=== PATIENT | male | born 1960 ===

== ENCOUNTER → 2020-07-16 12:53 | Outpatient (BNVA) | payer OTHER, SELFPAY | PROVIDERS: PCP Internal Medicine; Visit Provider Internal Medicine Endocrinology, Diabetes & Metabolism | DX: E11.65 Type 2 diabetes mellitus with hyperglycemia (principal); E11.3599 Type 2 diabetes mellitus with proliferative diabetic retinopathy without macular edema, unspecified eye; E11.21 Type 2 diabetes mellitus with diabetic nephropathy; E11.22 Type 2 diabetes mellitus with diabetic chronic kidney disease; E78.00 Pure hypercholesterolemia, unspecified; I12.9 Hypertensive chronic kidney disease with stage 1 through stage 4 chronic kidney disease, or unspecified chronic kidney disease; N18.30 Chronic kidney disease, stage 3 unspecified; E66.3 Overweight; Z68.28 Body mass index [BMI] 28.0-28.9, adult; Z79.4 Long term (current) use of insulin; Z71.3 Dietary counseling and surveillance | CPT/HCPCS: 82947; 99212 ==

== ENCOUNTER 2020-11-04 09:17 | Outpatient (REF) | payer OTHER, SELFPAY ==
[2020-11-04 10:24] LABS: Hematocrit 44.1 % (42-52); Hemoglobin 14.7 g/dl (14.0-18.0); Mean Corpuscular HGB Conc 33.3 g/dl (31.0-36.0); Mean Corpuscular Hemoglobin 30.3 pg (27.0-33.0); Mean Corpuscular Volume 90.9 fL (80-98); Mean Platelet Volume 11.5 fL (9.4-12.4); Platelet Count 225 X10*3/uL (160-400); Red Blood Count 4.85 X10*6/uL (4.60-5.80); Red Cell Distribution Width 13.3 % (11.0-16.0)
[2020-11-04 10:54] LABS: Alanine Aminotransferase 11 U/L (0-40); Albumin Level 4.1 g/dL (3.5-5.0); Alkaline Phosphatase 71 U/L (39-117); Anion Gap 15 (12-20); Aspartate Amino Transferase 12 U/L (5-37); Bilirubin Total 0.8 mg/dL (0.0-1.0); Blood Urea Nitrogen 20 mg/dL (9-16); Calcium 9.6 mg/dL (8.4-10.2); Carbon Dioxide 25 mmol/L (22-29); Chloride 105 mmol/L (96-108); Cholesterol 117 mg/dL; Estimated Glomerular Filt Rate 43; Glucose Fasting 104 mg/dL (60-99); HDL Cholesterol 35 mg/dL; LDL Cholesterol Calculated 72 mg/dl; Potassium 4.5 mmol/L (3.3-5.1); Sodium 140 mmol/L (135-145); Total Protein 6.9 g/dL (6.5-8.0); Triglycerides 54 mg/dL
[2020-11-04 10:54] LABS: Creatinine Urine 149.79 mg/dL; Microalbum/Creatinine Ratio Ur 235.6 ug/mg cr
[2020-11-04 11:28] LABS: TSH reflex Free T4 0.08 uIU/mL (0.32-4.0)
[2020-11-04 11:58] LABS: Prostate Specific Antigen Scr 0.85 ng/mL (<0.05-4.0)
[2020-11-04 12:05] LABS: Free T4 (Free Thyroxine) 1.05 ng/dL (0.71-1.85)
[2020-11-05 23:21] LABS: LDL Cholesterol Direct 72 mg/dL (<100)
== END 2020-11-04 09:18 | disposition home or self-care (01) ==
LOC: HO.LAB 09:17
PROVIDERS: Physician Assistant; PCP Internal Medicine; Visit Provider Internal Medicine Endocrinology, Diabetes & Metabolism
DX: Z12.5 Encounter for screening for malignant neoplasm of prostate (principal); I10 Essential (primary) hypertension; E11.65 Type 2 diabetes mellitus with hyperglycemia; Z79.4 Long term (current) use of insulin
CPT/HCPCS: 36415; 80053; 80061; 82043; 83721; 84153; 84439; 84443; 85027

== ENCOUNTER 2021-01-25 11:38 | Outpatient (REF) | payer OTHER, SELFPAY ==
[2021-01-25 12:45] LABS: Cholesterol 146 mg/dL; HDL Cholesterol 47 mg/dL; LDL Cholesterol Calculated 87 mg/dl; Triglycerides 61 mg/dL
[2021-01-25 13:06] LABS: Free T4 (Free Thyroxine) 0.89 ng/dL (0.71-1.85); Thyroid Stimulating Hormone 0.97 uIU/mL (0.32-4.0)
== END 2021-01-25 11:39 | disposition home or self-care (01) ==
LOC: HO.LAB 11:38
PROVIDERS: Absent Provider Internal Medicine; PCP Internal Medicine; Visit Provider Internal Medicine Endocrinology, Diabetes & Metabolism
DX: E11.65 Type 2 diabetes mellitus with hyperglycemia (principal); Z79.4 Long term (current) use of insulin; Z72.0 Tobacco use
CPT/HCPCS: 36415; 80061; 84439; 84443

== ENCOUNTER → 2021-02-26 13:06 | Outpatient (BNVA) | payer OTHER, SELFPAY | PROVIDERS: PCP Internal Medicine; Visit Provider Nurse Practitioner Gerontology | DX: E11.65 Type 2 diabetes mellitus with hyperglycemia (principal); E11.3599 Type 2 diabetes mellitus with proliferative diabetic retinopathy without macular edema, unspecified eye; E11.21 Type 2 diabetes mellitus with diabetic nephropathy; E11.22 Type 2 diabetes mellitus with diabetic chronic kidney disease; I12.9 Hypertensive chronic kidney disease with stage 1 through stage 4 chronic kidney disease, or unspecified chronic kidney disease; N18.30 Chronic kidney disease, stage 3 unspecified; E66.3 Overweight; E78.00 Pure hypercholesterolemia, unspecified; Z79.4 Long term (current) use of insulin; Z68.29 Body mass index [BMI] 29.0-29.9, adult | CPT/HCPCS: 82947; 83036; 99212 ==

== ENCOUNTER 2021-06-03 11:11 | Outpatient (REF) | payer OTHER, SELFPAY ==
[2021-06-03 11:22] LABS: MANUAL DIFF FLAG NO
[2021-06-03 11:41] LABS: Basophils Percent Auto 0.5 % (0-2); Eosinophils Absolute Auto 0.3 X10*3/uL (0.0-0.4); Eosinophils Percent Auto 5.2 % (0-4); Hematocrit 45.6 % (42.0-52.0); Hemoglobin 14.9 g/dl (14.0-18.0); Imm Gran Abs Auto 0.01 X10*3/uL (0.00-0.03); Imm Gran Pct Auto 0.2 % (0.0-0.4); Lymphocytes Absolute Auto 2.6 X10*3/uL (1.2-4.9); Lymphocytes Percent Auto 43.7 % (20-40); Mean Corpuscular HGB Conc 32.7 g/dl (31.0-36.0); Mean Corpuscular Hemoglobin 29.8 pg (27.0-33.0); Mean Corpuscular Volume 91.2 fL (80.0-98.0); Mean Platelet Volume 11.3 fL (9.4-12.4); Monocytes Absolute Auto 0.5 X10*3/uL (0.1-1.2); Monocytes Percent Auto 8.4 % (2-11); Neutrophils Absolute Auto 2.5 x10*3/uL (2.0-8.3); Platelet Count 195 X10*3/uL (160-400); Red Cell Distribution Width 13.9 % (11.0-16.0); White Blood Count 5.9 X10*3/uL (4.8-10.8)
[2021-06-03 12:27] LABS: Alanine Aminotransferase 13 U/L (0-40); Albumin Level 4.2 g/dL (3.5-5.0); Alkaline Phosphatase 69 U/L (39-117); Anion Gap 11 (12-20); Aspartate Amino Transferase 14 U/L (5-37); Bilirubin Total 1.1 mg/dL (0.0-1.0); Blood Urea Nitrogen 23 mg/dL (9-16); Calcium 9.6 mg/dL (8.4-10.2); Carbon Dioxide 28 mmol/L (22-29); Chloride 105 mmol/L (96-108); Cholesterol 145 mg/dL; Estimated Glomerular Filt Rate 40; Glucose Fasting 87 mg/dL (60-99); HDL Cholesterol 47 mg/dL; LDL Cholesterol Calculated 90 mg/dl; Potassium 4.7 mmol/L (3.3-5.1); Sodium 139 mmol/L (135-145); Total Protein 7.1 g/dL (6.5-8.0); Triglycerides 42 mg/dL
[2021-06-03 12:31] LABS: Estimated Average Glucose 180 mg/dL; Hemoglobin A1c % 7.9 %
[2021-06-03 12:34] LABS: Prostate Specific Antigen Scr 0.54 ng/mL (<0.05-4.0)
== END 2021-06-03 11:12 | disposition home or self-care (01) ==
LOC: HO.LAB 11:11
PROVIDERS: PCP Internal Medicine; Visit Provider Nurse Practitioner Family
DX: E78.00 Pure hypercholesterolemia, unspecified (principal); I10 Essential (primary) hypertension; E11.65 Type 2 diabetes mellitus with hyperglycemia; Z12.5 Encounter for screening for malignant neoplasm of prostate
CPT/HCPCS: 36415; 80053; 80061; 83036; 84153; 85025

== ENCOUNTER 2021-10-04 12:53 | Outpatient (REF) | payer OTHER, SELFPAY ==
--- NOTE | ~2021-10-04 | XR_ITS ---
EXAMINATION: XR CHEST CLINICAL INFORMATION: Tobacco use. COMPARISON: September 26, 2014. TECHNIQUE: 2 views of the chest were obtained. FINDINGS: No significant abnormality is noted involving the heart, lungs, mediastinum, bony thorax or soft tissues. XR/XR chest 2V IMPRESSION: Unremarkable examination.
[2021-10-04 13:30] LABS: MANUAL DIFF FLAG NO
[2021-10-04 13:34] LABS: Basophils Percent Auto 0.5 % (0-2); Eosinophils Absolute Auto 0.2 X10*3/uL (0.0-0.4); Eosinophils Percent Auto 3.2 % (0-4); Hematocrit 47.6 % (42.0-52.0); Hemoglobin 15.6 g/dl (14.0-18.0); Imm Gran Abs Auto 0.02 X10*3/uL (0.00-0.03); Imm Gran Pct Auto 0.3 % (0.0-0.4); Lymphocytes Absolute Auto 2.6 X10*3/uL (1.2-4.9); Lymphocytes Percent Auto 38.5 % (20-40); Mean Corpuscular HGB Conc 32.8 g/dl (31.0-36.0); Mean Corpuscular Hemoglobin 29.9 pg (27.0-33.0); Mean Corpuscular Volume 91.4 fL (80.0-98.0); Mean Platelet Volume 11.4 fL (9.4-12.4); Monocytes Absolute Auto 0.6 X10*3/uL (0.1-1.2); Monocytes Percent Auto 8.6 % (2-11); Neutrophils Absolute Auto 3.3 x10*3/uL (2.0-8.3); Neutrophils Percent Auto 48.9 % (45-73); Platelet Count 212 X10*3/uL (160-400); Red Blood Count 5.21 X10*6/uL (4.60-5.80); Red Cell Distribution Width 13.4 % (11.0-16.0); White Blood Count 6.6 X10*3/uL (4.8-10.8)
[2021-10-04 14:01] LABS: Albumin Level 4.3 g/dL (3.5-5.0); Anion Gap 15 (12-20); Blood Urea Nitrogen 25 mg/dL (9-16); Calcium 9.6 mg/dL (8.4-10.2); Carbon Dioxide 24 mmol/L (22-29); Chloride 104 mmol/L (96-108); Estimated Glomerular Filt Rate 37; Magnesium 2.2 mg/dL (1.6-2.6); Phosphorus 3.7 mg/dL (2.7-4.5); Potassium 4.3 mmol/L (3.3-5.1); Sodium 139 mmol/L (135-145)
[2021-10-04 14:31] LABS: Vitamin D 25-OH Total 25.9 ng/mL (>30)
[2021-10-05 04:39] LABS: HBS Num1 6.32 mIU/mL (0-7.99); HBc Num1 4.25 S/CO (0.00-0.79); HBsAGNum1 2.16 S/CO (0.00-0.99); ~HepC Num1 10.86 S/CO (0.00-0.79); ~Hepatitis B Surface Antibody NONREACTIVE (Nonreactive); ~Hepatitis C Antibody Reactive (Nonreactive)
[2021-10-05 05:28] LABS: HBc Num2 4.52 S/CO; HBc Num3 4.42 S/CO; HBsAGNum2 Nonreactive; HBsAGNum3 Nonreactive; Hepatitis B Core Antibody Reactive (Nonreactive); Hepatitis B Surface Antigen NEGATIVE (Negative)
[2021-10-06 11:02] LABS: Calcium (PTHI) 9.9 mg/dL (8.6-10.3); PTHI 111 pg/mL (16-77)
[2021-10-06 11:23] LABS: Complement C3 169 mg/dL (82-185)
[2021-10-06 18:27] LABS: Hepatitis B Core Antibody IgM NON-REACTIVE (NON-REACTIVE)
[2021-10-07 11:21] LABS: Prot Elec - Albumin 3.9 g/dL (3.8-4.8); Prot Elec - Alpha1 0.4 g/dL (0.2-0.3); Prot Elec - Alpha2 1.2 g/dL (0.5-0.9); Prot Elec - Beta 1 0.4 g/dL (0.4-0.6); Prot Elec - Beta 2 0.5 g/dL (0.2-0.5); Prot Elec - Gamma 0.8 g/dL (0.8-1.7); Prot Elec - Total Protein 7.2 g/dL (6.1-8.1)
[2021-10-08 17:47] LABS: Anti Nuclear Antibody Screen POSITIVE (NEGATIVE); Anti Nuclear Antibody Titer 1:40 titer
[2021-10-11 15:51] LABS: Kappa, Serum 198 mg/dL (176-443); Kappa/Lambda Ratio, Serum 1.82 (1.29-2.55); Lambda, Serum 109 mg/dL (91-240)
== END 2021-10-04 12:54 | disposition home or self-care (01) ==
LOC: HO.LAB 12:53
PROVIDERS: Absent Provider Internal Medicine Nephrology; PCP Internal Medicine; Visit Provider Nurse Practitioner Family
DX: I12.9 Hypertensive chronic kidney disease with stage 1 through stage 4 chronic kidney disease, or unspecified chronic kidney disease (principal); N18.32 Chronic kidney disease, stage 3b; E11.22 Type 2 diabetes mellitus with diabetic chronic kidney disease; Z72.0 Tobacco use
CPT/HCPCS: 36415; 71046; 80051; 82040; 82306; 82310; 82565; 83735; 83883; 83970; 84100; 84165; 84520; 85025; 86038; 86039; 86160; 86704; 86705; 86706; 86803; 87340

== ENCOUNTER 2021-11-26 13:21 | Outpatient (REF) | payer OTHER, SELFPAY ==
--- NOTE | ~2021-11-26 | US_ITS ---
EXAMINATION: US RETROPERITONEAL LIMITED (RENAL ONLY) CLINICAL INFORMATION: Hypertensive renal disease. Type 2 diabetes. COMPARISON: Ultrasound abdomen complete 06/15/2015 and 01/03/2014. TECHNIQUE: Real-time imaging of the kidneys. FINDINGS: RIGHT KIDNEY: 11.3 x 5.8 x 5.4 cm (SAG x AP x TRV). The kidney is normal in size, contour, and echogenicity. Renal cortical thickness is normal. No calculi or focal parenchymal lesions. No hydronephrosis. LEFT KIDNEY: 11.4 x 6.4 x 4.8 cm (SAG x AP x TRV). The kidney is normal in size, contour, and echogenicity. Renal cortical thickness is normal. No calculi or focal parenchymal lesions. No hydronephrosis. US/US renal BI IMPRESSION: Normal renal ultrasound.
[2021-11-26 14:02] LABS: Estimated Average Glucose 174 mg/dL; Hemoglobin A1c % 7.7 %
[2021-11-26 14:34] LABS: Alanine Aminotransferase 63 U/L (0-40); Albumin Level 4.2 g/dL (3.5-5.0); Alkaline Phosphatase 68 U/L (39-117); Anion Gap 16 (12-20); Aspartate Amino Transferase 53 U/L (5-37); Bilirubin Total 0.9 mg/dL (0.0-1.0); Blood Urea Nitrogen 24 mg/dL (9-16); Calcium 9.3 mg/dL (8.4-10.2); Carbon Dioxide 25 mmol/L (22-29); Chloride 105 mmol/L (96-108); Cholesterol 136 mg/dL; Estimated Glomerular Filt Rate 36; Glucose Random 154 mg/dL (60-115); HDL Cholesterol 44 mg/dL; LDL Cholesterol Calculated 80 mg/dl; Potassium 4.4 mmol/L (3.3-5.1); Sodium 142 mmol/L (135-145); Triglycerides 63 mg/dL
== END 2021-11-26 13:22 | disposition home or self-care (01) ==
LOC: HO.US 13:21
PROVIDERS: Absent Provider Nurse Practitioner Family; PCP Internal Medicine; Visit Provider Internal Medicine Nephrology
DX: E78.00 Pure hypercholesterolemia, unspecified (principal); E11.65 Type 2 diabetes mellitus with hyperglycemia; E11.21 Type 2 diabetes mellitus with diabetic nephropathy; E11.22 Type 2 diabetes mellitus with diabetic chronic kidney disease; I12.9 Hypertensive chronic kidney disease with stage 1 through stage 4 chronic kidney disease, or unspecified chronic kidney disease; N18.32 Chronic kidney disease, stage 3b
CPT/HCPCS: 36415; 76775; 80053; 80061; 83036

== ENCOUNTER 2022-01-07 08:48 | Outpatient (REF) | payer OTHER, SELFPAY ==
--- NOTE | ~2022-01-07 | US_ITS ---
EXAMINATION: US ABDOMEN LIMITED CLINICAL INFORMATION: Right upper quadrant pain. COMPARISON: Previous abdominal ultrasound 2015 and renal ultrasound November 2021 TECHNIQUE: Real-time imaging of the right upper quadrant abdominal viscera. FINDINGS: PANCREAS: Not well visualized due to bowel gas LIVER: Normal. The liver is normal in size. The liver contour is normal. Parenchymal echogenicity is normal. No focal hepatic lesion. There is no intrahepatic biliary duct dilatation seen. GALLBLADDER: Normal. The gallbladder is physiologically distended without evidence of stones, sludge, polyps, wall thickening or pericholecystic fluid. COMMON BILE DUCT: Normal in caliber measuring 0.3 cm in diameter. RIGHT KIDNEY: Normal. No hydronephrosis. No renal calculi or focal parenchymal lesions. The kidney measures 11 cm in maximum dimension. FREE FLUID: None. US/US abdomen limited IMPRESSION: Nonvisualization of the pancreas otherwise unremarkable exam.
[2022-01-07 12:48] LABS: HBS Num1 7.29 mIU/mL (0-7.99); HBc Num1 4.95 S/CO (0.00-0.79); HBsAGNum1 0.32 S/CO (0.00-0.99); Hepatitis A Antibody IgM 0.11 Index (0-0.79); Hepatitis B Surface Antigen Negative (Negative); ~HepC Num1 10.24 S/CO (0.00-0.79); ~Hepatitis A Antibody IgM Nonreactive (Nonreactive); ~Hepatitis B Surface Antibody NONREACTIVE (Nonreactive); ~Hepatitis C Antibody Reactive (Nonreactive)
[2022-01-10 06:04] LABS: HBc Num2 4.51 S/CO; HBc Num3 4.59 S/CO; Hepatitis B Core Antibody Reactive (Nonreactive)
[2022-01-12 02:29] LABS: Hepatitis B Core Antibody IgM NON-REACTIVE (NON-REACTIVE)
== END 2022-01-07 08:49 | disposition home or self-care (01) ==
LOC: HO.HMGCX 08:48
PROVIDERS: PCP Internal Medicine; Visit Provider Nurse Practitioner Family
DX: R79.89 Other specified abnormal findings of blood chemistry (principal)
CPT/HCPCS: 36415; 76705; 86704; 86705; 86706; 86709; 86803; 87340

== ENCOUNTER 2022-02-25 12:26 | Outpatient (REF) | payer OTHER, SELFPAY ==
[2022-02-28 08:24] LABS: HCV RNA PCR Qn <1.18 NOT DETECTED Log IU/mL (NOT DETECTED); HCV RNA PCR Qn <15 NOT DETECTED IU/mL (NOT DETECTED)
== END 2022-02-25 12:27 | disposition home or self-care (01) ==
LOC: HO.LAB 12:26
PROVIDERS: PCP Internal Medicine; Visit Provider Nurse Practitioner Family
DX: B19.20 Unspecified viral hepatitis C without hepatic coma (principal); E11.65 Type 2 diabetes mellitus with hyperglycemia; E11.21 Type 2 diabetes mellitus with diabetic nephropathy; E11.3599 Type 2 diabetes mellitus with proliferative diabetic retinopathy without macular edema, unspecified eye; N18.9 Chronic kidney disease, unspecified; Z79.4 Long term (current) use of insulin
CPT/HCPCS: 36415; 87522; 87902

== ENCOUNTER → 2022-03-11 15:12 | Outpatient (BNVA) | payer OTHER, SELFPAY | PROVIDERS: PCP Internal Medicine; Visit Provider Internal Medicine | DX: B19.20 Unspecified viral hepatitis C without hepatic coma (principal) | CPT/HCPCS: 99202 ==

== ENCOUNTER 2022-06-27 12:04 | Outpatient (REF) | payer OTHER, SELFPAY ==
[2022-06-27 12:22] LABS: MANUAL DIFF FLAG NO
[2022-06-27 13:08] LABS: Basophils Percent Auto 0.3 % (0-2); Eosinophils Absolute Auto 0.1 X10*3/uL (0.0-0.4); Eosinophils Percent Auto 2.1 % (0-4); Hematocrit 45.3 % (42.0-52.0); Hemoglobin 15.2 g/dl (14.0-18.0); Imm Gran Abs Auto 0.01 X10*3/uL (0.00-0.03); Imm Gran Pct Auto 0.2 % (0.0-0.4); Lymphocytes Absolute Auto 2.2 X10*3/uL (1.2-4.9); Lymphocytes Percent Auto 38.2 % (20-40); Mean Corpuscular HGB Conc 33.6 g/dl (31.0-36.0); Mean Corpuscular Hemoglobin 31.3 pg (27.0-33.0); Mean Corpuscular Volume 93.2 fL (80.0-98.0); Mean Platelet Volume 11.4 fL (9.4-12.4); Monocytes Absolute Auto 0.6 X10*3/uL (0.1-1.2); Monocytes Percent Auto 9.8 % (2-11); Neutrophils Absolute Auto 2.9 x10*3/uL (2.0-8.3); Neutrophils Percent Auto 49.4 % (45-73); Platelet Count 199 X10*3/uL (160-400); Red Blood Count 4.86 X10*6/uL (4.60-5.80); Red Cell Distribution Width 13.6 % (11.0-16.0); White Blood Count 5.8 X10*3/uL (4.8-10.8)
[2022-06-27 13:55] LABS: Anion Gap 13 (12-20); Blood Urea Nitrogen 27 mg/dL (9-16); Calcium 9.4 mg/dL (8.4-10.2); Carbon Dioxide 23 mmol/L (22-29); Chloride 107 mmol/L (96-108); Estimated Glomerular Filt Rate 39; Magnesium 2.1 mg/dL (1.6-2.6); Phosphorus 3.4 mg/dL (2.7-4.5); Potassium 4.4 mmol/L (3.3-5.1); Sodium 139 mmol/L (135-145)
[2022-06-27 14:09] LABS: Vitamin D 25-OH Total 16.9 ng/mL (>30)
[2022-06-28 18:54] LABS: Calcium (PTHI) 9.4 mg/dL (8.6-10.3); PTHI 137 pg/mL (16-77)
== END 2022-06-27 12:05 | disposition home or self-care (01) ==
LOC: HO.LAB 12:04
PROVIDERS: Visit Provider Internal Medicine Nephrology
DX: I12.9 Hypertensive chronic kidney disease with stage 1 through stage 4 chronic kidney disease, or unspecified chronic kidney disease (principal); E11.22 Type 2 diabetes mellitus with diabetic chronic kidney disease; N18.32 Chronic kidney disease, stage 3b; N25.0 Renal osteodystrophy
CPT/HCPCS: 36415; 80051; 82040; 82306; 82310; 82565; 83735; 83970; 84100; 84520; 85025

== ENCOUNTER → 2022-09-06 14:45 | Outpatient (BNV) | payer OTHER, SELFPAY | PROVIDERS: Visit Provider Nurse Practitioner Family | DX: E11.65 Type 2 diabetes mellitus with hyperglycemia (principal) | CPT/HCPCS: 83036 ==

== ENCOUNTER 2022-11-01 12:17 | Outpatient (REF) | payer OTHER, SELFPAY ==
[2022-11-01 13:21] LABS: Hematocrit 49.2 % (42.0-52.0); Hemoglobin 15.8 g/dl (14.0-18.0); Mean Corpuscular HGB Conc 32.1 g/dl (31.0-36.0); Mean Corpuscular Hemoglobin 30.9 pg (27.0-33.0); Mean Corpuscular Volume 96.1 fL (80.0-98.0); Mean Platelet Volume 11.4 fL (9.4-12.4); Platelet Count 188 X10*3/uL (160-400); Red Blood Count 5.12 X10*6/uL (4.60-5.80); Red Cell Distribution Width 13.6 % (11.0-16.0); White Blood Count 5.6 X10*3/uL (4.8-10.8)
[2022-11-01 14:37] LABS: Creatinine Urine 140.14 mg/dL; Microalbum/Creatinine Ratio Ur 13.5 ug/mg cr (<30)
[2022-11-01 14:51] LABS: Alanine Aminotransferase 12 U/L (0-40); Albumin Level 4.2 g/dL (3.5-5.0); Alkaline Phosphatase 73 U/L (39-117); Anion Gap 12 (12-20); Aspartate Amino Transferase 14 U/L (5-37); Bilirubin Total 0.7 mg/dL (0.0-1.0); Blood Urea Nitrogen 36 mg/dL (9-16); Calcium 9.4 mg/dL (8.4-10.2); Carbon Dioxide 23 mmol/L (22-29); Chloride 109 mmol/L (96-108); Cholesterol 150 mg/dL (<200); Estimated Glomerular Filt Rate 37; Glucose Random 90 mg/dL (60-115); HDL Cholesterol 38 mg/dL (>40); LDL Cholesterol Calculated 96 mg/dL (<100); Potassium 4.6 mmol/L (3.3-5.1); Sodium 139 mmol/L (135-145); Total Protein 7.4 g/dL (6.5-8.0); Triglycerides 80 mg/dL (<150)
[2022-11-01 14:58] LABS: TSH reflex Free T4 0.83 uIU/mL (0.32-4.0); Vitamin D 25-OH Total 23.3 ng/mL (>30)
[2022-11-03 14:49] LABS: HCV RNA PCR Qn <1.18 NOT DETECTED Log IU/mL (NOT DETECTED); HCV RNA PCR Qn <15 NOT DETECTED IU/mL (NOT DETECTED)
== END 2022-11-01 12:18 | disposition home or self-care (01) ==
LOC: HO.LAB 12:17
PROVIDERS: PCP Internal Medicine; Visit Provider Nurse Practitioner Family
DX: E11.65 Type 2 diabetes mellitus with hyperglycemia (principal); E78.00 Pure hypercholesterolemia, unspecified; I10 Essential (primary) hypertension; E55.9 Vitamin D deficiency, unspecified
CPT/HCPCS: 36415; 80053; 80061; 82043; 82306; 82570; 84443; 85027; 87522; 87902

== ENCOUNTER 2022-11-04 15:30 | Outpatient (AMB) | payer OTHER, SELFPAY ==
--- NOTE | 2022-11-04 15:30 | MHC.PC.OV ---
Intake Visit Reasons: 3M follow up ( DM ) Allergies pollen extracts [POLLEN] Allergy (Mild, Verified 11/04/22 15:39) SNEEZE PUFFY EYES Medication List - Last Reconciled 11/04/22 by DIANA Johnson acetaminophen ER 650 mg PO Q12H 30 days albuterol sulfate 90 mcg/actuation 2 puffs PO Q6H PRN albuterol sulfate 2.5 mg (3 mL) inhalation QID amlodipine 10 mg PO DAILY aspirin 81 mg PO DAILY atorvastatin 80 mg PO DAILY blood sugar diagnostic (FreeStyle Lite Strips) 3 times a day blood-glucose meter (FreeStyle Lite Meter kit) As directed 1-2x daily clonidine HCl 0.1 mg PO BEDTIME ezetimibe 10 mg PO DAILY hydrochlorothiazide 25 mg PO DAILY lancets (FreeStyle Lancets) 3 times a day Lantus Solostar U-100 Insulin (insulin glargine) 20 units (0.2 mL) subcut QPM 30 days NS lisinopril 40 mg PO DAILY metformin 500 mg PO DAILY 90 days metoprolol tartrate 100 mg PO DAILY mometasone (Asmanex Twisthaler) 1 inh inhalation QPM nebulizers (Aeroneb Go Nebulizer) As directed nicotine (polacrilex) 2 mg buccal Q2H omeprazole 20 mg PO DAILY pen needle, diabetic Daily semaglutide 1 mg (0.75 mL) subcut QWEEK sildenafil 50 mg PO DAILY PRN Tobacco use date assessed: 11/04/22 Dental Screening Dental Screen Date: 11/04/22 Did you have a dental visit in the last 12 months?: Yes Did you have a dental problem in the last 6 months where you did not have access to dental care?: No Was dental information given to patient?: Patient has dentist HPI 3M follow up ( DM ) HPI Details This is a telehealth visit and patient was verified by name and date of . Patient is a 62-year-old male who presents today to follow-up on diabetes. Patient of Dr. Love. Medical history significant for asthma, hypertension, hypercholesterolemia, tobacco abuse, CKD-followed by Dr. 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 Patient reports that he is compliant with medications and denies side effects. He reports blood sugars at home between 120 and 150. Patient denies shortness of breath or chest pain. Recent blood work results reviewed with the patient. [facility] Medical History Diabetic nephropathy associated with type 2 diabetes mellitus Very severe proliferative diabetic retinopathy assisted (current) use of insulin Overweight (BMI 25.0-29.9) Type 2 diabetes mellitus with hyperglycemia Obesity (BMI 30-39.9) Carpal tunnel syndrome, left Chronic kidney disease Erectile dysfunction Tobacco abuse Hypercholesterolemia Cataract Glaucoma Hepatitis C Hypertension Surgical History History of surgery on arm Hx of colonoscopy Family History Father Diabetes Mother Diabetes Hypertension Brother In good health Sister No problems noted. Other Mental health disorder Social History Housing: Apartment Alcohol intake: never Patient Tobacco Use Status: Current everyday Tobacco user Tobacco use type: Cigarette Cigarette Packs Per Day: 0.5 Cigarettes Per Day: 8 e-Cigarette/Vaping Use: Never Used Second Hand Smoke Exposure: Yes service: No Current occupational status: disabled Cognitive needs: Yes (Blind stick, walker) Hearing needs: No Vision needs: No Questionnaire Thrive Questionnaire Date Thrive assessed: 05/27/22 AUDIT C Alcohol Use Questionnaire (AUDIT-C) 1. How often do you have a drink containing alcohol?: Never 2. How many drinks containing alcohol do you have on a typical day when you are drinking?: 1 or 2 3. How often do you have six or more drinks on one occasion?: Never Total Score: 0 Score Reviewed/Action Taken: No BAO-7 AMB Questionnaire BAO-7 Date BAO - 7 assessed: 05/27/22 Source: Developed by Drs. Rashaad Munoz, Alisson Young, Isaias Sethi and colleagues, with an educational joanne from [employer]. Review of Systems Const Denies body aches, Denies chills, Denies fever(s) and Denies headache(s) Eyes Details: Blind per patient ENT Denies dizziness, Denies otalgia, Denies headache(s), Denies nasal discharge, Denies sinus pain and Denies sore throat Card Denies chest pain, Denies edema, Denies lightheadedness and Denies dyspnea Resp Denies cough and Denies dyspnea GI Denies constipation, Denies diarrhea, Denies nausea and Denies vomiting Denies dysuria Musc Denies myalgias Skin/Breast Denies lesions and Denies rash Neuro Denies dizziness and Denies headache(s) Physical exam (Primary Care) Tobacco/Smoking Status: Tobacco use Status Tobacco use date assessed 11/04/22 11/04/22 15:32 Patient Tobacco Use Status Current everyday Tobacco 11/04/22 15:32 Tobacco use type Cigarette 11/04/22 15:32 e-Cigarette/Vaping Use Never Used 11/04/22 15:32 Thrive Assessment: Date of Thrive Assessment Date Thrive assessed 05/27/22 11/04/22 15:32 Const Other: This is a telehealth visit unable to obtain physical exam Speech is normal Orientation/consciousness: patient oriented x3 Neuro General: patient oriented x3 Telehealth Telehealth Location of provider rendering services: practice address Location of patient: address on file Patient Identification confirmed using: Name, : Yes Telehealth method: voice only (iphone [phone]) Patient verbally consented to treatment: Yes Patient verbally consented to billing insurance company: Yes Patient informed of any privacy concerns related to visit: Yes Minutes spent on Phone/Video with Pt.: 8 Assessment and Plan Assessment & Plan (1) Blind in both eyes: Comment: per pt Code(s): H54.3 - Unqualified visual loss, both eyes Plan: Will follow-up on ophthalmology referral for diabetic eye exam (2) Type 2 diabetes mellitus with hyperglycemia: Code(s): E11.65 - Type 2 diabetes mellitus with hyperglycemia Qualifiers: Diabetes mellitus correction insulin use: with correction use Qualified Code(s): E11.65 - Type 2 diabetes mellitus with hyperglycemia; Z79.4 - assisted (current) use of insulin Plan: A1c 8.8 05/2022, goal less than 7 Continue Lantus to 20 units at bedtime Continue metformin and semaglutide Low-carbohydrate diet (3) Hypercholesterolemia: Code(s): E78.00 - Pure hypercholesterolemia, unspecified Plan: LDL 96 10/2022 Continue current treatment Low-cholesterol diet (4) Hypertension: Code(s): I10 - Essential (primary) hypertension Qualifiers: Hypertension type: essential hypertension Qualified Code(s): I10 - Essential (primary) hypertension Plan: Continue current treatment Low-sodium diet (5) Asthma: Code(s): J45.909 - Unspecified asthma, uncomplicated Qualifiers: Asthma severity: mild Asthma persistence: intermittent Asthma complication type: uncomplicated Qualified Code(s): J45.20 - Mild intermittent asthma, uncomplicated Plan: Stable Continue current treatment (6) Chronic kidney disease: Comment: Stage III Code(s): N18.9 - Chronic kidney disease, unspecified Qualifiers: Chronic kidney disease stage: stage 3 (moderate) Chronic kidney disease stage 3 subtype: unspecified whether 3a or 3b Qualified Code(s): N18.30 - Chronic kidney disease, stage 3 unspecified Plan: Continue to follow-up with nephrology Dr. Mcclure Avoid nephrotoxic medications Continue to monitor (7) Low vitamin D level: Code(s): R79.89 - Other specified abnormal findings of blood chemistry Plan: Vitamin-D 23.3 10/2022 Start vitamin-D supplement Orders: Orders Vitamin D 25-OH Total 3 Months R79.89 - Other specified abnormal findings of blood chemistry Medications: New cholecalciferol (vitamin D3) 25 mcg PO DAILY 90 tabs 0RF R79.89 - Other specified abnormal findings of blood chemistry Refilled acetaminophen ER 650 mg PO Q12H 30 days 60 tabs 2RF M77.12 - Lateral epicondylitis, left elbow Coding Level of Care Code Tele Est Pt Level 4 (44011) Diagnoses Blind in both eyes H54.3 Type 2 diabetes mellitus with hyperglycemia, with long-term current use of insulin E11.65; Z79.4 Diabetes mellitus joint terminal attack controller insulin use: with joint terminal attack controller use Hypercholesterolemia E78.00 Essential hypertension I10 Hypertension type: essential hypertension Mild intermittent asthma without complication J45.20 Asthma severity: mild Asthma persistence: intermittent Asthma complication type: uncomplicated Stage 3 chronic kidney disease, unspecified whether stage 3a or 3b CKD N18.30 Chronic kidney disease stage: stage 3 (moderate) Chronic kidney disease stage 3 subtype: unspecified whether 3a or 3b Low vitamin D level R79.89
== END 2022-11-04 16:17 | disposition home or self-care (01) ==
LOC: HO.HMGH 15:30
PROVIDERS: PCP Internal Medicine; Visit Provider Nurse Practitioner Family
DX: E11.65 Type 2 diabetes mellitus with hyperglycemia (principal); Z79.4 Long term (current) use of insulin; N18.30 Chronic kidney disease, stage 3 unspecified; H54.3 Unqualified visual loss, both eyes; E78.00 Pure hypercholesterolemia, unspecified; I10 Essential (primary) hypertension; J45.20 Mild intermittent asthma, uncomplicated; R79.89 Other specified abnormal findings of blood chemistry
CPT/HCPCS: 99441

== ENCOUNTER 2023-01-05 21:49 | Emergency (ER) | payer OTHER, SELFPAY ==
--- NOTE | ~2023-01-05 | XR_ITS ---
EXAMINATION: XR CHEST CLINICAL INFORMATION: Shortness of breath. COMPARISON: Chest radiograph 10/04/2021. TECHNIQUE: AP view of the chest was obtained. FINDINGS: Normal appearance of the cardiomediastinal silhouette. Increased mild parahilar and bibasilar bronchial wall thickening. No focal consolidation, pleural effusion or pneumothorax. No pulmonary edema. No acute osseous findings. XR/XR chest 1V IMPRESSION: Bronchial wall thickening can be seen with a small airways process such as bronchitis, asthma or atypical/viral infection.
[2023-01-05 22:01] VITALS: BP 149/79; BP 180/108; PULSE 66; PULSE 70; RESP 22; TEMP 36.8; O2SAT 91; O2SAT 95; BMI 28.4
[2023-01-05 22:08] VITALS: O2SAT 93
--- NOTE | 2023-01-05 22:22 | ECG_ITS ---
Test Reason : DYSPNEA Blood Pressure : / mmHG Vent. Rate : 065 BPM Atrial Rate : 065 BPM P-R Int : 230 ms QRS Dur : 082 ms QT Int : 426 ms P-R-T Axes : 062 -12 049 degrees QTc Int : 443 ms Sinus rhythm with 1st degree A-V block Low voltage QRS Borderline ECG When compared with ECG of 26-SEP-2014 21:00, PA interval has increased Referred By: Generic ED Physician Electronically Signed By:VIVEK BLANTON MD
--- NOTE | 2023-01-05 22:31 | PC.NURSE ---
respiratory at bedside switching pt to 6L oxymask. pt sating 92%.
[2023-01-05 22:33] VITALS: O2SAT 92
--- NOTE | 2023-01-05 22:37 | PC.NURSE ---
pt biba from reporting shortness of breath for one day. pt reports using inhaler but reports minimal relief. pt reports being seen at [facility] 2 days ago and being treated for pneumonia. pt has been on antibiotics. ems placed pt on 8L for duoneb treatment and reports pt sats went from 86 to 92. pt currently denies pain. pt normal sinus on tele 70-72.
[2023-01-05 22:46] VITALS: RESP 23; O2SAT 93
--- NOTE | 2023-01-05 22:47 | PC.NURSE ---
pt sating at 93% on oxymax.
[2023-01-05 22:56] VITALS: O2SAT 95
[2023-01-05 23:05] LABS: MANUAL DIFF FLAG NO
[2023-01-05 23:06] LABS: Basophils Percent Auto 0.3 % (0-2); Eosinophils Absolute Auto 0.2 X10*3/uL (0.0-0.4); Eosinophils Percent Auto 3.3 % (0-4); Hemoglobin 15.8 g/dl (14.0-18.0); Imm Gran Abs Auto 0.02 X10*3/uL (0.00-0.03); Imm Gran Pct Auto 0.3 % (0.0-0.4); Lymphocytes Absolute Auto 1.1 X10*3/uL (1.2-4.9); Lymphocytes Percent Auto 15.3 % (20-40); Mean Corpuscular HGB Conc 32.9 g/dl (31.0-36.0); Mean Corpuscular Hemoglobin 30.4 pg (27.0-33.0); Mean Corpuscular Volume 92.5 fL (80.0-98.0); Mean Platelet Volume 11.1 fL (9.4-12.4); Monocytes Absolute Auto 0.6 X10*3/uL (0.1-1.2); Monocytes Percent Auto 8.1 % (2-11); Neutrophils Absolute Auto 5.4 x10*3/uL (2.0-8.3); Neutrophils Percent Auto 72.7 % (45-73); Platelet Count 197 X10*3/uL (160-400); Red Blood Count 5.19 X10*6/uL (4.60-5.80); Red Cell Distribution Width 13.3 % (11.0-16.0); White Blood Count 7.4 X10*3/uL (4.8-10.8)
[2023-01-05 23:19] LABS: Anion Gap 14 (12-20); Blood Urea Nitrogen 31 mg/dL (9-16); Calcium 9.4 mg/dL (8.4-10.2); Carbon Dioxide 22 mmol/L (22-29); Chloride 107 mmol/L (96-108); Creatinine Clr Calc Pharmacy 52.3; Estimated Glomerular Filt Rate 36; Glucose Random 185 mg/dL (60-115); Potassium 4.5 mmol/L (3.3-5.1); Sodium 138 mmol/L (135-145)
[2023-01-05 23:27] LABS: Troponin-I High Sensitivity 4.2 ng/L (<3.5-35.0)
[2023-01-05] MEDS: Albuterol Sulfate 2.5 MG, Albuterol Sulfate (0.083%) 2.5 MG 5 MG INHALE (23:51)
[2023-01-05 23:53] VITALS: PULSE 63; RESP 18; O2SAT 95
[2023-01-06 00:20] VITALS: BP 146/86; PULSE 64; RESP 18; O2SAT 96
--- NOTE | 2023-01-06 00:57 | ED.SOB ---
HPI - SOB/Dyspnea General Chief Complaint: Dyspnea Stated Complaint: DIAGNOSED PNEUMONIA,DIFF BREATHING,CHEST TIGHTNESS Time Seen by Provider: 01/05/23 23:15 Source: patient Mode of arrival: EMS History of Present Illness HPI Narrative: 62-year-old with history of asthma and recent diagnosis of pneumonia and was discharged from [facility] with antibiotics, steroids and albuterol inhalers but states that they have been working very well. Patient is a current everyday smoker and also has underlying diabetes. Related Data Previous Rx's Medication Instructions Recorded blood-glucose meter (FreeStyle #1 ea 06/05/20 Lite Meter kit) lancets 28 gauge (FreeStyle #100 ea 07/16/20 Lancets) pen needle, diabetic 32 gauge x #100 ea 07/16/20 sildenafil 50 mg tablet 50 mg PO DAILY PRN sexual activity 09/07/20 #6 tabs nebulizers (Aeroneb Go Nebulizer) #1 ea 11/24/20 aspirin 81 mg tablet,delayed 81 mg PO DAILY #90 tabs 01/25/21 release blood sugar diagnostic (FreeStyle #100 ea 06/07/21 Lite Strips) mometasone 220 mcg/actuation(30 1 inh inhalation QPM #1 ea 01/20/22 doses) breath activated powder inhaler (Asmanex Twisthaler) semaglutide 1 mg/dose (4 mg/3 mL) 1 mg (0.75 mL) subcut QWEEK #3 mL 02/10/22 subcutaneous pen injector amlodipine 10 mg tablet 10 mg PO DAILY #90 tabs 03/07/22 ezetimibe 10 mg tablet 10 mg PO DAILY #90 tabs 03/07/22 hydrochlorothiazide 25 mg tablet 25 mg PO DAILY #90 tabs 04/06/22 lisinopril 40 mg tablet 40 mg PO DAILY #90 tabs 04/06/22 metoprolol tartrate 100 mg tablet 100 mg PO DAILY #90 tabs 04/15/22 Lantus Solostar U-100 Insulin 100 20 unit (0.2 mL) subcut QPM 30 05/27/22 unit/mL (3 mL) subcutaneous pen days #6 mL (insulin glargine) nicotine (polacrilex) 2 mg gum 2 mg buccal Q2H #120 ea 05/27/22 omeprazole 20 mg capsule,delayed 20 mg PO DAILY #90 caps 06/08/22 release metformin 500 mg tablet 500 mg PO DAILY 90 days #90 tabs 10/19/22 acetaminophen 650 mg 650 mg PO Q12H 30 days #60 tabs 11/04/22 tablet,extended release cholecalciferol (vitamin D3) 25 25 mcg PO DAILY #90 tabs 11/04/22 mcg (1,000 unit) tablet albuterol sulfate 2.5 mg/3 mL 2.5 mg (3 mL) inhalation QID #75 mL 11/16/22 (0.083 %) solution for nebulization albuterol sulfate 90 mcg/actuation 2 puff PO Q6H PRN for wheezing 12/10/22 aerosol inhaler #8.5 ea atorvastatin 80 mg tablet 80 mg PO DAILY #90 tabs 12/14/22 clonidine HCl 0.1 mg tablet 0.1 mg PO BEDTIME #90 tabs 12/14/22 Allergies Allergy/AdvReac Type Severity Reaction Status Date / Time pollen extracts [POLLEN] Allergy Mild SNEEZE Verified 01/05/23 22:08 PUFFY EYES Review of Systems Review of Systems: Pertinent positives and negatives as stated in HPI [facility] Past Medical History Source: nursing notes reviewed Medical History Diabetic nephropathy associated with type 2 diabetes mellitus 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 Other Mental health disorder Social History Social History Housing: Apartment Alcohol intake: never Patient Tobacco Use Status: Current everyday Tobacco user Tobacco use type: Cigarette Cigarette Packs Per Day: 0.5 Cigarettes Per Day: 8 Smoked in Last 30 Days: Yes e-Cigarette/Vaping Use: Never Used Second Hand Smoke Exposure: Yes Use of substances other than those prescribed or required for medical reasons: No Advance Directives: No Advance Directives Information Provided: No service: No Current occupational status: disabled Cognitive needs: Yes (Blind stick, walker) Hearing needs: No Vision needs: No Physical Exam Vital Signs: Vital Signs: Last Vital Signs Temp 98.3 F 01/05/23 22:01 Pulse 64 01/06/23 00:20 Resp 18 01/06/23 00:20 BP 146/86 H 01/06/23 00:20 Pulse Ox 96 01/06/23 00:20 O2 Del Method Oxymask 01/06/23 00:20 O2 Flow Rate 3 01/06/23 00:20 BMI result Body Mass Index 28.4 VITAL SIGNS: Reviewed. GENERAL: Well developed, well nourished, in no acute distress. HEAD: Normocephalic/atraumatic EYES: PERRLA, EOMI EARS: Ext canals without abnormality NOSE: Nares patent bilateral OROPHARYNX: no oral lesions noted, posterior pharynx clear NECK: Supple, no adenopathy LUNGS: Good inspiratory effort with expiratory wheeze bilateral, no tachypnea. SpO2<96> on supplemental oxygen CARDIOVASCULAR: Regular rate and rhythm without noted murmurs ABDOMEN: Soft, non-tender, non-distended with bowel sounds. MUSCULOSKELETAL: No tenderness, deformities, or effusions noted on gross inspection. EXTREMITIES: No cyanosis, clubbing or edema. SKIN: Inspection of the skin reveals no rashes NEUROLOGIC: Alert and oriented x 4. Strength and sensation to light touch were grossly intact x 4. Medications Administered Discontinued Medications Generic Name Dose Route Start Last Admin Trade Name Freq PRN Reason Stop Dose Admin Albuterol Sulfate 2.5 mg/ 5 mg 01/05/23 23:47 01/05/23 23:51 Albuterol Sulfate 2.5 mg INHALE 01/05/23 23:48 5 mg ONCE ONE Administration Medical Decision Making Medical Decision Making MDM Narrative: This is a 62-year-old male with history and clinical presentation of recent diagnosis of pneumonia and currently on antibiotics, patient also has a history of asthma and states that his albuterol inhaler is not been working very well but he is taking his prescribed steroids. He is unable to recall what antibiotic he is on. Patient is on supplemental oxygen and will undergo e.d. bronch protocol but otherwise patient appears well. I reviewed all investigations and hematologic indices are negative for leukocytosis or left shift, there is no anemia or thrombocytopenia. Chemistry indices are grossly within normal limits for the patient, he has CKD and there is no electrolyte or liver enzyme derangements. High sensitivity troponin was obtained for unclear reasons and is detectable but not elevated. There are no concerning findings on the EKG at this time and patient has no complaints of chest pain. Chest x-ray significant of her bronchial wall thickening and otherwise my interpretation is in agreement with radiology's impression. There is no evidence of infiltrate On re-evaluation patient states he is feeling improved and is noted to oxygenating well off of supplemental oxygen. Patient was provided with missed dose antibiotics. My interpretation is that patient has had a slight exacerbation of underlying asthma with evidence to suggest bronchitis and is currently undergoing antibiotic treatment. He is otherwise stable for discharge. Differential Diagnosis Differential Diagnoses: The differential diagnosis associated with the presentation includes Please see the discussion above Admission/Observation Consideration of admission/observation: Escalation of care including admission/observation considered Please see the discussion above Lab Data MDM Lab Attestation statement: I reviewed the patient's lab results. Please see the discussion above 01/05/23 23:01 01/05/23 23:01 Labs: Lab Results 01/05/23 Range/Units 23:01 WBC 7.4 (4.8-10.8) X10*3/uL RBC 5.19 (4.60-5.80) X10*6/uL Hgb 15.8 (14.0-18.0) g/dl Hct 48.0 (42.0-52.0) % MCV 92.5 (80.0-98.0) fL MCH 30.4 (27.0-33.0) pg MCHC 32.9 (31.0-36.0) g/dl RDW 13.3 (11.0-16.0) % Plt Count 197 (160-400) X10*3/uL MPV 11.1 (9.4-12.4) fL Immature Gran % (Auto) 0.3 (0.0-0.4) % Neut % (Auto) 72.7 (45-73) % Lymph % (Auto) 15.3 L (20-40) % [place] % (Auto) 8.1 (2-11) % Eos % (Auto) 3.3 (0-4) % Baso % (Auto) 0.3 (0-2) % Lymph # (Auto) 1.1 L (1.2-4.9) X10*3/uL [place] # (Auto) 0.6 (0.1-1.2) X10*3/uL Eos # (Auto) 0.2 (0.0-0.4) X10*3/uL Baso # (Auto) 0.0 (0.0-0.2) X10*3/uL Abs Immat Gran (auto) 0.02 (0.00-0.03) X10*3/uL Absolute Neuts (auto) 5.4 (2.0-8.3) x10*3/uL Absolute Nucleated RBC 0.000 (0.0-0.012) X10*3/uL Nucleated RBC % (auto) 0.0 (0.0-0.2) /100WBC Sodium 138 (135-145) mmol/L Potassium 4.5 (3.3-5.1) mmol/L Chloride 107 (96-108) mmol/L Carbon Dioxide 22 (22-29) mmol/L Anion Gap 14 (12-20) BUN 31 H (9-16) mg/dL Creatinine 1.90 H (0.5-1.4) mg/dL Estim Creat Clear Calc 52.3 Estimated GFR 36 Random Glucose 185 H (60-115) mg/dL Calcium 9.4 (8.4-10.2) mg/dL Troponin I High Sens 4.2 (<3.5-35.0) ng/L Independent Interpretation I performed an independent interpretation of an: EKG Interpretation: Sinus rhythm with first-degree AV block, HR-65, no STEMI, MS-230, QRS/QTC is within normal limits. Radiology Impression Discussion of test interpretation with radiology: I have reviewed the radiologist's reading. Radiologist Impression: Please see the discussion above External Record Review External record reviewed: Outpatient record, Prior outpatient labs and Prior outpatient radiology Chronic Conditions Patient?s care impacted by: Diabetes and Hypertension Critical Care Time Critical Care Time Critical Care Time: Yes Total Critical Care Time: 30 Attestation: I personally attest to this time spent taking care of the patient. Discharge Plan Discharge Clinical Impression: Dyspnea, Asthma, Bronchitis Patient Disposition: Home, Self-Care Instructions: Asthma (ED), Acute Bronchitis (ED), Dyspnea (ED) Additional Instructions: 1. Complete the entire course of antibiotics as prescribed. Resume all other home medications as prescribed. 2. Please follow-up with your primary care doctor by calling the office in the morning and setting up an appointment for re-evaluation further outpatient management. Return to the ER for any worsening symptoms. Prescriptions: No Action (DME) blood-glucose meter [FreeStyle Lite Meter] Kit See Rx Instructions .ROUTE .MEDSUPPLY Qty: 1 0RF Rx Instructions: As directed 1-2x daily sildenafil 50 mg tablet 50 mg PO DAILY PRN (Reason: sexual activity) Qty: 6 1RF Rx Instructions: administer 30 minutes to 4 hours before activity (DME) Aeroneb Go Nebulizer Misc See Rx Instructions .Route Qty: 1 0RF Rx Instructions: As directed aspirin 81 mg tablet,delayed release (DR/EC) 81 mg PO DAILY Qty: 90 3RF (DME) FreeStyle Lite Strips Strip See Rx Instructions .ROUTE .MEDSUPPLY Qty: 100 11RF Rx Instructions: 3 times a day Asmanex Twisthaler 220 mcg/ actuation (30) aerosol powdr breath activated 1 inh inhalation QPM Qty: 1 3RF semaglutide 1 mg/dose (4 mg/3 mL) pen injector 1 mg subcut QWEEK Qty: 3 0RF ezetimibe 10 mg tablet 10 mg PO DAILY Qty: 90 3RF amlodipine 10 mg tablet 10 mg PO DAILY Qty: 90 3RF hydrochlorothiazide 25 mg tablet 25 mg PO DAILY Qty: 90 2RF lisinopril 40 mg tablet 40 mg PO DAILY Qty: 90 2RF metoprolol tartrate 100 mg tablet 100 mg PO DAILY Qty: 90 2RF omeprazole 20 mg capsule,delayed release(DR/EC) 20 mg PO DAILY Qty: 90 2RF metformin 500 mg tablet 500 mg PO DAILY 90 Days Qty: 90 1RF albuterol sulfate 2.5 mg /3 mL (0.083 %) solution for nebulization 2.5 mg inhalation QID Qty: 75 1RF albuterol sulfate 90 mcg/actuation HFA aerosol inhaler 2 puff PO Q6H PRN (Reason: for wheezing) Qty: 8.5 3RF atorvastatin 80 mg tablet 80 mg PO DAILY Qty: 90 0RF clonidine HCl 0.1 mg tablet 0.1 mg PO BEDTIME Qty: 90 0RF nicotine (polacrilex) 2 mg gum 2 mg buccal Q2H Qty: 120 2RF insulin glargine [Lantus Solostar U-100 Insulin] 100 unit/mL (3 mL) insulin pen 20 unit subcut QPM 30 Days Qty: 6 5RF cholecalciferol (vitamin D3) 25 mcg (1,000 unit) tablet 25 mcg PO DAILY Qty: 90 0RF acetaminophen 650 mg tablet extended release 650 mg PO Q12H 30 Days Qty: 60 2RF (DME) lancets [FreeStyle Lancets] 28 gauge misc See Rx Instructions .ROUTE .MEDSUPPLY Qty: 100 6RF Rx Instructions: 3 times a day (DME) pen needle, diabetic 32 gauge x 5/32 needle See Rx Instructions subcut DIRECTED Qty: 100 4RF Rx Instructions: Daily
[2023-01-06] MEDS: predniSONE 10 MG TABLET 50 MG PO (01:36)
[2023-01-06] MEDS: Amoxicillin/Potassium Clav 875 MG TABLET PO (01:37)
--- NOTE | 2023-01-06 01:47 | PC.NURSE ---
pt standing at bedside using urinal. pt standing with steady gait.
[2023-01-06] MEDS: Albuterol Sulfate 90 MCG 8 GM INHALER 2 PUFF INHALE (02:02)
== END 2023-01-06 02:39 | disposition home or self-care (01) ==
PROVIDERS: Emergency Provider Student in an Organized Health Care Education/Training Program
DX: J40 Bronchitis, not specified as acute or chronic (principal); R06.02 Shortness of breath; R07.89 Other chest pain; F17.210 Nicotine dependence, cigarettes, uncomplicated; Z71.6 Tobacco abuse counseling; Z79.899 Other long term (current) drug therapy
CPT/HCPCS: 36415; 71045; 80048; 84484; 85025; 93005; 94640; 99284; 99285

== ENCOUNTER → 2023-01-05 22:22 | Outpatient (BNV) | payer OTHER, SELFPAY | PROVIDERS: Emergency Provider Student in an Organized Health Care Education/Training Program; Visit Provider Internal Medicine Cardiovascular Disease | DX: I44.0 Atrioventricular block, first degree (principal) | CPT/HCPCS: 93010 ==

== ENCOUNTER 2023-01-18 12:19 | Outpatient (AMB) | payer OTHER, SELFPAY ==
--- NOTE | 2023-01-18 12:20 | MHC.PC.OV ---
Vital Signs 01/18/23 12:22 Height 6 ft 2 in Weight 99.4 kg BMI 28.1 BP 120/68 Blood Pressure Location Lt brachial Position Sitting Pulse 58 Pulse Source Pulse Oximeter Pulse Oximetry (%) 97 Oxygen Delivery Method Room Air Intake [place] [facility] [place]neumonia Intake Note: Patient is here for hospital discharge follow up. Patient was discharged [place] [facility] [place]. Parking Analyst Required: No Cardio Tech: Not Required per policy Accompanied by: Self / Same As Patient Allergies pollen extracts [POLLEN] Allergy (Mild, Verified 01/18/23 12:21) SNEEZE PUFFY EYES Medication List - Last Reconciled 01/18/23 by TI Rodriguez acetaminophen ER 650 mg PO Q12H 30 days albuterol sulfate 90 mcg/actuation 2 puffs PO Q6H PRN albuterol sulfate 2.5 mg (3 mL) inhalation QID amlodipine 10 mg PO DAILY aspirin 81 mg PO DAILY atorvastatin 80 mg PO DAILY blood sugar diagnostic (FreeStyle Lite Strips) 3 times a day blood-glucose meter (FreeStyle Lite Meter kit) As directed 1-2x daily cholecalciferol (vitamin D3) 25 mcg PO DAILY clonidine HCl 0.1 mg PO BEDTIME ezetimibe 10 mg PO DAILY fluticasone propionate 220 mcg/actuation (Flovent HFA) 1 puff inhalation BID hydrochlorothiazide 25 mg PO DAILY insulin glargine (Lantus Solostar U-100 Insulin) 18 units subcut QPM lancets (FreeStyle Lancets) 3 times a day lisinopril 40 mg PO DAILY metformin 500 mg PO DAILY 90 days metoprolol tartrate 100 mg PO DAILY nebulizers (Aeroneb Go Nebulizer) As directed nicotine (polacrilex) 2 mg buccal Q2H omeprazole 20 mg PO DAILY pen needle, diabetic Daily semaglutide 1 mg (0.75 mL) subcut QWEEK sildenafil 50 mg PO DAILY PRN Tobacco use date assessed: 01/18/23 Dental Screening Dental Screen Date: 01/18/23 Did you have a dental visit in the last 12 months?: No Did you have a dental problem in the last 6 months where you did not have access to dental care?: No Was dental information given to patient?: No (Dentures) HPI HPI Comments History of Present Illness Details 8-year-old male with history of insulin-dependent type 2 diabetes complicated by very severe proliferative diabetic retinopathy resulting in blindness, asthma, hypertension among others who continues smoking about 8 cigarettes on a daily basis (down from 1 pack daily) presents to the office today for hospital discharge follow-up. The patient was admitted to [facility] from 01/01-01/03 for right lower lobe pneumonia with acute hypoxemic respiratory failure and asthma exacerbation. On admission, was also noted to have ANDIE with creatinine of 2.2, baseline around 1.6-1.8. He received IV fluids with normalization of his renal function to baseline. He was started on IV ceftriaxone and azithromycin. Received 1 dose of 60 mg prednisone with significant improvement in wheezing and was not continued on this. He was successfully weaned from supplemental O2. While in the ED, his Lantus was lowered to 18 units as fasting glucose in the ED was 122. He did experience multiple episodes of hyperglycemia while admitted, possibly secondary to steroid use. He was discharged home on 18 units of Lantus and advised to resume semaglutide and metformin. He was also discharged on a 7 day course of Augmentin. During his hospitalization, there are no other significant lab abnormalities and vital signs otherwise remained stable. Today he states that he completed course of antibiotic and is no longer experiencing any significant shortness of breath, cough. No fevers or chills. No chest pain. However he does tell me that he still uses his albuterol inhaler twice daily and does not use any maintenance inhalers. He does also continue smoking 8 cigarettes on a daily basis but has cut back significantly from 1 pack per day and does hope to quit entirely. He is using Nicorette gum to assist him. He does also question whether he needs to continue with the decreased dose of Lantus. He tells me his fasting glucose levels are typically around 120-130. He does not check his glucose levels otherwise. His last hemoglobin A1c was 8.8 and we did recheck this today and it is 9.3%. He states he is not always compliant with diabetic diet. 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 Other Mental health disorder Social History Housing: Apartment Alcohol intake: never Patient Tobacco Use Status: Current everyday Tobacco user Tobacco use type: Cigarette Cigarette Packs Per Day: 0.5 Cigarettes Per Day: 8 e-Cigarette/Vaping Use: Never Used Second Hand Smoke Exposure: Yes service: No Current occupational status: disabled Cognitive needs: Yes (Blind stick, walker) Hearing needs: No Vision needs: No Questionnaire Thrive Questionnaire Date Thrive assessed: 05/27/22 BAO-7 AMB Questionnaire BAO-7 Date BAO - 7 assessed: 05/27/22 Source: Developed by Drs. Rashaad Munoz, Alisson Young, Isaias Sethi and colleagues, with an educational joanne from [employer]. Review of Systems Const All systems reviewed & are unremarkable except as noted in HPI and below Physical exam (Primary Care) Vital Signs: Last Vital Signs Pulse 58 01/18/23 12:22 BP 120/68 01/18/23 12:22 Pulse Ox 97 01/18/23 12:22 Oxygen Delivery Method Room Air 01/18/23 12:22 BMI result Body Mass Index 28.1 Tobacco/Smoking Status: Tobacco use Status Tobacco use date assessed 01/18/23 01/18/23 12:32 Patient Tobacco Use Status Current everyday Tobacco 01/18/23 12:32 Tobacco use type Cigarette 01/18/23 12:32 e-Cigarette/Vaping Use Never Used 01/18/23 12:32 Thrive Assessment: Date of Thrive Assessment Date Thrive assessed 05/27/22 01/18/23 12:32 Const Other: Constitutional - Awake and Alert, No apparent distress Eyes - PERRLA, EOMI Cardiovascular - S1S2, RRR, No edema Respiratory - Normal lung expansion, Normal respiratory effort, No respiratory distress, expiratory wheezing bilaterally, rhonchi rll Extremities - no calf tenderness bilaterally, no swelling Skin - Warm/Dry Neurological - Alert & oriented x3 Psychological - Appropriate affect Results AMB Hemoglobin A1c AMB Hemoglobin A1c 9.6 % Last Edit by Regino Benz on 01/18/23 13:17 Immunizations pneumoc 20-jesika conj-dip cr(PF) 0.5 mL IM syringe Performing Provider: TI Rodriguez [place] [facility] [place] [facility] Administered by: Regino Benz on 01/18/23 13:13 Dose Route Admin Location Dispensed Lot Number Expiration Date NDC Solution Make Up Operator 0.5 mL IM Left Deltoid 0.5 mL [id number] 03/09/24 7236-4821-29 [employer] VIS Given Date VIS Provided VIS Publication Date 01/18/23 Single Vaccine 21 Eligibility Eligibility Date Funding Source Not VF Eligible 01/18/23 Private Results Reviewed Results Reviewed: Laboratory Last Values Hgb A1c (Clinic) 9.6 % (4.0-6.0) H 01/18/23 13:12 ED provider note, cxr, cbc, bmp, h&p, dc summary Assessment and Plan Assessment & Plan (1) Pneumonia: Code(s): J18.9 - Pneumonia, unspecified organism Plan: Ad[place] [facility]x and weaned from O2. Vitals stable in the office. Symptomatically improved following completed abx. Will need repeat cxr in 4-6 to ensure resolution which is ordered. Smoking cessation. (2) Acute kidney injury: Code(s): N17.9 - Acute kidney failure, unspecified Plan: Resolved. Likely prerenal 2/2 hypovolemia. On admission 2.2 --> 1.6 on discharge, consistent with baseline following IVF. Has CKD stage 3 at baseline. 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 Fasting glucose is at goal. Would not recommend increase in bedtime lantus. Discussed adding morning lantus vs prandial humalog on ss or increasing metformin slightly. Pt declines medication adjustment. Discussed risks of uncontrolled glucose levels including worsening of his current complications. Pt expresses understanding but does not wish to adjust or add medications. States he knows what to do . Discussed lifestyle modification and increased exercise. Strict compliance with diabetic diet. He will continue lantus 18 units bedtime as well as metformin 500mg metformin and semaglutide weekly. Strongly advised pt to consider medication adjustment if A1c not at goal at follow up in 3 months. (4) Tobacco abuse: Code(s): Z72.0 - Tobacco use Plan: Congratulated on efforts thus far. Encouraged complete tobacco cessation. Continue nicorette gum. (5) Asthma: Code(s): J45.909 - Unspecified asthma, uncomplicated Qualifiers: Asthma complication type: uncomplicated Asthma persistence: persistent Asthma severity: mild Qualified Code(s): J45.30 - Mild persistent asthma, uncomplicated Plan: Pt's asthma is uncontrolled. Using albuterol inhaler 2x daily, goal <twice weekly. Likely has a component of COPD as well given smoking history. He is referred for PFT. Added flovent 220mcg BID. Advised to rinse mouth well following use. Continues albuterol inhaler as needed for sob/wheezing. Smoking cessation. Administered PCV20 in office Orders: Orders Pneumococcal 20 Immunization 01/18/23 Z23 - Encounter for immunization AMB Hemoglobin A1c 01/18/23 Z13.9 - Encounter for screening, unspecified PFT pulmonary function test 01/18/23 J45.909 - Unspecified asthma, uncomplicated Medications: New fluticasone propionate 220 mcg/actuation (Flovent HFA) administer with spacer 1 puff inhalation BID 12 grams 3RF Refilled albuterol sulfate 2.5 mg (3 mL) inhalation QID 75 mL 1RF Coding Level of Care Code Est Pt Level 5 (06696) Diagnoses Pneumonia J18.9 Acute kidney injury N17.9 Type 2 diabetes mellitus with hyperglycemia, without long-term current use of insulin E11.65 Diabetes mellitus complication status: with hyperglycemia 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
[2023-01-18 12:22] VITALS: BP 120/68; PULSE 58; O2SAT 97; BMI 28.1
== END 2023-01-18 14:33 | disposition home or self-care (01) ==
PROVIDERS: PCP Internal Medicine; Visit Provider Physician Assistant
DX: Z23 Encounter for immunization (principal); E11.9 Type 2 diabetes mellitus without complications
CPT/HCPCS: 83036; 90471; 90677; 99215

== ENCOUNTER 2023-07-21 15:47 | Outpatient (AMB) | payer OTHER, SELFPAY ==
[2023-07-21 15:51] VITALS: BP 100/70; PULSE 61; O2SAT 97; BMI 26.2
--- NOTE | 2023-07-21 15:51 | A.OFFPC_ITS ---
Vital Signs 07/21/23 15:51 Height 6 ft 2 in Weight 203 lb 11.314 oz BMI 26.2 BP 100/70 Blood Pressure Location Lt brachial Position Sitting Pulse 61 Pulse Source Pulse Oximeter Pulse Oximetry (%) 97 Oxygen Delivery Method Room Air Intake Visit Reasons: follow up- see comments Allergies pollen extracts [POLLEN] Allergy (Mild, Verified 07/21/23 15:52) SNEEZE PUFFY EYES Medication List - Last Reconciled 07/21/23 by Trey Love MD acetaminophen ER 650 mg PO Q12H 30 days albuterol sulfate 2.5 mg (3 mL) inhalation QID albuterol sulfate 90 mcg/actuation 2 puffs PO Q6H PRN amlodipine 10 mg PO DAILY aspirin 81 mg PO DAILY atorvastatin 80 mg PO DAILY blood sugar diagnostic (FreeStyle Lite Strips) 3 times a day blood-glucose meter (FreeStyle Lite Meter kit) As directed 1-2x daily cholecalciferol (vitamin D3) 25 mcg PO DAILY clonidine HCl 0.1 mg PO BEDTIME dapagliflozin propanediol (Farxiga) 10 mg PO DAILY ezetimibe 10 mg PO DAILY flash glucose scanning reader ([employer] Lynette 2 Fieldon) As directed flash glucose sensor (FreeStyle Lynette 2 Sensor kit) As directed fluticasone propionate 220 mcg/actuation (Flovent HFA) 1 puff inhalation BID hydrochlorothiazide 25 mg PO DAILY insulin glargine (Lantus Solostar U-100 Insulin) 18 units (0.18 mL) subcut QPM lancets (FreeStyle Lancets) 3 times a day lisinopril 40 mg PO DAILY metformin 500 mg PO DAILY 90 days metoprolol tartrate 100 mg PO DAILY nebulizers (Aeroneb Go Nebulizer) As directed nicotine (polacrilex) 2 mg buccal Q2H omeprazole 20 mg PO DAILY pen needle, diabetic Daily semaglutide 1 mg (0.75 mL) subcut QWEEK sildenafil 50 mg PO DAILY PRN Tobacco use date assessed: 07/21/23 Dental Screening Dental Screen Date: 07/21/23 HPI follow up- see comments HPI Details 63-year-old male smoker with diabetes me llitus chronic kidney disease hypercholesterolemia hypertension coming in for follow-up. Patient has not been seen since 2020. Patient is due for colonoscopy patient's last office visit was in 01/25/2023 after having pneumonia. 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 Other Mental health disorder Social History Housing: Apartment Alcohol intake: never Patient Tobacco Use Status: Current everyday Tobacco user Tobacco use type: Cigarette Cigarette Packs Per Day: 0.5 Cigarettes Per Day: 8 e-Cigarette/Vaping Use: Never Used Second Hand Smoke Exposure: Yes service: No Current occupational status: disabled Cognitive needs: Yes (Blind stick, walker) Hearing needs: No Vision needs: No Questionnaire Thrive Questionnaire Date Thrive assessed: 05/27/22 AUDIT C Alcohol Use Questionnaire (AUDIT-C) 1. How often do you have a drink containing alcohol?: Never 2. How many drinks containing alcohol do you have on a typical day when you are drinking?: 1 or 2 3. How often do you have six or more drinks on one occasion?: Never Total Score: 0 Score Reviewed/Action Taken: No BAO-7 AMB Questionnaire BAO-7 Date BAO - 7 assessed: 07/21/23 Source: Developed by Drs. Rashaad Munoz, Alisson Young, Isaias Sethi and colleagues, with an educational joanne from [employer]. Physical exam (Primary Care) Vital Signs: Last Vital Signs Pulse 61 07/21/23 15:51 BP 100/70 07/21/23 15:51 Pulse Ox 97 07/21/23 15:51 Oxygen Delivery Method Room Air 07/21/23 15:51 BMI result Body Mass Index 26.2 Tobacco/Smoking Status: Tobacco use Status Tobacco use date assessed 07/21/23 07/21/23 15:58 Patient Tobacco Use Status Current everyday Tobacco 07/21/23 15:58 Tobacco use type Cigarette 07/21/23 15:58 e-Cigarette/Vaping Use Never Used 07/21/23 15:58 Thrive Assessment: Date of Thrive Assessment Date Thrive assessed 05/27/22 07/21/23 15:58 Const General: alert; No acute distress Eyes Conjunctivae: conjunctivae normal Resp Auscultation: clear to auscultation bilaterally Cardio Rate: regular rate Rhythm: regular rhythm GI Inspection: Yes normal to inspection Extrem General: Yes normal to inspection and No edema Results AMB Hemoglobin A1c AMB Hemoglobin A1c 8.5 % Last Edit by SEAMUS Campo on 07/21/23 16:05 Results Reviewed Results Reviewed: Laboratory Last Values Hgb A1c (Clinic) 8.5 % (4.0-6.0) H 07/21/23 16:04 Assessment and Plan Assessment & Plan (1) Tobacco abuse: Code(s): Z72.0 - Tobacco use Plan: Patient is strongly advised to stop smoking (2) Type 2 diabetes mellitus with hyperglycemia: Code(s): E11.65 - Type 2 diabetes mellitus with hyperglycemia Qualifiers: Diabetes mellitus retirement insulin use: with retirement use Qualified Code(s): E11.65 - Type 2 diabetes mellitus with hyperglycemia; 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 Hemoglobin A1c goal less than 6.5 patient on Lantus at 18 units once a day metformin 500 mg once a day semaglutide and Farxiga? From the kidney doctors note (3) Obesity (BMI 30-39.9): Code(s): E66.9 - Obesity, unspecified Plan: Diet and exercise (4) Chronic kidney disease: Comment: Stage III Code(s): N18.9 - Chronic kidney disease, unspecified Qualifiers: Chronic kidney disease stage: stage 3 (moderate) Chronic kidney disease stage 3 subtype: unspecified whether 3a or 3b Qualified Code(s): N18.30 - Chronic kidney disease, stage 3 unspecified Plan: Keep well hydrated avoid NSAIDs get diabetes under control get cholesterol under control (5) Hypertension: Code(s): I10 - Essential (primary) hypertension Qualifiers: Hypertension type: essential hypertension Qualified Code(s): I10 - Essential (primary) hypertension Plan: Continue with blood pressure medication. Decrease salt intake and exercise patient is taking amlodipine 10 mg once a day hydrochlorothiazide 25 mg once a day lisinopril 40 mg once a day (6) Hypercholesterolemia: Code(s): E78.00 - Pure hypercholesterolemia, unspecified Plan: Avoid fried foods, chicken skin, eggs, butter margarine, pastries and meat. Be it pork or beef they have a lot of cholesterol LDL goal of less than 70 presently on Zetia and atorvastatin patient to retest blood work (7) Asthma: Code(s): J45.909 - Unspecified asthma, uncomplicated Qualifiers: Asthma severity: mild Asthma persistence: persistent Asthma complication type: uncomplicated Qualified Code(s): J45.30 - Mild persistent asthma, uncomplicated Plan: Stop smoking!! (8) Screening for colon cancer: Code(s): Z12.11 - Encounter for screening for malignant neoplasm of colon Plan: Referral to Dr. Plunkett for colonoscopy Orders: Orders AMB Hemoglobin A1c Today E11.65 - Type 2 diabetes mellitus with hyperglycemia, Z79.4 - prison (current) use of insulin Comprehensive Met. Panel 2 Months E78.00 - Pure hypercholesterolemia, unspecified Complete Blood Count Auto Diff 2 Months E78.00 - Pure hypercholesterolemia, unspecified Free T4 (Free Thyroxine) 2 Months E78.00 - Pure hypercholesterolemia, unspecified Hemoglobin A1c 2 Months E78.00 - Pure hypercholesterolemia, unspecified Lipid Panel 2 Months E78.00 - Pure hypercholesterolemia, unspecified Creatinine Urine 2 Months E11.65 - Type 2 diabetes mellitus with hyperglycemia, E78.00 - Pure hypercholesterolemia, unspecified Thyroid Stimulating Hormone 2 Months E78.00 - Pure hypercholesterolemia, unspecified Prostate Specific Antigen Scr 2 Months E78.00 - Pure hypercholesterolemia, unspecified Vitamin B12 and Folate 2 Months E78.00 - Pure hypercholesterolemia, unspecified Referrals General Surgery Referral Z12.11 - Encounter for screening for malignant neoplasm of colon Medications: New dapagliflozin propanediol (Farxiga) 10 mg PO DAILY 30 tabs 0RF E11.65 - Type 2 diabetes mellitus with hyperglycemia, 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 blood-glucose transmitter (Dexcom G6 Transmitter device) As directed 1 ea 0RF E10.9 - Type 1 diabetes mellitus without complications, E11.65 - Type 2 diabetes mellitus with hyperglycemia, 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 blood-glucose meter,continuous (Dexcom G6 Commercial Lending Vice President) As directed 1 ea 0RF E10.9 - Type 1 diabetes mellitus without complications, E11.65 - Type 2 diabetes fermín itus with hyperglycemia, Z79.4 - prison (current) use of insulin blood-glucose sensor (Dexcom G6 Sensor device) As directed 3 ea 12RF E10.9 - Type 1 diabetes mellitus without complications, E11.65 - Type 2 diabetes mellitus with hyperglycemia, Z79.4 - prison (current) use of insulin Discontinued flash glucose scanning reader (FreeStyle Lynette 2 Fieldon) Discontinued Reason: Insurance Denied As directed 1 ea 0RF E11.65 - Type 2 diabetes mellitus with hyperglycemia, 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 flash glucose sensor (FreeStyle Lynette 2 Sensor kit) Discontinued Reason: Change Referral Type As directed 6 kits 0RF E11.65 - Type 2 diabetes mellitus with hyperglycemia, Z79.4 - prison (current) use of insulin Coding Level of Care Code Est Pt Level 4 (45933) Diagnoses Tobacco abuse Z72.0 Type 2 diabetes mellitus with hyperglycemia, with long-term current use of insulin E11.65; Z79.4 Diabetes mellitus 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
== END 2023-07-21 16:30 | disposition home or self-care (01) ==
PROVIDERS: Visit Provider Internal Medicine
DX: I12.9 Hypertensive chronic kidney disease with stage 1 through stage 4 chronic kidney disease, or unspecified chronic kidney disease (principal); E11.65 Type 2 diabetes mellitus with hyperglycemia; Z79.4 Long term (current) use of insulin; N18.30 Chronic kidney disease, stage 3 unspecified; E66.9 Obesity, unspecified; Z68.26 Body mass index [BMI] 26.0-26.9, adult; Z72.0 Tobacco use; E78.00 Pure hypercholesterolemia, unspecified; J45.30 Mild persistent asthma, uncomplicated; Z12.11 Encounter for screening for malignant neoplasm of colon
CPT/HCPCS: 83036; 99214

== ENCOUNTER 2023-08-25 09:30 | Outpatient (REF) | payer OTHER, SELFPAY ==
[2023-08-25 09:50] LABS: MANUAL DIFF FLAG NO
[2023-08-25 10:35] LABS: Basophils Percent Auto 0.3 % (0-2); Eosinophils Absolute Auto 0.2 X10*3/uL (0.0-0.4); Eosinophils Percent Auto 2.4 % (0-4); Hematocrit 45.5 % (42.0-52.0); Hemoglobin 15.1 g/dl (14.0-18.0); Imm Gran Abs Auto 0.02 X10*3/uL (0.00-0.03); Imm Gran Pct Auto 0.3 % (0.0-0.4); Lymphocytes Absolute Auto 1.9 X10*3/uL (1.2-4.9); Mean Corpuscular HGB Conc 33.2 g/dl (31.0-36.0); Mean Corpuscular Hemoglobin 31.2 pg (27.0-33.0); Mean Platelet Volume 11.8 fL (9.4-12.4); Monocytes Absolute Auto 0.6 X10*3/uL (0.1-1.2); Monocytes Percent Auto 8.8 % (2-11); Neutrophils Absolute Auto 3.6 x10*3/uL (2.0-8.3); Neutrophils Percent Auto 57.2 % (45-73); Platelet Count 187 X10*3/uL (160-400); Red Blood Count 4.84 X10*6/uL (4.60-5.80); Red Cell Distribution Width 13.9 % (11.0-16.0); White Blood Count 6.2 X10*3/uL (4.8-10.8)
[2023-08-25 21:25] LABS: Albumin Level 4.2 g/dL (3.5-5.0); Anion Gap 18 (12-20); Blood Urea Nitrogen 37 mg/dL (9-16); Calcium 9.9 mg/dL (8.4-10.2); Carbon Dioxide 19 mmol/L (22-29); Chloride 106 mmol/L (96-108); Estimated Glomerular Filt Rate 34; Magnesium 2.2 mg/dL (1.6-2.6); Phosphorus 3.6 mg/dL (2.7-4.5); Potassium 4.4 mmol/L (3.3-5.1); Sodium 139 mmol/L (135-145); Vitamin D 25-OH Total 42.5 ng/mL (>30)
== END 2023-08-25 09:31 | disposition home or self-care (01) ==
LOC: HO.LAB 09:30
PROVIDERS: PCP Internal Medicine; Visit Provider Internal Medicine Nephrology
DX: E11.22 Type 2 diabetes mellitus with diabetic chronic kidney disease (principal); I12.9 Hypertensive chronic kidney disease with stage 1 through stage 4 chronic kidney disease, or unspecified chronic kidney disease; N18.32 Chronic kidney disease, stage 3b; N25.0 Renal osteodystrophy
CPT/HCPCS: 36415; 80051; 82040; 82306; 82310; 82565; 83735; 83970; 84100; 84520; 85025

== ENCOUNTER 2023-10-05 15:19 | Outpatient (AMB) | payer OTHER, SELFPAY ==
[2023-10-05 15:21] VITALS: BMI 26.2
--- NOTE | 2023-10-05 15:21 | MHC.OFFVIS ---
Vital Signs 10/05/23 15:21 Height 6 ft 2 in Weight 203 lb 11.314 oz BMI 26.2 Intake Visit Reasons: Recall colonoscopy Intake Note: This patient presents for recall colonoscopy. Pt c/o; last colonoscopy 04/09/2013, reports no complaints. 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 Accompanied by: Self / Same As Patient Allergies pollen extracts [POLLEN] Allergy (Mild, Verified 10/05/23 15:28) SNEEZE PUFFY EYES Medication List - Last Reconciled 10/05/23 by Dajuan Plunkett MD acetaminophen ER 650 mg PO Q12H 30 days albuterol sulfate 90 mcg/actuation 2 puffs PO Q6H PRN albuterol sulfate 2.5 mg (3 mL) inhalation QID amlodipine 10 mg PO DAILY aspirin 81 mg PO DAILY atorvastatin 80 mg PO DAILY blood sugar diagnostic (FreeStyle Lite Strips) 3 times a day blood-glucose meter (CitizinvestorStyle Lite Meter kit) As directed 1-2x daily blood-glucose meter,continuous (DexSocialtext G6 Surgical Physician Assistant) As directed blood-glucose sensor (DexSocialtext G6 Sensor device) As directed blood-glucose transmitter (Dexcom G6 Transmitter device) As directed cholecalciferol (vitamin D3) 25 mcg PO DAILY clonidine HCl 0.1 mg PO BEDTIME dapagliflozin propanediol (Farxiga) 10 mg PO DAILY ezetimibe 10 mg PO DAILY fluticasone propionate 220 mcg/actuation (Flovent HFA) 1 puff inhalation BID hydrochlorothiazide 25 mg PO DAILY insulin glargine (Lantus Solostar U-100 Insulin) 18 units (0.18 mL) subcut QPM lancets (FreeStyle Lancets) 3 times a day lisinopril 40 mg PO DAILY metformin 500 mg PO DAILY 90 days metoprolol tartrate 100 mg PO DAILY nebulizers (Aeroneb Go Nebulizer) As directed nicotine (polacrilex) 2 mg buccal Q2H omeprazole 20 mg PO DAILY pen needle, diabetic Daily semaglutide 1 mg (0.75 mL) subcut QWEEK sildenafil 50 mg PO DAILY PRN HPI HPI Recall colonoscopy: Details: 63-year-old male here for screening colonoscopy. He denies any GI complaints. He has good oral intake. He denies changes in bowel habits. He denies bleeding per rectum. His last colonoscopy was 10 years ago. He denies any family history of colon cancer. 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 His says his blood sugars are now well controlled. COUNTS INCLUDE 234 BEDS AT THE [facility] Medical History Screening for colon cancer Diabetic nephropathy associated with type 2 diabetes mellitus Very severe proliferative diabetic retinopathy skilled nursing (current) use of insulin Overweight (BMI 25.0-29.9) Type 2 diabetes mellitus with hyperglycemia Obesity (BMI 30-39.9) Carpal tunnel syndrome, left Chronic kidney disease Erectile dysfunction Tobacco abuse Hypercholesterolemia Cataract Glaucoma Hepatitis C Hypertension Surgical History History of surgery on arm Hx of colonoscopy Family History Father Diabetes Mother Diabetes Hypertension Brother In good health Sister No problems noted. Other Mental health disorder Social History Housing: Apartment Alcohol intake: never Patient Tobacco Use Status: Current everyday Tobacco user Tobacco use type: Cigarette Cigarette Packs Per Day: 0.5 Cigarettes Per Day: 8 e-Cigarette/Vaping Use: Never Used Second Hand Smoke Exposure: Yes service: No Current occupational status: disabled Cognitive needs: Yes (Blind stick, walker) Hearing needs: No Vision needs: No Review of Systems Const Denies chills and Denies fever(s) Eyes Details: Blind Reports loss of vision Card Denies chest pain, Denies dyspnea and Denies dyspnea on exertion Resp Denies cough, Denies dyspnea and Denies dyspnea on exertion GI Denies hematochezia and Denies change in bowel habits Denies hematuria and Denies difficulty urinating Musc Denies back pain and Denies limited range of motion Neuro Denies focal weakness, Reports loss of vision and Denies convulsions Psych Denies depression and Denies mood swings Physical Exam Vital Signs: BMI result Body Mass Index 26.2 Const General: comfortable and no acute distress Orientation/consciousness: patient oriented x3 Eyes Other: Blind Neck Neck: Yes no lymphadenopathy Resp Auscultation: clear to auscultation bilaterally Cardio Rhythm: regular rhythm GI Palpation (GI): Soft to palpation, nontender and no guarding Neuro General: patient oriented x3 Assessment & Plan Assessment & Plan (1) Screening for colon cancer: Code(s): Z12.11 - Encounter for screening for malignant neoplasm of colon Category: Medical Plan: I reviewed with him the technique of colonoscopy. I explained the risks including but not limited to bleeding and perforation, as well as the benefits and alternatives. He understands and wants to proceed. Medications: New sodium,potassium,mag sulfates 17.5-3.13-1.6 gram (Suprep Bowel Prep Kit) DILUTE; drink full amount early evening before AND next morning at least 2 hr before procedure; follow w 960 mL water PO 354 mL 0RF Coding Level of Care Code New Pt Level 3 (25714) Diagnoses Screening for colon cancer Z12.11
== END 2023-10-05 15:48 | disposition home or self-care (01) ==
LOC: HO.HGS 15:19
PROVIDERS: PCP Internal Medicine; Visit Provider Surgery
DX: Z12.11 Encounter for screening for malignant neoplasm of colon (principal)
CPT/HCPCS: 99203

== ENCOUNTER → 2023-10-05 15:19 | Outpatient (BNVA) | payer OTHER, SELFPAY | PROVIDERS: PCP Internal Medicine; Visit Provider Surgery | DX: Z12.11 Encounter for screening for malignant neoplasm of colon (principal) | CPT/HCPCS: 99202 ==

== ENCOUNTER 2023-11-10 07:21 | Day surgery (SDC) | payer OTHER, SELFPAY ==
[2023-11-01 09:20] VITALS: BMI 25.7
--- NOTE | 2023-11-08 09:55 | HO.ANESPROP2 ---
Documented by User: Rhiannon Su NP 11/08/23 09:57 HPI - Anesthesia Eval Consult details Narrative: 63yo M for Colonoscopy with possible Polypectomy Follows Renal (RTANE). Stable at 10/2023 routine visit. Anesthesia Pre-Procedure Meds Is the patient on any of the following meds?: GLP1/DPP4 and SGLT2 Inhib PMFSH Active Problems Active Problems: All Active Problems Acute kidney injury (Acute) Pneumonia (Acute) Low vitamin D level (Acute) Blind in both eyes (Acute) Elevated LFTs (Acute) Impacted cerumen of both ears (Acute) Cough (Acute) Impacted cerumen of both ears (Acute) Abnormal TSH (Acute) Tobacco abuse (Acute) Annual physical exam (Acute) Smoker (Acute) Lateral epicondylitis of left elbow (Acute) Asthma (Acute) Screening for colon cancer (Acute) Hepatitis C (Acute) Diabetic nephropathy associated with type 2 diabetes mellitus (Acute) Very severe proliferative diabetic retinopathy (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 (Acute) Overweight (BMI 25.0-29.9) (Acute) Type 2 diabetes mellitus with hyperglycemia (Acute) Obesity (BMI 30-39.9) (Acute) Chronic kidney disease (Acute) Erectile dysfunction (Acute) Tobacco abuse (Acute) Hypercholesterolemia (Acute) Hypertension (Acute) Past Medical History Medical History Screening for colon cancer Diabetic nephropathy associated with type 2 diabetes mellitus Very severe proliferative diabetic retinopathy 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 Other Mental health disorder Surgical History Surgical History Hx of cataract extraction History of surgery on arm Hx of colonoscopy Social History Social History Housing: Apartment Housing Other:: room in Boarding House Are you a primary livestock caretaker to a significant other at home: No Do you presently have visiting nurse or other home services: Yes ([employer], [facility]) Alcohol intake: never Comment: Blind Patient Tobacco Use Status: Current everyday Tobacco user Tobacco use type: Cigarette Cigarette Packs Per Day: 0.5 Cigarettes Per Day: 6 Smoked in Last 30 Days: Yes e-Cigarette/Vaping Use: Never Used Second Hand Smoke Exposure: Yes Have you been hit, kicked, punched, or otherwise hurt by someone within the past year? If so, by whom?: No Are you DNR?: No Advance Directives: No Advance Directives Information Provided: Yes Advance Directives on File: No Recently lost weight without trying: No Nutrition Risks: No Nutritional Risk service: No Current occupational status: disabled Cognitive needs: Yes (Blind stick, walker) Hearing needs: No Vision needs: No Meds Allergies Allergy/AdvReac Type Severity Reaction Status Date / Time pollen extracts [POLLEN] Allergy Mild SNEEZE Verified 10/05/23 15:28 PUFFY EYES Exam Height,Weight and Vital Signs: Height 6 ft 2 in Weight 90.718 kg Assessment and Plan Assessment Anesthesia Assessment: Chart Reviewed Documented by User: Abbie Zurita MD 11/10/23 07:56 [facility] Past Medical History Medical History Screening for colon cancer Diabetic nephropathy associated with type 2 diabetes mellitus Very severe proliferative diabetic retinopathy 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 Other Mental health disorder Family history of problems with anesthesia: No Surgical History Surgical History Hx of cataract extraction History of surgery on arm Hx of colonoscopy History of Problems with Anesthesia: No Social History Social History Housing: Apartment Housing Other:: room in Boarding House Are you a primary livestock caretaker to a significant other at home: No Do you presently have visiting nurse or other home services: Yes ([employer], [facility]) Alcohol intake: never Comment: Blind Patient Tobacco Use Status: Current everyday Tobacco user Tobacco use type: Cigarette Cigarette Packs Per Day: 0.5 Cigarettes Per Day: 6 Smoked in Last 30 Days: Yes e-Cigarette/Vaping Use: Never Used Second Hand Smoke Exposure: Yes Have you been hit, kicked, punched, or otherwise hurt by someone within the past year? If so, by whom?: No Are you DNR?: No Advance Directives: No Advance Directives Information Provided: Yes Advance Directives on File: No Recently lost weight without trying: No Nutrition Risks: No Nutritional Risk service: No Current occupational status: disabled Cognitive needs: Yes (Blind stick, walker) Hearing needs: No Vision needs: No Meds Allergies Allergy/AdvReac Type Severity Reaction Status Date / Time pollen extracts [POLLEN] Allergy Mild SNEEZE Verified 10/05/23 15:28 PUFFY EYES Exam Airway Mallampati Class: III TM Dist: <=3cm Neck ROM: Full Heart: rrr Lungs: cta Assessment and Plan Assessment Anesthesia Assessment: Anesthesia Plan Discussed Final Anesthetic Review Family History of Problems with Anesthesia: No History of Problems with Anesthesia: No NPO: Yes ASA Class: III Final Preanesthetic Review: No Changes in Pt Med Stat, Meds/Allgs Chart Reviewed, Consent Obtained/Reviewed and Anes Risks/Benef Reviewed Patient Risk: Intermediate Procedure Risk: Low Anesthetic Plan Anesthetic Plan: MAC: Disposition: Standard PACU
[2023-11-10] MEDS: Lactated Ringers 1,000 ML 100 ML IVCONT (07:48)
[2023-11-10 07:49] VITALS: BP 114/68; PULSE 60; RESP 16; TEMP 36.1; O2SAT 97
[2023-11-10 07:58] LABS: Glucose, Whole Blood 161 mg/dL (60-115)
--- NOTE | 2023-11-10 08:14 | MHC.SHP ---
Pre-Procedural Eval Section A - 24 Hr Update-Section A only Date of Service: 11/10/23 Section B - Complete if H&P > 30 days Chief Complaint: screening Details of Present Illness: for colonoscopy no GI complaints Relevant Family History (Specify if Yes): No Relevant Social History: None Present Medications: see Short Stay Collaborative assessment Medical History: Significant History (blind, hx of hep C, DM, hypertension) History of Previous Operations: No relevant previous surgery Allergies: Allergies Allergy/AdvReac Type Severity Reaction Status Date / Time pollen extracts [POLLEN] Allergy Mild SNEEZE Verified 11/10/23 07:56 PUFFY EYES Review of Systems Sugical H&P ROS: Negative: Constitution, Cardiovascular, Respiratory, Neurological, Psychiatric, Hem-Onc, Allergic/Immunologic, Gastrointestinal, Genitourinary, Musculoskeletal, Integumentary, Endocrine and Eyes/Ears/Nose/Throat Exam Surgical H&P Exam: Normal: Heart, Normal: Lungs and Normal: Abdomen Plan Diagnosis/Plan: Unchanged I have reviewed the history and physical and performed a pertinent physical examination on my patient. No changes have occurred unless specified. Time Spent With Patient Time: Total time managing care of this patient today ____ minutes.
--- NOTE | 2023-11-10 08:36 | W.PM.OPN ---
Operative Note Operative Note Date of Service: 11/10/23 Narrative: Preop diagnosis: Colon cancer screening Postop diagnosis: Poor bowel prep Procedure: Colonoscopy Surgeon: Dajuan Plunkett MD The patient is a 63 year old male here for screening colonoscopy. He understands the technique of the planned procedure as well as the risks, benefits, and alternatives The patient was brought to the operating room and placed in left lateral decubitus position under monitored anesthesia care. A surgical time-out was done. A full digital rectal exam was done and this did not reveal any significant anal lesions. The tip of the Olympus colonoscope was gently introduced through the anal orifice advanced with insufflation all the way to the cecum. The cecum was intubated. The cecum was identified by visualization of the ileocecal valve as well as the appendiceal orifice. The cecal mucosa was unremarkable. The scope was gradually withdrawn with careful examination of the entire colonic mucosa being done with scope withdrawal. The patient had suboptimal bowel prep throughout the entire colon. It was difficult to clearly see mucosa in many areas despite irrigation. However, it was unlikely that any large lesion was missed. The rectum was reached and there were no lesions seen. The anal canal was unremarkable. The scope was then withdrawn completely with desufflation The patient tolerated procedure well. There were no immediate complications. In view of her poor bowel prep, I would recommend not colonoscopy in 1 year.
[2023-11-10 08:40] VITALS: BP 120/90; PULSE 60; RESP 12; TEMP 36.1; O2SAT 97
[2023-11-10 08:55] VITALS: BP 91/52; PULSE 60; RESP 18; TEMP 36.1; O2SAT 97
== END 2023-11-10 09:40 | disposition home or self-care (01) ==
PROVIDERS: PCP Internal Medicine; Visit Provider Surgery
PROC: 0DBE8ZZ Excision of Large Intestine, Via Natural or Artificial Opening Endoscopic (ICD-10-PCS; CPT G0121; principal; 2023-11-10 09:10)
DX: Z12.11 Encounter for screening for malignant neoplasm of colon (principal); E11.22 Type 2 diabetes mellitus with diabetic chronic kidney disease; I12.9 Hypertensive chronic kidney disease with stage 1 through stage 4 chronic kidney disease, or unspecified chronic kidney disease; N18.30 Chronic kidney disease, stage 3 unspecified; E11.3599 Type 2 diabetes mellitus with proliferative diabetic retinopathy without macular edema, unspecified eye; E11.21 Type 2 diabetes mellitus with diabetic nephropathy; E11.65 Type 2 diabetes mellitus with hyperglycemia; H40.9 Unspecified glaucoma; H54.8 Legal blindness, as defined in USA; E78.00 Pure hypercholesterolemia, unspecified; B19.20 Unspecified viral hepatitis C without hepatic coma; Z79.4 Long term (current) use of insulin; Z79.84 Long term (current) use of oral hypoglycemic drugs; Z79.85 Long-term (current) use of injectable non-insulin antidiabetic drugs; Z79.82 Long term (current) use of aspirin; Z79.51 Long term (current) use of inhaled steroids; Z79.899 Other long term (current) drug therapy; Z99.89 Dependence on other enabling machines and devices; F17.210 Nicotine dependence, cigarettes, uncomplicated
CPT/HCPCS: G0121; 82947; J2003; J2704

== ENCOUNTER → 2023-11-10 07:21 | Outpatient (BNV) | payer OTHER, SELFPAY | PROVIDERS: PCP Internal Medicine; Visit Provider Surgery | DX: Z12.11 Encounter for screening for malignant neoplasm of colon (principal) | CPT/HCPCS: G0121 ==

== ENCOUNTER 2023-12-07 13:31 | Outpatient (REF) | payer OTHER, SELFPAY ==
[2023-12-07 13:54] LABS: MANUAL DIFF FLAG NO
[2023-12-07 14:09] LABS: Basophils Percent Auto 0.5 % (0-2); Eosinophils Absolute Auto 0.1 X10*3/uL (0.0-0.4); Hemoglobin 15.4 g/dl (14.0-18.0); Imm Gran Abs Auto 0.02 X10*3/uL (0.00-0.03); Imm Gran Pct Auto 0.3 % (0.0-0.4); Lymphocytes Absolute Auto 2.3 X10*3/uL (1.2-4.9); Lymphocytes Percent Auto 37.8 % (20-40); Mean Corpuscular HGB Conc 33.5 g/dl (31.0-36.0); Mean Corpuscular Hemoglobin 31.7 pg (27.0-33.0); Mean Corpuscular Volume 94.7 fL (80.0-98.0); Mean Platelet Volume 11.8 fL (9.4-12.4); Monocytes Absolute Auto 0.7 X10*3/uL (0.1-1.2); Monocytes Percent Auto 11.1 % (2-11); Neutrophils Absolute Auto 2.9 x10*3/uL (2.0-8.3); Neutrophils Percent Auto 48.3 % (45-73); Platelet Count 164 X10*3/uL (160-400); Red Blood Count 4.86 X10*6/uL (4.60-5.80); Red Cell Distribution Width 13.4 % (11.0-16.0); White Blood Count 6.1 X10*3/uL (4.8-10.8)
[2023-12-07 14:55] LABS: Estimated Average Glucose 217 mg/dL; Hemoglobin A1C 294.2695 umol/L; Hemoglobin A1c % 9.2 % (<6.0); Total Hemoglobin (HGBA1C) 3815.6729 umol/L
[2023-12-07 16:13] LABS: Alanine Aminotransferase 17 U/L (0-40); Albumin Level 4.4 g/dL (3.5-5.0); Alkaline Phosphatase 64 U/L (39-117); Anion Gap 17 (12-20); Aspartate Amino Transferase 17 U/L (5-37); Bilirubin Total 0.8 mg/dL (0.0-1.0); Blood Urea Nitrogen 45 mg/dL (9-16); Calcium 9.8 mg/dL (8.4-10.2); Carbon Dioxide 24 mmol/L (22-29); Chloride 105 mmol/L (96-108); Cholesterol 146 mg/dL (<200); Estimated Glomerular Filt Rate 29; Glucose Random 173 mg/dL (60-115); HDL Cholesterol 42 mg/dL (>40); LDL Cholesterol Calculated 88 mg/dL (<100); Potassium 4.8 mmol/L (3.3-5.1); Sodium 141 mmol/L (135-145); Total Protein 7.6 g/dL (6.5-8.0); Triglycerides 83 mg/dL (<150)
[2023-12-07 16:29] LABS: Folate 8.1 ng/mL (> or = 4.0); Prostate Specific Antigen Scr 0.42 ng/mL (<0.05-4.0); Vitamin B12 840 pg/mL (200-900)
[2023-12-07 16:36] LABS: Free T4 (Free Thyroxine) 1.08 ng/dL (0.71-1.85)
== END 2023-12-07 13:32 | disposition home or self-care (01) ==
LOC: HO.LAB 13:31
PROVIDERS: PCP Internal Medicine; Visit Provider Internal Medicine
DX: E78.00 Pure hypercholesterolemia, unspecified (principal); Z12.5 Encounter for screening for malignant neoplasm of prostate; Z13.1 Encounter for screening for diabetes mellitus
CPT/HCPCS: 36415; 80053; 80061; 82607; 82746; 83036; 84153; 84439; 84443; 85025

== ENCOUNTER 2023-12-08 14:22 | Outpatient (AMB) | payer OTHER, SELFPAY ==
--- NOTE | 2023-12-08 14:24 | MHC.PC.OV ---
Vital Signs 12/08/23 14:26 Height 6 ft 2 in Weight 204 lb 5.896 oz BMI 26.2 BP 120/76 Blood Pressure Location Lt brachial Position Sitting Pulse 55 Pulse Source Pulse Oximeter Pulse Oximetry (%) 94 Oxygen Delivery Method Room Air Intake Visit Reasons: 3 Month Follow Up Intake Note: Patient is here to follow up on DM, CKD, HTN, Hypercholesterolemia. Field Control Inspector Required: No Production Checker: Not Required per policy Accompanied by: Self / Same As Patient Allergies pollen extracts [POLLEN] Allergy (Mild, Verified 12/08/23 14:26) SNEEZE PUFFY EYES Tobacco use date assessed: 12/08/23 Dental Screening Dental Screen Date: 07/21/23 HPI 3 Month Follow Up HPI Details 63-year-old overweight male smoker with diabetes mellitus chronic kidney disease hypertension hypercholesterolemia asthma coming in for follow-up. Last seen in July 2023. Patient was reminded about colon cancer screening at that time. This was done 11/10/2023 suboptimal bowel prep patient was advised repeat in 1 year. Patient also follows up with renal diagnosis of chronic kidney disease stage IIIB diabetic hypertensive considering adding Kerendia. LDL target of less than 70 continue with Farxiga 10 mg once a day patient admits that he has had indiscriminate eating in the last few months as he feels that he has been small. Patient was advised against this and he knows better. Discussed about blood work. Discussed about the goal for LDL. 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 1. Little interest or pleasure in doing things: not at all 2. Feeling down, depressed, or hopeless: not at all 3. Trouble falling or staying asleep, or sleeping too much: not at all 4. Feeling tired or having little energy: not at all 5. Poor appetite or overeating: not at all 6. Feeling bad about yourself - or that you are a failure or have let yourself or your family down: not at all 7. Trouble concentrating on things, such as reading the newspaper or watching television: not at all 8. Moving or speaking so slowly that other people could have noticed. Or the opposite - being so fidgety or restless that you have been moving around a lot more than usual: not at all 9. Thoughts that you would be better off or of hurting yourself in some way: not at all Total score: 0 Depression Screening Interpretation: Negative Depression Screening Done: Yes Source: Developed by Drs. Rashaad Munoz, Alisson Yougn, Isaias Setih and colleagues, with an educational joanne from [employer]. Thrive Questionnaire Date Thrive assessed: 12/08/23 I am a: Patient What is your living situation today?: I have a steady place to live Within the past 12 months, did the food you bought not last and you didn't have the money to get more?: Never true Within the past 12 months, did you worry whether your food would run out before you got money to buy more?: Never true Do you have trouble paying for medicines?: No Do you have trouble getting transportation to medical appointments?: No Do you have trouble paying your heating and electricity bill?: No Do you have trouble taking care of your child, family member or friend?: No Do you have trouble with day-to-day activities such as bathing, preparing meals, shopping, managing finances, etc.?: No Are you currently unemployed and looking for a job?: No Are you interested in more education?: No Currently or been in a relationship where the following occur: No concerns reported THRIVE Score: 0 AUDIT C Alcohol Use Questionnaire (AUDIT-C) 1. How often do you have a drink containing alcohol?: Never Total Score: 0 BAO-7 AMB Questionnaire BAO-7 Date BAO - 7 assessed: 07/21/23 Source: Developed by Drs. Rashaad Munoz, Alisson Young, Isaias Sethi and colleagues, with an educational joanne from [employer]. Review of Systems Const Reports as per HPI Physical exam (Primary Care) Vital Signs: Last Vital Signs Pulse 55 12/08/23 14:26 BP 120/76 12/08/23 14:26 Pulse Ox 94 12/08/23 14:26 Oxygen Delivery Method Room Air 12/08/23 14:26 BMI result Body Mass Index 26.2 Tobacco/Smoking Status: Tobacco use Status Tobacco use date assessed 12/08/23 12/08/23 14:31 Patient Tobacco Use Status Current everyday Tobacco 12/08/23 14:31 Tobacco use type Cigarette 12/08/23 14:31 e-Cigarette/Vaping Use Never Used 12/08/23 14:31 PHQ-9: PHQ-9 Score PHQ-9: Total score 0 12/08/23 14:31 Depression Screening Interpretation: Negative Thrive Assessment: Date of Thrive Assessment Date Thrive assessed 12/08/23 12/08/23 14:31 Currently or been in a relationship where the following occur: No concerns reported Const General: alert; No acute distress Eyes Conjunctivae: conjunctivae normal Resp Auscultation: clear to auscultation bilaterally Cardio Rate: regular rate Rhythm: regular rhythm GI Inspection: Yes normal to inspection Extrem General: Yes normal to inspection and No edema Coding Level of Care Code Est Pt Level 4 (57145) Complex EM visit Add On G2211 Diagnoses Type 2 diabetes mellitus with hyperglycemia, with long-term current use of insulin E11.65; Z79.4 Diabetes mellitus penitentiary insulin use: with penitentiary use Stage 3 chronic kidney disease, unspecified whether stage 3a or 3b CKD N18.30 Chronic kidney disease stage: stage 3 (moderate) Chronic kidney disease stage 3 subtype: unspecified whether 3a or 3b Tobacco abuse Z72.0 Essential hypertension I10 Hypertension type: essential hypertension Hypercholesterolemia E78.00 Overweight (BMI 25.0-29.9) E66.3 Assessment & Plan Assessment & Plan (1) Type 2 diabetes mellitus with hyperglycemia: Code(s): E11.65 - Type 2 diabetes mellitus with hyperglycemia Category: Medical Qualifiers: Diabetes mellitus intermission coordinator insulin use: with penitentiary use Qualified Code(s): E11.65 - Type 2 diabetes mellitus with hyperglycemia; Z79.4 - [facility]PC (current) use of insulin Plan: Decrease the amount of carbohydrate intake, pasta, bread, rice and potatoes are all sugar and that is aside from all the sweet stuff, remember that fruits are good but they are Sweet also. Hemoglobin A1c goal of less than 6.5. Patient is on Farxiga, Lantus at 18 units once a day metformin 500 mg once a day Ozempic at 1 mg once a week. Patient was told eat healthy and keep active. (2) Chronic kidney disease: Comment: Stage III Code(s): N18.9 - Chronic kidney disease, unspecified Category: Medical Qualifiers: Chronic kidney disease stage: stage 3 (moderate) Chronic kidney disease stage 3 subtype: unspecified whether 3a or 3b Qualified Code(s): N18.30 - Chronic kidney disease, stage 3 unspecified Plan: Follows up with Nephrology keep well hydrated avoid NSAIDs get cholesterol under control continue with blood pressure control. (3) Tobacco abuse: Code(s): Z72.0 - Tobacco use Category: Medical Plan: Patient is strongly advised to stop smoking! (4) Hypertension: Code(s): I10 - Essential (primary) hypertension Category: Medical Qualifiers: Hypertension type: essential hypertension Qualified Code(s): I10 - Essential (primary) hypertension Plan: Continue with blood pressure medication. Decrease salt intake and exercise patient is taking lisinopril 40 mg once a day hydrochlorothiazide 25 mg once a day and amlodipine 10 mg once a day (5) Hypercholesterolemia: Code(s): E78.00 - Pure hypercholesterolemia, unspecified Category: Medical Plan: Avoid fried foods, chicken skin, eggs, butter margarine, pastries and meat. Be it pork or beef they have a lot of cholesterol LDL goal of less than 70 and triglyceride of less than 150 on atorvastatin 80 mg once a day LDL goal of less than 70 and with the atorvastatin on the highest dose will change cholesterol medication to rosuvastatin. Will retest blood work in 3 months. (6) Overweight (BMI 25.0-29.9): Code(s): E66.3 - Overweight Category: Medical Plan: Diet and exercise Orders: Orders Comprehensive Met. Panel 3 Months E78.00 - Pure hypercholesterolemia, unspecified Lipid Panel 3 Months E78.00 - Pure hypercholesterolemia, unspecified Hemoglobin A1c 3 Months E78.00 - Pure hypercholesterolemia, unspecified Medications: New rosuvastatin 40 mg PO DAILY 30 tabs 3RF E78.00 - Pure hypercholesterolemia, unspecified Changed From semaglutide 1 mg (0.75 mL) subcut QWEEK 3 mL 3RF E11.65 - Type 2 diabetes mellitus with hyperglycemia, Z79.4 - [employer] (current) use of insulin To semaglutide 2 mg (0.75 mL) subcut QWEEK 3 mL 3RF E11.65 - Type 2 diabetes mellitus with hyperglycemia, Z79.4 - [facility]PC (current) use of insulin Refilled blood-glucose sensor (Dexcom G6 Sensor device) As directed 3 ea 12RF E10.9 - Type 1 diabetes mellitus without complications, E11.65 - Type 2 diabetes mellitus with hyperglycemia, Z79.4 - [facility]PC (current) use of insulin blood-glucose transmitter (Dexcom G6 Transmitter device) As directed 1 ea 0RF E10.9 - Type 1 diabetes mellitus without complications, E11.65 - Type 2 diabetes mellitus with hyperglycemia, Z79.4 - [employer] (current) use of insulin blood-glucose meter,continuous (Dexcom G6 Body Artist) As directed 1 ea 0RF E10.9 - Type 1 diabetes mellitus without complications, E11.65 - Type 2 diabetes mellitus with hyperglycemia, Z79.4 - [employer]orer [employer] (current) use of insulin Discontinued atorvastatin Discontinued Reason: Doctor's Order 80 mg PO DAILY 90 tabs 1RF
[2023-12-08 14:26] VITALS: BP 120/76; PULSE 55; O2SAT 94; BMI 26.2
== END 2023-12-08 15:01 | disposition home or self-care (01) ==
LOC: HO.HMCH 14:23
PROVIDERS: PCP Internal Medicine; Visit Provider Internal Medicine
DX: E11.65 Type 2 diabetes mellitus with hyperglycemia (principal); Z79.4 Long term (current) use of insulin; N18.30 Chronic kidney disease, stage 3 unspecified; Z72.0 Tobacco use; I10 Essential (primary) hypertension; E78.00 Pure hypercholesterolemia, unspecified; E66.3 Overweight

== ENCOUNTER → 2023-12-08 14:22 | Outpatient (BNVA) | payer OTHER, SELFPAY | PROVIDERS: PCP Internal Medicine; Visit Provider Internal Medicine | DX: E11.65 Type 2 diabetes mellitus with hyperglycemia (principal); I12.9 Hypertensive chronic kidney disease with stage 1 through stage 4 chronic kidney disease, or unspecified chronic kidney disease; E11.22 Type 2 diabetes mellitus with diabetic chronic kidney disease; N18.30 Chronic kidney disease, stage 3 unspecified; E78.00 Pure hypercholesterolemia, unspecified; E66.3 Overweight; Z72.0 Tobacco use; Z79.4 Long term (current) use of insulin; Z71.3 Dietary counseling and surveillance | CPT/HCPCS: 96127; 99212 ==

== ENCOUNTER 2024-01-17 06:52 | Inpatient (IN) | payer OTHER, SELFPAY ==
--- NOTE | ~2024-01-17 | XR_ITS ---
EXAMINATION: XR TOES, LEFT CLINICAL INFORMATION: pain, necrosis COMPARISON: None available. TECHNIQUE: 3 views of the left toes were obtained. FINDINGS: Diffuse osteopenia. Extensive posttraumatic and resorptive changes in the first toe are seen. There are vascular calcifications present. With regards to the fifth toe, no fracture or destructive process. XR/XR toe LT min 2V IMPRESSION: Chronic changes observed. Electronically signed by: Ray Rogers MD 01/17/2024 10:34 AM ZAHRA DAMON
[2024-01-17 07:11] VITALS: BP 103/59; PULSE 57; RESP 16; TEMP 37; O2SAT 96; BMI 25.7
--- NOTE | 2024-01-17 08:15 | ED_ITS ---
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 He has no n/v/d fevers but it does hurt him. He cannot see it but started to worry there was an infection. He came to the ER to get checked out. Onset (ago): week(s) (1) Extremity Location: left: foot (pinky toe) Place: home Context: accidental Associated symptoms: pain Related Data Previous Rx's ?Medication ?Instructions ?Recorded lancets 28 gauge (FreeStyle #100 ea 07/16/20 Lancets) sildenafil 50 mg tablet 50 mg PO DAILY PRN sexual activity 09/07/20 #6 tabs nebulizers (Aeroneb Go Nebulizer) #1 ea 11/24/20 blood sugar diagnostic (FreeStyle #100 ea 06/07/21 Lite Strips) fluticasone propionate 220 1 puff inhalation BID #12 grams 01/20/23 mcg/actuation HFA aerosol inhaler (Flovent HFA) amlodipine 10 mg tablet 10 mg PO DAILY #90 tabs 03/01/23 ezetimibe 10 mg tablet 10 mg PO DAILY #90 tabs 03/01/23 metformin 500 mg tablet 500 mg PO DAILY 90 days #90 tabs 03/21/23 omeprazole 20 mg capsule,delayed 20 mg PO DAILY #90 caps 03/29/23 release clonidine HCl 0.1 mg tablet 0.1 mg PO BEDTIME #90 tabs 04/25/23 lisinopril 40 mg tablet 40 mg PO DAILY #90 tabs 04/25/23 dapagliflozin propanediol 10 mg 10 mg PO DAILY #30 tabs 07/21/23 tablet (Farxiga) cholecalciferol (vitamin D3) 25 25 mcg PO DAILY #90 tabs 08/16/23 mcg (1,000 unit) tablet sodium,potassium,mag sulfates 17.5 See Rx Instructions PO .COMPLEX 10/05/23 gram-3.13 gram-1.6 gram oral soln #354 mL (Suprep Bowel Prep Kit) pen needle, diabetic 32 gauge x #100 ea 10/18/23 hydrochlorothiazide 25 mg tablet 25 mg PO DAILY #90 tabs 10/28/23 nicotine (polacrilex) 2 mg gum 2 mg buccal Q2H #120 ea 11/13/23 insulin glargine 100 unit/mL (3 18 unit (0.18 mL) subcut QPM #15 mL 11/17/23 mL) subcutaneous pen (Lantus Solostar U-100 Insulin) albuterol sulfate 2.5 mg/3 mL 2.5 mg (3 mL) inhalation QID #75 mL 11/21/23 (0.083 %) solution for nebulization metoprolol tartrate 100 mg tablet 100 mg PO DAILY #90 tabs 11/22/23 blood-glucose meter,continuous #1 ea 12/08/23 (Dexcom G6 University Counselor) rosuvastatin 40 mg tablet 40 mg PO DAILY #30 tabs 12/08/23 semaglutide 2 mg/dose (8 mg/3 mL) 2 mg (0.75 mL) subcut QWEEK #3 mL 12/08/23 subcutaneous pen injector albuterol sulfate 90 mcg/actuation 2 puff PO Q6H PRN for wheezing 12/12/23 aerosol inhaler #8.5 ea blood-glucose meter (FreeStyle #1 ea 01/02/24 Lite Meter kit) acetaminophen 650 mg 650 mg PO Q12H 30 days #60 tabs 01/03/24 tablet,extended release blood-glucose sensor (Dexcom G6 #3 ea 01/09/24 Sensor device) blood-glucose transmitter (Dexcom #1 ea 01/09/24 G6 Transmitter device) Allergies Allergy/AdvReac Type Severity Reaction Status Date / Time pollen extracts [POLLEN] Allergy Mild SNEEZE Verified 01/17/24 07:13 PUFFY EYES Review of Systems 2 Review of Systems: Constitutional : No Fever, No Chills ENT/Mouth : No sore throat, No Rhinorrhea Eyes: No Eye Pain, No Swelling, No Redness Cardiovascular : No Chest Pain, No SOB Respiratory : No Cough, No Sputum Gastrointestinal : No Nausea, No Vomiting, No Diarrhea, No abdominal Pain Genitourinary : No Dysuria, No Hematuria Musculoskeletal : pos joint pain, No Myalgias, No Joint Swelling Skin : pos skin Lesion, positive skin rash Neuro : No Weakness, No Numbness, No Headache Psych : No Anxiety, No Depression Heme/Lymph: No Bruising, No Bleeding,No Lymphadenopathy Endocrine : No Polyuria, No Polydipsia All other systems reviewed and are negative PMFSH Past Medical History Attestation statement: The following information was validated with the patient. 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, [facility]) Alcohol intake: never Comment: Blind Patient Tobacco Use Status: Current everyday Tobacco user Tobacco use type: Cigarette Cigarette Packs Per Day: 1 Cigarettes Per Day: 15 e-Cigarette/Vaping Use: Never Used Second Hand Smoke Exposure: Yes Advance Directives: No Advance Directives Information Provided: Yes service: No Current occupational status: disabled Cognitive needs: Yes (Blind stick, walker) Hearing needs: No Vision needs: No Physical Exam 2 Vital Signs: Vital Signs: Last Vital Signs Temp 98.6 F 01/17/24 07:11 Pulse 57 01/17/24 07:11 Resp 16 01/17/24 07:11 BP 103/59 L 01/17/24 07:11 Pulse Ox 96 01/17/24 07:11 O2 Del Method Room Air 01/17/24 07:11 BMI result Body Mass Index 25.7 Appearance: Alert. Oriented X3. No acute distress. Eyes: keeps sunglasses on ENT: Pharynx normal. Neck: Normal inspection. Neck supple. CVS: Normal heart rate and rhythm. Pulses normal. Respiratory: No respiratory distress. Breath sounds normal. Abdomen: Soft and non-tender. Skin: Skin warm and dry. Normal skin color. Normal skin turgor. Extremities: No lower extremity edema. pulses intact, L toe is dry gangrene with some areas of rednes and edema on head of 5th metatarsal Neuro: Oriented X 3. No motor deficit. No sensory deficit. Course Course Course Narrative: signed out to Darrian LUKE pending further workup 840am Reevaluation(s) Reevaluation #1: Sign-out was given to me pending workup. Patient has no leukocytosis, stable H&H, chemistry revealing elevated BUN and creatinine at 39 and 2.01, improved since previous. Toe x-ray revealing chronic changes. Discussed admission with patient, he is agreeable for admission. Discussed with hospitalist, Fatemeh Gillespie, transfer of care initiated. Time: 10:42 Medications Administered Discontinued Medications Generic Name Dose Route Start Last Admin Trade Name Freq PRN Reason Stop Dose Admin Piperacillin Sod/Tazobactam 50 mls @ 100 mls/hr 01/17/24 07:56 01/17/24 09:23 Sod 3.375 gm/ Sodium Chloride IV 01/17/24 08:25 Infused ONCE ONE Infusion Vancomycin HCl 2,000 mg in 500 mls @ 250 mls/hr 01/17/24 07:56 01/17/24 09:27 Vancomycin/Ns IV 01/17/24 09:55 250 mls/hr ONCE ONE Administration Oxycodone HCl 10 mg 01/17/24 07:56 01/17/24 08:52 Oxycodone Hcl Immed Release 5 Mg Tablet PO 01/17/24 07:57 10 mg ONCE ONE Administration Medical Decision Making Medical Decision Making MDM Narrative: 63 yo male with PMH of DM with associated nephropathy, severe proliferative retinopathy and blindiness, asthma, hep C, HTN, HLD not on blood thinners here with c/o L pinky toe with signs of infection and dry gangrene - he has pulses. At this time will obtain xray, labs, start on IV antibiotics. Dr. Gasca has seen patient recommends admit for IV antibiotics and no emergent beltre to remove toe Differential Diagnosis Differential Diagnoses: The differential diagnosis associated with the presentation includes dry gangrene, cellulitis, wet gangrene Admission/Observation Consideration of admission/observation: Escalation of care including admission/observation considered admit for IV abx Consult Healthcare Provider Management of the patient was discussed with: Rn Surgery Icu (surgery has seen patient ) Lab Data MDM Lab Attestation statement: I reviewed the patient's lab results. 01/17/24 08:22 01/17/24 08:22 Labs: Lab Results 01/17/24 Range/Units 08:22 WBC 8.2 (4.8-10.8) X10*3/uL RBC 4.54 L (4.60-5.80) X10*6/uL Hgb 14.5 (14.0-18.0) g/dl Hct 41.9 L (42.0-52.0) % MCV 92.3 (80.0-98.0) fL MCH 31.9 (27.0-33.0) pg MCHC 34.6 (31.0-36.0) g/dl RDW 13.2 (11.0-16.0) % Plt Count 211 D (160-400) X10*3/uL MPV 11.2 (9.4-12.4) fL Immature Gran % (Auto) 0.2 (0.0-0.4) % Neut % (Auto) 63.7 (45-73) % Lymph % (Auto) 23.7 (20-40) % [place] % (Auto) 10.0 (2-11) % Eos % (Auto) 2.2 (0-4) % Baso % (Auto) 0.2 (0-2) % Lymph # (Auto) 1.9 (1.2-4.9) X10*3/uL [place] # (Auto) 0.8 (0.1-1.2) X10*3/uL Eos # (Auto) 0.2 (0.0-0.4) X10*3/uL Baso # (Auto) 0.0 (0.0-0.2) X10*3/uL Abs Immat Gran (auto) 0.02 (0.00-0.03) X10*3/uL Absolute Neuts (auto) 5.2 (2.0-8.3) x10*3/uL Absolute Nucleated RBC 0.000 (0.0-0.012) X10*3/uL Nucleated RBC % (auto) 0.0 (0.0-0.2) /100WBC ESR 45 H (0-15) MM/HR PT 10.2 L (10.9-12.4) SEC INR 0.9 (0.9-1.1) Sodium 139 (135-145) mmol/L Potassium 4.5 (3.3-5.1) mmol/L Chloride 109 H (96-108) mmol/L Carbon Dioxide 22 (22-29) mmol/L Anion Gap 13 (12-20) BUN 39 H (9-16) mg/dL Creatinine 2.01 H (0.5-1.4) mg/dL Estim Creat Clear Calc 44.8 Estimated GFR 34 Random Glucose 180 H (60-115) mg/dL Lactic Acid 1.4 (0.5-2.0) mmol/L Calcium 9.5 (8.4-10.2) mg/dL Magnesium 2.3 (1.6-2.6) mg/dL Total Bilirubin 0.6 (0.0-1.0) mg/dL Direct Bilirubin 0.2 (0.0-0.5) mg/dL AST 9 (5-37) U/L ALT 9 (0-40) U/L Alkaline Phosphatase 76 (39-117) U/L C-Reactive Protein 0.39 (< or = 0.50) mg/dL Total Protein 7.2 (6.5-8.0) g/dL Albumin 3.9 (3.5-5.0) g/dL Independent Historian Clinical information obtained from an independent historian. History obtained from or confirmed by: Friend External Record Review External record reviewed: Outpatient record Discharge Plan Discharge Clinical Impression: Dry gangrene Cellulitis Qualifiers: Site of cellulitis: extremity Site of cellulitis of extremity: lower extremity Laterality: left Qualified Code(s): L03.116 - Cellulitis of left lower limb Patient Disposition: Admitted As Inpatient Print Language: Israeli
--- NOTE | 2024-01-17 08:19 | PC.NURSE ---
Surgery at bedside at this time to evaluate patient.
--- NOTE | 2024-01-17 08:28 | P.CONGS_ITS ---
History of Present Illness Consult details Consult date: 01/17/24 Requesting physician: Kianna Adams Narrative: 63-year-old male patient with history of diabetes presenting with a left small toe diabetic associated necrosis and cellulitis. He reports losing his toenail several days ago but because of his blindness was unable to tell that the toe had become infected. He denies a previous history of foot problems due to the diabetes. He reports some pain associated with the little toe. He presented to the emergency department was noted to have gangrene of the tip at the distal phalanx with some erythema more proximal. He is being admitted to the hospitalist service for further management. 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 Other Mental health disorder Surgical History Surgical History Hx of cataract extraction History of surgery on arm Hx of colonoscopy Social History Social History Housing: Apartment Housing Other:: room in Boarding House Are you a primary women's health care nurse practitioner to a significant other at home: No Do you presently have visiting nurse or other home services: Yes (ACCREDITATION SPECIALIST, [facility]) Alcohol intake: never Comment: Blind Patient Tobacco Use Status: Current everyday Tobacco user Tobacco use type: Cigarette Cigarette Packs Per Day: 1 Cigarettes Per Day: 15 e-Cigarette/Vaping Use: Never Used Second Hand Smoke Exposure: Yes Advance Directives: No Advance Directives Information Provided: Yes service: No Current occupational status: disabled Cognitive needs: Yes (Blind stick, walker) Hearing needs: No Vision needs: No Meds Allergies Allergy/AdvReac Type Severity Reaction Status Date / Time pollen extracts [POLLEN] Allergy Mild SNEEZE Verified 01/17/24 07:13 PUFFY EYES Active Medications: Current Medications Vancomycin HCl (Vancomycin/Ns) 2,000 mg in 500 mls @ 250 mls/hr IV ONCE ONE Stop: 01/17/24 09:55 Physical Exam Vital Signs: Vital Signs: Last Vital Signs Temp 98.6 F 01/17/24 07:11 Pulse 57 01/17/24 07:11 Resp 16 01/17/24 07:11 BP 103/59 L 01/17/24 07:11 Pulse Ox 96 01/17/24 07:11 O2 Del Method Room Air 01/17/24 07:11 BMI result Body Mass Index 25.7 Const: General: no acute distress Nutritional Appearance: well nourished Orientation/consciousness: patient oriented x3 Limitations: other limitations (Blind) Resp: Effort & Inspection: normal respiratory effort, no audible wheezes, no cough and no respiratory distress GI: Inspection: Yes normal to inspection Neuro: General: patient oriented x3 Extrem: Other: Left foot 5th digit: distal phalanx with cadaveric changes and erythema noted in the proximal digit. No other skin changes noted on foot. Results Labs Labs: All other labs normal. Assessment and Plan (1) Diabetes mellitus with foot ulcer and gangrene: Status: Acute Plan 63 year old blind male with diabetes presenting with cadaveric changes to the 5th left toe with mild erythema surrounding after loosing his toe nail. Patient to be admitted to the hospitalist service for IV antibiotics. Toe x-rays are pending. Patient reluctant to consent to amputation. I recommended giving the antibiotics 1-2 days; if the erythema improves, would continue the antibiotics, however if there is continued erythema progression, amputation will be required. Patient agrees with this plan. Discussed with Dr. Adams. Procedures Date of Service Date of Service: 01/17/24
[2024-01-17 08:36] LABS: MANUAL DIFF FLAG NO
[2024-01-17 08:39] LABS: Basophils Percent Auto 0.2 % (0-2); Eosinophils Absolute Auto 0.2 X10*3/uL (0.0-0.4); Eosinophils Percent Auto 2.2 % (0-4); Hematocrit 41.9 % (42.0-52.0); Hemoglobin 14.5 g/dl (14.0-18.0); Imm Gran Abs Auto 0.02 X10*3/uL (0.00-0.03); Imm Gran Pct Auto 0.2 % (0.0-0.4); Lymphocytes Absolute Auto 1.9 X10*3/uL (1.2-4.9); Lymphocytes Percent Auto 23.7 % (20-40); Mean Corpuscular HGB Conc 34.6 g/dl (31.0-36.0); Mean Corpuscular Hemoglobin 31.9 pg (27.0-33.0); Mean Corpuscular Volume 92.3 fL (80.0-98.0); Mean Platelet Volume 11.2 fL (9.4-12.4); Monocytes Absolute Auto 0.8 X10*3/uL (0.1-1.2); Neutrophils Absolute Auto 5.2 x10*3/uL (2.0-8.3); Neutrophils Percent Auto 63.7 % (45-73); Platelet Count 211 X10*3/uL (160-400); Red Blood Count 4.54 X10*6/uL (4.60-5.80); Red Cell Distribution Width 13.2 % (11.0-16.0); White Blood Count 8.2 X10*3/uL (4.8-10.8)
[2024-01-17] MEDS: oxyCODONE HCl Immed Release 5 MG TABLET 10 MG PO ×3 (08:52→23:27)
[2024-01-17] MEDS: Piperacillin Sodium/Tazobactam 3.375 GM in 0.9 % Sodium Chloride 50 ML IV ×3 (08:53→20:25)
[2024-01-17 08:59] LABS: Lactic Acid 1.4 mmol/L (0.5-2.0)
[2024-01-17 09:00] LABS: Alanine Aminotransferase 9 U/L (0-40); Albumin Level 3.9 g/dL (3.5-5.0); Alkaline Phosphatase 76 U/L (39-117); Anion Gap 13 (12-20); Aspartate Amino Transferase 9 U/L (5-37); Bilirubin Direct 0.2 mg/dL (0.0-0.5); Bilirubin Total 0.6 mg/dL (0.0-1.0); Blood Urea Nitrogen 39 mg/dL (9-16); C Reactive Protein 0.39 mg/dL (< or = 0.50); Calcium 9.5 mg/dL (8.4-10.2); Carbon Dioxide 22 mmol/L (22-29); Chloride 109 mmol/L (96-108); Creatinine Clr Calc Pharmacy 44.8; Estimated Glomerular Filt Rate 34; Glucose Random 180 mg/dL (60-115); Magnesium 2.3 mg/dL (1.6-2.6); Potassium 4.5 mmol/L (3.3-5.1); Sodium 139 mmol/L (135-145); Total Protein 7.2 g/dL (6.5-8.0)
[2024-01-17 09:17] LABS: Erythrocyte Sedimentation Rate 45 MM/HR (0-15)
[2024-01-17 09:22] LABS: INTERNATIONAL NORM RATIO 0.9 (0.9-1.1); Prothrombin Time 10.2 SEC (10.9-12.4)
[2024-01-17] MEDS: vancomycin/NS 2,000 MG/500 ML PLAST..BAG 250 MG IV (09:27)
--- NOTE | 2024-01-17 11:18 | PM.IMHP ---
History of Present Illness Date of Service: 01/17/24 Attending physician on admission: Ori Tomas Chief Complaint: Toe infection Pt is a 63-year-old male with a PMH significant for?insulin-dependent type 2 diabetes, diabetic retinopathy legally blind, peripheral neuropathy, HTN, HLD, asthma, CKD 3, and GERD who presents to the ED with worsening pain?left 5th digit x2-3 days. Patient reports that his left 5th digit toenail fell off approximately 1 week ago. Went to see urgent care at that time who apparently said there was nothing much to do except keep area clean and dry. Patient reports approximately 2-3 days ago began experiencing pain which eventually worsened and brought him to the ED for further evaluation. Patient is legally blind and not aware of any changes to skin or any discharge from area. 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 Denies any other symptoms. No fever or chills. Denies nausea, vomiting, abdominal pain. No chest pain/pressure, palpitations. Chronic shortness of breath and nonproductive cough around baseline. Currently smoking a little under 1 pack a day. In the ED pt had soft BP of 103/59, vitals otherwise stable and WNL. Labs were significant for ESR 45, otherwise grossly unremarkable and baseline for patient. No leukocytosis. Stable H&H. Creatinine 2.01 at baseline. No significant electrolyte abnormalities. Hepatic function WNL. CRP WNL at 0.39 lactic acid WNL at 1.4. X-ray of left toes showing diffuse osteopenia and chronic changes, but no acute osseous abnormalities. Pt was treated with oxycodone, vancomycin, and Zosyn. Pt will be admitted to the hospital for treatment and further evaluation of left 5th toe cellulitis with dry gangrene secondary to diabetic foot ulcer requiring IV antibiotics. 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 Other Mental health disorder Surgical History Hx of cataract extraction History of surgery on arm Hx of colonoscopy Social History Housing: Apartment Housing Other:: room in Boarding House Are you a primary acute care certified nursing assistant to a significant other at home: No Do you presently have visiting nurse or other home services: Yes ([employer], [facility]) Alcohol intake: never Comment: Blind Patient Tobacco Use Status: Current everyday Tobacco user Tobacco use type: Cigarette Cigarette Packs Per Day: 1 Cigarettes Per Day: 15 e-Cigarette/Vaping Use: Never Used Second Hand Smoke Exposure: Yes Advance Directives: No Advance Directives Information Provided: Yes service: No Current occupational status: disabled Cognitive needs: Yes (Blind stick, walker) Hearing needs: No Vision needs: No Meds Allergies Allergy/AdvReac Type Severity Reaction Status Date / Time pollen extracts [POLLEN] Allergy Mild SNEEZE Verified 01/17/24 07:13 PUFFY EYES Physical Exam Vital Signs and Narrative: Vital Signs: Last Vital Signs Temp 98.6 F 01/17/24 07:11 Pulse 57 01/17/24 07:11 Resp 16 01/17/24 07:11 BP 103/59 L 01/17/24 07:11 Pulse Ox 96 01/17/24 07:11 O2 Del Method Room Air 01/17/24 07:11 BMI result Body Mass Index 25.7 General: AOx3, no acute distress Resp: Mild expiratory wheezing bilaterally CVS: S1, S2, RRR GI: +BS, NT, no distention Skin: Warm, dry Neuro: Cranial nerves II-XII grossly intact bilaterally. Motor grossly intact bilaterally Extremities: No edema. Erythema and warmth extending from base of left 5th digit. Left 5th digit with necrotic changes as pictured below. Psych: Appropriate affect Results Labs 01/17/24 08:22 01/17/24 08:22 Labs: Laboratory Results - last 24 hr 12/11/24 08:22 MCV 92.3 MCH 31.9 MCHC 34.6 RDW 13.2 Plt Count 211 D MPV 11.2 Immature Gran % (Auto) 0.2 Neut % (Auto) 63.7 Lymph % (Auto) 23.7 [place] % (Auto) 10.0 Eos % (Auto) 2.2 Baso % (Auto) 0.2 Lymph # (Auto) 1.9 [place] # (Auto) 0.8 Eos # (Auto) 0.2 Baso # (Auto) 0.0 Abs Immat Gran (auto) 0.02 Absolute Neuts (auto) 5.2 Absolute Nucleated RBC 0.000 Nucleated RBC % (auto) 0.0 ESR 45 H PT 10.2 L INR 0.9 Anion Gap 13 Estim Creat Clear Calc 44.8 Estimated GFR 34 Random Glucose 180 H Lactic Acid 1.4 Calcium 9.5 Magnesium 2.3 Total Bilirubin 0.6 Direct Bilirubin 0.2 AST 9 ALT 9 Alkaline Phosphatase 76 C-Reactive Protein 0.39 Total Protein 7.2 Albumin 3.9 Imaging Radiologist's Impressions: Impressions Toe X-Ray 01/17/24 08:30 IMPRESSION: Chronic changes observed. Electronically signed by: Ray Rogers MD 01/17/2024 10:[address] [facility] Assessment and Plan (1) Cellulitis: Qualifiers: Laterality: left Site of cellulitis: extremity Site of cellulitis of extremity: lower extremity Qualified Code(s): L03.116 - Cellulitis of left lower limb Status: Acute Plan Pt is a 63-year-old male with a PMH significant for?insulin-dependent type 2 diabetes, diabetic retinopathy legally blind, peripheral neuropathy, HTN, HLD, asthma, CKD 3, and GERD who presents to the ED with worsening pain?left 5th digit x2-3 days. Pt will be admitted to the hospital for treatment and further evaluation of left 5th toe cellulitis with dry gangrene secondary to diabetic foot infection requiring IV antibiotics. Left fifth digit cellulitis with dry gangrene Likely secondary to toenail falling off 1 week ago, pain the past 2-3 days Osteo unlikely: X-ray negative, ESR 45, CRP WNL No sepsis: No tachycardia, tachypnea, fever, or leukocytosis; lactic acid WNL Patient is started on broad-spectrum antibiotics in the ED Will treat with vancomycin and Zosyn, started 01/17/2024 General surgery consult Analgesics for pain management Insulin-dependent type 2 diabetes Sliding-scale insulin, Lantus Hold metformin Diabetic diet HTN Continue amlodipine, lisinopril, hydrochlorothiazide, metoprolol HLD Continue ezetimibe, statin Asthma Not in acute exacerbation Continue home inhalers GERD Continue PPI Full Code Attending:?Dr. Tomas DVT Prophylaxis: Pneumatic compression due to possible surgical intervention Pt will require a hospitalization of at least two nights for treatment of?diabetic foot infection with cellulitis of left 5th toe and dry gangrene requiring IV antibiotics and surgical consultation for possible amputation. Quality Stroke Does the patient have a stroke diagnosis?: No VTE Prior VTE?: No VTE Risk Level:: Medical - moderate - high VTE Device Contraindication: N/A - Device Ordered VTE Drug Contraindication: Treatment Not Indicated
[2024-01-17 12:12] VITALS: BP 110/63; PULSE 55; RESP 20; TEMP 36.6; O2SAT 95
--- NOTE | 2024-01-17 13:34 | PHA.PROG ---
Admission Date/Time: January 17, 2024 12:17 Indication: Diabetic Foot Weight in k.718 kg Adjusted body weight in Kg: [place] body weight in Kg: Obesity Dosing Indication % IBW: Serum Creatinine - Last 168 Hours 01/17/24 08:22 Creatinine 2.01 H Estimated CrCl and GFR - Last 168 Hours 01/17/24 08:22 Estim Creat Clear Calc 44.8 Estimated GFR 34 Vancomycin Loading Dose: 2000mg Current Vancomycin Dosing Regimen: 1250mg Q24H Vancomycin Monitoring using AUC goal of 400 - 600 range with trough as surrogate marker: 531 mg/L Date and Time for next Vancomycin Level to be drawn: 01/18 @ 0700 Pharmacist Comments on Vancomycin Plan: projectd trough is 17 mg/L, watch for renal changes, this regimen was the only one that would get them to therapeutic AUC within a reasonable amount of time. Vancomycin dosing will take advantage of [employer] as a clinical decision support tool that uses Bayesian modeling to calculate individual patient's pharmacokinetic parameters and forecast the patient's drug concentration time course with the target goal AUC 24 range of 400 - 600 mg/L/hr.
--- NOTE | 2024-01-17 13:50 | PC.NURSE ---
POC 121 Per sliding scale no units given.
[2024-01-17 13:52] LABS: Glucose, Whole Blood 121 mg/dL (60-115)
[2024-01-17 14:06] VITALS: BMI 25.7
--- NOTE | 2024-01-17 15:18 | PHA.MEDREC ---
Pharmacy Consult ? Medication Reconciliation Pharmacy has completed the medication reconciliation. Spoke to patient and confirmed medication list. Patient verified he is still taking clonidine 0.1 mg and flovent HFA 220 mcg. The dose of Lantus is 18 units in the morning, he injects ozempic 2 mg every week on monday (last dose was 01/10/24). He's not sure what he took this morning (caregiver puts pills in his pill box for him) but is sure that he injects the lantus this morning already.
[2024-01-17 16:52] VITALS: BP 116/69; PULSE 54; RESP 16; TEMP 36.6; O2SAT 93
[2024-01-17 17:09] LABS: Glucose, Whole Blood 184 mg/dL (60-115)
[2024-01-17 17:13] VITALS: BP 115/59; PULSE 55; RESP 18; TEMP 36.6; O2SAT 94
[2024-01-17] MEDS: Insulin Lispro 100 UNIT/ML 3 ML VIAL SUBCUT (17:21)
--- NOTE | 2024-01-17 17:27 | PC.NURSE ---
pt oriented to room. pt has blood sugar check device to RUE, does not have device to administer insulin. pt stated he wants to keep strong with him.
[2024-01-17 19:07] VITALS: BP 111/57; PULSE 57; RESP 20; TEMP 36.6; O2SAT 94
[2024-01-17 19:58] LABS: Glucose, Whole Blood 130 mg/dL (60-115)
[2024-01-17 20:17] VITALS: BP 111/57
[2024-01-17] MEDS: cloNIDine HCL 0.1 MG TABLET PO (20:17)
[2024-01-17] MEDS: 0.9 % Sodium Chloride Flush 3 ML SYRINGE IVFLUSH (20:22)
--- OUTSIDE RECORDS SUMMARY | 2024-01-17 22:42 | XMS_ITS | Patient Health Record ---
Author Organization [facility] Address [address] [place] [address] Care Team Providers Care Environmental Officer Name Role Phone Trey Love Primary Care Provider Twila Vargas Unavailable [phone] Reason For Referral No Information Encounters Encounter Location Date Provider Diagnosis [facility] [address] [place] [address] 12/21/2023 Twila Holliday Plan Of Treatment Next Appt Details Provider Name:Twila lauren, 03/08/2024 10:30:00 AM, [address] [facility], [address] [address], [place], [address], Insurance Providers Payer Name Payer Address Payer Phone Subscriber Number Group Number Insured Name Patient Relationship to Insured Coverage Start Date Coverage End Date [facility] [place] [employer] Claims [address] [id number] Rashaad Neff Self - patient is the insured
--- OUTSIDE RECORDS SUMMARY | 2024-01-17 22:42 | XMS_ITS ---
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 Generated for Manueli radha/Vaughn/eTransmitting on:?01/17/2024 10:41 PM EST
--- OUTSIDE RECORDS SUMMARY | 2024-01-17 22:42 | XMS_ITS ---
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 * Medical History:? Objective: * Vitals:? Assessment: Plan: * Treatment: * Images: * The named appointment provid er may or may not be the originator of this progress note, and it is not deemed complete until electronically signed by the appointment provider. Sign off status: Pending * Provider:?Twila Holliday DPM Date:?1 02/20/2023 Generated for Guille garcia/Vaughn/eTransmitting on:?01/17/2024 10:41 PM EST
[2024-01-18] VITALS (16 sets, daily range): BP systolic 80–118; BP diastolic 48–69; PULSE 52–68; RESP 16–18; TEMP 36.4–37.1; O2SAT 92–95
[2024-01-18] MEDS: Piperacillin Sodium/Tazobactam 3.375 GM in 0.9 % Sodium Chloride 50 ML IV ×4 (02:24→20:20)
[2024-01-18] MEDS: oxyCODONE HCl Immed Release 5 MG TABLET 10 MG PO ×3 (05:36→18:29)
[2024-01-18] MEDS: Omeprazole 20 MG CAPSULE.DR PO (05:36)
[2024-01-18 06:37] LABS: Creatinine Clr Calc Pharmacy 44.8; Estimated Glomerular Filt Rate 34
[2024-01-18 07:41] LABS: Glucose, Whole Blood 168 mg/dL (60-115)
[2024-01-18] MEDS: Insulin Lispro 100 UNIT/ML 3 ML VIAL SUBCUT ×4 (07:55→20:19)
[2024-01-18] MEDS: Insulin Glargine,Hum.rec.anlog 100 UNIT/ML 10 ML VIAL 13 UNIT SUBCUT (07:56)
[2024-01-18] MEDS: Metoprolol Tartrate 100 MG TABLET PO (07:56)
[2024-01-18] MEDS: Ezetimibe 10 MG TABLET PO (07:56)
[2024-01-18] MEDS: Atorvastatin Calcium 80 MG TABLET PO (07:57)
[2024-01-18] MEDS: amLODIPine Besylate 10 MG TABLET PO (07:57)
[2024-01-18] MEDS: hydroCHLOROthiazide 25 MG TABLET PO (07:57)
[2024-01-18] MEDS: lisinopriL 40 MG TABLET PO (07:57)
[2024-01-18] MEDS: 0.9 % Sodium Chloride Flush 3 ML SYRINGE IVFLUSH ×3 (08:01→20:20)
--- NOTE | 2024-01-18 09:04 | HE.PHANOTE ---
VANCO DOSE ADJUSTMENT BASED ON SCR DOSE CONTINUED AT 1250 Q 24H. NEXT LEVEL 01/18 @ 0700
[2024-01-18] MEDS: Albuterol Sulfate (0.083%) 2.5 MG/3 ML VIAL.NEB INHALE ×2 (09:26→16:55)
[2024-01-18] MEDS: Fluticasone Propionate 250 MCG BLST.W.DEV 1 PUFF INHALE ×2 (09:27→18:46)
[2024-01-18] MEDS: vancomycin HCL 1,250 MG in 0.9 % Sodium Chloride 250 ML 166.67 MG IV (09:59)
[2024-01-18] MEDS: Acetaminophen 325 MG TABLET 650 MG PO ×2 (11:59→18:28)
[2024-01-18 12:09] LABS: Glucose, Whole Blood 207 mg/dL (60-115)
--- NOTE | 2024-01-18 12:48 | MHC.CM.PN ---
Addendum entered by Radha Fiore RN 01/18/24 13:16: Patient is active w/ [facility]. Return referral sent via [employer]. Original Note: IMM delivered. Patient lives in an apartment alone. Pt is blind, has [employer] 3-4x/wk to assist w/ ADL's. [employer] leave things set up for days w/ no [employer] and neighbors assist PRN. Ambulates w/ cane. Reports he has a visiting nurse 1x/wk for med management. He is unsure of agency. Awaiting information from Anni @ [facility]. PCP Dr. Love Completed HCP naming agents: 1) cousin Tali Miguel and 2) cousin Priscilla Miguel. DP: May require toe amp. Goal is home resume services, friend to transport. CM will continue to follow.
--- NOTE | 2024-01-18 16:00 | HO.PM.IMPN ---
Subjective Subjective Date of Service: 01/18/24 Interval History: seen and examined this morning follow up for foot infection pain with palpation of toe no fever or chills Review of Systems Review of Systems: Yes all other systems are reviewed and are negative Constitutional Constitutional: Denies chills and Denies fever(s) Cardiovascular Cardiovascular: Denies chest pain, Denies palpitations and Denies dyspnea Respiratory Respiratory: Denies cough and Denies dyspnea Endocrine Endocrine: Denies palpitations Physical Exam Vital Signs: Vital Signs: Last Vital Signs Temp 97.6 F 01/18/24 15:50 Pulse 56 01/18/24 15:50 Resp 16 01/18/24 15:50 BP 81/48 L 01/18/24 15:50 Pulse Ox 95 01/18/24 15:50 O2 Del Method Room Air 01/18/24 15:50 BMI result Body Mass Index 25.7 Const: General: cooperative, comfortable, no acute distress, alert and awake Nutritional Appearance: average body habitus Orientation/consciousness: patient oriented x3 Resp: Effort & Inspection: normal respiratory effort, able to speak in complete sentences, no respiratory distress and no use of accessory muscles Cardio: Rate: regular rate GI: Inspection: No distended Palpation (GI): Soft to palpation and nontender Skin: Other: left 5th toe necrotic appearing with some resolving erythema; no drainage Neuro: General: patient oriented x3, moves all extremities and CN's II-XI intact bilaterally Extrem: General: Yes no pedal edema Objective Data Active Medications Acetaminophen (Acetaminophen 325 Mg Tablet) 650 mg PO Q6H PRN PRN Reason: Pain, Mild (Pain Scale 1-3), fever or headache Last Admin: 01/18/24 11:59 Dose: 650 mg Documented By: CANDICE Albuterol Sulfate (Albuterol Sulfate 90 Mcg 8 Gm Inhaler) 2 puff INHALE Q6H PRN PRN Reason: for wheezing Albuterol Sulfate (Albuterol Sulfate (0.083%) 2.5 Mg/3 Ml Vial.Neb) 2.5 mg INHALE QID PRN PRN Reason: shortness of breath/wheezing Amlodipine Besylate (Amlodipine Besylate 10 Mg Tablet) 10 mg PO DAILY MOON; Protocol Last Admin: 01/18/24 07:57 Dose: 10 mg Documented By: CANDICE Atorvastatin Calcium (Atorvastatin Calcium 80 Mg Tablet) 80 mg PO DAILY [facility] Last Admin: 01/18/24 07:57 Dose: 80 mg Documented By: CANDICE Benzonatate (Benzonatate 100 Mg Capsule) 100 mg PO TID PRN PRN Reason: Cough Calcium Carbonate (Calcium Carbonate 750 Mg Tab.Chew) 750 mg PO Q4H PRN PRN Reason: Heartburn Clonidine HCl (Clonidine Hcl 0.1 Mg Tablet) 0.1 mg PO BEDTIME [facility]; Protocol Last Admin: 01/17/24 20:17 Dose: 0.1 mg Documented By: SERENE Ezetimibe (Ezetimibe 10 Mg Tablet) 10 mg PO DAILY [facility] Last Admin: 01/18/24 07:56 Dose: 10 mg Documented By: CANDICE Fluticasone Propionate (Fluticasone Propionate 250 Mcg Blst.W.Dev) 1 puff INHALE RBID [facility] Last Admin: 01/18/24 09:27 Dose: 1 puff Documented By: BETH Glucose (Glucose Gel 15 Gm Gel..Gram.) 15 gm PO Q15M PRN; Protocol PRN Reason: per Hypoglycemia Standing Ord. Hydrochlorothiazide (Hydrochlorothiazide 25 Mg Tablet) 25 mg PO DAILY [facility]; Protocol Last Admin: 01/18/24 07:57 Dose: 25 mg Documented By: CANDICE Dextrose (D10) 250 mls @ 750 mls/hr IV Q15M PRN; Protocol PRN Reason: per Hypoglycemia Standing Ord. Piperacillin Sod/Tazobactam (Sod 3.375 gm/ Sodium Chloride) 50 mls @ 100 mls/hr IV Q6H [facility] Last Admin: 01/18/24 15:18 Dose: 100 mls/hr Documented By: CANDICE Vancomycin HCl 1,250 mg/ (Sodium Chloride) 250 mls @ 166.667 mls/hr IV Q24H [facility] Last Infusion: 01/18/24 11:45 Dose: Infused Documented By: CANDICE Sodium Chloride (Ns) 500 mls @ 500 mls/hr IV .Q1H [facility] Stop: 01/18/24 16:59 Insulin Glargine (Insulin Glargine,Hum.Rec.Anlog 100 Unit/Ml 10 Ml Vial) 13 unit SUBCUT DAILY [facility] Last Admin: 01/18/24 07:56 Dose: 13 unit Documented By: CANDICE Insulin Human Lispro (Insulin Lispro 100 Unit/Ml 3 Ml Vial) 0 unit SUBCUT QIDACHS [facility]; Protocol Last Admin: 01/18/24 12:13 Dose: 4 unit Documented By: CANDICE Lisinopril (Lisinopril 40 Mg Tablet) 40 mg PO DAILY [facility]; Protocol Last Admin: 01/18/24 07:57 Dose: 40 mg Documented By: CANDICE Magnesium Hydroxide (Milk Of Magnesia 30 Ml Oral.Susp) 30 ml PO DAILY PRN PRN Reason: Constipation Melatonin (Melatonin 3 Mg Tablet) 6 mg PO BEDTIME PRN PRN Reason: Insomnia Metoprolol Tartrate (Metoprolol Tartrate 100 Mg Tablet) 100 mg PO DAILY [facility]; Protocol Last Admin: 01/18/24 07:56 Dose: 100 mg Documented By: CANDICE Nicotine Polacrilex (Nicotine Polacrilex 2 Mg Gum) 2 mg BUCCAL Q2H PRN PRN Reason: Smoking Cessation Omeprazole (Omeprazole 20 Mg Capsule.Dr) 20 mg PO DAILY@0630 [facility] Last Admin: 01/18/24 05:36 Dose: 20 mg Documented By: SERENE Ondansetron HCl (Ondansetron Hcl 4 Mg/2 Ml Vial) 4 mg IVPUSH Q8H PRN PRN Reason: Nausea and Vomiting Oxycodone HCl (Oxycodone Hcl Immed Release 5 Mg Tablet) 10 mg PO Q6H PRN PRN Reason: Pain, Severe (Pain Scale 7-10) Last Admin: 01/18/24 12:00 Dose: 10 mg Documented By: CANDICE Pharmacy Consult (Consult Rx Vancomycin Dosing) 1 each MISCELLANE DAILY PRN PRN Reason: Consult order Sodium Chloride (0.9 % Sodium Chloride Flush 3 Ml Syringe) 3 ml IVFLUSH QSHIFT [facility] Last Admin: 01/18/24 15:20 Dose: 3 ml Documented By: CANDICE Labs 01/17/24 08:22 01/18/24 06:10 Labs: Laboratory Results - last 24 hr 01/17/24 01/17/24 01/18/24 17:05 19:54 06:10 Hold Purple Top SEE NOTE Estim Creat Clear Calc 44.8 Estimated GFR 34 POC Glucose 184 H 130 H 01/18/24 01/18/24 07:23 12:05 Hold Purple Top Estim Creat Clear Calc Estimated GFR POC Glucose 168 H 207 H Microbiology Microbiology Results: Microbiology 01/17/24 08:22 Blood Culture - Preliminary Blood - Venous No growth after 24 hours. 01/17/24 08:26 Blood Culture - Preliminary Blood - Venous No growth after 24 hours. Assessment and Plan (1) Dry gangrene: Status: Acute Plan Pt is a 63-year-old male with a PMH significant for?insulin-dependent type 2 diabetes, diabetic retinopathy legally blind, peripheral neuropathy, HTN, HLD, asthma, CKD 3, and GERD who presents to the ED with worsening pain?left 5th digit x2-3 days. Pt will be admitted to the hospital for treatment and further evaluation of left 5th toe cellulitis with dry gangrene secondary to diabetic foot infection requiring IV antibiotics. Left fifth digit cellulitis with dry gangrene Likely secondary to toenail falling off 1 week ago Osteo unlikely: X-ray negative, ESR 45, CRP WNL No sepsis: No tachycardia, tachypnea, fever, or leukocytosis; lactic acid WNL continue IV vancomycin and Zosyn, started 01/17/2024 General surgery following will likely need ambutation Analgesics for pain management blood cultures negative to date Insulin-dependent type 2 diabetes Sliding-scale insulin, Lantus Hold metformin Diabetic diet HTN blood pressure low this afternoon clinically appears well, likely due to numerous blood pressure medications, not sepsis hold amlodipine, lisinopril, hydrochlorothiazide, clonidine continue metoprolol in am if bp allows will give IVF and monitor closely HLD Continue ezetimibe, statin Asthma Not in acute exacerbation Continue home inhalers GERD Continue PPI Full Code DVT Prophylaxis: Pneumatic compression due to possible surgical intervention Pt requires ongoing inpatient stay for treatment of?diabetic foot infection with cellulitis of left 5th toe and dry gangrene requiring IV antibiotics and surgical consultation for possible amputation. Quality Stroke Does the patient have a stroke diagnosis?: No VTE Prior VTE?: No VTE Risk Level:: Medical - moderate - high VTE Device Contraindication: N/A - Device Ordered VTE Drug Contraindication: Treatment Not Indicated
[2024-01-18] MEDS: 0.9 % Sodium Chloride 500 ML IV (16:04)
[2024-01-18 16:10] LABS: Glucose, Whole Blood 210 mg/dL (60-115)
--- NOTE | 2024-01-18 17:27 | PC.NURSE ---
at 1550 vitals taken, BP 81/48 P 56, rechecked manually 80/48 p 55, asymptomatic. Nuria Correa made aware, pt placed in reverse [place], BP rechecked at 1600 93/53 p 56. 500ml NS bolus ordered and hung. BP rechecked at 1605 96/51 P 56. Pt placed in supine position. BP rechecked at 1610 118/69 P 55.
[2024-01-18 20:01] LABS: Glucose, Whole Blood 171 mg/dL (60-115)
[2024-01-19] VITALS (8 sets, daily range): BP systolic 99–130; BP diastolic 51–70; PULSE 55–69; RESP 16–18; TEMP 36.3–36.9; O2SAT 94–98
[2024-01-19] MEDS: Acetaminophen 325 MG TABLET 650 MG PO ×3 (00:27→17:14)
[2024-01-19] MEDS: oxyCODONE HCl Immed Release 5 MG TABLET 10 MG PO ×3 (00:27→17:14)
[2024-01-19] MEDS: Piperacillin Sodium/Tazobactam 3.375 GM in 0.9 % Sodium Chloride 50 ML IV ×4 (02:49→21:47)
[2024-01-19] MEDS: Omeprazole 20 MG CAPSULE.DR PO (05:44)
[2024-01-19 07:06] LABS: Hematocrit 37.7 % (42.0-52.0); Hemoglobin 12.6 g/dl (14.0-18.0); Mean Corpuscular HGB Conc 33.4 g/dl (31.0-36.0); Mean Corpuscular Volume 92.9 fL (80.0-98.0); Mean Platelet Volume 11.2 fL (9.4-12.4); Platelet Count 177 X10*3/uL (160-400); Red Blood Count 4.06 X10*6/uL (4.60-5.80); Red Cell Distribution Width 13.2 % (11.0-16.0); White Blood Count 6.6 X10*3/uL (4.8-10.8)
[2024-01-19 07:24] LABS: Anion Gap 14 (12-20); Blood Urea Nitrogen 33 mg/dL (9-16); Calcium 8.6 mg/dL (8.4-10.2); Carbon Dioxide 19 mmol/L (22-29); Chloride 106 mmol/L (96-108); Creatinine Clr Calc Pharmacy 42.9; Estimated Glomerular Filt Rate 32; Glucose Random 208 mg/dL (60-115); Potassium 3.9 mmol/L (3.3-5.1); Sodium 135 mmol/L (135-145)
--- NOTE | 2024-01-19 07:30 | HE.PHANOTE ---
Re: Giovanni Poor renal function but stable. Trough returned at 15.0. Dose reduced ti 1,000 q24h with predicted AUC 472, predicted trough 15.2. Next tough 01/19 @ 0700.
[2024-01-19 07:42] LABS: Glucose, Whole Blood 203 mg/dL (60-115)
[2024-01-19] MEDS: Insulin Glargine,Hum.rec.anlog 100 UNIT/ML 10 ML VIAL 13 UNIT SUBCUT (07:50)
[2024-01-19] MEDS: Atorvastatin Calcium 80 MG TABLET PO (07:51)
[2024-01-19] MEDS: Ezetimibe 10 MG TABLET PO (07:51)
[2024-01-19] MEDS: Insulin Lispro 100 UNIT/ML 3 ML VIAL SUBCUT ×4 (07:51→20:24)
[2024-01-19] MEDS: 0.9 % Sodium Chloride Flush 3 ML SYRINGE IVFLUSH ×3 (07:53→21:47)
[2024-01-19] MEDS: Fluticasone Propionate 250 MCG BLST.W.DEV 1 PUFF INHALE ×2 (08:20→19:51)
[2024-01-19] MEDS: vancomycin HCL 1,000 MG in 0.9 % Sodium Chloride 250 ML 270 MG IV (09:16)
[2024-01-19 11:35] LABS: Glucose, Whole Blood 266 mg/dL (60-115)
--- NOTE | 2024-01-19 14:17 | HO.WOUND ---
Wound Consult: Initial 63yr old Male admitted to [facility] on 01/17/24 - See progress notes and H&P for detailed history.? Wound consult placed for Left 5th necrotic toe.? Chart review reveals General Surgery Dr. Gasca is following the patient - will defer topical recommendation to him. Spoke to patient and reports he prefers a dressing in place. We discussed keeping the toe / wound dry to prevent wet gangrene. We discussed shoe choice - he may benefit from and off loading shoe will defer to general surgery. Patient agreeable to assessment and photo documentation.? Of note patient is blind and is unable to perform his own wound care. He does report he has VNA services at home everyother day. Left 5th toe Etiology: ?Diabetic wound Wound Bed: dry black toe Drainage / Odor: None noted Edges: ? attached Martha wound: ?swelling and mild erythema noted - No Induration, Fluctuance or Warmth noted Pain: reports tenderness Goals of Treatment: ? Betadtine to keep dry and dry gauze to protect form trauma of sock and shoes. Recommend eval for off loading shoe but given patient is blind ensure does not make him unsteady on his feet. Recommendations: 1. Maintain blood glucose levels per Providers order. 2. Left 5th Toe - [place] with Betadine allow to dry. Cover with Dry gauze. Do not use foam as this will donate moisture. Re-consult wound care Nurse for wound deterioration or wound changes.
[2024-01-19 16:37] LABS: Glucose, Whole Blood 224 mg/dL (60-115)
--- NOTE | 2024-01-19 16:52 | HO.PM.IMPN ---
Subjective Subjective Date of Service: 01/19/24 Interval History: seen and examined this morning follow up for foot infection erythema improving Review of Systems Review of Systems: Yes all other systems are reviewed and are negative Constitutional Constitutional: Denies chills and Denies fever(s) ENT Ears, Nose, Mouth, and Throat: Denies dizziness Cardiovascular Cardiovascular: Denies chest pain, Denies palpitations and Denies dyspnea Respiratory Respiratory: Denies cough and Denies dyspnea Neurologic Neurologic: Denies dizziness Endocrine Endocrine: Denies palpitations Physical Exam Vital Signs: Vital Signs: Last Vital Signs Temp 98.4 F 01/19/24 15:13 Pulse 62 01/19/24 15:13 Resp 16 01/19/24 15:13 BP 101/58 L 01/19/24 15:23 Pulse Ox 96 01/19/24 15:13 O2 Del Method Room Air 01/19/24 15:13 BMI result Body Mass Index 25.7 Const: General: cooperative, comfortable, no acute distress, alert and awake Nutritional Appearance: average body habitus Orientation/consciousness: patient oriented x3 Resp: Effort & Inspection: normal respiratory effort, able to speak in complete sentences, no respiratory distress and no use of accessory muscles Cardio: Rate: regular rate GI: Inspection: No distended Palpation (GI): Soft to palpation and nontender Skin: Other: left 5th toe necrotic appearing with some resolving erythema; no drainage Neuro: General: patient oriented x3, moves all extremities and CN's II-XI intact bilaterally Extrem: General: Yes no pedal edema Objective Data Active Medications Acetaminophen (Acetaminophen 325 Mg Tablet) 650 mg PO Q6H PRN PRN Reason: Pain, Mild (Pain Scale 1-3), fever or headache Last Admin: 01/19/24 08:06 Dose: 650 mg Documented By: YANIRA Albuterol Sulfate (Albuterol Sulfate 90 Mcg 8 Gm Inhaler) 2 puff INHALE Q6H PRN PRN Reason: for wheezing Albuterol Sulfate (Albuterol Sulfate (0.083%) 2.5 Mg/3 Ml Vial.Neb) 2.5 mg INHALE QID PRN PRN Reason: shortness of breath/wheezing Last Admin: 01/18/24 16:55 Dose: 2.5 mg Documented By: BETH Amlodipine Besylate (Amlodipine Besylate 10 Mg Tablet) 10 mg PO DAILY [facility]; Protocol Last Admin: 01/18/24 07:57 Dose: 10 mg Documented By: CANDICE Atorvastatin Calcium (Atorvastatin Calcium 80 Mg Tablet) 80 mg PO DAILY [facility] Last Admin: 01/19/24 07:51 Dose: 80 mg Documented By: CANDICE Benzonatate (Benzonatate 100 Mg Capsule) 100 mg PO TID PRN PRN Reason: Cough Calcium Carbonate (Calcium Carbonate 750 Mg Tab.Chew) 750 mg PO Q4H PRN PRN Reason: Heartburn Clonidine HCl (Clonidine Hcl 0.1 Mg Tablet) 0.1 mg PO BEDTIME [facility]; Protocol Last Admin: 01/17/24 20:17 Dose: 0.1 mg Documented By: SERENE Ezetimibe (Ezetimibe 10 Mg Tablet) 10 mg PO DAILY [facility] Last Admin: 01/19/24 07:51 Dose: 10 mg Documented By: CANDICE Fluticasone Propionate (Fluticasone Propionate 250 Mcg Blst.W.Dev) 1 puff INHALE RBID [facility] Last Admin: 01/19/24 08:20 Dose: 1 puff Documented By: OLEKSANDR Glucose (Glucose Gel 15 Gm Gel..Gram.) 15 gm PO Q15M PRN; Protocol PRN Reason: per Hypoglycemia Standing Ord. Hydrochlorothiazide (Hydrochlorothiazide 25 Mg Tablet) 25 mg PO DAILY [facility]; Protocol Last Admin: 01/18/24 07:57 Dose: 25 mg Documented By: CANDICE Dextrose (D10) 250 mls @ 750 mls/hr IV Q15M PRN; Protocol PRN Reason: per Hypoglycemia Standing Ord. Piperacillin Sod/Tazobactam (Sod 3.375 gm/ Sodium Chloride) 50 mls @ 100 mls/hr IV Q6H [facility] Last Infusion: 01/19/24 16:22 Dose: Infused Documented By: CANDICE Vancomycin HCl 1,000 mg/ (Sodium Chloride) 270 mls @ 270 mls/hr IV Q24H [facility] Last Infusion: 01/19/24 10:20 Dose: Infused Documented By: CANDICE Insulin Glargine (Insulin Glargine,Hum.Rec.Anlog 100 Unit/Ml 10 Ml Vial) 13 unit SUBCUT DAILY [facility] Last Admin: 01/19/24 07:50 Dose: 13 unit Documented By: CANDICE Insulin Human Lispro (Insulin Lispro 100 Unit/Ml 3 Ml Vial) 0 unit SUBCUT QIDACHS [facility]; Protocol Last Admin: 01/19/24 11:40 Dose: 6 unit Documented By: CANDICE Lisinopril (Lisinopril 40 Mg Tablet) 40 mg PO DAILY [facility]; Protocol Last Admin: 01/18/24 07:57 Dose: 40 mg Documented By: CANDICE Magnesium Hydroxide (Milk Of Magnesia 30 Ml Oral.Susp) 30 ml PO DAILY PRN PRN Reason: Constipation Melatonin (Melatonin 3 Mg Tablet) 6 mg PO BEDTIME PRN PRN Reason: Insomnia Metoprolol Tartrate (Metoprolol Tartrate 100 Mg Tablet) 100 mg PO DAILY [facility]; Protocol Last Admin: 01/18/24 07:56 Dose: 100 mg Documented By: CANDICE Nicotine Polacrilex (Nicotine Polacrilex 2 Mg Gum) 2 mg BUCCAL Q2H PRN PRN Reason: Smoking Cessation Omeprazole (Omeprazole 20 Mg Capsule.Dr) 20 mg PO DAILY@0630 [facility] Last Admin: 01/19/24 05:44 Dose: 20 mg Documented By: SERENE Ondansetron HCl (Ondansetron Hcl 4 Mg/2 Ml Vial) 4 mg IVPUSH Q8H PRN PRN Reason: Nausea and Vomiting Oxycodone HCl (Oxycodone Hcl Immed Release 5 Mg Tablet) 10 mg PO Q6H PRN PRN Reason: Pain, Severe (Pain Scale 7-10) Last Admin: 01/19/24 08:06 Dose: 10 mg Documented By: YANIRA Pharmacy Consult (Consult Rx Vancomycin Dosing) 1 each MISCELLANE DAILY PRN PRN Reason: Consult order Sodium Chloride (0.9 % Sodium Chloride Flush 3 Ml Syringe) 3 ml IVFLUSH QSHIFT [facility] Last Admin: 01/19/24 15:39 Dose: 3 ml Documented By: CANDICE Labs 01/19/24 06:56 01/19/24 06:56 Labs: Laboratory Results - last 24 hr 01/18/24 01/19/24 01/19/24 19:57 06:56 07:24 MCV 92.9 MCH 31.0 MCHC 33.4 RDW 13.2 Plt Count 177 MPV 11.2 Absolute Nucleated RBC 0.000 Nucleated RBC % (auto) 0.0 Anion Gap 14 Estim Creat Clear Calc 42.9 Estimated GFR 32 POC Glucose 171 H 203 H Random Glucose 208 H Calcium 8.6 D Random Vancomycin 15.0 01/19/24 01/19/24 11:20 16:32 MCV MCH MCHC RDW Plt Count MPV Absolute Nucleated RBC Nucleated RBC % (auto) Anion Gap Estim Creat Clear Calc Estimated GFR POC Glucose 266 H 224 H Random Glucose Calcium Random Vancomycin Microbiology Microbiology Results: Microbiology 01/17/24 08:22 Blood Culture - Preliminary Blood - Venous No growth after 48 hours. 01/17/24 08:26 Blood Culture - Preliminary Blood - Venous No growth after 48 hours. Assessment and Plan (1) Dry gangrene: Status: Acute (2) Cellulitis: Status: Acute Plan Pt is a 63-year-old male with a PMH significant for?insulin-dependent type 2 diabetes, diabetic retinopathy legally blind, peripheral neuropathy, HTN, HLD, asthma, CKD 3, and GERD who presents to the ED with worsening pain?left 5th digit x2-3 days. Pt will be admitted to the hospital for treatment and further evaluation of left 5th toe cellulitis with dry gangrene secondary to diabetic foot infection requiring IV antibiotics. Left fifth digit cellulitis with dry gangrene due to underlying diabetes Likely secondary to toenail falling off 1 week ago Osteo unlikely: X-ray negative, ESR 45, CRP WNL No sepsis: No tachycardia, tachypnea, fever, or leukocytosis; lactic acid WNL continue IV vancomycin and Zosyn, started 01/17/2024 General surgery following - no need for surgical intervention at this time - outpatient follow up with surgery blood cultures negative to date Insulin-dependent type 2 diabetes Sliding-scale insulin, Lantus Hold metformin Diabetic diet HTN blood pressure low this afternoon clinically appears well, likely due to numerous blood pressure medications, not sepsis hold amlodipine, lisinopril, hydrochlorothiazide, clonidine continue metoprolol in am if bp allows will give IVF and monitor closely HLD Continue ezetimibe, statin Asthma Not in acute exacerbation Continue home inhalers GERD Continue PPI Full Code DVT Prophylaxis: Pneumatic compression due to possible surgical intervention Pt requires ongoing inpatient stay for treatment of?diabetic foot infection with cellulitis of left 5th toe and dry gangrene requiring IV antibiotics and surgical consultation for possible amputation. Quality Stroke Does the patient have a stroke diagnosis?: No VTE Prior VTE?: No VTE Risk Level:: Medical - moderate - high VTE Device Contraindication: N/A - Device Ordered VTE Drug Contraindication: Treatment Not Indicated
[2024-01-19] MEDS: Lactated Ringers 1,000 ML 80 ML IVCONT (17:15)
[2024-01-19 19:32] LABS: Glucose, Whole Blood 261 mg/dL (60-115)
[2024-01-20] VITALS (7 sets, daily range): BP systolic 105–154; BP diastolic 57–82; PULSE 57–70; RESP 15–18; TEMP 36.4–36.7; O2SAT 95–99
[2024-01-20] MEDS: Acetaminophen 325 MG TABLET 650 MG PO (02:40)
[2024-01-20] MEDS: oxyCODONE HCl Immed Release 5 MG TABLET 10 MG PO ×3 (02:40→21:36)
[2024-01-20] MEDS: Piperacillin Sodium/Tazobactam 3.375 GM in 0.9 % Sodium Chloride 50 ML IV ×4 (02:55→21:10)
[2024-01-20] MEDS: Omeprazole 20 MG CAPSULE.DR PO (06:46)
[2024-01-20 07:45] LABS: Glucose, Whole Blood 188 mg/dL (60-115)
[2024-01-20 08:00] LABS: Vancomycin Random 13.2 mcg/mL (15-20)
[2024-01-20 08:05] LABS: Creatinine Clr Calc Pharmacy 43.7; Estimated Glomerular Filt Rate 33
[2024-01-20] MEDS: Atorvastatin Calcium 80 MG TABLET PO (08:13)
[2024-01-20] MEDS: Ezetimibe 10 MG TABLET PO (08:13)
[2024-01-20] MEDS: Insulin Glargine,Hum.rec.anlog 100 UNIT/ML 10 ML VIAL 13 UNIT SUBCUT (08:13)
[2024-01-20] MEDS: Insulin Lispro 100 UNIT/ML 3 ML VIAL SUBCUT ×3 (08:14→21:08)
[2024-01-20] MEDS: Fluticasone Propionate 250 MCG BLST.W.DEV 1 PUFF INHALE ×2 (08:15→21:13)
--- NOTE | 2024-01-20 08:17 | HE.PHANOTE ---
Vancomycin Vancomycin random level 13.2. Increased dose to 1250 mg q24h for predicted AUC of 526. next level 01/21/24 @0700. Creatinine stable
[2024-01-20 08:19] LABS: Hematocrit 34.8 % (42.0-52.0); Mean Corpuscular HGB Conc 34.5 g/dl (31.0-36.0); Mean Corpuscular Volume 92.8 fL (80.0-98.0); Mean Platelet Volume 10.9 fL (9.4-12.4); Platelet Count 183 X10*3/uL (160-400); Red Blood Count 3.75 X10*6/uL (4.60-5.80); Red Cell Distribution Width 13.2 % (11.0-16.0); White Blood Count 5.2 X10*3/uL (4.8-10.8)
[2024-01-20] MEDS: vancomycin HCL 1,250 MG in 0.9 % Sodium Chloride 250 ML 166.67 MG IV (08:56)
[2024-01-20 11:28] LABS: Glucose, Whole Blood 101 mg/dL (60-115)
--- NOTE | 2024-01-20 13:45 | HO.PM.IMPN ---
Subjective Subjective Date of Service: 01/20/24 Interval History: seen and examined this morning follow up for foot infection no overnight events pain improving no fever or chills Review of Systems Review of Systems: Yes all other systems are reviewed and are negative Constitutional Constitutional: Denies chills and Denies fever(s) Cardiovascular Cardiovascular: Denies chest pain and Denies dyspnea Respiratory Respiratory: Denies dyspnea Physical Exam Vital Signs: Vital Signs: Last Vital Signs Temp 97.6 F 01/20/24 07:38 Pulse 62 01/20/24 08:16 Resp 16 01/20/24 08:16 BP 132/69 01/20/24 07:38 Pulse Ox 97 01/20/24 07:38 O2 Del Method Room Air 01/20/24 07:38 BMI result Body Mass Index 25.7 Const: General: cooperative, comfortable, no acute distress, alert and awake Nutritional Appearance: average body habitus Orientation/consciousness: patient oriented x3 Resp: Effort & Inspection: normal respiratory effort, able to speak in complete sentences, no respiratory distress and no use of accessory muscles Auscultation: clear to auscultation bilaterally Cardio: Rate: regular rate GI: Inspection: No distended Palpation (GI): Soft to palpation and nontender Skin: Other: left 5th toe necrotic appearing with some resolving erythema; no drainage Neuro: General: patient oriented x3 Extrem: General: Yes no pedal edema Objective Data Active Medications Acetaminophen (Acetaminophen 325 Mg Tablet) 650 mg PO Q6H PRN PRN Reason: Pain, Mild (Pain Scale 1-3), fever or headache Last Admin: 01/20/24 02:40 Dose: 650 mg Documented By: MIKEL Albuterol Sulfate (Albuterol Sulfate 90 Mcg 8 Gm Inhaler) 2 puff INHALE Q6H PRN PRN Reason: for wheezing Albuterol Sulfate (Albuterol Sulfate (0.083%) 2.5 Mg/3 Ml Vial.Neb) 2.5 mg INHALE QID PRN PRN Reason: shortness of breath/wheezing Last Admin: 01/18/24 16:55 Dose: 2.5 mg Documented By: BETH Amlodipine Besylate (Amlodipine Besylate 10 Mg Tablet) 10 mg PO DAILY [facility]; Protocol Last Admin: 01/18/24 07:57 Dose: 10 mg Documented By: CANDICE Atorvastatin Calcium (Atorvastatin Calcium 80 Mg Tablet) 80 mg PO DAILY [facility] Last Admin: 01/20/24 08:13 Dose: 80 mg Documented By: CLARK Benzonatate (Benzonatate 100 Mg Capsule) 100 mg PO TID PRN PRN Reason: Cough Calcium Carbonate (Calcium Carbonate 750 Mg Tab.Chew) 750 mg PO Q4H PRN PRN Reason: Heartburn Clonidine HCl (Clonidine Hcl 0.1 Mg Tablet) 0.1 mg PO BEDTIME [facility]; Protocol Last Admin: 01/17/24 20:17 Dose: 0.1 mg Documented By: SERENE Ezetimibe (Ezetimibe 10 Mg Tablet) 10 mg PO DAILY [facility] Last Admin: 01/20/24 08:13 Dose: 10 mg Documented By: CLARK Fluticasone Propionate (Fluticasone Propionate 250 Mcg Blst.W.Dev) 1 puff INHALE RBID [facility] Last Admin: 01/20/24 08:15 Dose: 1 puff Documented By: BETH Glucose (Glucose Gel 15 Gm Gel..Gram.) 15 gm PO Q15M PRN; Protocol PRN Reason: per Hypoglycemia Standing Ord. Hydrochlorothiazide (Hydrochlorothiazide 25 Mg Tablet) 25 mg PO DAILY [facility]; Protocol Last Admin: 01/18/24 07:57 Dose: 25 mg Documented By: CANDICE Dextrose (D10) 250 mls @ 750 mls/hr IV Q15M PRN; Protocol PRN Reason: per Hypoglycemia Standing Ord. Piperacillin Sod/Tazobactam (Sod 3.375 gm/ Sodium Chloride) 50 mls @ 100 mls/hr IV Q6H [facility] Last Infusion: 01/20/24 08:55 Dose: Infused Documented By: CLARK Vancomycin HCl 1,250 mg/ (Sodium Chloride) 250 mls @ 166.667 mls/hr IV Q24H [facility] Last Infusion: 01/20/24 10:28 Dose: Infused Documented By: CLARK Insulin Glargine (Insulin Glargine,Hum.Rec.Anlog 100 Unit/Ml 10 Ml Vial) 13 unit SUBCUT DAILY [facility] Last Admin: 01/20/24 08:13 Dose: 13 unit Documented By: CLARK Insulin Human Lispro (Insulin Lispro 100 Unit/Ml 3 Ml Vial) 0 unit SUBCUT QIDACHS [facility]; Protocol Last Admin: 01/20/24 11:35 Dose: Not Given Documented By: MAGDI Non-Admin Reason: No Insulin Coverage Lisinopril (Lisinopril 40 Mg Tablet) 40 mg PO DAILY [facility]; Protocol Last Admin: 01/18/24 07:57 Dose: 40 mg Documented By: CANDICE Magnesium Hydroxide (Milk Of Magnesia 30 Ml Oral.Susp) 30 ml PO DAILY PRN PRN Reason: Constipation Melatonin (Melatonin 3 Mg Tablet) 6 mg PO BEDTIME PRN PRN Reason: Insomnia Metoprolol Tartrate (Metoprolol Tartrate 100 Mg Tablet) 100 mg PO DAILY [facility]; Protocol Last Admin: 01/18/24 07:56 Dose: 100 mg Documented By: CANDICE Nicotine Polacrilex (Nicotine Polacrilex 2 Mg Gum) 2 mg BUCCAL Q2H PRN PRN Reason: Smoking Cessation Omeprazole (Omeprazole 20 Mg Capsule.Dr) 20 mg PO DAILY@0630 [facility] Last Admin: 01/20/24 06:46 Dose: 20 mg Documented By: MIKEL Ondansetron HCl (Ondansetron Hcl 4 Mg/2 Ml Vial) 4 mg IVPUSH Q8H PRN PRN Reason: Nausea and Vomiting Oxycodone HCl (Oxycodone Hcl Immed Release 5 Mg Tablet) 10 mg PO Q6H PRN PRN Reason: Pain, Severe (Pain Scale 7-10) Last Admin: 01/20/24 02:40 Dose: 10 mg Documented By: MIKEL Pharmacy Consult (Consult Rx Vancomycin Dosing) 1 each MISCELLANE DAILY PRN PRN Reason: Consult order Sodium Chloride (0.9 % Sodium Chloride Flush 3 Ml Syringe) 3 ml IVFLUSH QSHIFT [facility] Last Admin: 01/20/24 07:20 Dose: Not Given Documented By: CLARK Non-Admin Reason: Previously Administered Labs 01/20/24 07:19 01/20/24 07:19 Labs: Laboratory Results - last 24 hr 01/19/24 01/19/24 01/20/24 16:32 19:25 07:19 MCV 92.8 MCH 32.0 MCHC 34.5 RDW 13.2 Plt Count 183 MPV 10.9 Absolute Nucleated RBC 0.000 Nucleated RBC % (auto) 0.0 Hold Purple Top SEE NOTE Estim Creat Clear Calc 43.7 Estimated GFR 33 POC Glucose 224 H 261 H Random Vancomycin 13.2 L 01/20/24 01/20/24 07:40 11:15 MCV MCH MCHC RDW Plt Count MPV Absolute Nucleated RBC Nucleated RBC % (auto) Hold Purple Top Estim Creat Clear Calc Estimated GFR POC Glucose 188 H 101 Random Vancomycin Microbiology Microbiology Results: Microbiology 01/17/24 08:22 Blood Culture - Preliminary Blood - Venous No growth after 48 hours. 01/17/24 08:26 Blood Culture - Preliminary Blood - Venous No growth after 48 hours. Assessment and Plan (1) Diabetes mellitus with foot ulcer and gangrene: Status: Acute Plan Pt is a 63-year-old male with a PMH significant for?insulin-dependent type 2 diabetes, diabetic retinopathy legally blind, peripheral neuropathy, HTN, HLD, asthma, CKD 3, and GERD who presents to the ED with worsening pain?left 5th digit x2-3 days. Pt will be admitted to the hospital for treatment and further evaluation of left 5th toe cellulitis with dry gangrene secondary to diabetic foot infection requiring IV antibiotics. Left fifth digit cellulitis with dry gangrene due to underlying diabetes Likely secondary to toenail falling off 1 week ago Osteo unlikely: X-ray negative, ESR 45, CRP WNL No sepsis: No tachycardia, tachypnea, fever, or leukocytosis; lactic acid WNL continue IV vancomycin and Zosyn, started 01/17/2024 General surgery following - no need for surgical intervention at this time - outpatient follow up with surgery blood cultures negative to date Insulin-dependent type 2 diabetes Sliding-scale insulin continue dose adjusted Lantus (on baseline 18U) Hold metformin, hold farxiga, hold semaglutide Diabetic diet HTN low BP likely due to numerous blood pressure medications, not sepsis hold BP meds amlodipine, lisinopril, hydrochlorothiazide, clonidine, metoprolol in am if bp allows bp improving resume bp meds as bp allows HLD Continue ezetimibe, statin Asthma Not in acute exacerbation Continue home inhalers CKD3 renal function appears to be near baseline and has remained stable GERD Continue PPI Full Code DVT Prophylaxis: lovenox Pt requires ongoing inpatient stay for treatment of?diabetic foot infection with cellulitis of left 5th toe and dry gangrene requiring IV antibiotics and surgical consultation for possible amputation. Quality Stroke Does the patient have a stroke diagnosis?: No VTE Prior VTE?: No VTE Risk Level:: Medical - moderate - high VTE Device Contraindication: N/A - Device Ordered VTE Drug Contraindication: Treatment Not Indicated
[2024-01-20] MEDS: Enoxaparin Sodium 40 MG/0.4 ML SYRINGE SUBCUT (14:46)
[2024-01-20 16:07] LABS: Glucose, Whole Blood 188 mg/dL (60-115)
[2024-01-20] MEDS: 0.9 % Sodium Chloride Flush 3 ML SYRINGE IVFLUSH ×2 (16:11→21:13)
[2024-01-20 20:26] LABS: Glucose, Whole Blood 204 mg/dL (60-115)
[2024-01-21] VITALS (9 sets, daily range): BP systolic 103–160; BP diastolic 61–75; PULSE 58–81; RESP 16–18; TEMP 36.3–37.1; O2SAT 94–98
[2024-01-21] MEDS: Piperacillin Sodium/Tazobactam 3.375 GM in 0.9 % Sodium Chloride 50 ML IV ×4 (03:21→21:30)
[2024-01-21] MEDS: oxyCODONE HCl Immed Release 5 MG TABLET 10 MG PO ×3 (03:38→21:34)
[2024-01-21] MEDS: Acetaminophen 325 MG TABLET 650 MG PO ×3 (03:39→21:35)
[2024-01-21] MEDS: Omeprazole 20 MG CAPSULE.DR PO (05:57)
[2024-01-21 07:17] LABS: Glucose, Whole Blood 116 mg/dL (60-115)
[2024-01-21 07:18] LABS: Creatinine Clr Calc Pharmacy 48.7; Estimated Glomerular Filt Rate 37
[2024-01-21 07:22] LABS: Vancomycin Trough 14.1 mcg/mL (10.0-20.0)
[2024-01-21] MEDS: Fluticasone Propionate 250 MCG BLST.W.DEV 1 PUFF INHALE ×2 (08:25→20:00)
[2024-01-21] MEDS: Insulin Glargine,Hum.rec.anlog 100 UNIT/ML 10 ML VIAL 13 UNIT SUBCUT (08:36)
[2024-01-21] MEDS: 0.9 % Sodium Chloride Flush 3 ML SYRINGE IVFLUSH (08:37)
[2024-01-21] MEDS: Atorvastatin Calcium 80 MG TABLET PO (08:37)
[2024-01-21] MEDS: Ezetimibe 10 MG TABLET PO (08:37)
[2024-01-21] MEDS: vancomycin HCL 1,250 MG in 0.9 % Sodium Chloride 250 ML 166.67 MG IV (09:23)
[2024-01-21] MEDS: Milk of Magnesia 30 ML ORAL.SUSP PO (09:35)
[2024-01-21 11:22] LABS: Glucose, Whole Blood 225 mg/dL (60-115)
[2024-01-21] MEDS: Insulin Lispro 100 UNIT/ML 3 ML VIAL SUBCUT ×3 (11:54→21:24)
--- NOTE | 2024-01-21 13:39 | HO.PM.IMPN ---
Subjective Subjective Date of Service: 01/21/24 Interval History: seen and examined this morning follow up for right foot cellulitis, gangrene No overnight events, no specific complaints Review of Systems Review of Systems: Yes all other systems are reviewed and are negative Constitutional Constitutional: Denies chills and Denies fever(s) Cardiovascular Cardiovascular: Denies chest pain, Denies palpitations and Denies dyspnea Respiratory Respiratory: Denies cough and Denies dyspnea Endocrine Endocrine: Denies palpitations Physical Exam Vital Signs: Vital Signs: Last Vital Signs Temp 97.3 F 01/21/24 13:05 Pulse 81 01/21/24 13:05 Resp 16 01/21/24 13:05 BP 103/61 01/21/24 13:05 Pulse Ox 94 01/21/24 13:05 O2 Del Method Room Air 01/21/24 13:05 BMI result Body Mass Index 25.7 Const: General: cooperative, comfortable, no acute distress, alert and awake Nutritional Appearance: average body habitus Orientation/consciousness: patient oriented x3 Resp: Effort & Inspection: normal respiratory effort, able to speak in complete sentences, no respiratory distress and no use of accessory muscles Auscultation: clear to auscultation bilaterally Cardio: Rate: regular rate GI: Inspection: No distended Palpation (GI): Soft to palpation and nontender Skin: Other: left 5th toe necrotic appearing with some resolving erythema; no drainage Neuro: General: patient oriented x3, moves all extremities and CN's II-XI intact bilaterally Extrem: General: Yes no pedal edema Objective Data Active Medications Acetaminophen (Acetaminophen 325 Mg Tablet) 650 mg PO Q6H PRN PRN Reason: Pain, Mild (Pain Scale 1-3), fever or headache Last Admin: 01/21/24 12:02 Dose: 650 mg Documented By: MAGDI Albuterol Sulfate (Albuterol Sulfate 90 Mcg 8 Gm Inhaler) 2 puff INHALE Q6H PRN PRN Reason: for wheezing Albuterol Sulfate (Albuterol Sulfate (0.083%) 2.5 Mg/3 Ml Vial.Neb) 2.5 mg INHALE QID PRN PRN Reason: shortness of breath/wheezing Last Admin: 01/18/24 16:55 Dose: 2.5 mg Documented By: BETH Amlodipine Besylate (Amlodipine Besylate 10 Mg Tablet) 10 mg PO DAILY [facility]; Protocol Last Admin: 01/18/24 07:57 Dose: 10 mg Documented By: CANDICE Atorvastatin Calcium (Atorvastatin Calcium 80 Mg Tablet) 80 mg PO DAILY [facility] Last Admin: 01/21/24 08:37 Dose: 80 mg Documented By: MAGDI Benzonatate (Benzonatate 100 Mg Capsule) 100 mg PO TID PRN PRN Reason: Cough Calcium Carbonate (Calcium Carbonate 750 Mg Tab.Chew) 750 mg PO Q4H PRN PRN Reason: Heartburn Clonidine HCl (Clonidine Hcl 0.1 Mg Tablet) 0.1 mg PO BEDTIME [facility]; Protocol Last Admin: 01/17/24 20:17 Dose: 0.1 mg Documented By: SERENE Ezetimibe (Ezetimibe 10 Mg Tablet) 10 mg PO DAILY [facility] Last Admin: 01/21/24 08:37 Dose: 10 mg Documented By: MAGDI Enoxaparin Sodium (Enoxaparin Sodium 40 Mg/0.4 Ml Syringe) 40 mg SUBCUT Q24H [facility] Last Admin: 01/20/24 14:46 Dose: 40 mg Documented By: MAGID Fluticasone Propionate (Fluticasone Propionate 250 Mcg Blst.W.Dev) 1 puff INHALE RBID [facility] Last Admin: 01/21/24 08:25 Dose: 1 puff Documented By: LORI Glucose (Glucose Gel 15 Gm Gel..Gram.) 15 gm PO Q15M PRN; Protocol PRN Reason: per Hypoglycemia Standing Ord. Hydrochlorothiazide (Hydrochlorothiazide 25 Mg Tablet) 25 mg PO DAILY [facility]; Protocol Last Admin: 01/18/24 07:57 Dose: 25 mg Documented By: CANDICE Dextrose (D10) 250 mls @ 750 mls/hr IV Q15M PRN; Protocol PRN Reason: per Hypoglycemia Standing Ord. Piperacillin Sod/Tazobactam (Sod 3.375 gm/ Sodium Chloride) 50 mls @ 100 mls/hr IV Q6H [facility] Last Infusion: 01/21/24 09:29 Dose: Infused Documented By: MAGDI Vancomycin HCl 1,250 mg/ (Sodium Chloride) 250 mls @ 166.667 mls/hr IV Q24H [facility] Last Infusion: 12/15/24 10:56 Dose: Infused Documented By: MAGDI Insulin Glargine (Insulin Glargine,Hum.Rec.Anlog 100 Unit/Ml 10 Ml Vial) 13 unit SUBCUT DAILY [facility] Last Admin: 01/21/24 08:36 Dose: 13 unit Documented By: MAGDI Insulin Human Lispro (Insulin Lispro 100 Unit/Ml 3 Ml Vial) 0 unit SUBCUT QIDACHS [facility]; Protocol Last Admin: 01/21/24 11:54 Dose: 4 unit Documented By: MAGDI Lisinopril (Lisinopril 40 Mg Tablet) 40 mg PO DAILY [facility]; Protocol Last Admin: 01/18/24 07:57 Dose: 40 mg Documented By: CANDICE Magnesium Hydroxide (Milk Of Magnesia 30 Ml Oral.Susp) 30 ml PO DAILY PRN PRN Reason: Constipation Last Admin: 01/21/24 09:35 Dose: 30 ml Documented By: MAGDI Melatonin (Melatonin 3 Mg Tablet) 6 mg PO BEDTIME PRN PRN Reason: Insomnia Metoprolol Tartrate (Metoprolol Tartrate 100 Mg Tablet) 100 mg PO DAILY [facility]; Protocol Last Admin: 01/18/24 07:56 Dose: 100 mg Documented By: CANDICE Nicotine Polacrilex (Nicotine Polacrilex 2 Mg Gum) 2 mg BUCCAL Q2H PRN PRN Reason: Smoking Cessation Omeprazole (Omeprazole 20 Mg Capsule.Dr) 20 mg PO DAILY@0630 [facility] Last Admin: 01/21/24 05:57 Dose: 20 mg Documented By: MONE Ondansetron HCl (Ondansetron Hcl 4 Mg/2 Ml Vial) 4 mg IVPUSH Q8H PRN PRN Reason: Nausea and Vomiting Oxycodone HCl (Oxycodone Hcl Immed Release 5 Mg Tablet) 10 mg PO Q6H PRN PRN Reason: Pain, Severe (Pain Scale 7-10) Last Admin: 01/21/24 12:02 Dose: 10 mg Documented By: MAGDI Pharmacy Consult (Consult Rx Vancomycin Dosing) 1 each MISCELLANE DAILY PRN PRN Reason: Consult order Sodium Chloride (0.9 % Sodium Chloride Flush 3 Ml Syringe) [facility] Last Admin: 01/21/24 08:37 Dose: 3 ml Documented By: MAGDI Labs 01/20/24 07:19 01/21/24 06:57 Labs: Laboratory Results - last 24 hr 01/20/24 01/20/24 01/21/24 16:02 20:22 06:57 Estim Creat Clear Calc 48.7 Estimated GFR 37 POC Glucose 188 H 204 H Vancomycin Trough 14.1 01/21/24 01/21/24 07:08 11:00 Estim Creat Clear Calc Estimated GFR POC Glucose 116 H 225 H Vancomycin Trough Assessment and Plan (1) Dry gangrene: Status: Acute (2) Cellulitis: Status: Acute Plan Pt is a 63-year-old male with a PMH significant for?insulin-dependent type 2 diabetes, diabetic retinopathy legally blind, peripheral neuropathy, HTN, HLD, asthma, CKD 3, and GERD who presents to the ED with worsening pain?left 5th digit x2-3 days. Pt will be admitted to the hospital for treatment and further evaluation of left 5th toe cellulitis with dry gangrene secondary to diabetic foot infection requiring IV antibiotics. Left fifth digit cellulitis with dry gangrene due to underlying diabetes Likely secondary to toenail falling off 1 week ago xray with no evidence of osteo No sepsis continue IV vancomycin and Zosyn, started 01/17/2024 General surgery following - continue IV abx for now - re-evaluate on monday blood cultures negative to date Insulin-dependent type 2 diabetes Sliding-scale insulin continue dose adjusted Lantus (on baseline 18U) Hold metformin, hold farxiga, hold semaglutide Diabetic diet HTN low BP likely due to numerous blood pressure medications, not sepsis hold BP meds amlodipine, lisinopril, hydrochlorothiazide, clonidine, metoprolol bp improving resume bp meds as bp allows HLD Continue ezetimibe, statin Asthma Not in acute exacerbation Continue home inhalers CKD3 renal function appears to be near baseline and has remained stable GERD Continue PPI Full Code DVT Prophylaxis: lovenox Pt requires ongoing inpatient stay for treatment of?diabetic foot infection with cellulitis of left 5th toe and dry gangrene requiring IV antibiotics Quality Stroke Does the patient have a stroke diagnosis?: No VTE Prior VTE?: No VTE Risk Level:: Medical - moderate - high VTE Device Contraindication: N/A - Device Ordered VTE Drug Contraindication: Treatment Not Indicated
[2024-01-21] MEDS: Enoxaparin Sodium 40 MG/0.4 ML SYRINGE SUBCUT (14:21)
[2024-01-21 16:14] LABS: Glucose, Whole Blood 179 mg/dL (60-115)
[2024-01-21 20:35] LABS: Glucose, Whole Blood 199 mg/dL (60-115)
[2024-01-22 03:15] VITALS: BP 146/80; PULSE 66; RESP 18; TEMP 36; O2SAT 99
[2024-01-22] MEDS: oxyCODONE HCl Immed Release 5 MG TABLET 10 MG PO ×2 (04:00→09:53)
[2024-01-22] MEDS: Acetaminophen 325 MG TABLET 650 MG PO ×2 (04:00→09:53)
[2024-01-22] MEDS: Piperacillin Sodium/Tazobactam 3.375 GM in 0.9 % Sodium Chloride 50 ML IV ×2 (04:06→08:24)
[2024-01-22] MEDS: Omeprazole 20 MG CAPSULE.DR PO (05:47)
[2024-01-22 06:41] LABS: Creatinine Clr Calc Pharmacy 47.7; Estimated Glomerular Filt Rate 36
[2024-01-22] MEDS: Fluticasone Propionate 250 MCG BLST.W.DEV 1 PUFF INHALE (07:14)
[2024-01-22 07:15] VITALS: PULSE 66; RESP 18; O2SAT 97
[2024-01-22 07:26] LABS: Glucose, Whole Blood 215 mg/dL (60-115)
[2024-01-22 07:31] VITALS: BP 134/73; PULSE 55; RESP 14; TEMP 37; O2SAT 97
[2024-01-22] MEDS: Milk of Magnesia 30 ML ORAL.SUSP PO (08:23)
[2024-01-22] MEDS: Insulin Lispro 100 UNIT/ML 3 ML VIAL SUBCUT (08:23)
[2024-01-22] MEDS: Insulin Glargine,Hum.rec.anlog 100 UNIT/ML 10 ML VIAL 13 UNIT SUBCUT (08:24)
[2024-01-22] MEDS: Ezetimibe 10 MG TABLET PO (08:25)
[2024-01-22] MEDS: 0.9 % Sodium Chloride Flush 3 ML SYRINGE IVFLUSH (08:25)
[2024-01-22] MEDS: Atorvastatin Calcium 80 MG TABLET PO (08:25)
[2024-01-22] MEDS: vancomycin HCL 1,250 MG in 0.9 % Sodium Chloride 250 ML 166.67 MG IV (09:13)
[2024-01-22 11:35] LABS: Glucose, Whole Blood 142 mg/dL (60-115)
--- NOTE | 2024-01-22 11:38 | MHC.CM.PN ---
Per MD rounds patient not medically cleared for dc. CM will continue to follow. DC goal remains home w/ resumption of current services.
--- NOTE | 2024-01-22 12:31 | P.PNIM_ITS ---
Subjective Subjective Date of Service: 01/22/24 Interval History: Being followed for right foot cellulitis and right small toe gangrene Patient denies fever, no chills, no pain. Review of Systems All other system reviewed and are negative. Physical Exam 2 Vital Signs: Vital Signs: Last Vital Signs Temp 98.6 F 01/22/24 07:31 Pulse 55 01/22/24 07:31 Resp 14 01/22/24 07:31 BP 134/73 01/22/24 07:31 Pulse Ox 97 01/22/24 07:31 O2 Del Method Room Air 01/22/24 07:31 BMI result Body Mass Index 25.7 Const: Other: General resting comfortably in no acute distress. Legally blind Neck no JVD. CVS regular rate rhythm, Respiratory lungs clear to auscultation, no respiratory distress, no wheeze. Gastrointestinal abdomen soft, non tender, bowel sounds audible, no guarding , no rigidity. Extremities no edema. Left 5th digit, no surrounding erythema, necrotic Neuro non focal Objective Data Active Medications Acetaminophen (Acetaminophen 325 Mg Tablet) 650 mg PO Q6H PRN PRN Reason: Pain, Mild (Pain Scale 1-3), fever or headache Last Admin: 01/22/24 09:53 Dose: 650 mg Documented By: YANIRA Albuterol Sulfate (Albuterol Sulfate 90 Mcg 8 Gm Inhaler) 2 puff INHALE Q6H PRN PRN Reason: for wheezing Albuterol Sulfate (Albuterol Sulfate (0.083%) 2.5 Mg/3 Ml Vial.Neb) 2.5 mg INHALE QID PRN PRN Reason: shortness of breath/wheezing Last Admin: 01/18/24 16:55 Dose: 2.5 mg Documented By: BETH Amlodipine Besylate (Amlodipine Besylate 10 Mg Tablet) 10 mg PO DAILY [facility]; Protocol Last Admin: 01/18/24 07:57 Dose: 10 mg Documented By: CANDICE Atorvastatin Calcium (Atorvastatin Calcium 80 Mg Tablet) 80 mg PO DAILY [facility] Last Admin: 01/22/24 08:25 Dose: 80 mg Documented By: REKHA Benzonatate (Benzonatate 100 Mg Capsule) 100 mg PO TID PRN PRN Reason: Cough Calcium Carbonate (Calcium Carbonate 750 Mg Tab.Chew) 750 mg PO Q4H PRN PRN Reason: Heartburn Clonidine HCl (Clonidine Hcl 0.1 Mg Tablet) 0.1 mg PO BEDTIME [facility]; Protocol Last Admin: 01/17/24 20:17 Dose: 0.1 mg Documented By: SERENE Ezetimibe (Ezetimibe 10 Mg Tablet) 10 mg PO DAILY [facility] Last Admin: 01/22/24 08:25 Dose: 10 mg Documented By: REKHA Enoxaparin Sodium (Enoxaparin Sodium 40 Mg/0.4 Ml Syringe) 40 mg SUBCUT Q24H [facility] Last Admin: 01/21/24 14:21 Dose: 40 mg Documented By: MAGDI Fluticasone Propionate (Fluticasone Propionate 250 Mcg Blst.W.Dev) 1 puff INHALE RBID [facility] Last Admin: 01/22/24 07:14 Dose: 1 puff Documented By: OLEKSANDR Glucose (Glucose Gel 15 Gm Gel..Gram.) 15 gm PO Q15M PRN; Protocol PRN Reason: per Hypoglycemia Standing Ord. Hydrochlorothiazide (Hydrochlorothiazide 25 Mg Tablet) 25 mg PO DAILY [facility]; Protocol Last Admin: 01/18/24 07:57 Dose: 25 mg Documented By: CANDICE Dextrose (D10) 250 mls @ 750 mls/hr IV Q15M PRN; Protocol PRN Reason: per Hypoglycemia Standing Ord. Piperacillin Sod/Tazobactam (Sod 3.375 gm/ Sodium Chloride) 50 mls @ 100 mls/hr IV Q6H [facility] Last Infusion: 01/22/24 09:04 Dose: Infused Documented By: REKHA Vancomycin HCl 1,250 mg/ (Sodium Chloride) 250 mls @ 166.667 mls/hr IV Q24H [facility] Last Infusion: 01/22/24 11:09 Dose: Infused Documented By: REKHA Insulin Glargine (Insulin Glargine,Hum.Rec.Anlog 100 Unit/Ml 10 Ml Vial) 13 unit SUBCUT DAILY [facility] Last Admin: 01/22/24 08:24 Dose: 13 unit Documented By: REKHA Insulin Human Lispro (Insulin Lispro 100 Unit/Ml 3 Ml Vial) 0 unit SUBCUT QIDACHS [facility]; Protocol Last Admin: 01/22/24 11:59 Dose: Not Given Documented By: REKHA Non-Admin Reason: No Insulin Coverage Lisinopril (Lisinopril 40 Mg Tablet) 40 mg PO DAILY [facility]; Protocol Last Admin: 01/18/24 07:57 Dose: 40 mg Documented By: CANDICE Magnesium Hydroxide (Milk Of Magnesia 30 Ml Oral.Susp) 30 ml PO DAILY PRN PRN Reason: Constipation Last Admin: 01/22/24 08:23 Dose: 30 ml Documented By: REKHA Melatonin (Melatonin 3 Mg Tablet) 6 mg PO BEDTIME PRN PRN Reason: Insomnia Metoprolol Tartrate (Metoprolol Tartrate 100 Mg Tablet) 100 mg PO DAILY [facility]; Protocol Last Admin: 01/18/24 07:56 Dose: 100 mg Documented By: CANDICE Nicotine Polacrilex (Nicotine Polacrilex 2 Mg Gum) 2 mg BUCCAL Q2H PRN PRN Reason: Smoking Cessation Omeprazole (Omeprazole 20 Mg Capsule.Dr) 20 mg PO DAILY@0630 [facility] Last Admin: 01/22/24 05:47 Dose: 20 mg Documented By: SHIRLEY Ondansetron HCl (Ondansetron Hcl 4 Mg/2 Ml Vial) 4 mg IVPUSH Q8H PRN PRN Reason: Nausea and Vomiting Pharmacy Consult (Consult Rx Vancomycin Dosing) 1 each MISCELLANE DAILY PRN PRN Reason: Consult order Sodium Chloride (0.9 % Sodium Chloride Flush 3 Ml Syringe) 3 ml IVFLUSH QSHIFT [facility] Last Admin: 01/22/24 08:25 Dose: 3 ml Documented By: REKHA Labs 01/20/24 07:19 01/22/24 05:43 Labs: Laboratory Results - last 24 hr 01/21/24 01/21/24 01/22/24 16:06 20:30 05:43 Estim Creat Clear Calc 47.7 Estimated GFR 36 POC Glucose 179 H 199 H 01/22/24 01/22/24 07:13 11:23 Estim Creat Clear Calc Estimated GFR POC Glucose 215 H 142 H Microbiology Microbiology Results: Microbiology 01/17/24 08:22 Blood Culture - Final Blood - Venous No growth after 5 days. 01/17/24 08:26 Blood Culture - Final Blood - Venous No growth after 5 days. Assessment and Plan Plan 63-year-old male with a PMH significant for?insulin-dependent type 2 diabetes, diabetic retinopathy legally blind, peripheral neuropathy, HTN, HLD, asthma, CKD 3, and GERD who presents to the ED with worsening pain?left 5th digit x2-3 days. Pt will be admitted to the hospital for treatment and further evaluation of left 5th toe cellulitis with dry gangrene secondary to diabetic foot infection requiring IV antibiotics. Left fifth digit cellulitis with dry gangrene due to underlying diabetes Likely secondary to toenail falling off 1 week ago xray with no evidence of osteo No sepsis onIV vancomycin and Zosyn, started 01/17/2024 General surgery following - continue IV abx for now - re-evaluate on monday blood cultures negative to date Insulin-dependent type 2 diabetes Sliding-scale insulin on Lantus (on baseline 18U) Hold metformin, hold farxiga, hold semaglutide Diabetic diet HTN low BP likely due to numerous blood pressure medications, not sepsis hold BP meds amlodipine, lisinopril, hydrochlorothiazide, clonidine, metoprolol bp improving resume bp meds as bp allows HLD Continue ezetimibe, statin Asthma Not in acute exacerbation Continue home inhalers CKD3 renal function appears to be near baseline and has remained stable GERD Continue PPI Full Code DVT Prophylaxis: lovenox Pt requires ongoing inpatient stay for treatment of?diabetic foot infection with cellulitis of left 5th toe and dry gangrene requiring IV antibiotics Quality Stroke Does the patient have a stroke diagnosis?: No VTE Prior VTE?: No VTE Risk Level:: Medical - moderate - high VTE Device Contraindication: N/A - Device Ordered VTE Drug Contraindication: Treatment Not Indicated
--- NOTE | 2024-01-22 13:20 | P.PNGS_ITS ---
Subjective Subjective Date of Service: 01/22/24 Interval history: Patient denies any foot symptoms at this time Physical Exam 2 Vital Signs: Vital Signs: Last Vital Signs Temp 98.6 F 01/22/24 07:31 Pulse 55 01/22/24 07:31 Resp 14 01/22/24 07:31 BP 134/73 01/22/24 07:31 Pulse Ox 97 01/22/24 07:31 O2 Del Method Room Air 01/22/24 07:31 BMI result Body Mass Index 25.7 Const: General: no acute distress Nutritional Appearance: well nourished Orientation/consciousness: patient oriented x3 Resp: Effort & Inspection: normal respiratory effort Neuro: General: patient oriented x3 Extrem: Other: Dressing change to left foot. Dry gangrene noted in the 5th left toe. No erythema, no discharge. Clean dressing applied. Objective Data Active Medications Acetaminophen (Acetaminophen 325 Mg Tablet) 650 mg PO Q6H PRN PRN Reason: Pain, Mild (Pain Scale 1-3), fever or headache Last Admin: 01/22/24 09:53 Dose: 650 mg Documented By: YANIRA Albuterol Sulfate (Albuterol Sulfate 90 Mcg 8 Gm Inhaler) 2 puff INHALE Q6H PRN PRN Reason: for wheezing Albuterol Sulfate (Albuterol Sulfate (0.083%) 2.5 Mg/3 Ml Vial.Neb) 2.5 mg INHALE QID PRN PRN Reason: shortness of breath/wheezing Last Admin: 01/18/24 16:55 Dose: 2.5 mg Documented By: BETH Amlodipine Besylate (Amlodipine Besylate 10 Mg Tablet) 10 mg PO DAILY [facility]; Protocol Last Admin: 01/18/24 07:57 Dose: 10 mg Documented By: CANDICE Atorvastatin Calcium (Atorvastatin Calcium 80 Mg Tablet) 80 mg PO DAILY [facility] Last Admin: 01/22/24 08:25 Dose: 80 mg Documented By: REKHA Benzonatate (Benzonatate 100 Mg Capsule) 100 mg PO TID PRN PRN Reason: Cough Calcium Carbonate (Calcium Carbonate 750 Mg Tab.Chew) 750 mg PO Q4H PRN PRN Reason: Heartburn Clonidine HCl (Clonidine Hcl 0.1 Mg Tablet) 0.1 mg PO BEDTIME [facility]; Protocol Last Admin: 01/17/24 20:17 Dose: 0.1 mg Documented By: SERENE Ezetimibe (Ezetimibe 10 Mg Tablet) 10 mg PO DAILY [facility] Last Admin: 01/22/24 08:25 Dose: 10 mg Documented By: REKHA Enoxaparin Sodium (Enoxaparin Sodium 40 Mg/0.4 Ml Syringe) 40 mg SUBCUT Q24H [facility] Last Admin: 01/21/24 14:21 Dose: 40 mg Documented By: MAGDI Fluticasone Propionate (Fluticasone Propionate 250 Mcg Blst.W.Dev) 1 puff INHALE RBID [facility] Last Admin: 01/22/24 07:14 Dose: 1 puff Documented By: OLEKSANDR Glucose (Glucose Gel 15 Gm Gel..Gram.) 15 gm PO Q15M PRN; Protocol PRN Reason: per Hypoglycemia Standing Ord. Hydrochlorothiazide (Hydrochlorothiazide 25 Mg Tablet) 25 mg PO DAILY [facility]; Protocol Last Admin: 01/18/24 07:57 Dose: 25 mg Documented By: CANDICE Dextrose (D10) 250 mls @ 750 mls/hr IV Q15M PRN; Protocol PRN Reason: per Hypoglycemia Standing Ord. Piperacillin Sod/Tazobactam (Sod 3.375 gm/ Sodium Chloride) 50 mls @ 100 mls/hr IV Q6H [facility] Last Infusion: 01/22/24 09:04 Dose: Infused Documented By: REKHA Vancomycin HCl 1,250 mg/ (Sodium Chloride) 250 mls @ 166.667 mls/hr IV Q24H [facility] Last Infusion: 01/22/24 11:09 Dose: Infused Documented By: REKHA Insulin Glargine (Insulin Glargine,Hum.Rec.Anlog 100 Unit/Ml 10 Ml Vial) 13 unit SUBCUT DAILY [facility] Last Admin: 01/22/24 08:24 Dose: 13 unit Documented By: REKHA Insulin Human Lispro (Insulin Lispro 100 Unit/Ml 3 Ml Vial) 0 unit SUBCUT QIDACHS [facility]; Protocol Last Admin: 01/22/24 11:59 Dose: Not Given Documented By: REKHA Non-Admin Reason: No Insulin Coverage Lisinopril (Lisinopril 40 Mg Tablet) 40 mg PO DAILY [facility]; Protocol Last Admin: 01/18/24 07:57 Dose: 40 mg Documented By: CANDICE Magnesium Hydroxide (Milk Of Magnesia 30 Ml Oral.Susp) 30 ml PO DAILY PRN PRN Reason: Constipation Last Admin: 01/22/24 08:23 Dose: 30 ml Documented By: REKHA Melatonin (Melatonin 3 Mg Tablet) 6 mg PO BEDTIME PRN PRN Reason: Insomnia Metoprolol Tartrate (Metoprolol Tartrate 100 Mg Tablet) 100 mg PO DAILY [facility]; Protocol Last Admin: 01/18/24 07:56 Dose: 100 mg Documented By: CANDICE Nicotine Polacrilex (Nicotine Polacrilex 2 Mg Gum) 2 mg BUCCAL Q2H PRN PRN Reason: Smoking Cessation Omeprazole (Omeprazole 20 Mg Capsule.Dr) 20 mg PO DAILY@0630 [facility] Last Admin: 01/22/24 05:47 Dose: 20 mg Documented By: SHIRLEY Ondansetron HCl (Ondansetron Hcl 4 Mg/2 Ml Vial) 4 mg IVPUSH Q8H PRN PRN Reason: Nausea and Vomiting Pharmacy Consult (Consult Rx Vancomycin Dosing) 1 each MISCELLANE DAILY PRN PRN Reason: Consult order Sodium Chloride (0.9 % Sodium Chloride Flush 3 Ml Syringe) 3 ml IVFLUSH QSHIFT [facility] Last Admin: 01/22/24 08:25 Dose: 3 ml Documented By: REKHA Labs 01/20/24 07:19 01/22/24 05:43 Labs: Laboratory Results - last 24 hr 01/21/24 01/21/24 01/22/24 16:06 20:30 05:43 Estim Creat Clear Calc 47.7 Estimated GFR 36 POC Glucose 179 H 199 H 01/22/24 01/22/24 07:13 11:23 Estim Creat Clear Calc Estimated GFR POC Glucose 215 H 142 H Microbiology Microbiology Results: Microbiology 01/17/24 08:22 Blood Culture - Final Blood - Venous No growth after 5 days. 01/17/24 08:26 Blood Culture - Final Blood - Venous No growth after 5 days. Procedures Date of Service Date of Service: 01/22/24 Progress Note: A&P Assessment and plan (1) Diabetes mellitus with foot ulcer and gangrene: Status: Acute Plan 63-year-old diabetic with dry gangrene of the left 5th toe. No further erythema noted. Although ideally toe should be amputated, patient wishes to hold off on any surgery. There is no emergency in proceeding with surgery at this time. He is welcome to follow up my office in 1-2 weeks to continue to monitor. Time Spent With Patient Time: Total time managing care of this patient today ____ minutes. Quality Stroke Does the patient have a stroke diagnosis?: No VTE Prior VTE?: No VTE Risk Level:: Medical - moderate - high VTE Device Contraindication: N/A - Device Ordered VTE Drug Contraindication: Treatment Not Indicated
--- NOTE | 2024-01-22 15:04 | P.DS_ITS ---
DS: Providers Provider Date of Service: 01/22/24 Date of admission: 01/17/24 12:17 Date of discharge: 01/22/24 Primary care physician: Trey Love MD Consults: 01/17/24 12:17 Consult to General Surgery Routine Consulting Provider: [facility] General Surgeons Reason for consultation: Diabetic foot infection w/dry gangrene 01/17/24 23:40 Consult to Wound Care Routine Reason for consultation: diabetic foot ulcer laft 5th toe/cellulitis Has provider been notified: No DS: Diagnosis Discharge Diagnosis (1) Diabetes mellitus with foot ulcer and gangrene: Status: Acute DS: Summary Hospital Course Hospital Course: History of presenting illness: Date of Service: 01/17/24 Attending physician on admission: Ori Tomas Chief Complaint: Toe infection Pt is a 63-year-old male with a PMH significant for?insulin-dependent type 2 diabetes, diabetic retinopathy legally blind, peripheral neuropathy, HTN, HLD, asthma, CKD 3, and GERD who presents to the ED with worsening pain?left 5th digit x2-3 days. Patient reports that his left 5th digit toenail fell off approximately 1 week ago. Went to see urgent care at that time who apparently said there was nothing much to do except keep area clean and dry. Patient reports approximately 2-3 days ago began experiencing pain which eventually worsened and brought him to the ED for further evaluation. Patient is legally blind and not aware of any changes to skin or any discharge from area. 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 Denies any other symptoms. No fever or chills. Denies nausea, vomiting, abdominal pain. No chest pain/pressure, palpitations. Chronic shortness of breath and nonproduc tive cough around baseline. Currently smoking a little under 1 pack a day. In the ED pt had soft BP of 103/59, vitals otherwise stable and WNL. Labs were significant for ESR 45, otherwise grossly unremarkable and baseline for patient. No leukocytosis. Stable H&H. Creatinine 2.01 at baseline. No significant electrolyte abnormalities. Hepatic function WNL. CRP WNL at 0.39 lactic acid WNL at 1.4. X-ray of left toes showing diffuse osteopenia and chronic changes, but no acute osseous abnormalities. Pt was treated with oxycodone, vancomycin, and Zosyn. Pt will be admitted to the hospital for treatment and further evaluation of left 5th toe cellulitis with dry gangrene secondary to diabetic foot ulcer requiring IV antibiotics. Hospital course: 63-year-old male with a PMH significant for?insulin-dependent type 2 diabetes, diabetic retinopathy legally blind, peripheral neuropathy, HTN, HLD, asthma, CKD 3, and GERD who presents to the ED with worsening pain?left 5th digit x2-3 days. Pt will be admitted to the hospital for treatment and further evaluation of left 5th toe cellulitis with dry gangrene secondary to diabetic foot infection requiring IV antibiotics. Left fifth digit cellulitis with dry gangrene due to underlying diabetes , x-ray of foot showed no evidence of osteomyelitis, patient treated with IV vancomycin and Zosyn blood cultures showed no growth patient evaluated by General surgery they recommended amputation of left 5th toe but however patient declined the procedure therefore recommend to follow up with General surgery in 1-2 weeks for outpatient procedure since patient is hemodynamically stable no fevers stable WBC count, no evidence of sepsis he is being discharged home on Augmentin for 1 more week., recommend to paint left 5th toe with Betadine keep it dry and avoid moist dressing continue dressing change with VNA services Insulin-dependent type 2 diabetes on multiple home medications likely noncompliant recommend to continue Lantus, Farxiga and semaglutide will discontinue metformin recommend to follow diabetic diet and close blood sugar monitoring HTN is on multiple home medications including amlodipine, lisinopril, hydrochlorothiazide, clonidine, and metoprolol , noted to have significant drop in blood pressure with home medications, will discontinue all medications and recommend close outpatient blood pressure follow-up with primary care physician. HLD Continue ezetimibe, statin Intermittent Asthma continue home inhalers no acute exacerbation noted CKD3 renal function appears to be near baseline and has remained stable GERD Continue PPI Time Attestation Discharge Coordination Time (in mins): 40 Quality: Safe Use of Opioids Does Pt have an Active Cancer Diagnosis on the Problem List?: No Quality: Stroke Does the patient have a stroke diagnosis?: No Physical Exam Vital Signs: Vital Signs: Last Vital Signs Temp 98.6 F 01/22/24 07:31 Pulse 55 01/22/24 07:31 Resp 14 01/22/24 07:31 BP 134/73 01/22/24 07:31 Pulse Ox 97 01/22/24 07:31 O2 Del Method Room Air 01/22/24 07:31 BMI result Body Mass Index 25.7 Const: Other: General resting comfortably in no acute distress. Legally blind Neck no JVD. CVS regular rate rhythm, Respiratory lungs clear to auscultation, no respiratory distress, no wheeze. Gastrointestinal abdomen soft, non tender, bowel sounds audible, no guarding , no rigidity. Extremities no edema. Left 5th digit, no surrounding erythema, necrotic Neuro non focal DS: Data Data Completed and Pending Labs on day of discharge: Laboratory Results - last 24 hr 01/21/24 01/21/24 01/22/24 16:06 20:30 05:43 Creatinine 1.89 H Estim Creat Clear Calc 47.7 Estimated GFR 36 POC Glucose 179 H 199 H 01/22/24 01/22/24 07:13 11:23 Creatinine Estim Creat Clear Calc Estimated GFR POC Glucose 215 H 142 H Discharge Plan Discharge Anticipated Discharge Date/Time: 01/22/24 15:01 Patient Disposition: Home Health Service Discharge Diagnosis: Left foot Cellulitis/left 5th toe dry. gangrene Referrals: Po,Trey Luke MD [Primary Care Provider] - 1 Week Discharge Medications: New amoxicillin-pot clavulanate 875-125 mg tablet 1 tab PO BID Qty: 14 0RF Continued (DME) Aeroneb Go Nebulizer Misc See Rx Instructions .Route Qty: 1 0RF Rx Instructions: As directed (DME) FreeStyle Lite Strips Strip See Rx Instructions .ROUTE .MEDSUPPLY Qty: 100 11RF Rx Instructions: 3 times a day (DME) pen needle, diabetic 32 gauge x 5/32 needle See Rx Instructions subcut DIRECTED Qty: 100 3RF Rx Instructions: Daily albuterol sulfate 2.5 mg /3 mL (0.083 %) solution for nebulization 2.5 mg inhalation QID Qty: 75 1RF albuterol sulfate 90 mcg/actuation HFA aerosol inhaler 2 puff PO Q6H PRN (Reason: for wheezing) Qty: 8.5 3RF (DME) blood-glucose meter [FreeStyle Lite Meter] Kit See Rx Instructions .ROUTE .MEDSUPPLY Qty: 1 0RF Rx Instructions: As directed 1-2x daily acetaminophen 650 mg tablet extended release 650 mg PO Q12H 30 Days Qty: 60 2RF (DME) Dexcom G6 Sensor Device See Rx Instructions .ROUTE .MEDSUPPLY Qty: 3 12RF Rx Instructions: As directed (DME) Dexcom G6 Transmitter Device See Rx Instructions .ROUTE .MEDSUPPLY Qty: 1 0RF Rx Instructions: As directed nicotine (polacrilex) 2 mg gum 2 mg buccal Q2H PRN (Reason: Smoking Cessation) omeprazole 20 mg capsule,delayed release(DR/EC) 20 mg PO DAILY@0630 semaglutide 2 mg/dose (8 mg/3 mL) pen injector 2 mg subcut WE atorvastatin 80 mg tablet 80 mg PO DAILY fluticasone propionate 220 mcg/actuation Hfa Aerosol Inhaler 1 puff INHALATION BID dapagliflozin propanediol [Farxiga] 10 mg tablet 10 mg PO DAILY Qty: 30 0RF (DME) lancets [FreeStyle Lancets] 28 gauge misc See Rx Instructions .ROUTE .MEDSUPPLY Qty: 100 6RF Rx Instructions: 3 times a day (DME) Dexcom G6 Flasher Adjuster Misc See Rx Instructions .ROUTE .MEDSUPPLY Qty: 1 0RF Rx Instructions: As directed Changed insulin glargine [Lantus Solostar U-100 Insulin] 100 unit/mL (3 mL) insulin pen 15 unit subcut DAILY Qty: 15 0RF Discontinued amlodipine 10 mg tablet 10 mg PO DAILY Qty: 90 3RF ezetimibe 10 mg tablet 10 mg PO DAILY Qty: 90 3RF metformin 500 mg tablet 500 mg PO DAILY 90 Days Qty: 90 1RF lisinopril 40 mg tablet 40 mg PO DAILY Qty: 90 2RF clonidine HCl 0.1 mg tablet 0.1 mg PO BEDTIME Qty: 90 0RF hydrochlorothiazide 25 mg tablet 25 mg PO DAILY Qty: 90 7RF metoprolol tartrate 100 mg tablet 100 mg PO DAILY Qty: 90 2RF Discharge Orders: Discharge Order (Routine); Ordered 01/22/24 Ordered By: Maya Noguera Diet: Diabetic diet Activity on Discharge: As tolerated Stand Alone Forms: Patient Portal Discharge page, Work/School Release Print Language: Telugu Care Plan Goals: Left 5th toe apply Betadine allow to dry. Cover with Dry gauze. Do not use foam as this will donate moisture. Take antibiotic as prescribed for 1 week Health Concerns: Continue all other medications as before Plan of Treatment: Outpatient follow-up with primary care physician call for appointment Outpatient follow-up with Dr. Gasca in 1-2 weeks call for appointment Assessment: as above Discharge Date/Time: 01/22/24 16:24
--- NOTE | 2024-01-22 15:04 | MHC.CM.PN ---
Patient medically cleared for dc home w/ resumption of current VNA services. Friend will transport home at 4pm. RN aware. IMM delivered.
[2024-01-22] MEDS: Amoxicillin/Potassium Clav 875 MG TABLET PO (15:06)
[2024-01-22] MEDS: Enoxaparin Sodium 40 MG/0.4 ML SYRINGE SUBCUT (15:06)
[2024-01-22 15:14] VITALS: BP 145/74; PULSE 63; RESP 16; TEMP 36.4; O2SAT 94
[2024-01-22 15:18] VITALS: BP 105/58; PULSE 84; RESP 14; TEMP 36.2; O2SAT 95
== END 2024-01-22 16:24 | disposition home health service (06) | DRG 300 ==
LOC: HO.ED 08:40 → HO.EDOVER 12:30 → HO.S3 15:13
PROVIDERS: Family Medicine; Physician Assistant Medical; Admitting Provider Student in an Organized Health Care Education/Training Program; Emergency Provider Emergency Medicine; PCP Internal Medicine; Visit Provider Hospitalist
DX: E11.52 Type 2 diabetes mellitus with diabetic peripheral angiopathy with gangrene (principal); L03.116 Cellulitis of left lower limb; E11.319 Type 2 diabetes mellitus with unspecified diabetic retinopathy without macular edema; J45.909 Unspecified asthma, uncomplicated; H54.8 Legal blindness, as defined in USA; K21.9 Gastro-esophageal reflux disease without esophagitis; E11.628 Type 2 diabetes mellitus with other skin complications; E11.42 Type 2 diabetes mellitus with diabetic polyneuropathy; E11.621 Type 2 diabetes mellitus with foot ulcer; L97.529 Non-pressure chronic ulcer of other part of left foot with unspecified severity; E78.5 Hyperlipidemia, unspecified; I12.9 Hypertensive chronic kidney disease with stage 1 through stage 4 chronic kidney disease, or unspecified chronic kidney disease; N18.30 Chronic kidney disease, stage 3 unspecified; E11.22 Type 2 diabetes mellitus with diabetic chronic kidney disease; F17.210 Nicotine dependence, cigarettes, uncomplicated; Z71.6 Tobacco abuse counseling; Z79.4 Long term (current) use of insulin; Z79.51 Long term (current) use of inhaled steroids; Z79.899 Other long term (current) drug therapy
CPT/HCPCS: 36415; 73660; 80048; 80076; 80202; 82565; 82947; 83605; 83735; 85025; 85027; 85610; 85652; 86140; 87040; 94640; 99285; J1650; J2543; J3370; J3371; J7120

== ENCOUNTER → 2024-01-17 08:03 | Outpatient (BNV) | payer OTHER, MEDICAID, SELFPAY | PROVIDERS: Emergency Provider Emergency Medicine; Visit Provider Surgery | DX: E11.621 Type 2 diabetes mellitus with foot ulcer (principal); E11.52 Type 2 diabetes mellitus with diabetic peripheral angiopathy with gangrene; L97.509 Non-pressure chronic ulcer of other part of unspecified foot with unspecified severity | CPT/HCPCS: 99232; 99283 ==

== ENCOUNTER → 2024-01-17 12:17 | Outpatient (BNV) | payer OTHER, SELFPAY | PROVIDERS: Admitting Provider Student in an Organized Health Care Education/Training Program; Emergency Provider Emergency Medicine; Visit Provider Student in an Organized Health Care Education/Training Program | DX: E11.52 Type 2 diabetes mellitus with diabetic peripheral angiopathy with gangrene (principal); L03.032 Cellulitis of left toe | CPT/HCPCS: 99223; 99232; 99239 ==

== ENCOUNTER 2024-02-05 13:19 | Outpatient (AMB) | payer OTHER, SELFPAY ==
--- NOTE | 2024-02-05 13:21 | A.OFFPC_ITS ---
Vital Signs 02/05/24 13:24 Height 6 ft 2 in Weight 203 lb 11.314 oz BMI 26.2 BP 130/70 Blood Pressure Location Lt brachial Position Sitting Pulse 71 Pulse Source Pulse Oximeter Pulse Oximetry (%) 94 Oxygen Delivery Method Room Air Intake Visit Reasons: TCM [facility] foot infection 01/21 Intake Note: Patient is here for hospital discharge and TCM follow up. Patient was discharged from [facility] on 01/22/24. Supervisor Fleshing Required: No Retort Furnace Helper: Not Required per policy Accompanied by: Self / Same As Patient Allergies pollen extracts [POLLEN] Allergy (Mild, Verified 02/05/24 14:20) SNEEZE PUFFY EYES Medication List - Last Reconciled 02/05/24 by Hannah Rodrigez PA-C acetaminophen ER 650 mg PO Q12H 30 days albuterol sulfate 2.5 mg (3 mL) inhalation QID albuterol sulfate 90 mcg/actuation 2 puffs PO Q6H PRN atorvastatin 80 mg PO DAILY blood sugar diagnostic (FreeStyle Lite Strips) 3 times a day blood-glucose meter (FreeStyle Lite Meter kit) As directed 1-2x daily blood-glucose meter,continuous (Dexcom G6 Ball Warper Tender) As directed blood-glucose sensor (Dexcom G6 Sensor device) As directed blood-glucose transmitter (Dexcom G6 Transmitter device) As directed dapagliflozin propanediol (Farxiga) 10 mg PO DAILY fluticasone propionate 220 mcg/actuation 1 puff inhalation BID insulin glargine (Lantus Solostar U-100 Insulin) 15 units (0.15 mL) subcut DAILY lancets (FreeStyle Lancets) 3 times a day nebulizers (Aeroneb Go Nebulizer) As directed nicotine (polacrilex) 2 mg buccal Q2H PRN omeprazole 20 mg PO DAILY@0630 pen needle, diabetic Daily semaglutide 2 mg subcut WE Tobacco use date assessed: 02/05/24 Dental Screening Dental Screen Date: 07/21/23 [facility] TCM TCM Information Date of Discharge 01/22/24 Discharged From [facility] HPI Comments History of Present Illness Details Patient presents to the office for a TCM visit. Date of admission: 01/17/2024 Date of discharge: 01/22/2024 This is a Follow-up from admission at [facility] HPI: Pt is a 63-year-old male with a PMH significant for?insulin-dependent type 2 diabetes, diabetic retinopathy legally blind, peripheral neuropathy, HTN, HLD, asthma, CKD 3, and GERD who presented to the ED with worsening pain?left 5th digit x 2-3 days on 01/17/2024. Patient reported that his left 5th digit toenail fell off approximately 1 week prior to the ED visit. He initially went to see urgent care at that time who apparently said there was nothing much to do except keep area clean and dry. Patient reports approximately 2-3 days later he began experiencing pain which eventually worsened and brought him to the ED for further evaluation. Patient is legally blind and was not aware of any changes to skin or any discharge from area. Reports previously followed with Podiatry for nail care, but decorator mannequin 5 months ago and has not been to see a decorator mannequin as quite some time. Denies any other symptoms. No fever or chills. Denies nausea, vomiting, abdominal pain. No chest pain/pressure, palpitations. Chronic shortness of breath and nonproductive cough around baseline. Currently smoking a little under 1 pack a day. In the ED pt had soft BP of 103/59, vitals otherwise stable and WNL. Labs were significant for ESR 45, otherwise grossly unremarkable and baseline for patient. No leukocytosis. Stable H&H. Creatinine 2.01 at baseline. No significant electrolyte abnormalities. Hepatic function WNL. CRP WNL at 0.39 lactic acid WNL at 1.4. X-ray of left toes showing diffuse osteopenia and chronic changes, but no acute osseous abnormalities. Pt was treated with oxycodone, vancomycin, and Zosyn. Pt will be admitted to the hospital for treatment and further evaluation of left 5th toe cellulitis with dry gangrene secondary to diabetic foot ulcer requiring IV antibiotics. Hospital Course/Discharge Summary: 63-year-old male with a PMH significant for?insulin-dependent type 2 diabetes, diabetic retinopathy legally blind, peripheral neuropathy, HTN, HLD, asthma, CKD 3, and GERD who presents to the ED with worsening pain?left 5th digit x2-3 days. Pt will be admitted to the hospital for treatment and further evaluation of left 5th toe cellulitis with dry gangrene secondary to diabetic foot infection requiring IV antibiotics. Left fifth digit cellulitis with dry gangrene due to underlying diabetes , x-ray of foot showed no evidence of osteomyelitis, patient treated with IV vancomycin and Zosyn blood cultures showed no growth patient evaluated by General surgery they recommended amputation of left 5th toe but however patient declined the procedure therefore recommend to follow up with General surgery in 1-2 weeks for outpatient procedure since patient is hemodynamically stable no fevers stable WBC count, no evidence of sepsis he is being discharged home on Augmentin for 1 more week., recommend to paint left 5th toe with Betadine keep it dry and avoid moist dressing continue dressing change with VNA services Insulin-dependent type 2 diabetes on multiple home medications likely noncompliant recommend to continue Lantus, Farxiga and semaglutide will discontinue metformin recommend to follow diabetic diet and close blood sugar monitoring HTN is on multiple home medications including amlodipine, lisinopril, hydrochlorothiazide, clonidine, and metoprolol , noted to have significant drop in blood pressure with home medications, will discontinue all medications and recommend close outpatient blood pressure follow-up with primary care physician. HLD Continue ezetimibe, statin Intermittent Asthma continue home inhalers no acute exacerbation noted CKD3 renal function appears to be near baseline and has remained stable GERD Continue PPI Discharged to/Current Location: Patient currently lives in boarding house Lives with: Alone in boarding house Diagnosis: Diabetes mellitus with foot ulcer and gangrene Procedures performed: General surgery consulted on the patient and recommended left 5th toe amputation although patient declined has follow-up on Monday with Dr. Gasca the general surgeon for possible amputation discussion New medications: Patient was on Augmentin and has completed this medication/antibiotic Discontinued medications: Amlodipine, lisinopril, hydrochlorothiazide, clonidine, metoprolol and metformin Change medications/dosing: insulin glargine [Lantus Solostar U-100 Insulin] 100 unit/mL (3 mL) insulin pen changed to 15 unit subcut DAILY Qty: 15 0RF Pending labs: None Pending diagnostic test: None Any Follow-up Labs required? None Any Follow-up Diagnostic test required? None How are you feeling? Patient reports he feels okay at this time, Are you in any pain or discomfort? Reports pain when walking; taking 650 tylenol as prescribed requesting stronger dose Do you have any questions about your condition or discharge instructions? Yes patient had questions about amputation and healing process Were you able to get your medications filled? Yes Do you have any questions about your medications? Was asking why off of metformin and BP meds; wants a refill of tylenol for pain taking 650mg Any referrals required? No Has an appointment with Podiatry Mar 08, 2024; Has follow up General Surgeon this Monday Were you able to schedule your follow-up appointment? Yes on Monday with Dr. Gasca If home health was ordered, have they contact you? None ordered already in place Any outpatient services, if so, are you scheduled? see above Are there any additional resources like transportation you might need during her recovery? - VNA? Yes 7 days a week she comes in th e evening - SUPERVISOR SAWING AND ASSEMBLY? has SUPERVISOR SAWING [employer] ASSEMBLY for x 7 days; patient req uesting more SUPERVISOR SAWING AND ASSEMBLY hours. - Meals on wheels? No Educational need/resources: What support system do you have? Has a good support system; live alone but SUPERVISOR SAWING [employer] ASSEMBLY gives good support and lives in boarding house with many room mates [facility] Medical History Acute kidney injury Pneumonia Impacted cerumen of both ears Impacted cerumen of both ears Cough Tobacco abuse Smoker Screening for colon cancer Diabetic nephropathy associated with type 2 diabetes mellitus Very severe proliferative diabetic retinopathy [facility] (current) use of insulin Overweight (BMI 25.0-29.9) Type 2 diabetes mellitus with hyperglycemia Obesity (BMI 30-39.9) Carpal tunnel syndrome, left Chronic kidney disease Erectile dysfunction Tobacco abuse Hypercholesterolemia Cataract Glaucoma Hepatitis C Hypertension Surgical History Hx of cataract extraction History of surgery on arm Hx of colonoscopy Family History Father Diabetes Mother Diabetes Hypertension Brother In good health Sister No problems noted. Other Mental health disorder Social History Household Members: None Housing: House Housing Other:: room in Boarding House Are you a primary career and transition teacher to a significant other at home: No Do you presently have visiting nurse or other home services: Yes (grades 1 6 tutor and vna) Alcohol intake: never Comment: Patient is blind Patient Tobacco Use Status: Current everyday Tobacco user Tobacco use type: Cigarette Cigarette Packs Per Day: 1 Cigarettes Per Day: 20.0 Years Smoked: 40 e-Cigarette/Vaping Use: Never Used Second Hand Smoke Exposure: Yes service: No Current occupational status: disabled Cognitive needs: Yes (Blind stick, walker) Hearing needs: No Vision needs: No Questionnaire Thrive Questionnaire Date Thrive assessed: 01/18/24 BAO-7 AMB Questionnaire BAO-7 Date BAO - 7 assessed: 07/21/23 Source: Developed by Drs. Rashaad Munoz, Alisson Young, Isaias Sethi and colleagues, with an educational joanne from [employer]. Physical exam (Primary Care) Vital Signs: Last Vital Signs Pulse 71 02/05/24 13:24 BP 130/70 02/05/24 13:24 Pulse Ox 94 02/05/24 13:24 Oxygen Delivery Method Room Air 02/05/24 13:24 Vitals signs have been reviewed. BMI result Body Mass Index 26.2 Tobacco/Smoking Status: Tobacco use Status Tobacco use date assessed 02/05/24 02/05/24 13:29 Patient Tobacco Use Status Current everyday Tobacco 02/05/24 13:21 Tobacco use type Cigarette 02/05/24 13:21 e-Cigarette/Vaping Use Never Used 02/05/24 13:21 Thrive Assessment: Date of Thrive Assessment Date Thrive assessed 01/18/24 02/05/24 13:21 Coding Level of Care Code TCM High MDM <= 14 days Complex EM visit Add On G2211 Diagnoses Diabetes mellitus with foot ulcer and gangrene E11.621; E11.52; L97.509 Dry gangrene I96 Essential hypertension I10 Hypertension type: essential hypertension Stage 3 chronic kidney disease, unspecified whether stage 3a or 3b CKD N18.30 Chronic kidney disease stage: stage 3 (moderate) Chronic kidney disease stage 3 subtype: unspecified whether 3a or 3b Diabetic nephropathy associated with type 2 diabetes mellitus E11.21 Very severe proliferative diabetic retinopathy E11.3599 Assessment & Plan Assessment & Plan (1) Diabetes mellitus with foot ulcer and gangrene: Code(s): E11.621 - Type 2 diabetes mellitus with foot ulcer; E11.52 - Type 2 diabetes mellitus with diabetic peripheral angiopathy with gangrene; L97.509 - Non- pressure chronic ulcer of other part of unspecified foot with unspecified severity Category: Medical (2) Dry gangrene: Code(s): I96 - Gangrene, not elsewhere classified Category: Medical (3) Hypertension: Code(s): I10 - Essential (primary) hypertension Category: Medical Qualifiers: Hypertension type: essential hypertension Qualified Code(s): I10 - Essential (primary) hypertension (4) Chronic kidney disease: Comment: Stage III Code(s): N18.9 - Chronic kidney disease, unspecified Category: Medical Qualifiers: Chronic kidney disease stage: stage 3 (moderate) Chronic kidney disease stage 3 subtype: unspecified whether 3a or 3b Qualified Code(s): N18.30 - Chronic kidney disease, stage 3 unspecified (5) Diabetic nephropathy associated with type 2 diabetes mellitus: Code(s): E11.21 - Type 2 diabetes mellitus with diabetic nephropathy Category: Medical (6) Very severe proliferative diabetic retinopathy: Code(s): E11.3599 - Type 2 diabetes mellitus with proliferative diabetic retinopathy without macular edema, unspecified eye Category: Medical Plan Plan - Referral to general surgeon for evaluation and potential intervention regarding the gangrenous toe as scheduled with Dr. Gasca for possible amputation. - Discussion about the adjustment and gradual re-initiation of hypertensive medications as deemed appropriate based on kidney function improvement. - Will restart 10 mg lisinopril and 25 mg HCTZ - Continuation of insulin therapy for diabetes management. Patient not interested in restarting metformin at this time. Will we reconsider at another visit. - Assessment and discussion with the diabetic and podiatry teams for comprehensive diabetes and foot care management. - Review of current medications, confirming the discontinuation of nephrotoxic and hypertensive agents temporarily. Medications: New acetaminophen 1,000 mg (2 x 500 mg) PO QID PRN 30 tabs 0RF fever or pain lisinopril 10 mg PO DAILY 30 tabs 2RF hypertension hydrochlorothiazide 25 mg PO DAILY 30 tabs 2RF hypertension/pedal edema Scribe Plan - Not visible on output: History of Present Illness The patient is a 63-year-old male presenting with complications related to a gangrenous left pinky toe. Initially, the patient lost a toenail on the left foot, which led to an urgent care visit where no antibiotics were prescribed. Subsequently, gangrene developed. No fever was reported, but the area remained painful with evidence of tissue necrosis. The patient reports that the condition has neither improved nor worsened and that it could potentially lead to the loss of the toe. He has a significant history of Type 2 Diabetes Mellitus, managed with insulin therapy. His kidney function has historically been compromised, with blood creatinine levels previously recorded at elevated levels but showing improvement as of the last hospital discharge. Additionally, he reports the cessation of all antihypertensive medications due to low blood pressure findings, which might be related to either the infection or previous medication dosages. 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 - Housing: Resides in a boarding house with several roommates. - Functional Status: Managing daily activities with assistance from a visiting nurse and a retail personal banker (SUPERVIS[employer]ING [employer]) for 16 to 19 hours per week. - Support System: Relies on roommate interaction and SUPERVISOR [employer]WING [employer]SEMBL[employer] for assistance with daily activities. Review of Systems - Vascular: Reports low blood pressure recently. - Musculoskeletal: Reports pain in the left pinky toe related to gangrene. Physical Exam Appearance: Alert. Oriented X3. No acute distress. Head: Normal external exam. Normocephalic. Atraumatic. No Mishra signs noted. No raccoon eyes noted. Eyes: Legally blind. Pupils are equal, round, and reactive to light. Extraocular movements intact. Conjunctiva and sclera normal. Eyelids normal. Ears: External auditory canal normal. Tympanic membranes normal. Throat: Pharynx normal. Uvula midline. Moist mucous membranes. No trismus noted. No drooling noted. No muffled voice noted. Neck: Normal inspection. Neck supple. Full range of motion. No adenopathy. Thyroid Normal. No meningeal signs. No neck mass noted. Cardiovascular: Normal heart rate and rhythm. Heart sound normal. No murmurs noted. Pulses normal throughout. Respiratory: No respiratory distress. Painless inspiration. Breath sounds normal. No wheezes/rales/rhonchi noted. Chest nontender. No accessory muscle usage noted or decreased air movement noted. Abdomen: Soft and nontender. Bowel sounds normal in all 4 quadrants. No distention noted. No organomegaly noted. No visible injury noted. Back: No costovertebral angle tenderness. Full range of motion noted. Skin: Skin warm and dry. Normal skin color. Normal skin turgor. No rashes/lesions/lacerations noted. Extremities: Left pinky toe gangrenous. No lower extremity edema. Extremities exhibit normal range of motion. Extremities nontender. Neuro: Oriented X 3. No motor deficit. No sensory deficit. Reflexes normal. Results - Labs: Previous creatinine level was 1.889, showing improvement from 2.0 to 2.9 on admission. Patient was informed and verbally consented to the use of an ambient scribe for clinic note documentation during this visit.
[2024-02-05 13:24] VITALS: BP 130/70; PULSE 71; O2SAT 94; BMI 26.2
== END 2024-02-05 15:40 | disposition home or self-care (01) ==
PROVIDERS: PCP Internal Medicine; Visit Provider Internal Medicine
DX: I12.9 Hypertensive chronic kidney disease with stage 1 through stage 4 chronic kidney disease, or unspecified chronic kidney disease (principal); E11.21 Type 2 diabetes mellitus with diabetic nephropathy; N18.30 Chronic kidney disease, stage 3 unspecified; E11.621 Type 2 diabetes mellitus with foot ulcer; I96 Gangrene, not elsewhere classified; E11.52 Type 2 diabetes mellitus with diabetic peripheral angiopathy with gangrene; L97.509 Non-pressure chronic ulcer of other part of unspecified foot with unspecified severity; E11.3599 Type 2 diabetes mellitus with proliferative diabetic retinopathy without macular edema, unspecified eye

== ENCOUNTER → 2024-02-05 13:19 | Outpatient (BNVA) | payer OTHER, SELFPAY | PROVIDERS: PCP Internal Medicine; Visit Provider Internal Medicine | DX: E11.621 Type 2 diabetes mellitus with foot ulcer (principal); E11.52 Type 2 diabetes mellitus with diabetic peripheral angiopathy with gangrene; L97.509 Non-pressure chronic ulcer of other part of unspecified foot with unspecified severity; I96 Gangrene, not elsewhere classified; I12.9 Hypertensive chronic kidney disease with stage 1 through stage 4 chronic kidney disease, or unspecified chronic kidney disease; E11.22 Type 2 diabetes mellitus with diabetic chronic kidney disease; N18.30 Chronic kidney disease, stage 3 unspecified; E11.21 Type 2 diabetes mellitus with diabetic nephropathy; E11.3599 Type 2 diabetes mellitus with proliferative diabetic retinopathy without macular edema, unspecified eye; Z79.4 Long term (current) use of insulin; F17.200 Nicotine dependence, unspecified, uncomplicated; Z71.6 Tobacco abuse counseling | CPT/HCPCS: 99495 ==

== ENCOUNTER 2024-02-09 10:54 | Outpatient (AMB) | payer OTHER, SELFPAY ==
--- NOTE | 2024-02-09 10:55 | MHC.OFFVIS ---
Vital Signs 02/09/24 10:56 Height 6 ft 2 in Weight 203 lb 11.314 oz BMI 26.2 Intake Visit Reasons: Left 5th Toe dry gangrene Intake Note: Patient is seen in office for ER follow up visit, following Left 5th Toe dry gangrene. Pt c/o: reports pain, patient is legally blind so he is not sure if his foot has changed in color. 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: No Accompanied by: Self / Same As Patient Allergies pollen extracts [POLLEN] Allergy (Mild, Verified 02/09/24 11:02) SNEEZE PUFFY EYES Medication List - Last Reconciled 02/09/24 by Nikunj Gasca MD acetaminophen 1,000 mg (2 x 500 mg) PO QID PRN acetaminophen ER 650 mg PO Q12H 30 days albuterol sulfate 2.5 mg (3 mL) inhalation QID albuterol sulfate 90 mcg/actuation 2 puffs PO Q6H PRN atorvastatin 80 mg PO DAILY blood sugar diagnostic (FreeStyle Lite Strips) 3 times a day blood-glucose meter (FreeStyle Lite Meter kit) As directed 1-2x daily blood-glucose meter,continuous (Dexcom G6 Party Chief) As directed blood-glucose sensor (Dexcom G6 Sensor device) As directed blood-glucose transmitter (Dexcom G6 Transmitter device) As directed dapagliflozin propanediol (Farxiga) 10 mg PO DAILY fluticasone propionate 220 mcg/actuation 1 puff inhalation BID hydrochlorothiazide 25 mg PO DAILY insulin glargine (Lantus Solostar U-100 Insulin) 15 units (0.15 mL) subcut DAILY lancets (FreeStyle Lancets) 3 times a day lisinopril 10 mg PO DAILY nebulizers (Aeroneb Go Nebulizer) As directed nicotine (polacrilex) 2 mg buccal Q2H PRN omeprazole 20 mg PO DAILY@0630 pen needle, diabetic Daily semaglutide 2 mg subcut WE HPI Comments Details: 63-year-old male patient with a history of diabetes, peripheral vascular disease, diabetic nephropathy, diabetic retinopathy with blindness, hypercholesterolemia, hypertension, and asthma recently admitted with gangrene of the left 5th toe. He was subsequently placed on IV antibiotics. Workup was felt to be consistent with osteomyelitis. At the time of admission he was not interested in proceeding with the amputation but now has reconsidered and wishes to undergo the procedure to prevent worsening of the infection. He reports minor pain at the base of the 5th toe but denies fever or chills. He denies any new symptoms in the foot. 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 Other Mental health disorder Social History Household Members: None Housing: House Housing Other:: room in Boarding House Are you a primary managed care provider to a significant other at home: No Do you presently have visiting nurse or other home services: Yes (correctional supervising cook and vna) Alcohol intake: never Comment: Patient is blind Patient Tobacco Use Status: Current everyday Tobacco user Tobacco use type: Cigarette Cigarette Packs Per Day: 1 Cigarettes Per Day: 20.0 Years Smoked: 40 e-Cigarette/Vaping Use: Never Used Second Hand Smoke Exposure: Yes service: No Current occupational status: disabled Cognitive needs: Yes (Blind stick, walker) Hearing needs: No Vision needs: No Review of Systems Const All systems reviewed & are unremarkable except as noted in HPI and below Physical Exam Vital Signs: BMI result Body Mass Index 26.2 Const General: cooperative and no acute distress Nutritional Appearance: well nourished Orientation/consciousness: patient oriented x3 Limitations: no limitations HEENT Head: Yes normocephalic and Yes atraumatic Ears: hearing grossly normal bilaterally Eyes Other: Blind Resp Effort & Inspection: normal respiratory effort, no audible wheezes, no cough and no respiratory distress Cardio Jugular venous distension: no JVD GI Inspection: Yes normal to inspection Skin Other: Warm, dry, no rash Neuro General: patient oriented x3 Extrem Other: Left 5th toe with necrotic changes involving the entire toe. There is some desquamated skin at the base of the toe with foul-smelling discharge noted. No erythema is noted in the forefoot. General: Yes no clubbing, cyanosis or edema Ankle/foot/toe images: 1. Gangrenous left 5th toe Assessment & Plan Assessment & Plan (1) Dry gangrene: Comment: Left 5th toe Code(s): I96 - Gangrene, not elsewhere classified Category: Medical Plan Patient has persistent gangrenous changes with evidence of infection of the base of the left 5th toe. I would recommend proceeding with the amputation of the left 5th toe and distal metatarsal head. After a discussion of the procedure, risks, and alternatives, he consents to a left 5th toe amputation. He will be scheduled as a short-stay surgery at his earliest convenience. Coding Level of Care Code Est Pt Level 3 (92526) Diagnoses Dry gangrene I96
[2024-02-09 10:56] VITALS: BMI 26.2
--- OUTSIDE RECORDS SUMMARY | 2024-02-09 12:42 | XMS_ITS ---
Author Organization [facility] Address [address] [place] [address] Care Team Providers Care Cardboard Inserter Name Role Phone Trey Love Primary Care Provider Twila Vargas [phone] REASON FOR VISIT NO CATTERY OPERATOR PW Encounters Encounter Location Date Provider Diagnosis [address] [address] 12/22/2023 Twila Holliday Plan Of Treatment Next Appt Details Provider Name:Twila lauren, 03/08/2024 10:30:00 AM, [address] [address], [place], [address], Progress Notes * AISHWARYA Rashaad LDOB:1960 (63 yo M)Acc No.[id number]:12/22/2023 Progress Notes Patient:?AISHWARYA, Rashaad Sarah Provider:?Twila Holliday DPM :1960???Age:63 Y???Sex:Male Koffi e:12/22/2023 Address:[address] [place] [address] [phone] Pcp:Trey Love Subjective: * Chief Complaints: * ???1. NO CATTERY OPERATOR PW. * Medical History:? Objective: * Vitals:? Assessment: Plan: * Treatment: * Images: * The named appointment provid er may or may not be the originator of this progress note, and it is not deemed complete until electronically signed by the appointment provider. Sign off status: Pending * Provider:?Twila Holliday DPM Date:?1 02/20/2023 Generated for Guille garcia/Vaughn/Kolby on:?02/09/2024 12:41 PM EST
--- OUTSIDE RECORDS SUMMARY | 2024-02-09 12:42 | XMS_ITS ---
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 Generated for Printi ng/Fanoag/eTransmitting on:?02/09/2024 12:41 PM EST
--- OUTSIDE RECORDS SUMMARY | 2024-02-09 12:42 | XMS_ITS | Patient Health Record ---
Author Organization [facility] Address [address] [place] [address] Care Team Providers Care Farmer Diversified Crops Name Role Phone IvanNichelleraúl Primary Care Provider Twila Vargas Unavailable [phone] Allergies Allergen (clinical drug ingredient) Drug/Non Drug Allergy documented on EMR Reaction Allergy Type Onset Date Status Pollen Pollen Unknown Allergy Active Reason For Referral No Information Social History Tobacco Use: Social History Observation Description Date Details (start date - stop date) Current Smoker NA - NA Tobacco use other than smoking: Question Answer Notes Are you an other tobacco user? No Tobacco Control (Standard) Question Answer Notes Tobacco use: Current smoker AUDIT-C (Standard) Question Answer Notes Did you have a drink containing alcohol in the p ast year? No Points 0 Interpretation Negative Encounters Encounter Location Date Provider Diagnosis [address] [address] 12/21/2023 Twila Holliday [address] [address] 02/09/2024 Twila Holliday Plan Of Treatment Next Appt Details Provider Name:Twial lauren, 03/08/2024 10:30:00 AM, [address] , [facility] [address], [place], [address], Insurance Providers Payer Name Payer Address Payer Phone Subscriber Number Group Number Insured Name Patient Relationship to Insured Coverage Start Date Coverage End Date [facility] [employer] Claims [address] [facility] [place] [id number] Rashaad Neff Self - patient is the insured Medical (General) History Medical History History ICD Code asthma CAD (Cholesterol) Diabetic Glaucoma High Blood Pressure Macular degeneration Psychiatric disorder
--- OUTSIDE RECORDS SUMMARY | 2024-02-09 12:42 | XMS_ITS ---
Author Organization [facility] Address [address] [place] [address] Care Team Providers Care Graphic Illustrator Name Role Phone Trey Love Primary Care Provider Twila Vargas [phone] REASON FOR VISIT PHYSICIAN SURGEON Encounters Encounter Location Date Provider Diagnosis [facility] [address] [place] [address] 12/21/2023 Twila Holliday Plan Of Treatment Next Appt Details Provider Name:Twila lauren, 03/08/2024 10:30:00 AM, [address] [facility], [address] [address], [place], [address], Progress Notes * Rashaad NEFF LDOB:1960 (63 yo M)Acc No.[id number]:12/21/2023 Patient:?Rashaad NEFF :1960???Age:63 Y???Sex:Male Address:[address] [place] [address] * true * Date:? Generated for Printi ng/Faxing/eTransmitting on:?02/09/2024 12:41 PM EST
== END 2024-02-09 11:16 | disposition home or self-care (01) ==
PROVIDERS: PCP Internal Medicine; Visit Provider Surgery
DX: I96 Gangrene, not elsewhere classified (principal)
CPT/HCPCS: 99213

== ENCOUNTER → 2024-02-09 10:54 | Outpatient (BNVA) | payer OTHER, SELFPAY | PROVIDERS: PCP Internal Medicine; Visit Provider Surgery | DX: I96 Gangrene, not elsewhere classified (principal) | CPT/HCPCS: 99212 ==

== ENCOUNTER 2024-02-21 09:07 | Day surgery (SDC) | payer OTHER, SELFPAY ==
--- OUTSIDE RECORDS SUMMARY | 2024-02-12 06:51 | XMS_ITS ---
Author Organization [facility] Address [address] [place] [address] Care Team Providers Care Night Time Babysitter Name Role Phone Trey Love Primary Care Provider Twila Vargas [phone] REASON FOR VISIT BANK TELLER Encounters Encounter Location Date Provider Diagnosis [facility] [address] [place] [address] 12/21/2023 Twila Holliday Plan Of Treatment Next Appt Details Provider Name:Twila lauren, 03/08/2024 10:30:00 AM, [address] [facility], [address] [address], [place], [address], Progress Notes * Rashaad NEFF LDOB:1960 (63 yo M)Acc No.[id number]:12/21/2023 Patient:?Rashaad NEFF :1960???Age:63 Y???Sex:Male Address:[address] [place] [address] * true * Date:? Generated for Printi ng/Faxing/eTransmitting on:?02/12/2024 06:51 AM EST
--- OUTSIDE RECORDS SUMMARY | 2024-02-12 06:51 | XMS_ITS ---
Author Organization [facility] Address [address] [place] [address] Care Team Providers Care Product Development Name Role Phone Trey Love Primary Care Provider Twila Vargas [phone] REASON FOR VISIT NO RN TRIAGE PW Encounters Encounter Location Date Provider Diagnosis [address] [address] 12/22/2023 Twila Holliday Plan Of Treatment Next Appt Details Provider Name:Twila lauren, 03/08/2024 10:30:00 AM, [address] [address], [place], [address], Progress Notes * AISHWARYA Rashaad LDOB:1960 (63 yo M)Acc No.[id number]:12/22/2023 Progress Notes Patient:?AISHWARYA, Rashaad Sarah Provider:?Twila Holliday DPM :1960???Age:63 Y???Sex:Male Koffi e:12/22/2023 Address:[address] [place] [address] [phone] Pcp:Trey Love Subjective: * Chief Complaints: * ???1. NO RN TRIAGE PW. * Medical History:? Objective: * Vitals:? Assessment: Plan: * Treatment: * Images: * The named appointment provid er may or may not be the originator of this progress note, and it is not deemed complete until electronically signed by the appointment provider. Sign off status: Pending * Provider:?Twila Holliday DPM Date:?1 02/20/2023 Generated for Guille garcia/Vaughn/Kolby on:?02/12/2024 06:51 AM EST
--- OUTSIDE RECORDS SUMMARY | 2024-02-12 06:52 | XMS_ITS | Patient Health Record ---
Author Organization [facility] Address [address] [place] [address] Care Team Providers Care Terrazzo Polisher Helper Name Role Phone IvanNichelleraúl Primary Care Provider Twila Vargas Unavailable [phone] Allergies Allergen (clinical drug ingredient) Drug/Non Drug [...] Negative Encounters Encounter Location Date Provider Diagnosis [address] [address] 12/21/2023 Twila Holliday [address] [address] 02/09/2024 Twila Holliday Plan Of Treatment Next Appt Details Provider Name:Twila lauren, 03/08/2024 10:30:00 AM, [address] , [address] [address], [place], [address], Insurance Providers Payer Name Payer Address Payer Phone Subscriber Number Group Number Insured Name Patient Relationship to Insured Coverage Start Date Coverage End Date [facility] [employer] S[employer] Claims [address] [place] [id number] Rashaad Neff Self - patient is the insured Medical (General) History Medical History History ICD Code asthma CAD (Cholesterol) Diabetic Glaucoma High Blood Pressure Macular degeneration Psychiatric disorder
--- NOTE | 2024-02-13 08:59 | HO.ANESPROP2 ---
HPI - Anesthesia Eval Consult details Narrative: 63yo M for Left 5th Toe [place] [facility] with gangrene L 5th toe. Declined amp at that time. BP meds adjusted and encouraged DM med compliance Anesthesia Pre-Procedure Meds Is the patient on any of the following meds?: GLP1/DPP4 and SGLT2 Inhib PMFSH Active Problems Active Problems: All Active Problems Dry gangrene (Acute) Diabetes mellitus with foot ulcer and gangrene (Acute) Low vitamin D level (Acute) Blind in both eyes (Acute) Elevated LFTs (Acute) Abnormal TSH (Acute) Annual physical exam (Acute) Lateral epicondylitis of left elbow (Acute) Asthma (Acute) Screening for colon cancer (Acute) Hepatitis C (Acute) Diabetic nephropathy associated with type 2 diabetes mellitus (Acute) Very severe proliferative diabetic retinopathy (Acute) retirement (current) use of insulin (Acute) Overweight (BMI 25.0-29.9) (Acute) Type 2 diabetes mellitus with hyperglycemia (Acute) Obesity (BMI 30-39.9) (Acute) Chronic kidney disease (Acute) Erectile dysfunction (Acute) Tobacco abuse (Acute) Hypercholesterolemia (Acute) Hypertension (Acute) Past Medical History Medical History Acute kidney injury Pneumonia Impacted cerumen of both ears Impacted cerumen of both ears Cough Tobacco abuse Smoker Screening for colon cancer 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 Other Mental health disorder Family history of problems with anesthesia: No Surgical History Surgical History Hx of cataract extraction History of surgery on arm Hx of colonoscopy History of Problems with Anesthesia: No Social History Social History Household Members: None Housing: House Housing Other:: room in Boarding House Are you a primary resident care aid to a significant other at home: No Do you presently have visiting nurse or other home services: Yes (assembler tractor and vna) Alcohol intake: never Comment: Patient is blind Patient Tobacco Use Status: Current everyday Tobacco user Tobacco use type: Cigarette Cigarette Packs Per Day: 1 Cigarettes Per Day: 12 Years Smoked: 40 e-Cigarette/Vaping Use: Never Used Second Hand Smoke Exposure: Yes service: No Current occupational status: disabled Cognitive needs: Yes (Blind stick, walker) Hearing needs: No Vision needs: No Meds Allergies Allergy/AdvReac Type Severity Reaction Status Date / Time pollen extracts [POLLEN] Allergy Mild SNEEZE Verified 02/09/24 11:02 PUFFY EYES Home Medications ?Medication ?Instructions ?Recorded ?Confirmed ?Last Taken ?Type atorvastatin 80 mg tablet 80 mg PO DAILY 01/17/24 02/09/24 02/21/24 History fluticasone propionate 220 1 puff inhalation BID 01/17/24 02/09/24 02/21/24 History mcg/actuation HFA aerosol inhaler nicotine (polacrilex) 2 mg gum 2 mg buccal Q2H PRN Smoking 01/17/24 02/09/24 Unknown History Cessation omeprazole 20 mg capsule,delayed 20 mg PO DAILY@0630 01/17/24 02/09/24 Unknown History release semaglutide 2 mg/dose (8 mg/3 mL) 2 mg subcut WE 01/17/24 02/09/24 02/07/24 History subcutaneous pen injector Exam Pertinent Lab Results Pertinent Lab Results: Laboratory Tests 08/25/23 01/19/24 01/20/24 09:49 06:56 07:19 WBC 6.2 5.2 Hgb 15.1 12.0 L Hct 45.5 34.8 L Plt Count 187 183 Sodium 139 135 Potassium 4.4 3.9 Chloride 106 106 Carbon Dioxide 19 L 19 L BUN 37 H 33 H Creatinine 1.99 H 01/22/24 05:43 WBC Hgb Hct Plt Count Sodium Potassium Chloride Carbon Dioxide BUN Creatinine 1.89 H Narrative Narrative: EKG 12/2022 SR 1st deg av block Assessment and Plan Assessment Anesthesia Assessment: Chart Reviewed Final Anesthetic Review Family History of Problems with Anesthesia: No History of Problems with Anesthesia: No
[2024-02-21] VITALS (7 sets, daily range): BP systolic 116–133; BP diastolic 59–73; PULSE 51–54; RESP 16; TEMP 36.1–37.3; O2SAT 94–97; BMI 26.2
--- NOTE | 2024-02-21 09:23 | P.CONAN_ITS ---
[facility] Active Problems Active Problems: All Active Problems Dry gangrene (Acute) Diabetes mellitus with foot ulcer and gangrene (Acute) Low vitamin D level (Acute) Blind in both eyes (Acute) Elevated LFTs (Acute) Abnormal TSH (Acute) Annual physical exam (Acute) Lateral epicondylitis of left elbow (Acute) Asthma (Acute) Screening for colon cancer (Acute) Hepatitis C (Acute) Diabetic nephropathy associated with type 2 diabetes mellitus (Acute) Very severe proliferative diabetic retinopathy (Acute) [facility] (current) use of insulin (Acute) Overweight (BMI 25.0-29.9) (Acute) Type 2 diabetes mellitus with hyperglycemia (Acute) Obesity (BMI 30-39.9) (Acute) Chronic kidney disease (Acute) Erectile dysfunction (Acute) Tobacco abuse (Acute) Hypercholesterolemia (Acute) Hypertension (Acute) Past Medical History Medical History Acute kidney injury Pneumonia Impacted cerumen of both ears Impacted cerumen of both ears Cough Tobacco abuse Smoker Screening for colon cancer Diabetic nephropathy associated with type 2 diabetes mellitus Very severe proliferative diabetic retinopathy [facility]CI (current) use of insulin Overweight (BMI 25.0-29.9) Type 2 diabetes mellitus with hyperglycemia Obesity (BMI 30-39.9) Carpal tunnel syndrome, left Chronic kidney disease Erectile dysfunction Tobacco abuse Hypercholesterolemia Cataract Glaucoma Hepatitis C Hypertension Family History Family History Father Diabetes Mother Diabetes Hypertension Brother In good health Sister No problems noted. Other Mental health disorder Family history of problems with anesthesia: No Surgical History Surgical History Hx of cataract extraction History of surgery on arm Hx of colonoscopy History of Problems with Anesthesia: No Social History Social History Household Members: None Housing: House Housing Other:: room in Boarding House Are you a primary career information specialist to a significant other at home: No Do you presently have visiting nurse or other home services: Yes (educational speech language clinician and vna) Alcohol intake: never Comment: Patient is blind Patient Tobacco Use Status: Current everyday Tobacco user Tobacco use type: Cigarette Cigarette Packs Per Day: 1 Cigarettes Per Day: 12 Years Smoked: 40 e-Cigarette/Vaping Use: Never Used Second Hand Smoke Exposure: Yes service: No Current occupational status: disabled Cognitive needs: Yes (Blind stick, walker) Hearing needs: No Vision needs: No Meds Allergies Allergy/AdvReac Type Severity Reaction Status Date / Time pollen extracts [POLLEN] Allergy Mild SNEEZE Verified 02/09/24 11:02 PUFFY EYES Active Medications: Current Medications Albuterol Sulfate (Albuterol Sulfate (0.083%) 2.5 Mg/3 Ml Vial.Neb) 2.5 mg INHALE ONCE PRN PRN Reason: Shortness of Breath/Wheezing Lactated Ringer's (Lr) 1,000 mls @ 100 mls/hr IVCONT .Q10H MOON Cefazolin Sodium/Dextrose (Ancef) 2 gm in 50 mls @ 100 mls/hr IV PREOP ONE Stop: 02/21/24 09:46 Home Medications ?Medication ?Instructions ?Recorded ?Confirmed ?Last Taken ?Type atorvastatin 80 mg tablet 80 mg PO DAILY 01/17/24 02/09/24 Unknown History fluticasone propionate 220 1 puff inhalation BID 01/17/24 02/09/24 01/17/24 History mcg/actuation HFA aerosol inhaler nicotine (polacrilex) 2 mg gum 2 mg buccal Q2H PRN Smoking 01/17/24 02/09/24 Unknown History Cessation omeprazole 20 mg capsule,delayed 20 mg PO DAILY@0630 01/17/24 02/09/24 Unknown History release semaglutide 2 mg/dose (8 mg/3 mL) 2 mg subcut WE 01/17/24 02/09/24 01/10/24 History subcutaneous pen injector Exam Airway Mallampati Class: III TM Dist: >3cm Neck ROM: Full Denture: Upper and Lower Heart: RRR Lungs: CTA Assessment and Plan Assessment Anesthesia Assessment: Anesthesia Plan Discussed, Smoking Cess. Discussed and Chart Reviewed Final Anesthetic Review Family History of Problems with Anesthesia: No History of Problems with Anesthesia: No NPO: Yes ASA Class: III Final Preanesthetic Review: Meds/Allgs Chart Reviewed, Consent Obtained/Reviewed and Anes Risks/Benef Reviewed Patient Risk: Intermediate Procedure Risk: Low Anesthetic Plan Anesthetic Plan: GA Disposition: Standard PACU
--- NOTE | 2024-02-21 09:28 | PC.NURSE ---
PATIENT STATES HE HASNT TAKEN HIS OZEMPIC FOR THE LAST TWO WEEKS. HE HASNT FILLED THE PRESCRIPTION BECAUSE ITS NOT IN STOCK.
[2024-02-21 10:04] LABS: Glucose, Whole Blood 361 mg/dL (60-115)
--- NOTE | 2024-02-21 10:09 | MHC.SHP ---
Pre-Procedural Eval Section A - 24 Hr Update-Section A only Date of Service: 02/21/24 The patient is an INPATIENT: No Changes since office visit: Yes Patient answered all questions; No Cold of Flu in the past 2 weeks, No New Medical Problems and No Changes in Medication The patient has been examined within 24 hours of the surgical procedure. The History & Physical has been completed within 30 days and I have reviewed it.: Yes Section B - Complete if H&P > 30 days Chief Complaint: Gangrene, not elsewhere classified Allergies: Allergies Allergy/AdvReac Type Severity Reaction Status Date / Time pollen extracts [POLLEN] Allergy Mild SNEEZE Verified 02/09/24 11:02 PUFFY EYES Plan Diagnosis/Plan: Unchanged I have reviewed the history and physical and performed a pertinent physical examination on my patient. No changes have occurred unless specified. Time Spent With Patient Time: Total time managing care of this patient today ____ minutes.
[2024-02-21] MEDS: Lactated Ringers 1,000 ML 100 ML IVCONT (10:23)
[2024-02-21] MEDS: Insulin Regular, Human 100 UNIT/ML 10 ML VIAL IVPUSH (10:47)
--- NOTE | 2024-02-21 10:54 | PC.NURSE ---
spoke to pharmacists lanre and unable to scan insulin scan medication label because it was only letting me scan the bare code once stating i was under the amount needed. be perez witnessed my insulin amount for ivp
--- NOTE | 2024-02-21 11:57 | W.PM.OPN ---
Operative Note Operative Note Date of Service: 02/21/24 Narrative: Preoperative diagnosis: Gangrene left 5th toe Postoperative diagnosis: Same Procedure: Amputation left 5th toe Surgeon: Nikunj Gasca MD X Ray Equipment Servicer: Leora Molina PA-C Anesthesia: General LMA plus digital block Indications for procedure: 63-year-old male patient recently admitted with gangrene of the left 5th toe treated with antibiotics. He now presents for elective amputation Operative findings: Gangrene of the left 5th toe with evidence of osteomyelitis of the proximal phalanx Specimen: Left 5th toe and distal metatarsal Estimated blood loss: Less than 2 mL Complications: None Procedure details: Patient was brought to the OR placed in a supine position. After administering general anesthesia the patient's left foot was prepped with Betadine and draped in a sterile fashion. A surgical time-out called and the consent confirmed. Patient received preoperative antibiotics and Venodyne boots were in place on the right leg only. Local anesthesia was infiltrated as a digital block using 0.5% Sensorcaine. An elliptical incision oriented along the metatarsal was then created. The incision was carried down through subcutaneous tissue down to the phalanx and metatarsal. Electrocautery was used to dissect down to metatarsal. Bone cutter was then used to divide the metatarsal at mid length. Hemostasis was assured using electrocautery. The remaining digit was excised using electrocautery. Specimen was passed off the table and sent to pathology for further examination. Wounds were irrigated with saline solution. Dermis was then reapproximated using interrupted 3-0 Polysorb sutures. Skin was closed using interrupted 2-0 nylon sutures. Bacitracin was applied to the incision. Fluff gauze was placed between toes and over the incision. This was followed by Kerlix and a 3 in Esdras bandage. The patient tolerated the procedure well. Sponge, instrument, and needle counts reported as correct. The patient was transferred to PACU in stable condition.
[2024-02-21 12:24] LABS: Glucose, Whole Blood 266 mg/dL (60-115)
== END 2024-02-21 13:18 | disposition home or self-care (01) ==
PROVIDERS: PCP Internal Medicine; Visit Provider Surgery
PROC: (CPT 28810; principal; 2024-02-21 10:40)
DX: I96 Gangrene, not elsewhere classified (principal); M86.172 Other acute osteomyelitis, left ankle and foot; E11.3599 Type 2 diabetes mellitus with proliferative diabetic retinopathy without macular edema, unspecified eye; E11.21 Type 2 diabetes mellitus with diabetic nephropathy; E11.65 Type 2 diabetes mellitus with hyperglycemia; H40.9 Unspecified glaucoma; H54.8 Legal blindness, as defined in USA; I10 Essential (primary) hypertension; E78.00 Pure hypercholesterolemia, unspecified; J45.909 Unspecified asthma, uncomplicated; B19.20 Unspecified viral hepatitis C without hepatic coma; E66.3 Overweight; Z68.26 Body mass index [BMI] 26.0-26.9, adult; Z79.4 Long term (current) use of insulin; Z79.84 Long term (current) use of oral hypoglycemic drugs; Z79.85 Long-term (current) use of injectable non-insulin antidiabetic drugs; Z79.51 Long term (current) use of inhaled steroids; Z79.899 Other long term (current) drug therapy; F17.210 Nicotine dependence, cigarettes, uncomplicated
CPT/HCPCS: 28810; 82947; 88305; 88311; J0690; J2003; J2704; J2795; J3010

== ENCOUNTER → 2024-02-21 09:07 | Outpatient (BNV) | payer OTHER, SELFPAY | PROVIDERS: PCP Internal Medicine; Visit Provider Surgery | DX: I96 Gangrene, not elsewhere classified (principal); M86.9 Osteomyelitis, unspecified | CPT/HCPCS: 28810 ==

== ENCOUNTER 2024-03-01 11:27 | Outpatient (AMB) | payer OTHER, SELFPAY ==
[2024-03-01 11:28] VITALS: BP 130/62; RESP 16; BMI 26.2
--- NOTE | 2024-03-01 11:28 | MHC.OFFVIS ---
Vital Signs 03/01/24 11:28 Height 6 ft 2 in Weight 203 lb 11.314 oz BMI 26.2 BP 130/62 Blood Pressure Location Lt brachial Position Sitting Respiration 16 Intake Visit Reasons: S/P amputation Lt. 5th toe Intake Note: Patient is seen in office for post op assessment post amputation left 5th toe. Pt c/o: admits to sore, tender, has VNA come in every other day to change dressing surgery: 02/21/24 Philosophy Faculty Required: No Accompanied by: Self / Same As Patient Allergies pollen extracts [POLLEN] Allergy (Mild, Verified 03/01/24 11:28) SNEEZE PUFFY EYES HPI Comments Details: Patient returns 1 week following amputation of his left 5th toe. He has some soreness but otherwise feels well. He returns today for wound check. [facility] Medical History Acute kidney injury Pneumonia Impacted cerumen of both ears Impacted cerumen of both ears Cough Tobacco abuse Smoker Screening for colon cancer Diabetic nephropathy associated with type 2 diabetes mellitus Very severe proliferative diabetic retinopathy senior care (current) use of insulin Overweight (BMI 25.0-29.9) Type 2 diabetes mellitus with hyperglycemia Obesity (BMI 30-39.9) Carpal tunnel syndrome, left Chronic kidney disease Erectile dysfunction Tobacco abuse Hypercholesterolemia Cataract Glaucoma Hepatitis C Hypertension Surgical History Amputation of fifth toe of left foot (02/21/24) Hx of cataract extraction History of surgery on arm Hx of colonoscopy Family History Father Diabetes Mother Diabetes Hypertension Brother In good health Sister No problems noted. Other Mental health disorder Social History Household Members: None Housing: House Housing Other:: room in Boarding House Are you a primary home care giver to a significant other at home: No Do you presently have visiting nurse or other home services: Yes (measurement technician and vna) Alcohol intake: never Comment: Patient is blind Patient Tobacco Use Status: Current everyday Tobacco user Tobacco use type: Cigarette Cigarette Packs Per Day: 1 Cigarettes Per Day: 12 Years Smoked: 40 e-Cigarette/Vaping Use: Never Used Second Hand Smoke Exposure: Yes service: No Current occupational status: disabled Cognitive needs: Yes (Blind stick, walker) Hearing needs: No Vision needs: No Physical Exam Vital Signs: Last Vital Signs Resp 16 03/01/24 11:28 BP 130/62 03/01/24 11:28 BMI result Body Mass Index 26.2 Const General: no acute distress Nutritional Appearance: well nourished Orientation/consciousness: patient oriented x3 Resp Effort & Inspection: normal respiratory effort Skin Other: Warm, dry, no rash Neuro General: patient oriented x3 Extrem Other: Left foot sutures intact. Minimal discharge noted. Dressings changed and patient tolerated well. Assessment & Plan Assessment & Plan (1) Osteomyelitis of toe of left foot: Code(s): M86.9 - Osteomyelitis, unspecified Category: Medical Plan 64-year-old male status post amputation of left 5th toe for gangrene, osteomyelitis. Wounds are not completely healed therefore sutures were left in place. He has continue with local wound care and return in 2 weeks for re-evaluation and possible suture removal. He should avoid prolonged standing and walking. Coding Level of Care Code Global (93522) Diagnoses Osteomyelitis of toe of left foot M86.9
--- OUTSIDE RECORDS SUMMARY | 2024-03-01 13:41 | XMS_ITS | Clinical Summary ---
Author Organization [facility] Address [address] [place] [address] Phone Care Team Providers Care Restaurant Recruiter Name Role Phone Trey Love MD Primary Care Provider [phone] Allergies Active Allergy Reactions Criticality Noted Date Comments Pollen Extract 10/16/2023 Medications metoprolol succinate XL (TOPROL-XL) 100 MG 24 hr tablet Take 1 tablet by mouth 1 (one) time each day Active metFORMIN (GLUCOPHAGE) 500 MG tablet Take 1 tablet by mouth in the morning and 1 tablet in the evening. Active lisinopril 40 MG tablet 1 tablet 1 (one) time each day 11/16/2012 Active linaGLIPtin 5 MG tablet Take 5 mg by mouth 11/16/2012 Active insulin glargine (Lantus SoloStar) 100 UNIT/ML injection 18 Units Active hydroCHLOROthia zide 25 MG tablet Take 1 tablet by mouth 1 (one) time each day Active glipiZIDE (GLUCOTROL XL) 10 MG 24 hr tablet Take 10 mg by mouth 05/27/2013 Active Dulaglutide (Trulicity) 1.5 MG/0.5ML solution pen-injector Active cloNIDine (CATAPRES) 0.1 MG tablet Take 1 tablet by mouth 1 (one) time each day 05/27/2013 Active Cholecalciferol 50 MCG (2000 UT) capsule Take 1 capsule by mouth 1 (one) time each day Active atorvastatin (LIPITOR) 80 MG tablet Take 1 tablet by mouth 1 (one) time each day 05/27/2013 Active amLODIPine (NORVASC) 10 MG tablet Take 1 tablet by mouth 1 (one) time each day 11/16/2012 Active albuterol HFA (PROVENTIL HFA;VENTOLIN HFA) 108 (90 Base) MCG/ACT inhaler Inhale 2 puffs 11/16/2012 Active Farxiga 10 MG tablet TAKE 10 MG BY MOUTH 1 (ONE) TIME EACH DAY 30 tablet 01/18/2024 Active Active Problems Problem Noted Date Diagnosed Date Renal osteodystrophy 10/04/2021 Stage 3b chronic kidney disease 08/10/2021 Type 2 diabetes mellitus wit h diabetic chronic kidney disease 08/10/2021 Hypertensive renal disease 08/05/2021 Chronic kidney disease stage 3 08/05/2021 Encounters Date Type Department Care Team Description 01/17/2024 Refill [facility] [address] [place] [address] Tulio Mcclure MD from Last 3 Months Family History Medical History Relation Comments Hypertension Father Diabetes Mother Hypertension Mother Diabetes Sibling 1 Hypertension Sibling 2 Relation Status Comments Father Mother Alive Sibling 1 Sibling 2 Social History Tobacco Use Types Packs/Day Years Used Date Smoking Tobacco: Every Day Cigarettes 0.5 6.6 Started: 08/11/2017 Alcohol Use Standard Drinks/Week Comments No 0 (1 standard drink = 0.6 oz pur e alcohol) Sex and Gender Information Value Date Recorded Sex Assigned at Not on file Legal Sex Male 5:00 PM EST Gender Identity Not on file Sexual Orientation Not on file Last Filed Vital Signs Vital Sign Reading Time Taken Comments Blood Pressure 110/59 10/16/2023 3:14 PM EDT Pulse 74 10/16/2023 3:14 PM EDT Temperature - - Respiratory Rate - - Oxygen Saturation 99% 10/16/2023 3:14 PM EDT Inhaled Oxygen Concentration - - Weight 92.2 kg (203 lb 3.2 oz) 10/16/2023 3:14 P M EDT Height - - Body Mass Index - - Plan of Treatment Upcoming Encounters Date Type Department Care Team (Late st Contact Info) Description 07/15/2024 4:30 PM EDT Office Visit [facility] [address] [place] [address] Tulio Mcclure MD [address] [facility] [address] [place] [phone] Health Maintenance Due Date Last Done Comments Pneumococcal Vaccine: Pediat rics (0 to 5 Years) and At-Risk Patients (6 to 64 Years) (1 of 2 - PCV) 02/26/1968 Colorectal Cancer Screening: Annual FOBT 2011 Colorectal Cancer Screening: Colonoscopy 2011 Colorectal Cancer Screening: Sigmoidoscopy 2011 Diabetes: Ophthalmology Exam 08/10/2021 Diabetes: Pedal Pulse Checked 08/10/2021 Diabetes: Sensory Foot Exam 08/10/2021 Diabetes: Visual Foot Exam 08/10/2021 Diabetes: Hemoglobin A1C 09/02/2021 06/03/2021 Influenza Vaccine (#1) 2023 Hepatitis B Vaccine Aged Out No longe r eligible based on patient's age to complete this topic Procedures Procedure Name Priority Date/Time Associated Diagnosis Comments EXT RESULT ENTRY Routine 06/03/2021 from Last 3 Months or Most Recently Relevant to Health Maintenance Results * (ABNORMAL) EXT RESULT ENTRY (06/03/2021) WBC 5.9 3.3 - 10.0 10*3/ML Red Blood Cell Count 5.00 Hemoglobin 14.9 13.5 - 17.5 Hematocrit 45.6 41.0 - 53.0 Platelets 195 150 - 399 10*3/UL MCV 91.2 82.0 - 108.0 Sodium 139 137 - 147 Potassium 4.7 3.4 - 5.5 Chloride 105.0 99.0 - 108.0 Anion Gap 11 <=30 MMOL/L BUN 23(A) 4 - 21 mg/dL Creatinine 1.76(A) 0.60 - 1.30 mg/dL Albumin 4.2 3.5 - 5.0 g/dL Calcium 9.6 8.7 - 10.7 mg/dL eGFR Non-Afr Guatemalan 40 Hemoglobin A1C 7.9(A) 4.0 - 6.0 Triglycerides 42 40 - 160 Cholesterol 145 0 - 200 06/03/2021 Historical Provider LAB BLOOD ORDERABLES Ann l Result from Last 3 Months or Most Recently Relevant to Health Maintenance Insurance [facility] MCR ([id number]) [facility] MCR ([id number]) Care Teams Restaurant Recruiter Relationship Specialty Start Date End Date Trey Love MD [address] [place], [place] PCP - General 02/17/20
--- OUTSIDE RECORDS SUMMARY | 2024-03-01 13:41 | XMS_ITS ---
Author Organization [facility] Address [address] [place] [address] Care Team Providers Care Supervisor Machine Workers Name Role Phone Trey Love Primary Care Provider Twila Vargas [phone] REASON FOR VISIT CASE MANAGEMENT MANAGER PPWK Entered Encounters Encounter Location Date Provider Diagnosis [facility] [address] [place] [address] 02/09/2024 Twila Holliday Plan Of Treatment Next Appt Details Provider Name:Twila lauren, 03/08/2024 10:30:00 AM, [address] [facility], [place] [address], [place], [address], Progress Notes * Rashaad NEFF LDOB:1960 (63 yo M)Acc No.[id number]:02/09/2024 Patient:?Rashaad NEFF :1960???Age:63 Y???Sex:Male Address:[address] [place] [phone] * true * Date:? Generated for Printi ng/Faxing/eTransmitting on:?03/01/2024 01:41 PM EST
--- OUTSIDE RECORDS SUMMARY | 2024-03-01 13:41 | XMS_ITS | Encounter Summary ---
Author Organization [facility] Address [address] [facility] [address] [place] [address] Phone Care Team Providers Care Byproducts Supervisor Name Role Phone Trey Love MD Primary Care Provider [phone] Encounter Details Date Type Department Care Team (Late st Contact Info) Description 11/30/2021 Telephone [facility] [address] [facility] [address] [place] [address] Tulio Mcclure MD [address] [facility] [address] [place] [phone] Social History Tobacco Use Types Packs/Day Years Used Date Smoking Tobacco: Every Day Cigarettes 0.5 6.6 Started: 08/11/2017 Alcohol Use Standard Drinks/Week Comments No 0 (1 standard drink = 0.6 oz pur e alcohol) Sex and Gender Information Value Date Recorded Sex Assigned at Not on file Legal Sex Male 5:00 PM EST Gender Identity Not on file Sexual Orientation Not on file documented as of this encounter Miscellaneous Notes * Telephone Encounter - Joyce Prakash - 11/30/2021 4:23 PM EDT Pt called, he would like to review the results of his US however I don't see them in his chart. Please advise Thank you documented in this encounter Plan of Treatment Upcoming Encounters Date Type Department Care Team (Late st Contact Info) Description 07/15/2024 4:30 PM EDT Office Visit [facility] [address] [place] [address] Tulio Mcclure MD [address] [place] [address] [address] documented as of this encounter Visit Diagnoses Not on filedocumented in this encounter Care Teams Byproducts Supervisor Relationship Specialty Start Date End Date Trey Love MD [address] [place], [place] PCP - General 02/17/20 documented as of this encounter
--- OUTSIDE RECORDS SUMMARY | 2024-03-01 13:41 | XMS_ITS | Encounter Summary ---
Author Organization [facility] Address [address] [facility] [address] [place] [address] Phone Care Team Providers Care Outreach Worker Name Role Phone Trey Love MD Primary Care Provider [phone] Encounter Details Date Type Department Care Team (Late st Contact Info) Description 07/05/2022 Telephone [facility] [address] [facility] [address] [place] [address] Jackie Colunga Social History Tobacco Use Types Packs/Day Years [...] encounter Miscellaneous Notes * Telephone Encounter - Jackie Colunga - 07/05/2022 11:27 AM EDT PT says that he recently had blood work done and he would like the results relayed to him. documented in this encounter Plan of Treatment Upcoming Encounters Date Type Department Care Team (Late st Contact Info) Description 07/15/2024 4:30 PM EDT Office Visit [facility] [address] [place] [phone] Tulio Mcclure MD [address] [facility] [address] [place] [address] documented as of this encounter Visit Diagnoses Not on filedocumented in this encounter Care Teams Outreach Worker Relationship Specialty Start Date End Date Trey Love MD [address] PCP - General 02/17/20 documented as of this encounter
--- OUTSIDE RECORDS SUMMARY | 2024-03-01 13:41 | XMS_ITS ---
Author Organization [facility] Address [address] [place] [address] Care Team Providers Care Finish Repairer Name Role Phone Trey Love Primary Care Provider Twila Vargas [phone] REASON FOR VISIT VOCATIONAL EXAMINER Encounters Encounter Location Date Provider Diagnosis [facility] [address] [place] [address] 12/21/2023 Twila Holliday Plan Of Treatment Next Appt Details Provider Name:Twila lauren, 03/08/2024 10:30:00 AM, [address] [facility], [place] [address], [place], [address], Progress Notes * Rashaad NEFF LDOB:1960 (63 yo M)Acc No.[id number]:12/21/2023 Patient:?Rashaad NEFF :1960???Age:63 Y???Sex:Male Address:[address] [place] [address] * true * Date:? Generated for Printi ng/Faxing/eTransmitting on:?03/01/2024 01:41 PM EST
--- OUTSIDE RECORDS SUMMARY | 2024-03-01 13:42 | XMS_ITS | Patient Health Record ---
Author Organization [facility] Address [address] [place] [address] Care Team Providers Care Curing Oven Tender Name Role Phone IvanNichelleraúl Primary Care Provider Twila Vargas Unavailable [phone] Allergies Allergen (clinical drug ingredient) Drug/Non Drug [...] Negative Encounters Encounter Location Date Provider Diagnosis [address] [address] 12/21/2023 Twila Holliday [address] [address] 02/09/2024 Twila Holliday Plan Of Treatment Next Appt Details Provider Name:Twila lauren, 03/08/2024 10:30:00 AM, [address] , [facility] [address], [place], [address], Insurance Providers Payer Name Payer Address Payer Phone Subscriber Number Group Number Insured Name Patient Relationship to Insured Coverage Start Date Coverage End Date [facility] [employer] Claims [address] [facility] [place] [id number] Rashaad Neff Self - patient is the insured Medical (General) History Medical History History ICD Code asthma CAD (Cholesterol) Diabetic Glaucoma High Blood Pressure Macular degeneration Psychiatric disorder
--- OUTSIDE RECORDS SUMMARY | 2024-03-01 13:42 | XMS_ITS ---
Author Organization [facility] Address [address] [place] [address] Care Team Providers Care Household Cook Name Role Phone Trey Love Primary Care Provider Twila Vargas [phone] REASON FOR VISIT NO [facility] PW Encounters Encounter Location Date Provider Diagnosis [address] [address] 12/22/2023 Twila Holliday Plan Of Treatment Next Appt Details Provider Name:Twila lauren, 03/08/2024 10:30:00 AM, [address] [place] [address], [place], [address], Progress Notes * Rashaad NEFF LDOB:1960 (64 yo M)Acc No.[id number]:12/22/2023 Progress Notes Patient:?AISHWARYA, Rashaad Sarah Provider:?Twila Holliday DPM :1960???Age:63 Y???Sex:Male Koffi e:12/22/2023 Address:[address] [place] [address] [facility] Pcp:Trey Love Subjective: * Chief Complaints: * ???1. NO [facility] PW. * Medical History:? Objective: * Vitals:? Assessment: Plan: * Treatment: * Images: * The named appointment provid er may or may not be the originator of this progress note, and it is not deemed complete until electronically signed by the appointment provider. Sign off status: Pending * Provider:?Twila Holliday DPM Date:?1 02/20/2023 Generated for uGille garcia/Vaughn/Kolby on:?03/01/2024 01:41 PM EST
--- OUTSIDE RECORDS SUMMARY | 2024-03-01 13:42 | XMS_ITS | Encounter Summary ---
Author Organization [facility] Address [address] [facility] [address] [place] [address] Phone Care Team Providers Care Clerical Grader Name Role Phone Trey Love MD Primary Care Provider [phone] Reason for Visit * Reason Comments Med Refill Encounter Details Date Type Department Care Team (Late st Contact Info) Description 07/17/2023 Refill [facility] [address] [place] [address] Tulio Mcclure MD [address] [address] Social History Tobacco Use Types Packs/Day Years [...] on file documented as of this encounter Plan of Treatment Upcoming Encounters Date Type Department Care Team (Late st Contact Info) Description 07/15/2024 4:30 PM EDT [facility] [address] [place] [address] Tulio Mcclure MD [address] [facility] [address] [place] [address] documented as of this encounter Procedures Procedure Name Priority Date/Time Associated Diagnosis Comments CREATININE, BLOOD Routine 08/25/2023 9:4 9 AM EDT PTH, INTACT (HC) Routine 08/25/2023 9:49 AM EDT VITAMIN D 25 HYDROXY Routine 08/25/2023 9:49 AM EDT CBC AND DIFFERENTIAL Routine 08/25/2023 9:49 AM EDT BUN Routine 08/25/2023 9:49 AM EDT PHOSPHATE ( PHOSPHORUS) Routine 08/25/2023 9:49 AM EDT MAGNESIUM Routine 08/25/2023 9:49 AM EDT CALCIUM Routine 08/25/2023 9:49 AM EDT ALBUMIN Routine 08/25/2023 9:49 AM EDT ELECTROLYTE PANEL Routine 08/25/2023 9:4 9 AM EDT documented in this encounter Results * PTH, Intact (08/25/2023 9:49 AM EDT) Pathologist [facility] Parathyroid Hormone, Intact 8.7 - 77.1 pg/mL See order comments Comment: PTH-RELATED PROTEIN (PTH-RP): PTH-RP: ??10 pg/mL (L) REFERENCE RANGE: 11-20 pg/mL This is a C-terminal PTH-RP assay. PTH-RP is useful in the differential diagnosis of hypercalcemia and levels may be elevated in patients with tumor-associated hypercalcemia. Elevated results may also be observed in patients with renal disease. This test was developed and its analytical performance characteristics have been determined by [employer]. It has not been cleared or approved by FDA. This assay has been validated pursuant to the CLIA regulations and is used for clinical purposes. THIS TEST PERFORMED AT: [employer] [address] [place] [address] [phone] REDUCING SALON ATTENDANT: BEBETO DA SILVA MD, PHD, GIANNI 08/25/2023 9:49 AM EDT 08/25/2023 9:49 AM EDT Narrative [place] - 09/04/2023 7:35 AM EDT SENT TO [facility] us Tulio Mcclure MD LAB [id number]-[id number]-EL SOLICITED RESULTS Final Result Performing Organization Address [facility] de Phone Number [facility] See order comments [place] [address] * Vitamin D 25 Hydroxy (08/25/2023 9:49 AM EDT) Vitamin D, 25-Hydroxy 42.5 >30 ng/mL See order comments Comment: Health Based Reference Values* < 20 ??ng/mL ??Deficient 20-30 ng/mL ??Insufficient > 30 ??ng/mL ??Sufficient *Javad JESSICA. N Engl J Med. 2007;357:266-280 Care must be taken in interpreting Vitamin D results from different laboratories and methodologies. ??Published data demonstrated that results from patients undergoing hemodialysis may show a negative bias when tested with various automated 25-OH vitamin D assays when compared to LC-MS/MS. When testing samples from patients whose predominant form of Vitamin D is Vitamin D2, such as patients receiving Vitamin D2 supplementation, results that are subtherapeutic should be confirmed with another method such as LC-MS/MS. 08/25/2023 9:49 AM EDT 08/25/2023 9:49 AM EDT us Tulio Mcclure MD LAB BLOOD ORDERABLES Final Re sult Performing Organization Address [facility] de Phone Number [place] See order comments [place] [address] * Albumin (08/25/2023 9:49 AM EDT) Albumin 4.2 3.5 - 5.0 g/dL See order comments 08/25/2023 9:49 AM EDT 08/25/2023 9:49 AM EDT us Tulio Mcclure MD LAB BLOOD ORDERABLES Final Re sult Performing Organization Address [facility] de Phone Number [place] See order comments [place] [address] * Magnesium (08/25/2023 9:49 AM EDT) Magnesium 2.2 1.6 - 2.6 mg/dL See order comments 08/25/2023 9:49 AM EDT 08/25/2023 9:49 AM EDT Tulio Mcclure MD LAB BLOOD ORDERABLES Final Re sult Performing Organization Address [facility] de Phone Number [place] See order comments [place] [address] * Phosphorus (08/25/2023 9:49 AM EDT) Phosphorus, Serum 3.6 2.7 - 4.5 mg/dL See order comments 08/25/2023 9:49 AM EDT 08/25/2023 9:49 AM EDT Tulio Mcclure MD LAB BLOOD ORDERABLES Final Re sult Performing Organization Address [facility] de Phone Number [place] See order comments [place] [address] * Calcium (08/25/2023 9:49 AM EDT) Calcium 9.9 8.4 - 10.2 mg/dL See order comments 08/25/2023 9:49 AM EDT 08/25/2023 9:49 AM EDT Tulio Mcclure MD LAB BLOOD ORDERABLES Final Re sult Performing Organization Address [facility] de Phone Number [place] See order comments [place] [address] * (ABNORMAL) Creatinine (08/25/2023 9:49 AM EDT) Creatinine Serum 1.99(H) 0.5 - 1.4 mg/dL See order comments eGFR 34 See order comments Comment: NOTE: ??For -Turkish individuals, multiply the result ? by 1210. Chronic Kidney Disease: ??Estimated GFR < 60 mL/min/1.73m2 Severe Kidney Disease: ??Estimated GFR < 15 mL/min/1.73m2 08/25/2023 9:49 AM EDT 08/25/2023 9:49 AM EDT Tulio Mcclure MD LAB BLOOD ORDERABLES Final Re sult Performing Organization Address [facility] Phone Number [place] See order comments [place] [address] * (ABNORMAL) BUN (08/25/2023 9:49 AM EDT) BUN 37(H) 9 - 16 mg/dL See order comments 08/25/2023 9:49 AM EDT 08/25/2023 9:49 AM EDT Tulio Mcclure MD LAB BLOOD ORDERABLES Final Re sult Performing Organization Address [facility] Phone Number [place] See order comments [place] [address] * (ABNORMAL) Electrolyte panel (08/25/2023 9:49 AM EDT) Sodium 139 135 - 145 mmol/L See order comments Potassium 4.4 3.3 - 5.1 mmol/L See order comments Chloride 106 96 - 108 mmol/L See order comments Bicarbonate (CO2) 19(L) 22 - 29 mmol/L See order comments Anion Gap 18 12 - 20 See order comments 08/25/2023 9:49 AM EDT 08/25/2023 9:49 AM EDT us Tulio Mcclure MD LAB BLOOD ORDERABLES Final Re sult Performing Organization Address [facility] Phone Number [place] See order comments [place] [address] * CBC and Differential (08/25/2023 9:49 AM EDT) WBC 6.2 4.8 - 10.8 X10*3/uL See order comments RBC 4.84 4.60 - 5.80 X10*6/uL See order comments Hgb 15.1 14.0 - 18.0 g/dl See order comments Hematocrit 45.5 42.0 - 52.0 % See order comments MCV 94.0 80.0 - 98.0 fL See order comments MCH 31.2 27.0 - 33.0 pg See order comments MCHC 33.2 31.0 - 36.0 g/dl See order comments RDW 13.9 11.0 - 16.0 % See order comments Platelets 187 160 - 400 X10*3/uL See order comments MPV 11.8 9.4 - 12.4 fL See order comments Neutrophils % Auto 57.2 45 - 73 % See order comments Immature Granulocytes 0.3 0.0 - 0.4 % See order comments Lymphocytes Relative 31.0 20 - 40 % See order comments Monocytes 8.8 2 - 11 % See order comments Eosinophils Relative 2.4 0 - 4 % See order comments Basophils Relative 0.3 0 - 2 % See order comments nRBC Count 0.0 0.0 - 0.2 /100WBC See order comments Neutrophils Absolute 3.6 2.0 - 8.3 x10*3/uL See order comments Immature Grans (Absolute) 0.02 0.00 - 0.03 X10*3/uL See order comments Lymphocytes Absolute 1.9 1.2 - 4.9 X10*3/uL See order comments Monocytes Absolute 0.6 0.1 - 1.2 X10*3/uL See order comments Eosinophils Absolute 0.2 0.0 - 0.4 X10*3/uL See order comments Basophils Absolute 0.0 0.0 - 0.2 X10*3/uL See order comments NRBC Absolute 0.000 0.0 - 0.012 X10*3/uL See order comments 08/25/2023 9:49 AM EDT 08/25/2023 9:49 AM EDT us Tulio Mcclure MD LAB BLOOD ORDERABLES Final Re sult [place] See order comments [place] [address] documented in this encounter Visit Diagnoses Not on filedocumented in this encounter Care Teams Clerical Grader Relationship Specialty Start Date End Date Trey Love MD [facility] [address] [facility] PCP - General 02/17/20 documented as of this encounter
== END 2024-03-01 11:49 | disposition home or self-care (01) ==
PROVIDERS: PCP Internal Medicine; Visit Provider Surgery
DX: M86.9 Osteomyelitis, unspecified (principal)
CPT/HCPCS: 99024

== ENCOUNTER → 2024-03-01 11:27 | Outpatient (BNVA) | payer OTHER, SELFPAY | PROVIDERS: PCP Internal Medicine; Visit Provider Surgery | DX: M86.9 Osteomyelitis, unspecified (principal) | CPT/HCPCS: 99212 ==

== ENCOUNTER → 2024-03-15 11:08 | Outpatient (BNVA) | payer OTHER, SELFPAY | PROVIDERS: PCP Internal Medicine; Visit Provider Surgery | DX: M86.9 Osteomyelitis, unspecified (principal); Z47.81 Encounter for orthopedic aftercare following surgical amputation; Z87.2 Personal history of diseases of the skin and subcutaneous tissue; Z89.422 Acquired absence of other left toe(s) | CPT/HCPCS: 99212 ==

== ENCOUNTER → 2024-03-15 11:08 | Outpatient (AMB) | payer OTHER, SELFPAY | END | disposition home or self-care (01) | PROVIDERS: PCP Internal Medicine; Visit Provider Surgery | CPT/HCPCS: 99024 ==

== ENCOUNTER 2024-04-12 10:53 | Outpatient (AMB) | payer OTHER, SELFPAY ==
--- NOTE | 2024-04-12 10:53 | A.OFFVIS_ITS ---
Vital Signs 3 04/12/24 10:59 Height 6 ft 2 in Weight 207 lb 3.752 oz BMI 26.6 Respiration 18 Pulse 62 Intake Visit Reasons: one month S/P amputation Lt. 5th toe Intake Note: Patient is seen in office for one month follow up visit, post left 5th toe amputation. Pt c/o: has [facility] coming in twice a week, minimal discharge, would like a letter to be out of work until 05/13/24 [employer] Administrator Required: No Accompanied by: Self / Same As Patient Allergies pollen extracts [POLLEN] Allergy (Mild, Verified 04/12/24 10:53) SNEEZE PUFFY EYES HPI Comments Details: Patient returns 7 weeks following amputation of his left 5th toe. He returns today for wound check and reports an improvement in his pain with the naproxen. He does note some foul discharge smell from the wound. Visiting nurses are changing the dressings. [facility] Medical History Acute kidney injury Pneumonia Impacted cerumen of both ears Impacted cerumen of both ears Cough Tobacco abuse Smoker Screening for colon cancer Diabetic nephropathy associated with type 2 diabetes mellitus Very severe proliferative diabetic retinopathy longterm (current) use of insulin Overweight (BMI 25.0-29.9) Type 2 diabetes mellitus with hyperglycemia Obesity (BMI 30-39.9) Carpal tunnel syndrome, left Chronic kidney disease Erectile dysfunction Tobacco abuse Hypercholesterolemia Cataract Glaucoma Hepatitis C Hypertension Surgical History Amputation of fifth toe of left foot (02/21/24) Hx of cataract extraction History of surgery on arm Hx of colonoscopy Family History Father Diabetes Mother Diabetes Hypertension Brother In good health Sister No problems noted. 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 Patient Tobacco Use Status: Current everyday Tobacco user Tobacco use type: Cigarette Cigarette Packs Per Day: 1 Cigarettes Per Day: 12 Years Smoked: 40 e-Cigarette/Vaping Use: Never Used Second Hand Smoke Exposure: Yes service: No Current occupational status: disabled Cognitive needs: Yes (Blind stick, walker) Hearing needs: No Vision needs: No Review of Systems Const All systems reviewed & are unremarkable except as noted in HPI and below Physical Exam Vital Signs: Last Vital Signs Pulse 62 04/12/24 10:59 Resp 18 04/12/24 10:59 BMI result Body Mass Index 26.6 Const General: no acute distress Nutritional Appearance: well nourished Orientation/consciousness: patient oriented x3 Resp Effort & Inspection: normal respiratory effort Skin Other: Warm, dry, no rash Neuro General: patient oriented x3 Extrem Other: Dressings changed to the left foot. There is new necrotic skin located on the plantar surface of the incision with necrotic subcutaneous tissue and foul- smelling discharge. This measures approximately 5 x 2 cm. There is no tenderness to palpation. Ankle/foot/toe images: 2 1. Status post amputation left 5th toe 2. Area of necrotic skin lateral left foot Assessment & Plan Assessment & Plan (1) Osteomyelitis of toe of left foot: Code(s): M86.9 - Osteomyelitis, unspecified Category: Medical Plan Patient now has a new area of skin and subcutaneous tissue necrosis involving the plantar surface of the left foot adjacent to the 5th metatarsal. I recommended a returned to the OR for debridement of the necrotic tissue down to viable skin and subcutaneous tissue. After discussion of the procedure, risks, and alternatives, he consents to the debridement of left foot ulcer. Coding Level of Care Code Global (71466) Diagnoses Osteomyelitis of toe of left foot M86.9
[2024-04-12 10:59] VITALS: PULSE 62; RESP 18; BMI 26.6
--- OUTSIDE RECORDS SUMMARY | 2024-04-12 12:27 | XMS_ITS | Encounter Summary ---
Author Organization [facility] Address [address] [facility] [address] [place] [address] Phone Care Team Providers Care [employer] Operator Name Role Phone Trey Love MD Primary Care Provider [phone] Encounter Details Date Type Department Care Team (Late st Contact Info) Description 11/30/2021 Telephone [facility] [address] [facility] [address] [place] [address] Tulio Mcclure MD [id number] [facility] [address] [place] [id number] Social History Tobacco Use Types Packs/Day Years Used Date Smoking Tobacco: Every Day Cigarettes 0.5 6.7 Started: 08/11/2017 Alcohol Use Standard Drinks/Week Comments [...] Visit [facility] [address] [place] [id number] Tulio Mcclure MD [address] [id number] documented as of this encounter Visit Diagnoses Not on filedocumented in this encounter Care Teams [employer] Operator Relationship Specialty Start Date End Date Trey Love MD [address] [place], [place] PCP - General 02/17/20 documented as of this encounter
--- OUTSIDE RECORDS SUMMARY | 2024-04-12 12:27 | XMS_ITS ---
Author Organization [facility] Address [address] [address] Care Team Providers Care Advanced Practice Provider Name Role Phone Trey Love Primary Care Provider Twila Vargas Unavailable [phone] Allergies Allergen (clinical drug ingredient) Drug/Non Drug Allergy documented on EMR Reaction Allergy Type Onset Date Status Pollen Pollen Unknown Allergy Active REASON FOR VISIT At Risk Footcare, Painful Nail(s) aggravated by shoes and causing difficulty standing/walking, [place], Skin problem(s) Medications Medication SIG (Take, Route, Frequency, Duration) Notes Start Date End Date Status Farxiga Active Fluticasone Propionate Active Atorvastatin Calcium Active Semaglutide Active Insulin Glargine Solostar Active Nicotine Active Acetaminophen Active Albuterol Active Ozempic Active Ammonium Lactate 12 % 1 application Exte rnally to affected areas of dry skin to feet except for between the toes Twice a day for 30 days Active Social History Tobacco Use: Social History Observation Description Date Details (start date - stop date) Current Smoker 02/11/1981 - NA Tobacco use other than smoking: Question Answer Notes Are you an other tobacco user? No Tobacco Control (Standard) Question Answer Notes Tobacco use: Current smoker When did you start smoking? 02/11/1981 How often do you smoke cigarettes? Every day How many cigarettes a day do you smoke? 6-10 How soon after you wake up do you smoke your fir st cigarette? 6-30 minutes Are you interested in quitting? Not ready to cas t AUDIT-C (Standard) Question Answer Notes Did you have a drink containing alcohol in the p ast year? No Points 0 Interpretation Negative Problems Problem Type SNOMED Code ICD Code Onset Dates Problem Status W/U Status Risk Notes Problem Type 2 diabetes mellitus with peripheral angiopathy (030204234) Type 2 diabetes mellitus with diabetic peripheral angiopathy without gangrene (E11.51) Active confirmed Q7(A), Q8(2B), Q9(1B,2C) Problem Ischemic ulcer of left foot, limited to breakdown of skin (L97.521) Active confirmed Response to treatment Vital Signs Height 6ft 2in in 03/08/2024 Weight 210 lbs 03/08/2024 BMI 26.96 kg/m2 03/08/2024 Blood pressure systolic 129 mm Hg 03/08/19 25 Blood pressure diastolic 65 mm Hg 025 Procedures Procedure Date Ordered Date Performed Result Body Sit e 69965-VSKMMXK NAIL, 6 OR MORE 03/08/2024 N/A 22858-WMJL SKIN LESIONS, OVER 4 03/08/2024 N/A Encounters Encounter Location Date Provider Diagnosis [facility] [address] [address] 03/08/2024 Twila Holliday Type 2 diabetes mellitus with diabetic peripheral angiopathy without gangrene E11.51 ; Dehiscence of operative wound, initial encounter T81.31XA ; Tinea unguium B35.1 ; Pain in right toe(s) M79.674 ; Pain in left toe(s) M79.675 and Xerosis of skin L85.3 Assessments Encounter Date Diagnosis (ICD Code) Assessment Notes Treatment Notes Treatment Clinical Notes Section Notes 03/08/2024 Type 2 diabetes mellitus with diabetic peripheral angiopathy without gangrene (ICD-10 - E11.51) Q7(A), Q8(2B), Q9(1B,2C) 03/08/2024 Dehiscence of operative wound, initial encounter (ICD-10 - T81.31XA) 03/08/2024 Tinea unguium (ICD-10 - B35.1) 03/08/2024 Pain in right toe(s) (ICD-10 - M79.674) 03/08/2024 Pain in left toe(s) (ICD-10 - M79.675) 03/08/2024 Xerosis of skin (ICD-10 - L85.3) 03/08/2024 Other Patient Educated with: WOUND CARE INSTRUCTIONS.p df (WOUND CARE INSTRUCTIONS.p df) Plan Of Treatment Medication Medication Name Sig Start Date Stop Date Notes Ammonium Lactate 12 % 1 application Exte rnally to affected areas of dry skin to feet except for between the toes Twice a day for 30 days Treatment Notes Assessment Notes Other Patient Educated wit h: WOUND CARE INSTRUCTIONS.pdf (WOUND CARE INSTRUCTIONS.pdf) Pending Test Test Name Order Date [id number] NAIL, 6 OR MORE 03/08/2024 [id number] SKIN LESIONS, OVER 4 03/08/19 25 Next Appt Details Follow Up: 6 Weeks, Reason: Provider Name:Twila lauren, 06/14/2024 11:15:00 AM, [address], [address], [place], [address], Procedure Notes * Category Sub-Category Detail Notes Debride Nail 6-10 Nail debridement Due to the cl inical pathology outlined in the exam findings, performance of this nail treatment is medically necessary as its management by an unskilled/untrained nonprofessional would put this patients foot and overall health at risk. Therefore, debridement to affected nail(s), as described in exam ( T1, T2, T3, T6, T7, T8, T9, ), was performed exclusively by the physician of record to reduce/remove overall nail length, girth, thickness, subungual debris, and necrotic tissue, by manual and/or electrical means through the use of a nail nipper and/or dremel-type head grinder, to a more viable healthy nail plate or bed tissue 6-10 nails in total. Silver nitrate was used for any petechial bleeding as necessary. Definitive antifungal treatment options, both pharmaceutical and surgical, have been reviewed and discussed with the patient. The patient solely prefers the use of intermittent/as needed professional debridement services for their nail condition and understands the need for additional periodic treatments to maintain effectiveness in symptomatic relief - 54768 Keratoma Treatment Parring or Cutting o f Benign Hyperkeratotic Lesion(s) (-57) More than 4 Lesions - Due to the at risk nature of the patients medical condition as documented in the exam findings, performance of this keratoderma treatment is medically necessary as its management by an unskilled/untrained nonprofessional would put this patients foot and overall health at risk. Therefore, the benign hyperkeratotic lesions, ( 6 ) in total, locations as stated and described in the exam (sub 1st MTH B/L, medial IPJ TA, T5, Plantar heels B/L ), were pared, and/or cut utilizing a sterile 15 blade, tissue nippers, and/or power dremel instrumentation by the physician of record - 18125, Q7 Progress Notes * Rashaad NEFF LDOB:1960 (64 yo M)Acc No.[id number]:03/08/2024 Progress Notes Patient:?Rashaad NEFF Provider:?Twila Holliday DPM :1960???Age:64 Y???Sex:Male Koffi e:03/08/2024 Address:[address] [place] [address] [place], [id number] Pcp:Trey Love Subjective: * Chief Complaints: * ???At Risk FootcarePainful N ail(s) aggravated by shoes and causing difficulty standing/walkingOpen soreSkin problem(s) * HPI: ???At Risk footcare:?Pt States Last PCP Visit:?Date?01/25/2024 ???Skin problems:?Nature:?dryness , scaling.?Location:?B/L .?Duration:?several days.?Course:?worse.?Misc:?Patient is s/p?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 Cramer at [facility] outpatient for dry gangrene. He states his incision is dressed 3x a week by his [employer] using betadine DSD. He states he has had significant pain to the incision site. He is a smoker at baseline and states he has never been evaluated by a vascular surgeon. He has been following up every 2 weeks with his surgeon for his incision site.?.? * ROS:?General/Constitutional:?Nausea?denies.?Vomiting?denies.?Hunger Thirst?denies.?Loss appetite?denies.?Chills?denies.?Fatigue?denies.?Fever?denies.?Night Sweats?denies.?Unexplained weight loss?denies.?Unexplained weight gain?denies.?HEENTM:?Dentures?denies.?Dizziness?denies.?Glasses/contacts?denies.?Retinopathy?ad mits.?Blurred/double vision?denies.?TMJ?denies.?Discharge/drainage?denies.?Implants?denies.?Sore throat?denies.?Dental implants?denies.?Hard of hearing ?denies.?Difficulty chewing/swallowing/speaking?denies.?Nose bleeds?denies.?Sore mouth?denies.?Respiratory:?On Oxygen?denies.?Pneumonia/pleurisy?denies.?Bronchitis?denies.?Emphysema?denies.?C oughing?denies.?Cough blood?denies.?Shortness of breath?denies.?Wheezing?denies.?Cardiovascular:?Pacemaker?denies.?MVP?denies.?WPW?denies.?CHF?denies.?Heart attack?denies.?Septal defect?denies.?Rapid beat?denies.?Chest pain ?denies.?Atrial Fib.?denies.?Murmur/Palpitations?denies.?Gastrointestinal:?Hemorrhoids?denies.?Stomach/Abdominal pain?denies.?Dark blood stool?denies.?Irritable bowel ?denies.?Constipation?denies.?Diarrhea?denies.?Hematology:?Swelling?denies.?Clots?denies.?Varicose Veins?denies.?Bruising?denies.?Bleeding problem?denies.?Genitourinary:?Blood urine?denies.?Frequent/Painfu/urination/bladder control?denies.?Kidney stones?denies.?Infection (UTI)?denies.?Nephropathy?denies.?sex trans dis (STD)?denies.?Prostate?denies.?Musculoskeletal:?Hammertoes?denies.?Bunions?denies.?Back Pain?denies.?Muscle Cramps/ Resting?denies.?Muscle cramps / walking?denies.?Generalized aches and pains?denies.?Weakness?denies.?Integ.:?[place]?denies.?Scars?denies.?Corns/calluses?denies.?Ingrown nails?denies.?Painful nails?denies.?Open Sores?denies.?Rashes?denies.?Neurologic:?Difficulty sleeping?denies.?Brain disorder?denies.?Numbness?denies.?Balance trouble?denies.?Confusion?denies.?Fainting/blackouts?denies.?Tingling?denies.?Tr emors?denies.? * Medical History:? * Surgical History:?toe amputa tion, small toe left foot 02/2024 * Hospitalization/Major Diagno stic Procedure:?No Hospitalization History. * Family History:?Non-Contribu tory.? * Social History:?Tobacco Use:?Tobacco use other than smoking?Are you an other tobacco user??No ?Tobacco Control (Standard)?Tobacco use:?Current smoker ?When did you start smoking??02/11/1981 ?How often do you smoke cigarettes??Every day ?How many cigarettes a day do you smoke??6-10 ?How soon after you wake up do you smoke your first cigarette??6-30 minutes ?Are you interested in quitting??Not ready to quit ???Drugs/Alcohol:?Drugs?Have you used drugs other than those for medical reasons in the past 12 months??No ???Miscellaneous:?Children: no. ?Exercise: yes. ?Marital status: Single. 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 ???Drug/Alcohol:?AUDIT-C (Standard)?Did you have a drink containing alcohol in the past year??No ?Points?0 ?Interpretation?Negative * Medications:?TakingOzempic A lbuterol Acetaminophen Nicotine Semaglutide Atorvastatin Calcium Fluticasone Propionate Farxiga Insulin Glargine Solostar Medication List reviewed and reconciled with the patientTaking Ozempic Taking Albuterol Taking Acetaminophen Taking Nicotine Taking Semaglutide Taking Atorvastatin Calcium Taking Fluticasone Propionate Taking Farxiga Taking Insulin Glargine Solostar Medication List reviewed and reconciled with the patient * Allergies:?Pollenyes[Allergi es Verified] Objective: * Vitals:?Ht: 6ft 2in, Wt:210, BMI:26.96, Shoe size: 14, BP:129/65mm Hg, BS: 130, Ht-cm: 187.96 cm, Wt-k.26 kg. * ???Past Orders: ???Lab:HEMOGLOBIN A1C (GLYCO HEMOGLOBIN) (Order Date - 01/08/2024) (Collection Date & Time - 01/08/2024 10:24 AM) ? Value Reference Range ?HEMOGLOBIN A1C % (HH) 8.0 * Examination: ???Ophthalmology Referral: ?DIABETES EYE EXAM?Procedure Performed:?No?Vascular: ?AMPUTATION, NON-TRAUMATIC (A):?Partial 5th ray amputation, LEFT.?DP PULSES (B):? 0/4, B/L.?PT PULSES (B):? 0/4, B/L.?CAPILLARY FILL TIME:? delayed, all digits, B/L.?TROPHIC CONDITION-TEXTURE/ELASTICITY/TURGOR/HAIR GROWTH (B):?decreased, fragile, thin, shiny, with sparse to absent hair growth, diffusely xerotic,?B/L.?TEMPERTURE GRADIENT (C):? decreased, cool to cool, proximal to distal, B/L.?PIGMENTATION:?dusky B/L.?EDEMA (C):?absent, B/L.?CLAUDICATION (C):?denies, B/L.?REST PAIN:?denies, B/L.?PARESTHESIA (C):?absent, B/L.?BURNING (C):?absent, B/L.?Nails: ?NAILS are:?Elongated, overgrown, dystrophic, lytic, greater than 3mm thick, discolored and friable with crumbly malodorous subungual debris, with pain on palpation, ?T1, T2, T3, T6, T7, T8, T9.?Dermatologic: ?SKIN FINDINGS:?Skin exam reveals Keratotic lesion(s) located at plantar heels B/L, sub 1st MTH B/L, Medial IPJ TA, T5 , Skin shows sign(s) of, dryness, scaling, in a stocking fashion, no fissure(s) present, B/L.?SURGICAL SITE?Patient is status post partial 5th ray amputation to the left foot, sutures are intact,??skin edges show evidence of early necrosis, CFT to distal skin flaps is absent,? incision is dehisced diffusely with moderate fibrinous slough, no surrounding erythema or edema, no fluctuance or crepitus, no drainage with compression, tenderness with palpation. See photo below..?Neurological: ?SENSORY:?Neurological exam reveals intact sensorium, pain sensation normal, vibration sensation intact, pinprick sensation is normal in the lower extremities, 5.07 monofilament test performed at plantar aspects of 5 varied sites per foot shows sensation, normal, B/L, Pt denies, anesthesia, burning, paresthesia, tingling, B/L.?Orthopedic: ?MUSCLE STRENGTH:?5/5 all groups in a symmetrical fashion, B/L.?General Examination: ?GENERAL APPEARANCE:?Reveals a pleasant, alert, well nourished, well- developed, well hydrated individual, who demonstrates proper attention to hygiene/body habitus, and is in no acute distress, Pt serves as own historian for office visit today.?ORIENTED:?person, place, and time.? Assessment: * Assessment: 1.?Type 2 diabetes mellitus with diabetic peripheral angiopathy without gangrene - E11.51???Notes :Q7(A), Q8(2B), Q9(1B,2C)???2.?Dehiscence of operative wound, initial encounter - T81.31XA (Primary)???Specify :Acute problem, Complicated w/ Multiple Tx Options(4) Threat to llimb/life???3.?Tinea unguium - B35.1???4.?Pain in right toe(s) - M79.674???5.?Pain in left toe(s) - M79.675???6.?Xerosis of skin - L85.3???Specify :Acute problem, Uncomplicated (3),Rx Management (4)??? Plan: * Treatment: 2.?Tinea unguium?Procedure: 57044-[id number] NAIL, 6 OR MORE 3.?Xerosis of skin? Start Ammonium Lactate Cream, 12 %, 1 application, Externally to affected areas of dry skin to feet except for between the toes, Twice a day, 30 days, 280, Refills 3.?? 4.?Others? Notes: Patient Educated with: WOUND CARE INSTRUCTIONS.pdf (WOUND CARE INSTRUCTIONS.pdf)?? * Procedures:?Debride Nail 6-10:?Nail debridement?Due to the clinical pathology outlined in the exam findings, performance of this nail treatment is medically necessary as its management by an unskilled/untrained nonprofessional would put this patients foot and overall health at risk. Therefore, debridement to affected nail(s), as described in exam ( T1, T2, T3, T6, T7, T8, T9, ), was performed exclusively by the physician of record to reduce/remove overall nail length, girth, thickness, subungual debris, and necrotic tissue, by manual and/or electrical means through the use of a nail nipper and/or dremel-type head grinder, to a more viable healthy nail plate or bed tissue 6-10 nails in total. Silver nitrate was used for any petechial bleeding as necessary. Definitive antifungal treatment options, both pharmaceutical and surgical, have been reviewed and discussed with the patient. The patient solely prefers the use of intermittent/as needed professional debridement services for their nail condition and understands the need for additional periodic treatments to maintain effectiveness in symptomatic relief - 26620.?Keratoma Treatment:?Parring or Cutting of Benign Hyperkeratotic Lesion(s)?(-57) More than 4 Lesions - Due to the at risk nature of the patients medical condition as documented in the exam findings, performance of this keratoderma treatment is medically necessary as its management by an unskilled/untrained nonprofessional would put this patients foot and overall health at risk. Therefore, the benign hyperkeratotic lesions, ( 6 ) in total, locations as stated and described in the exam (sub 1st MTH B/L, medial IPJ TA, T5, Plantar heels B/L ), were pared, and/or cut utilizing a sterile 15 blade, tissue nippers, and/or power dremel instrumentation by the physician of record - 53529, Q7.? * Procedure Codes:?48459 DEBRI DE NAIL, 6 OR MORE, Modifiers: XS 33528 TRIM SKIN LESIONS, OVER 4, Modifiers: XS , Q7 * Preventive Medicine:? ??Counseling:?Discussion:?-04: Office or other outpatient visit for the evaluation and management of a new patient, which required a medically appropriate history and/or examination and MODERATE level of DECISION MAKING for: 1 OR MORE CHRONIC PROBLEM(S) THATS WORSENING, 2 STABLE CHRONIC PROBLEMS, A NEWLY DIAGNOSED PROBLEM WITH UNCERTAIN PROGNOSIS, AN ACUTE COMPLICATED INJURY WITH MULTIPLE TREATMENT OPTIONS, OR AN ACUTE PROBLEM WITH ACCOMPANYING SYSTEMIC SYMPTOMS, THAT POSE(S) A MODERATE RISK OF MORBIDITY. THIS CONDITION MAY ALSO INCLUDE RX DRUG MANAGEMENT, OR A DECISON FOR MINOR SURGERY. The visit on the day of the encounter encompassed interpreting the data and educating the patient as to the nature of their condition, treatment options available according to their individual PMH, meds, allergies, and overall health/living conditions, as well as any potential risks or complications that may occur from a failure to adhere to, and participate in, the recommended course of therapy. The discussion included a complete verbal, and/or written explanation of the examination results, any x-rays taken, the proposed diagnosis, and outline of the treatment plan. A schedule for future care needs was also explained. The patient verbalized an understanding of the instructions at this time and agreed to be an active participant in their treatment. If the patient should think of any questions or concerns after the visit, I have encouraged the patient to call the office, - 13: Office or other outpatient visit for the evaluation and management of an established patient, which required a medically appropriate history and/or examination and LOW level of DECISION MAKING for: 1 STABLE ACUTE UNCOMPLICATED PROBLEM, 2 OR MORE MINOR PROBLEMS, OR 1 STABLE CHRONIC PROBLEM, THAT POSE(S) A LOW RISK FOR MORBIDITY/MORTALITY. The visit on the day of the encounter encompassed interpreting the data and educating the patient as to the nature of their condition, treatment options available according to their individual PMH, meds, allergies, and overall health/living conditions, as well as any potential risks or complications that may occur from a failure to adhere to, and participate in, the recommended course of therapy. The discussion included a complete verbal, and/or written explanation of the examination results, any x-rays taken, the proposed diagnosis, and outline of the treatment plan. A schedule for future care needs was also explained. The patient verbalized an understanding of the instructions at this time and agreed to be an active participant in their treatment. If the patient should think of any questions or concerns after the visit, I have encouraged the patient to call the office.?Consult:?The patient was counseled on the diagnosis, treatment options, and the need for a, Vascular Consult due to pedal risk of limb/life given early necrosis of his 5th ray amputation site. I did reach out personally to Dr. Falk office regarding patient necrosis in hopes that he is able to be scheduled [facility] for evaluation. Photo included below..?Ulcer:?The patient is to cont the local wound care as directed by his surgeon. Betadine/DSD.?Xerosis:?The patient was counseled on the diagnosis, potential etiologies, and treatment options for their skin condition. We discussed the risks and benefits of each option from performing no treatment, to utilizing OTC topical skin creams/ointments, to utilizing prescription topical creams/ointments, to utilizing customized compounded topical medications and use of nocturnal occlusion with any/all previously detailed therapies. We discussed the advantages and disadvantages of each possible treatment and importance for adherence to all the recommended therapies for optimum success and avoid potential complications such as open sore/infection/possible hospitalization. We discussed the potential effectiveness of each topical preparation as well as each ones possible side effects and/or patient medication interactions. Patient questions re: use, dosage, successful outcomes, and application consistency were reviewed and the patient verbalized that all answers were clearly understood. The patient has decided to apply Rx skin creams to their feet save the interspaces while paying special attention to the heels. Such was sent to their pharmacy at the time of visit.? ??Screening/Special Tests:?Fall Risk?Screening:?No falls in the past year ?FALLS: Screening for Future Fall Risk?Have you had any falls with injury in the past year??No * Follow Up:?6 Weeks * Images: Drawing:Dehiscence * Sign off status: Completed true * Provider:?Twila Holliday DPM Date:?0 03/08/2024 Generated for Guille garcia/Vaughn/Kolby on:?04/12/2024 12:27 PM EST History and Physical Notes * HPI (History of Present Illness) Category Sub-Category Detail Notes Category Not es Skin problems Nature: dryness , scaling Location: B/L Duration: several days Course: worse Misc: Patient is s/p parti al 5th ray amputation approximately 3 weeks ago performed by Dr. Cramer at [facility] outpatient for dry gangrene. He states his incision is dressed 3x a week by his [employer] using betadine DSD. He states he has had significant pain to the incision site. He is a smoker at baseline and states he has never been evaluated by a vascular surgeon. He has been following up every 2 weeks with his surgeon for his incision site. At Risk footcare Pt States Last PCP Visit: Date: 4 Examination Category Sub-Category Detail Notes Category Not es Neurological SENSORY: Neurological exa m reveals intact sensorium, pain sensation normal, vibration sensation intact, pinprick sensation is normal in the lower extremities, 5.07 monofilament test performed at plantar aspects of 5 varied sites per foot shows sensation, normal, B/L, Pt denies, anesthesia, burning, paresthesia, tingling, B/L Dermatologic SKIN FINDINGS: Skin exam reveal s Keratotic lesion(s) located at plantar heels B/L, sub 1st MTH B/L, Medial IPJ TA, T5 , Skin shows sign(s) of, dryness, scaling, in a stocking fashion, no fissure(s) present, B/L SURGICAL SITE Patient is status po st partial 5th ray amputation to the left foot, sutures are intact, skin edges show evidence of early necrosis, CFT to distal skin flaps is absent, incision is dehisced diffusely with moderate fibrinous slough, no surrounding erythema or edema, no fluctuance or crepitus, no drainage with compression, tenderness with palpation. See photo below. Orthopedic MUSCLE STRENGTH: 5/5 all groups in a symm etrical fashion, B/L General Examination GENERAL APPEARANCE: Reveals a pleasant, alert, well nourished, well-developed, well hydrated individual, who demonstrates proper attention to hygiene/body habitus, and is in no acute distress, Pt serves as own historian for office visit today ORIENTED: person, place, and t ayaka Ophthalmology Referral DIABETES EYE EXAM Procedure Perform ed:: No Vascular DP PULSES (B): 0/4, B/L PT PULSES (B): 0/4, B/L CAPILLARY FILL TIME: delayed, all digits , B/L TEMPERTURE GRADIENT (C): decreased, cool to cool, proximal to distal, B/L TROPHIC CONDITION-TEXTURE/ELASTICITY/TURGOR/HAIR GROWTH (B): decreased, fragile, thin, shiny, with sp arse to absent hair growth, diffusely xerotic, B/L EDEMA (C): absent, B/L CLAUDICATION (C): denies, B/L REST PAIN: denies, B/L PIGMENTATION: dusky B/L AMPUTATION, NON-TRAUMATIC (A): Partial 5 th ray amputation, LEFT PARESTHESIA (C): absent, B/L BURNING (C): absent, B/L Nails NAILS are: Elongated, overg rown, dystrophic, lytic, greater than 3mm thick, discolored and friable with crumbly malodorous subungual debris, with pain on palpation, T1, T2, T3, T6, T7, T8, T9
--- OUTSIDE RECORDS SUMMARY | 2024-04-12 12:27 | XMS_ITS ---
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 Generated for Printi ng/Fanoag/eTransmitting on:?04/12/2024 12:27 PM EST
--- OUTSIDE RECORDS SUMMARY | 2024-04-12 12:28 | XMS_ITS | Encounter Summary ---
Author Organization [facility] Address [address] [facility] [address] [place] [address] Phone Care Team Providers Care Housekeeping Attendant Name Role Phone Trey Love MD Primary Care Provider [phone] Reason for Visit * Reason Comments Med Refill Encounter Details Date Type Department Care Team (Late st Contact Info) Description 07/17/2023 Refill [facility] [address] [place] [address] Tulio Mcclure MD [address] [address] Social History Tobacco Use Types [...] Office Visit [facility] [address] [place] [address] Tulio Mcclure MD [address] [facility] [address] [place] [address] documented as of this encounter [...] PTH, Intact (08/25/2023 9:49 AM EDT) Pathologist [facility] [place] Parathyroid Hormone, Intact 8.7 - 77.1 pg/mL [...] analytical performance characteristics have been determined by [facility]. It has not been cleared or approved by FDA. This assay has been validated pursuant to the CLIA regulations and is used for clinical purposes. THIS TEST PERFORMED AT: [facility] [address] [place] [address] [phone] CITY SUPERVISOR: BEBETO DA SILVA MD, PHD, GIANNI 08/25/2023 9:49 AM EDT 08/25/2023 9:49 AM EDT Narrative [place] - 09/04/2023 7:35 AM EDT SENT TO [place] us Tulio Mcclure MD LAB [id number] SOLICITED RESULTS Final Result Performing Organization Address [facility]/[place] [facility] de Phone Number [facility] See order comments [place] [address] * Vitamin D 25 Hydroxy (08/25/2023 9:49 [...] ORDERABLES Final Re sult Performing Organization Address [facility] [place] [facility] de Phone Number [place] See order comments [place] [address] * Albumin (08/25/2023 9:49 AM EDT) Albumin 4.2 3.5 - 5.0 g/dL See order comments 08/25/2023 9:49 AM EDT 08/25/2023 9:49 AM EDT us Tulio Mcclure MD LAB BLOOD ORDERABLES Final Re sult Performing Organization Address [facility] Co de Phone Number [place] See order comments [place] [address] * Magnesium (08/25/2023 9:49 AM EDT) Magnesium 2.2 1.6 - 2.6 mg/dL See order comments 08/25/2023 9:49 AM EDT 08/25/2023 9:49 AM EDT Tulio Mcclure MD LAB BLOOD ORDERABLES Final Re sult Performing Organization Address [facility] [place] [facility] de Phone Number BENEDICT See order comments [place] [address] * Phosphorus (08/25/2023 9:49 AM EDT) Phosphorus, Serum 3.6 2.7 - 4.5 mg/dL See order comments 08/25/2023 9:49 AM EDT 08/25/2023 9:49 AM EDT Tulio Mcclure MD LAB BLOOD ORDERABLES Final Re sult Performing Organization Address [facility]/[place] [facility] de Phone Number [place] See order comments [place] [address] * Calcium (08/25/2023 9:49 AM EDT) Calcium 9.9 8.4 - 10.2 mg/dL See order comments 08/25/2023 9:49 AM EDT 08/25/2023 9:49 AM EDT Tulio Mcclure MD LAB BLOOD ORDERABLES Final Re sult Performing Organization Address [facility]/[place] [facility] de Phone Number [place] See order comments [place] [address] * (ABNORMAL) Creatinine (08/25/2023 9:49 AM EDT) Creatinine Serum 1.99(H) 0.5 - 1.4 mg/dL See order comments eGFR 34 See order comments Comment: NOTE: ??For -Indian individuals, multiply the result ? by 1210. Chronic Kidney Disease: ??Estimated GFR < 60 mL/min/1.73m2 Severe Kidney Disease: ??Estimated GFR < 15 mL/min/1.73m2 08/25/2023 9:49 AM EDT 08/25/2023 9:49 AM EDT Tulio Mcclure MD LAB BLOOD ORDERABLES Final Re sult Performing Organization Address [facility] Phone Number BENEDICT See order comments [place] [address] * (ABNORMAL) BUN (08/25/2023 9:49 AM EDT) BUN 37(H) 9 - 16 mg/dL See order comments 08/25/2023 9:49 AM EDT 08/25/2023 9:49 AM EDT Tulio Mcclure MD LAB BLOOD ORDERABLES Final Re sult Performing Organization Address [facility] Phone Number BENEDICT See order comments [place] [address] * (ABNORMAL) Electrolyte panel (08/25/2023 9:49 AM [...] ORDERABLES Final Re sult Performing Organization Address [facility] Phone Number BENEDICT See order comments [place] [address] * CBC and Differential (08/25/2023 9:49 AM [...] order comments [place] [address] documented in this encounter Visit Diagnoses Not on filedocumented in this encounter Care Teams Housekeeping Attendant Relationship Specialty Start Date End Date Trey Love MD [facility] [address] [facility] P[facility] - General 02/17/20 documented as of this encounter
--- OUTSIDE RECORDS SUMMARY | 2024-04-12 12:28 | XMS_ITS ---
Author Organization [facility] Address [address] [place] [address] Care Team Providers Care Helminthology Teacher Name Role Phone Trey Love Primary Care Provider Twila Vargas [phone] Oshea/SHARMIN Encounters Encounter Location Date Provider Diagnosis [facility] [address] [place] [address] 03/08/2024 Twila Holliday Plan Of Treatment Next Appt Details Provider Name:Twila lauren, 06/14/2024 11:15:00 AM, [address] [address], [place], [address], Progress Notes * Rashaad NEFF LDOB:1960 (64 yo M)Acc No.[id number]:03/08/2024 Patient:?Rashaad NEFF :1960???Age:64 Y???Sex:Male Address:[address] [place], [place] [address] [place] [address] * true * Date:? Generated for Printi ng/Vaughn/eTransmitting on:?04/12/2024 12:27 PM EST
--- OUTSIDE RECORDS SUMMARY | 2024-04-12 12:28 | XMS_ITS | Encounter Summary ---
Author Organization [facility] Address [address] [facility] [address] [place] [address] Phone Care Team Providers Care Mail Carriers Supervisor Name Role Phone Trey Love MD Primary Care Provider [phone] Encounter Details Date Type Department Care Team (Late st Contact Info) Description 07/05/2022 Telephone [facility] [address] [facility] [address] [place] [address] Jackie Colunga Social History Tobacco [...] Visit [facility] [address] [place] [address] Tulio Mcclure MD [address] [facility] [address] [place] [address] documented as of this encounter Visit Diagnoses Not on filedocumented in this encounter Care Teams Mail Carriers Supervisor Relationship Specialty Start Date End Date Trey Love MD [address] [place] PCP - General 02/17/20 documented as of this encounter
--- OUTSIDE RECORDS SUMMARY | 2024-04-12 12:28 | XMS_ITS | Patient Health Record ---
Author Organization [facility] Rohini [facility]acarias [place] Address [address] [place] [address] Care Team Providers Care Criminal Investigator Name Role Phone Ivan Trey Primary Care Provider Twila Vargas Unavailable [phone] Allergies Allergen (clinical drug ingredient) Drug/Non Drug Allergy documented on EMR Reaction Allergy Type Onset Date Status Pollen Pollen Unknown Allergy Active Results Component Value Reference Range Notes HEMOGLOBIN A1C (GLYCOHEMOGLO BIN) Reviewed date:03/08/2024 10:25:27 AM Interpretation: Performing Lab: Notes/Report: HEMOGLOBIN A1C % (HH) 8.0 Reason For Referral No Information Medications Medication SIG (Take, Route, Frequency, Duration) Notes Start Date End Date Status Farxiga Active Fluticasone Propionate Active Atorvastatin Calcium Active Semaglutide Active Nicotine Active Acetaminophen Active Albuterol Active Ozempic Active Ammonium Lactate 12 % 1 application Exte rnally to affected areas of dry skin to feet except for between the toes Twice a day for 30 days Active Insulin Glargine Solostar Active Social History Tobacco Use: Social History [...] Type 2 diabetes mellitus with peripheral angiopathy (738971748) Type 2 diabetes mellitus with diabetic peripheral angiopathy without gangrene (E11.51) Active confirmed Q7(A), Q8(2B), Q9(1B,2C) Problem Ischemic ulcer of left foot, limited to breakdown of skin (L97.521) Active confirmed Response to treatment Vital Signs Blood pressure diastolic 65 mm Hg 03/08/2024 Height 6ft 2in in 03/08/2024 Blood pressure systolic 129 mm Hg 03/08/2024 Weight 210 lbs 03/08/2024 BMI 26.96 kg/m2 03/08/2024 Procedures Procedure Date Ordered Date Performed Result Body Sit e 57289-UGGIQPG NAIL, 6 OR MORE 03/08/2024 N/A 89648-IGMO SKIN LESIONS, OVER 4 03/08/2024 N/A Encounters Encounter Location Date Provider Diagnosis [address] [address] 03/08/2024 Twila Holliday Type 2 diabetes mellitus with diabetic peripheral angiopathy without gangrene E11.51 ; Dehiscence of operative wound, initial encounter T81.31XA ; Tinea unguium B35.1 ; Pain in right toe(s) M79.674 ; Pain in left toe(s) M79.675 and Xerosis of skin L85.[address] [address] 12/21/2023 Twila Holliday [address] [address] 02/09/2024 [address] [address] 03/08/2024 Twilayumiko Holliday [address] [address] 03/08/2024 Twila Holliday Assessments Encounter Date Diagnosis (ICD Code) Assessment [...] (WOUND CARE INSTRUCTIONS.p df) Plan Of Treatment Pending Test Test Name Order Date 11150-FHDWHWR NAIL, 6 OR MORE 03/08/2024 45618-DVOO SKIN LESIONS, OVER 4 03/08/19 Next Appt Details Provider Name:Twila Daniel xin, 06/14/2024 11:15:00 AM, [address] [facility], [address] [address], [place], [address], Insurance Providers Payer Name Payer Address Payer Phone Subscriber Number Group Number Insured Name Patient Relationship to Insured Coverage Start Date Coverage End Date [facility] [employer] S[employer] Claims [address] [place] [id number] Rashaad Neff Self - patient is the insured Medical (General) History Medical History History ICD Code asthma CAD (Cholesterol) Diabetic Glaucoma High Blood Pressure Macular degeneration Psychiatric disorder blindness Surgical History Surgery Date(Month/Year) toe amputation, small toe left foot 02/26 24
--- OUTSIDE RECORDS SUMMARY | 2024-04-12 12:28 | XMS_ITS | Clinical Summary ---
Author Organization [facility] Address [address] [facility] [address] [address] [place] [address] Phone Care Team Providers Care Iron Handler Name Role Phone Trey Love MD Primary Care Provider [phone] Allergies Active Allergy Reactions Criticality Noted Date [...] Refill [facility] [address] [place] [address] Tulio Mcclure MD from Last [...] Visit [facility] [address] [place] [address] Tulio Mcclure MD [address] [facility] [address] [place] [phone] Health Maintenance Due Date Last Done Comments [...] 9.6 8.7 - 10.7 mg/dL eGFR Non-Afr Panamanian 40 Hemoglobin A1C 7.9(A) 4.0 - 6.0 Triglycerides 42 40 - 160 Cholesterol 145 0 - 200 06/03/2021 Historical Provider LAB BLOOD ORDERABLES Ann l Result from Last 3 Months or Most Recently Relevant to Health Maintenance Insurance [facility] MCR ([id number]) [facility] MCR ([id number]) Care Teams Iron Handler Relationship Specialty Start Date End Date Trey Love MD [address] [place], [place] PCP - General 02/17/20
== END 2024-04-12 11:23 | disposition home or self-care (01) ==
PROVIDERS: PCP Internal Medicine; Visit Provider Surgery
DX: M86.9 Osteomyelitis, unspecified (principal)
CPT/HCPCS: 99024

== ENCOUNTER → 2024-04-12 10:53 | Outpatient (BNVA) | payer OTHER, SELFPAY | PROVIDERS: PCP Internal Medicine; Visit Provider Surgery | DX: M86.9 Osteomyelitis, unspecified (principal) | CPT/HCPCS: 99212 ==

== ENCOUNTER 2024-05-01 11:08 | Day surgery (SDC) | payer OTHER, SELFPAY ==
--- OUTSIDE RECORDS SUMMARY | 2024-04-15 11:40 | XMS_ITS | Clinical Summary ---
Author Organization [facility] Address [address] [facility] [address] [place] [address] Phone Care Team Providers Care Sort Supervisor Name Role Phone Trey Love MD Primary Care Provider [phone] Allergies Active Allergy Reactions Criticality Noted Date [...] Refill [facility] [address] [place] [address] Tulio Mcclure [...] Visit [facility] [address] [place] [address] Tulio Mcclure MD [address] [facility] [address] [place] [phone] Health Maintenance Due Date Last Done Comments [...] 9.6 8.7 - 10.7 mg/dL eGFR Non-Afr Faroese 40 Hemoglobin A1C 7.9(A) 4.0 - 6.0 Triglycerides 42 40 - 160 Cholesterol 145 0 - 200 06/03/2021 Historical Provider LAB BLOOD ORDERABLES Ann l Result from Last 3 Months or Most Recently Relevant to Health Maintenance Insurance [facility] MCR ([id number]) [facility] MCR ([id number]) Care Teams Sort Supervisor Relationship Specialty Start Date End Date Trey Love MD [address] [place], [place] PCP - General 02/17/20
--- OUTSIDE RECORDS SUMMARY | 2024-04-15 11:40 | XMS_ITS ---
Author Organization [facility] Address [address] [facility] [place] [address] Care Team Providers Care Signal Maintainer Name Role Phone Trey Love Primary Care Provider Twila Vargas Unavailable [phone] Allergies Allergen (clinical drug ingredient) Drug/Non Drug [...] Type 2 diabetes mellitus with peripheral angiopathy (842410822) Type 2 diabetes mellitus with diabetic peripheral [...] Ordered Date Performed Result Body Sit e 15410-RCJYUUS NAIL, 6 OR MORE 03/08/2024 N/A 63379-YATI SKIN LESIONS, OVER 4 03/08/2024 N/A Encounters Encounter Location Date Provider Diagnosis [facility] [address] [address] 03/08/2024 Twila Holliday Type 2 diabetes mellitus [...] INSTRUCTIONS.pdf) Pending Test Test Name Order Date 58963-MPJQPKS NAIL, 6 OR MORE 03/08/2024 54284-PPDZ SKIN LESIONS, OVER 4 03/08/19 25 Next Appt Details Follow Up: 6 Weeks, Reason: Provider Name:Twila lauren, 06/14/2024 11:15:00 AM, [address] [facility], [address], [place], [address], Procedure Notes * Category Sub-Category Detail Notes [...] use of a nail nipper and/or dremel-type organ grinder, to a more viable healthy nail [...] to maintain effectiveness in symptomatic relief - 87724 Keratoma Treatment Parring or Cutting o f [...] instrumentation by the physician of record - 87152, Q7 Progress Notes * Rashaad NEFF LDOB:1960 (64 yo M)Acc No.[id number]:03/08/2024 Progress Notes Patient:?Rashaad NEFF Provider:?Twila Holliday DPM :1960???Age:64 Y???Sex:Male Koffi e:03/08/2024 Address:[address] [place] [address] [place] Pcp:Trey Love Subjective: * Chief Complaints: * ???At Risk FootcarePainful N ail(s) aggravated by shoes and causing difficulty standing/walkingOpen soreSkin problem(s) * HPI: ???At Risk footcare:?Pt States Last PCP Visit:?Date?01/25/2024 ???Skin problems:?Nature:?dryness , scaling.?Location:?B/L .?Duration:?several days.?Course:?worse.?Misc:?Patient is s/p?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 Cramer at [facility] outpatient for dry gangrene. He states his incision is dressed 3x a week by his CASHIER GENERAL using betadine DSD. He states he has [...] no. ?Exercise: yes. ?Marital status: Single. 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 ???Drug/Alcohol:?AUDIT-C (Standard)?Did you have a drink containing [...] Management (4)??? Plan: * Treatment: 2.?Tinea unguium?Procedure: 60107-RXSGEWS NAIL, 6 OR MORE 3.?Xerosis of skin? [...] use of a nail nipper and/or dremel-type organ grinder, to a more viable healthy nail [...] to maintain effectiveness in symptomatic relief - 23246.?Keratoma Treatment:?Parring or Cutting of Benign Hyperkeratotic Lesion(s)?(-57) [...] instrumentation by the physician of record - 37378, Q7.? * Procedure Codes:?21326 DEBRI DE NAIL, 6 OR MORE, Modifiers: XS 79083 TRIM SKIN LESIONS, OVER 4, Modifiers: XS [...] DPM Date:?0 03/08/2024 Generated for Guille garcia/Vaughn/Kolby on:?04/15/2024 11:40 AM EDT History and Physical Notes * HPI (History of Present Illness) Category Sub-Category Detail Notes Category Not es Skin problems Nature: dryness , scaling Location: B/L Duration: several days Course: worse Misc: Patient is s/p parti al 5th ray amputation approximately 3 weeks [address] performed [address] Cramer at [facility] outpatient for dry gangrene. He states his incision is dressed 3x a week by his CASHIER GENERAL using betadine DSD. He states he has [...]
--- OUTSIDE RECORDS SUMMARY | 2024-04-15 11:40 | XMS_ITS | Encounter Summary ---
Author Organization [facility] Address [address] [facility] [address] [place] [address] Phone Care Team Providers Care Talent Acquisition Associate Name Role Phone Trey Love MD Primary Care Provider [phone] Encounter Details Date Type Department Care Team (Late st Contact Info) Description 07/05/2022 Telephone [facility] [address] [facility] [address] [place] [address] Jackie Colunga Social History Tobacco [...] Visit [facility] [address] [place] [phone] Tulio Mcclure MD [address] [facility] [address] [place] [address] documented as of this encounter Visit Diagnoses Not on filedocumented in this encounter Care Teams Talent Acquisition Associate Relationship Specialty Start Date End Date Trey Love MD [address] [place] PCP - General 02/17/20 documented as of this encounter
--- OUTSIDE RECORDS SUMMARY | 2024-04-15 11:40 | XMS_ITS | Encounter Summary ---
Author Organization [facility] Address [address] [facility] [address] [place] [address] Phone Care Team Providers Care Ginning Operator Name Role Phone Trey Love MD Primary Care Provider Encounter Details Date Type Department Care Team (Late st Contact Info) Description 11/30/2021 Telephone [facility] [address] [facility] [address] [place] [address] Tulio Mcclure MD [address] [facility] [address] [place] [address] Social History Tobacco Use Types Packs/Day Years [...] Visit [facility] [address] [place] [address] Tulio Mcclure MD [address] [address] documented as of this encounter Visit Diagnoses Not on filedocumented in this encounter Care Teams Ginning Operator Relationship Specialty Start Date End Date Trey Love MD [address] [place], [place] PCP - General 02/17/20 documented as of this encounter
--- OUTSIDE RECORDS SUMMARY | 2024-04-15 11:40 | XMS_ITS ---
Author Organization [facility] Address [address] [facility] [place] [address] Care Team Providers Care Cpa Tax Name Role Phone Trey Love Primary Care Provider Twila Vargas [phone] Oshea/SHARMIN Encounters Encounter Location Date Provider Diagnosis [facility] [address] [place] [address] 03/08/2024 Twila Holliday Plan Of Treatment Next Appt Details Provider Name:Twila lauren, 06/14/2024 11:15:00 AM, [address] [address], [place], [address], Progress Notes * Rashaad NEFF LDOB:1960 (64 yo M)Acc No.[id number]:03/08/2024 Patient:?Rashaad NEFF :1960???Age:64 Y???Sex:Male Address:[address] [place], [place] [address] [place] [address] * true * Date:? Generated for Printi ng/Fanoag/eTransmitting on:?04/15/2024 11:40 AM EDT
--- OUTSIDE RECORDS SUMMARY | 2024-04-15 11:40 | XMS_ITS ---
Author Organization [facility] Address [address] [facility] [place] [address] Care Team Providers Care Suspender Cutter Name Role Phone Trey Love Primary Care Provider Twila Vargas [phone] Encounters Encounter Location Date Provider Diagnosis [address] [address] 03/08/2024 Twila Holliday Plan Of Treatment Next Appt Details Provider Name:Twila lauren, 06/14/2024 11:15:00 AM, [address] [address], [place], [address], Progress Notes * Rashaad NEFF LDOB:1960 (64 yo M)Acc No.[id number]:03/08/2024 Patient:?Rashaad NEFF :1960???Age:64 Y???Sex:Male Address:[address] [place] [address] * true * Date:? Generated for Printi ng/Faxing/eTransmitting on:?04/15/2024 11:40 AM EDT
--- OUTSIDE RECORDS SUMMARY | 2024-04-15 11:41 | XMS_ITS | Patient Health Record ---
Author Organization [facility] Rohini zacarias [place] Address [address] [place] [address] Care Team Providers Care Medical Billing Representative Name Role Phone Ivan Trey Primary Care Provider Twila Vargas Unavailable [phone] Allergies Allergen (clinical drug ingredient) Drug/Non Drug [...] Type 2 diabetes mellitus with peripheral angiopathy (932388962) Type 2 diabetes mellitus with diabetic peripheral [...] Ordered Date Performed Result Body Sit e 60062-TZIPFVS NAIL, 6 OR MORE 03/08/2024 N/A 53861-KOKU SKIN LESIONS, OVER 4 03/08/2024 N/A Encounters Encounter Location Date Provider Diagnosis [address] [address] 03/08/2024 Twila Holliday Type 2 diabetes mellitus with diabetic peripheral angiopathy without gangrene E11.51 ; Dehiscence of operative wound, initial encounter T81.31XA ; Tinea unguium B35.1 ; Pain in right toe(s) M79.674 ; Pain in left toe(s) M79.675 and Xerosis of skin L85.[address] [address] 12/21/2023 Twila Holliday [address] [address] 02/09/2024 Twila Holliday [address] [address] 03/08/2024 Twilayumiko Holliday [address] [address] 03/08/2024 Twila Holliday Assessments Encounter Date Diagnosis [...] Treatment Pending Test Test Name Order Date 51986-GOYMPKW NAIL, 6 OR MORE 03/08/2024 60025-RALS SKIN LESIONS, OVER 4 03/08/19 Next Appt Details Provider Name:Twila Daniel xin, 06/14/2024 11:15:00 AM, [address] [facility], [address] [address], [place], [address], Insurance Providers Payer Name Payer Address Payer Phone Subscriber Number Group Number Insured Name Patient Relationship to Insured Coverage Start Date Coverage End Date [facility] [employer] S[employer] Claims [address] [place] [id number] Rashaad Neff Self - patient is the insured Medical (General) History Medical History History ICD Code asthma CAD (Cholesterol) Diabetic Glaucoma High Blood Pressure Macular degeneration Psychiatric disorder blindness Surgical History Surgery Date(Month/Year) toe amputation, small toe left foot 02/26 24
--- OUTSIDE RECORDS SUMMARY | 2024-04-15 11:41 | XMS_ITS | Encounter Summary ---
Author Organization [facility] Address [address] [facility] [address] [place] [address] Phone Care Team Providers Care Naval Aircrew[employer]actical Helicopter Name Role Phone Trey Love MD Primary Care Provider [phone] Reason for Visit * Reason Comments Med Refill Encounter Details Date Type Department Care Team (Late st Contact Info) Description 07/17/2023 Refill [facility] [address] [place] [address] Tulio Mcclure MD [address] [address] Social History Tobacco Use Types [...] Office Visit [facility] [address] [place] [address] Tulio Mcclure MD [address] [facility] [address] [place] [address] documented as of this encounter [...] Intact (08/25/2023 9:49 AM EDT) Pathologist [facility] Parathyroid Hormone, Intact 8.7 - 77.1 pg/mL [...] analytical performance characteristics have been determined by [employer] It has not been cleared or approved by FDA. This assay has been validated pursuant to the CLIA regulations and is used for clinical purposes. THIS TEST PERFORMED AT: [facility] [address] [place] [address] [phone] DUMP GROUNDS CHECKER: BEBETO DA SILVA MD, PHD, GIANNI 08/25/2023 9:49 AM EDT 08/25/2023 9:49 AM EDT Narrative JUANCHO - 09/04/2023 7:35 AM EDT SENT TO [facility] Tulio Mcclure MD LAB [id number] SOLICITED RESULTS Final Result Performing Organization Address [facility] de Phone Number [facility] See order comments [place] [address] * Vitamin D 25 Hydroxy (08/25/2023 9:49 [...] ORDERABLES Final Re sult Performing Organization Address [facility] de Phone Number [place] See order comments [place] [address] * Albumin (08/25/2023 9:49 AM EDT) Albumin 4.2 3.5 - 5.0 g/dL See order comments 08/25/2023 9:49 AM EDT 08/25/2023 9:49 AM EDT us Tulio Mcclure MD LAB BLOOD ORDERABLES Final Re sult Performing Organization Address [facility] Co de Phone Number [place] See order comments [place] [address] * Magnesium (08/25/2023 9:49 AM EDT) Magnesium 2.2 1.6 - 2.6 mg/dL See order comments 08/25/2023 9:49 AM EDT 08/25/2023 9:49 AM EDT Tulio Mcclure MD LAB BLOOD ORDERABLES Final Re sult Performing Organization Address [facility] de Phone Number [place] See order comments [place] [address] * Phosphorus (08/25/2023 9:49 AM EDT) Phosphorus, Serum 3.6 2.7 - 4.5 mg/dL See order comments 08/25/2023 9:49 AM EDT 08/25/2023 9:49 AM EDT Tulio Mcclure MD LAB BLOOD ORDERABLES Final Re sult Performing Organization Address [facility] de Phone Number [place] See order comments [place] [address] * Calcium (08/25/2023 9:49 AM EDT) Calcium 9.9 8.4 - 10.2 mg/dL See order comments 08/25/2023 9:49 AM EDT 08/25/2023 9:49 AM EDT Tulio Mcclure MD LAB BLOOD ORDERABLES Final Re sult Performing Organization Address [facility] de Phone Number [place] See order comments [place] [address] * (ABNORMAL) Creatinine (08/25/2023 9:49 AM EDT) Creatinine Serum 1.99(H) 0.5 - 1.4 mg/dL See order comments eGFR 34 See order comments Comment: NOTE: ??For -Sudanese individuals, multiply the result ? by 1210. Chronic Kidney Disease: ??Estimated GFR < 60 mL/min/1.73m2 Severe Kidney Disease: ??Estimated GFR < 15 mL/min/1.73m2 08/25/2023 9:49 AM EDT 08/25/2023 9:49 AM EDT Tulio Mcclure MD LAB BLOOD ORDERABLES Final Re sult Performing Organization Address [facility] Phone Number [place] See order comments [place] [address] * (ABNORMAL) BUN (08/25/2023 9:49 AM EDT) BUN 37(H) 9 - 16 mg/dL See order comments 08/25/2023 9:49 AM EDT 08/25/2023 9:49 AM EDT Tulio Mcclure MD LAB BLOOD ORDERABLES Final Re sult Performing Organization Address [facility] Phone Number [place] See order comments [place] [address] * (ABNORMAL) Electrolyte panel (08/25/2023 9:49 AM [...] ORDERABLES Final Re sult Performing Organization Address [facility] Phone Number [place] See order comments [place] [address] * CBC and Differential (08/25/2023 9:49 AM [...] order comments [place] [address] documented in this encounter Visit Diagnoses Not on filedocumented in this encounter Care Teams [employer] Relationship Specialty Start Date End Date Trey Love MD [facility] [address] [facility] [place] P[place] - General 02/17/20 documented as of this encounter
[2024-04-29 14:47] VITALS: BMI 26.6
[2024-05-01 11:55] VITALS: BP 156/76; PULSE 62; RESP 16; TEMP 36.8; O2SAT 98
[2024-05-01] MEDS: Lactated Ringers 1,000 ML 100 ML IVCONT (12:06)
[2024-05-01 13:20] LABS: Glucose, Whole Blood 165 mg/dL (60-115)
--- NOTE | 2024-05-01 13:51 | P.CONAN_ITS ---
HPI - Anesthesia Eval Consult details Narrative: osteomyelitis left fppt PMFSH Active Problems Active Problems: All Active Problems Osteomyelitis of toe of left foot (Acute) Dry gangrene (Acute) Diabetes mellitus with foot ulcer and gangrene (Acute) Low vitamin D level (Acute) Blind in both eyes (Acute) Elevated LFTs (Acute) Abnormal TSH (Acute) Annual physical exam (Acute) Lateral epicondylitis of left elbow (Acute) Asthma (Acute) Screening for colon cancer (Acute) Hepatitis C (Acute) Diabetic nephropathy associated with type 2 diabetes mellitus (Acute) Very severe proliferative diabetic retinopathy (Acute) skilled nursing (current) use of insulin (Acute) Overweight (BMI 25.0-29.9) (Acute) Type 2 diabetes mellitus with hyperglycemia (Acute) Obesity (BMI 30-39.9) (Acute) Chronic kidney disease (Acute) Erectile dysfunction (Acute) Tobacco abuse (Acute) Hypercholesterolemia (Acute) Hypertension (Acute) Past Medical History Medical History Wears dentures Acute kidney injury Pneumonia Screening for colon cancer Impacted cerumen of both ears Cough Impacted cerumen of both ears Tobacco abuse Diabetic nephropathy associated with type 2 diabetes mellitus Very severe proliferative diabetic retinopathy skilled nursing (current) use of insulin Overweight (BMI 25.0-29.9) Type 2 diabetes mellitus with hyperglycemia Smoker Obesity (BMI 30-39.9) Carpal tunnel syndrome, left Chronic kidney disease Erectile dysfunction Tobacco abuse Hypercholesterolemia Cataract Glaucoma Hepatitis C Hypertension Family History Family History Father Diabetes Mother Diabetes Hypertension Brother In good health Sister No problems noted. Other Mental health disorder Family history of problems with anesthesia: No Surgical History Surgical History Amputation of fifth toe of left foot (02/21/24) Hx of cataract extraction History of surgery on arm Hx of colonoscopy History of Problems with Anesthesia: No Social History Social History Household Members: None Housing: House Housing Other:: room in Boarding House Are you a primary pet caregiver to a significant other at home: No Do you presently have visiting nurse or other home services: Yes ([facility] 2 X week) Alcohol intake: never Comment: Patient is blind Patient Tobacco Use Status: Current everyday Tobacco user Tobacco use type: Cigarette Cigarette Packs Per Day: 1 Cigarettes Per Day: 12 Years Smoked: 40 Smoked in Last 30 Days: Yes e-Cigarette/Vaping Use: Never Used Second Hand Smoke Exposure: Yes Use of substances other than those prescribed or required for medical reasons: No Have you been hit, kicked, punched, or otherwise hurt by someone within the past year? If so, by whom?: No Are you DNR?: No Advance Directives: Yes Advance Directives on File: Yes Advance Directives Date on File: 01/18/24 Recently lost weight without trying: No Nutrition Risks: No Nutritional Risk service: No Current occupational status: disabled Cognitive needs: Yes (Blind stick, walker) Hearing needs: No Vision needs: No Meds Allergies Allergy/AdvReac Type Severity Reaction Status Date / Time pollen extracts [POLLEN] Allergy Mild SNEEZE Verified 05/01/24 11:45 PUFFY EYES Active Medications: Current Medications Lactated Ringer's (Lr) 1,000 mls @ 100 mls/hr IVCONT .Q10H MOON Last Admin: 05/01/24 12:06 Dose: 100 mls/hr Home Medications ?Medication ?Instructions ?Recorded ?Confirmed ?Last Taken ?Type atorvastatin 80 mg tablet 80 mg PO DAILY 01/17/24 04/29/24 02/21/24 History fluticasone propionate 220 1 puff inhalation BID 01/17/24 05/01/24 04/30/24 History mcg/actuation HFA aerosol inhaler semaglutide 2 mg/dose (8 mg/3 mL) 2 mg subcut WE 01/17/24 04/29/24 04/17/24 History subcutaneous pen injector Exam Height,Weight and Vital Signs: Height 6 ft 2 in Weight 93.894 kg Last Vital Signs Temp 98.2 F 05/01/24 11:55 Pulse 62 05/01/24 11:55 Resp 16 05/01/24 11:55 BP 156/76 H 05/01/24 11:55 Pulse Ox 98 05/01/24 11:55 O2 Del Method Room Air 05/01/24 11:55 Pertinent Lab Results Pertinent Lab Results: Laboratory Tests 05/01/24 12:08 POC Glucose 165 H Airway Mallampati Class: II TM Dist: >3cm Neck ROM: Limited Partial: Upper and Lower Heart: rrr Assessment and Plan Assessment Anesthesia Assessment: Anesthesia Plan Discussed and Chart Reviewed Final Anesthetic Review Family History of Problems with Anesthesia: No History of Problems with Anesthesia: No NPO: Yes ASA Class: III Final Preanesthetic Review: No Changes in Pt Med Stat, Meds/Allgs Chart Reviewed, Consent Obtained/Reviewed and Anes Risks/Benef Reviewed Patient Risk: Intermediate Procedure Risk: Low Anesthetic Plan Anesthetic Plan: GA Disposition: Standard PACU
--- NOTE | 2024-05-01 14:24 | MHC.SHP ---
Pre-Procedural Eval Section A - 24 Hr Update-Section A only Date of Service: 05/01/24 The patient is an INPATIENT: No Changes since office visit: Yes Patient answered all questions; No Cold of Flu in the past 2 weeks, No New Medical Problems and No Changes in Medication The patient has been examined within 24 hours of the surgical procedure. The History & Physical has been completed within 30 days and I have reviewed it.: No Section B - Complete if H&P > 30 days Chief Complaint: Osteomyelitis, Details of Present Illness: Patient complains of pain in the left foot Relevant Family History (Specify if Yes): No Relevant Social History: None Present Medications: see Short Stay Collaborative assessment Medical History: Significant History (Diabetes mellitus, renal insufficiency, diabetic neuropathy, blind) History of Previous Operations: Relevant previous surgery/procedure and date(s) Allergies: Allergies Allergy/AdvReac Type Severity Reaction Status Date / Time pollen extracts [POLLEN] Allergy Mild SNEEZE Verified 05/01/24 11:45 PUFFY EYES Review of Systems Sugical H&P ROS: Negative: Constitution, Cardiovascular, Respiratory, Neurological, Psychiatric, Hem-Onc, Allergic/Immunologic, Gastrointestinal, Genitourinary, Musculoskeletal, Integumentary and Endocrine and Yes, Specify: Eyes/Ears/Nose/Throat (Blind) Exam Surgical H&P Exam: Normal: HEENT and Significant Findings: Extremities (Base of left 5th toe with surrounding gangrene) Plan Diagnosis/Plan: Unchanged I have reviewed the history and physical and performed a pertinent physical examination on my patient. No changes have occurred unless specified. Time Spent With Patient Time: Total time managing care of this patient today ____ minutes.
[2024-05-01 15:13] VITALS: BP 152/82; PULSE 63; RESP 16; TEMP 36.3; O2SAT 98
--- NOTE | 2024-05-01 15:15 | W.PM.OPN ---
Operative Note Operative Note Date of Service: 05/01/24 Narrative: Preoperative diagnosis: Gangrene left foot following left 5th toe amputation Postoperative diagnosis: Same Procedure: Debridement of left foot amputation site Surgeon: Nikunj Gasca MD [id number] Software Engineer: Bony Keyes MS-3 Anesthesia: General LMA Indications for procedure: 64-year-old male with diabetes and a previous 5th toe amputation. Patient developed gangrene of the incision therefore presents today for further debridement. Operative findings: Gangrene left foot Specimen: Debrided skin left foot Estimated blood loss: 10 mL Complications: None Procedure details: Patient was brought to the OR and placed in a supine position. After administering general anesthesia the patient's left foot was prepped with Betadine and draped in a sterile fashion. A surgical time-out was called the consent confirmed. Patient received preoperative antibiotics and Venodyne boots were in place on the right leg. A digital block was applied using 0.5% Sensorcaine plain. A scalpel was then used to debride the necrotic skin an area involving 5 x 3 cm of skin and subcutaneous tissue. The amputated portion of the 5th metatarsal was further debrided more proximal using a bone cutter. A curette was used to further debride the granulation tissue. Wounds were irrigated with saline solution and suctioned dry. Wounds were checked for hemostasis using electrocautery. The wound was then packed with Betadine soaked fluff gauze followed by fluff gauze, ABD, Kerlix, and Esdras bandage. The patient tolerated the procedure well. Sponge, instrument, and needle counts reported as correct. The patient was transferred to PACU in stable condition.
[2024-05-01 15:18] VITALS: BP 162/79; PULSE 65; RESP 16; O2SAT 97
[2024-05-01 15:23] VITALS: BP 158/83; PULSE 65; RESP 16; O2SAT 95
[2024-05-01 15:27] VITALS: BP 138/87; PULSE 64; RESP 17; O2SAT 94
[2024-05-01 16:00] VITALS: BP 157/77; PULSE 62; RESP 19; TEMP 36.3; O2SAT 96
== END 2024-05-01 16:10 | disposition home or self-care (01) ==
PROVIDERS: PCP Internal Medicine; Visit Provider Surgery
PROC: (CPT 11044; principal; 2024-05-01 13:20)
DX: I70.262 Atherosclerosis of native arteries of extremities with gangrene, left leg (principal); L97.529 Non-pressure chronic ulcer of other part of left foot with unspecified severity; M86.172 Other acute osteomyelitis, left ankle and foot; M86.672 Other chronic osteomyelitis, left ankle and foot; M87.375 Other secondary osteonecrosis, left foot; E11.52 Type 2 diabetes mellitus with diabetic peripheral angiopathy with gangrene; Z89.422 Acquired absence of other left toe(s); E11.21 Type 2 diabetes mellitus with diabetic nephropathy; E11.22 Type 2 diabetes mellitus with diabetic chronic kidney disease; I12.9 Hypertensive chronic kidney disease with stage 1 through stage 4 chronic kidney disease, or unspecified chronic kidney disease; N18.30 Chronic kidney disease, stage 3 unspecified; E11.3599 Type 2 diabetes mellitus with proliferative diabetic retinopathy without macular edema, unspecified eye; E11.65 Type 2 diabetes mellitus with hyperglycemia; E78.00 Pure hypercholesterolemia, unspecified; H40.9 Unspecified glaucoma; Z79.85 Long-term (current) use of injectable non-insulin antidiabetic drugs; Z79.4 Long term (current) use of insulin; Z99.89 Dependence on other enabling machines and devices; F17.210 Nicotine dependence, cigarettes, uncomplicated; Z98.890 Other specified postprocedural states
CPT/HCPCS: 11044; 11042; 82947; 88305; 88311; J0690; J2003; J2405; J2704; J2795; J3010

== ENCOUNTER → 2024-05-01 11:08 | Outpatient (BNV) | payer OTHER, SELFPAY | PROVIDERS: PCP Internal Medicine; Visit Provider Surgery | DX: I96 Gangrene, not elsewhere classified (principal); T87.54 Necrosis of amputation stump, left lower extremity | CPT/HCPCS: 11043 ==

== ENCOUNTER 2024-05-10 10:55 | Outpatient (AMB) | payer OTHER, SELFPAY ==
--- NOTE | 2024-05-10 11:00 | A.OFFVIS_ITS ---
Vital Signs 05/10/24 11:12 Height 6 ft 2 in Weight 205 lb 0.478 oz BMI 26.3 Intake Visit Reasons: s/p Debridment left foot Intake Note: Patient is seen in office for follow up visit, post debridment of left foot. Pt c/o: had nurse coming in to change dressing, healing as expected per pt Customer Services Coordinator Required: No Accompanied by: Self / Same As Patient Allergies pollen extracts [POLLEN] Allergy (Mild, Verified 05/10/24 11:13) SNEEZE PUFFY EYES Medication List - Last Reconciled 05/10/24 by Nikunj Gasca MD acetaminophen 1,000 mg (2 x 500 mg) PO QID PRN albuterol sulfate 2.5 mg (3 mL) inhalation QID albuterol sulfate 90 mcg/actuation 2 puffs PO Q6H PRN atorvastatin 80 mg PO DAILY blood sugar diagnostic (FreeStyle Lite Strips) 3 times a day blood-glucose meter (FreeStyle Lite Meter kit) As directed 1-2x daily blood-glucose,wedding designer,cont (Dexcom G6 Raw Stock Machine Feeder) As directed blood-glucose sensor (Dexcom G6 Sensor device) As directed blood-glucose transmitter (Dexcom G6 Transmitter device) As directed dapagliflozin propanediol (Farxiga) 10 mg PO DAILY fluticasone propionate 220 mcg/actuation 1 puff inhalation BID hydrochlorothiazide 25 mg PO DAILY insulin glargine (Lantus Solostar U-100 Insulin) 15 units (0.15 mL) subcut DAILY lancets (FreeStyle Lancets) 3 times a day lisinopril 10 mg PO DAILY nebulizers (Aeroneb Go Nebulizer) As directed omeprazole 20 mg PO DAILY@0630 oxycodone 5 mg PO Q6H PRN pen needle, diabetic Daily semaglutide 2 mg (0.75 mL) subcut WE HPI Comments Details: 64-year-old male returning for wound check following debridement of his left foot diabetic ulcer. He denies any new complaints but does have some foot pain. He reports that his naproxen helps the pain but he is not able to take this due to his kidney disease. The narcotic does not help the pain is much. He understands that he will need to back off on the pain medication. He denies any foul smell from the foot. Visiting nurses are coming every other day for dressing changes. [facility] Medical History Wears dentures Acute kidney injury Pneumonia Screening for colon cancer Impacted cerumen of both ears Cough Impacted cerumen of both ears Tobacco abuse Diabetic nephropathy associated with type 2 diabetes mellitus Very severe proliferative diabetic retinopathy care home (current) use of insulin Overweight (BMI 25.0-29.9) Type 2 diabetes mellitus with hyperglycemia Smoker Obesity (BMI 30-39.9) Carpal tunnel syndrome, left Chronic kidney disease Erectile dysfunction Tobacco abuse Hypercholesterolemia Cataract Glaucoma Hepatitis C Hypertension Surgical History Amputation of fifth toe of left foot (02/21/24) Hx of cataract extraction History of surgery on arm Hx of colonoscopy Family History Father Diabetes Mother Diabetes Hypertension Brother In good health Sister No problems noted. Other Mental health disorder Social History Household Members: None Housing: House Housing Other:: room in Boarding House Are you a primary physician assistant primary care to a significant other at home: No Do you presently have visiting nurse or other home services: Yes ([facility] 2 X week) Alcohol intake: never Comment: counts correct Patient Tobacco Use Status: Current everyday Tobacco user Tobacco use type: Cigarette Cigarette Packs Per Day: 1 Cigarettes Per Day: 12 Years Smoked: 40 e-Cigarette/Vaping Use: Never Used Second Hand Smoke Exposure: Yes Advance Directives Date on File: 01/18/24 service: No Current occupational status: disabled Cognitive needs: Yes (Blind stick, walker) Hearing needs: No Vision needs: No Physical Exam Vital Signs: BMI result Body Mass Index 26.3 Const General: no acute distress Nutritional Appearance: well nourished Orientation/consciousness: patient oriented x3 Resp Effort & Inspection: normal respiratory effort Skin Other: Warm, dry, no rash Neuro General: patient oriented x3 Extrem Other: Dressings changed to the left foot. Overall wounds are clean with no evidence of abscess or necrotic tissue. There is some evidence of granulation tissue forming at the base. Wounds were dressed with fluff gauze followed by dry sterile dressings and ABD pad followed by Kerlix and Esdras bandage. Assessment & Plan Assessment & Plan (1) Dry gangrene: Comment: Left 5th toe, left 5th toe amputation February [address]24 Dr. Gasca Code(s): I96 - Gangrene, not elsewhere classified Category: Medical Plan 64-year-old male diabetic with gangrene of the left 5th toe status post amputation returning 1 week following debridement of necrotic tissue. Wounds are clean but may benefit from wound care referral. Patient is in agreement and a referral will be sent. He should return in 2 weeks pending wound care referral. Orders: Referrals Wound Care Referral I96 - Gangrene, not elsewhere classified Coding Level of Care Code Global (98142) Diagnoses Dry gangrene I96
[2024-05-10 11:12] VITALS: BMI 26.3
--- OUTSIDE RECORDS SUMMARY | 2024-05-10 12:41 | XMS_ITS ---
[facility] [place] Address [address] [place] [address] Care Team Providers Care Center Mgr Name Role Phone Trey Love Primary Care Provider Twila Vargas Unavailable [phone] Allergies Allergen (clinical drug ingredient) Drug/Non Drug [...] Type 2 diabetes mellitus with peripheral angiopathy ([id number]) Type 2 diabetes mellitus with diabetic peripheral [...] Ordered Date Performed Result Body Sit e 45012-DJOUNET NAIL, 6 OR MORE 03/08/2024 N/A 14728-KSAF SKIN LESIONS, OVER 4 03/08/2024 N/A Encounters Encounter Location Date Provider Diagnosis [facility] [address] [address] 03/08/2024 Twila Holliday Type 2 diabetes mellitus [...] INSTRUCTIONS.pdf) Pending Test Test Name Order Date 43416-ILBZSSR NAIL, 6 OR MORE 03/08/2024 28330-CNGK SKIN LESIONS, OVER 4 03/08/19 25 Next Appt Details Follow Up: 6 Weeks, Reason: Provider Name:Twila lauren, 06/14/2024 11:15:00 AM, [address] [facility], [address], [place], [address], Procedure Notes * Category Sub-Category Detail Notes [...] use of a nail nipper and/or dremel-type universal grinder tool, to a more viable healthy nail plate [...] to maintain effectiveness in symptomatic relief - 28508 Keratoma Treatment Parring or Cutting o f [...] instrumentation by the physician of record - 51411, Q7 Progress Notes * Rashaad NEFF LDOB:1960 (64 yo M)Acc No.[id number]:03/08/2024 Progress Notes Patient:?Rashaad NEFF Provider:?Twila [place] DPM :1960???Age:64 Y???Sex:Male Koffi e:03/08/2024 Address:[address] [place] [address] [place], [id number] Pcp:Trey Love Subjective: * Chief Complaints: * ???At Risk FootcarePainful N ail(s) aggravated by shoes and causing difficulty standing/walkingOpen soreSkin problem(s) * HPI: ???At Risk footcare:?Pt States Last PCP Visit:?Date?01/25/2024 ???Skin problems:?Nature:?dryness , scaling.?Location:?B/L .?Duration:?several days.?Course:?worse.?Misc:?Patient is s/p?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 Cramer at [facility] outpatient for dry gangrene. He states his incision is dressed 3x a week by his NEONATAL SURGEON using betadine DSD. He states he has [...] no. ?Exercise: yes. ?Marital status: Single. 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 ???Drug/Alcohol:?AUDIT-C (Standard)?Did you have a drink containing [...] Management (4)??? Plan: * Treatment: 2.?Tinea unguium?Procedure: 10153-XCXBLPL NAIL, 6 OR MORE 3.?Xerosis of skin? [...] use of a nail nipper and/or dremel-type universal grinder tool, to a more viable healthy nail plate [...] to maintain effectiveness in symptomatic relief - 40552.?Keratoma Treatment:?Parring or Cutting of Benign Hyperkeratotic Lesion(s)?(-57) [...] instrumentation by the physician of record - 70004, Q7.? * Procedure Codes:?34624 DEBRI DE NAIL, 6 OR MORE, Modifiers: XS 79985 TRIM SKIN LESIONS, OVER 4, Modifiers: XS [...] DPM Date:?0 03/08/2024 Generated for Guille garcia/Vaughn/Kolby on:?05/10/2024 12:41 PM EDT History and Physical Notes * HPI (History of Present Illness) Category Sub-Category Detail Notes Category Not es Skin problems Nature: dryness , scaling Location: B/L Duration: several days Course: worse Misc: Patient is s/p parti al 5th ray amputation approximately [address] Cramer at [facility] outpatient for dry gangrene. He states his incision is dressed 3x a week by his NEONATAL SURGEON using betadine DSD. He states he has [...]
--- OUTSIDE RECORDS SUMMARY | 2024-05-10 12:41 | XMS_ITS | Encounter Summary ---
Author Organization [facility] Address [address] [place] [phone] Phone Care Team Providers Care Private Pilot Name Role Phone Trey Love MD Primary Care Provider Encounter Details Date Type Department Care Team ([facility] Contact Info) Description 05/09/2024 Orders Only [facility] [address] [address] Tulio Mcclure MD [address] [place] [phone] Stage 3b chronic kidney disease (HCC) Social History Tobacco Use Types Packs/Day Years [...] Encounters Date Type Department Care Team (Late Contact Info) Description 07/15/2024 4:30 PM EDT Office Visit [facility] [address] [place] [address] Tuloi Mcclure MD [address] [place] [phone] documented as of this encounter Visit Diagnoses Diagnosis Stage 3b chronic kidney disease (HCC) documented in this encounter Care Teams Private Pilot Relationship Specialty Start Date End Date Trey Love MD [facility] [place] [address] [place] PCP - General 02/17/20 documented as of this encounter
--- OUTSIDE RECORDS SUMMARY | 2024-05-10 12:41 | XMS_ITS ---
Author Organization [facility] Address [address] [facility] [place] [address] Care Team Providers Care Hand Weaver Name Role Phone Trey Love Primary Care Provider Twila Vargas [phone] Encounters Encounter Location Date Provider Diagnosis [address] [address] 03/08/2024 Twila Holliday Plan Of Treatment Next Appt Details Provider Name:Twila lauren, 06/14/2024 11:15:00 AM, [address] [address], [place], [address], Progress Notes * Rashaad NEFF LDOB:1960 (64 yo M)Acc No.[id number]:03/08/2024 Patient:?Rashaad NEFF :1960???Age:64 Y???Sex:Male Address:[address] [place] [address] * true * Date:? Generated for Printi ng/Faxing/eTransmitting on:?05/10/2024 12:41 PM EDT
--- OUTSIDE RECORDS SUMMARY | 2024-05-10 12:41 | XMS_ITS | Encounter Summary ---
Author Organization [facility] Address [address] [facility] 200 [place] [address] Phone Care Team Providers Care Electric Motor Winder Name Role Phone Trey Love MD Primary Care Provider [phone] Encounter Details Date Type Department Care Team (Late st Contact Info) Description 11/30/2021 Telephone [facility] [address] [facility] 200 [place] [address] Tulio Mcclure MD [address] [facility] [address] [place] [phone] Social History Tobacco Use Types Packs/Day Years [...] [facility] [address] [place] [address] Tulio Mcclure MD [address] [address] documented as of this encounter Visit Diagnoses Not on filedocumented in this encounter Care Teams Electric Motor Winder Relationship Specialty Start Date End Date Trey Love MD [address] [place], [place] PCP - General 02/17/20 documented as of this encounter
--- OUTSIDE RECORDS SUMMARY | 2024-05-10 12:41 | XMS_ITS | Clinical Summary ---
Author Organization [facility] Address [address] [place] [address] [place] [address] Phone Care Team Providers Care Acid Washer Operator Name Role Phone Trey Love MD Primary Care Provider [phone] Allergies Active Allergy Reactions Criticality Noted Date [...] insulin glargine (Lantus SoloStar) 100 UNIT/ML injection 15 Units Active hydroCHLOROthia zide 25 MG tablet [...] Encounters Date Type Department Care Team Description 05/09/2024 Orders Only [facility] [address] [phone] Tulio Mcclure MD Stage 3b chronic kidney disease (HCC) 05/03/2024 11:50 AM EDT Telemedicine [facility] [address] [phone] Tulio Mcclure MD Stage 3b chronic kidney disease (HCC) (Primary Dx); Type 2 diabetes mellitus with diabetic chronic kidney disease (HCC); Renal osteodystrophy 05/02/2024 Office Communication [facility] [address] [phone] Tulio Mcclure MD Stage 3b chronic kidney disease (HCC) (Primary Dx) 04/29/2024 Office Communication [facility] [address] [phone] Ashtyn Murrell from Last 3 Months Family History Medical [...] EDT Inhaled Oxygen Concentration - - Weight 95.3 kg (210 lb) 05/03/2024 10:08 AM EDT Height - - Body Mass Index - - Plan of Treatment Upcoming Encounters Date Type Department Care Team (Late st Contact Info) Description 07/15/2024 4:30 PM EDT Office Visit [facility] [address] [place] [address] Tulio Mcclure MD [address] [facility] 204 [place] [address] Health Maintenance Due Date Last Done Comments [...] 9.6 8.7 - 10.7 mg/dL eGFR Non-Afr Bahraini 40 Hemoglobin A1C 7.9(A) 4.0 - 6.0 Triglycerides 42 40 - 160 Cholesterol 145 0 - 200 06/03/2021 us Historical Provider LAB BLOOD ORDERABLES Ann l Result from Last 3 Months or Most Recently Relevant to Health Maintenance Insurance ([id number]) ([id number]) Care Teams Acid Washer Operator Relationship Specialty Start Date End Date Trey Love MD [facility] OR [address] [place] PCP - General 02/17/20
--- OUTSIDE RECORDS SUMMARY | 2024-05-10 12:42 | XMS_ITS | Encounter Summary ---
Author Organization [facility] Address [address] [facility] [address] [place] [address] Phone Care Team Providers Care Safety Leader Name Role Phone Trey Love MD Primary Care Provider [phone] Reason for Visit * Reason Comments Med Refill Encounter Details Date Type Department Care Team (Late st Contact Info) Description 07/17/2023 Refill [facility] [address] [place] [address] Tulio Mcclure MD [address] [address] Social History Tobacco Use Types [...] Office Visit [facility] [address] [place] [address] Tulio Mcclure MD [address] [facility] 204 [place] [address] documented as of this encounter [...] PTH, Intact (08/25/2023 9:49 AM EDT) Pathologist [facility] Parathyroid Hormone, Intact 8.7 - 77.1 pg/mL [...] analytical performance characteristics have been determined by [employer]. It has not been cleared or approved by FDA. This assay has been validated pursuant to the CLIA regulations and is used for clinical purposes. THIS TEST PERFORMED AT: [employer]/[facility] [address] [place] [address] [phone] BUSINESS ADVISOR: BEBETO DA SILVA MD, PHD, GIANNI 08/25/2023 9:49 AM EDT 08/25/2023 9:49 AM EDT Narrative JUANCHO - 09/04/2023 7:35 AM EDT [facility]ENT TO [facility] Tulio Mcclure MD LAB [id number] SOLICITED RESULTS Final Result Performing Organization Address [facility] de Phone Number [facility] See order comments [place] [address] * Vitamin D 25 Hydroxy (08/25/2023 9:49 [...] Final Re sult Performing Organization Address [facility] de Phone Number [place] See order comments [place] [address] * Albumin (08/25/2023 9:49 AM EDT) Albumin 4.2 3.5 - 5.0 g/dL See order comments 08/25/2023 9:49 AM EDT 08/25/2023 9:49 AM EDT us Tulio Mcclure MD LAB BLOOD ORDERABLES Final Re sult Performing Organization Address [facility] Co de Phone Number [place] See order comments [place] [address] * Magnesium (08/25/2023 9:49 AM EDT) Magnesium 2.2 1.6 - 2.6 mg/dL See order comments 08/25/2023 9:49 AM EDT 08/25/2023 9:49 AM EDT Tulio Mcclure MD LAB BLOOD ORDERABLES Final Re sult Performing Organization Address [facility] de Phone Number [place] See order comments [place] [address] * Phosphorus (08/25/2023 9:49 AM EDT) Phosphorus, Serum 3.6 2.7 - 4.5 mg/dL See order comments 08/25/2023 9:49 AM EDT 08/25/2023 9:49 AM EDT Tulio Mcclure MD LAB BLOOD ORDERABLES Final Re sult Performing Organization Address [facility] de Phone Number [place] See order comments [place] [address] * Calcium (08/25/2023 9:49 AM EDT) Calcium 9.9 8.4 - 10.2 mg/dL See order comments 08/25/2023 9:49 AM EDT 08/25/2023 9:49 AM EDT Tulio Mcclure MD LAB BLOOD ORDERABLES Final Re sult Performing Organization Address [facility] de Phone Number [place] See order comments [place] [address] * (ABNORMAL) Creatinine (08/25/2023 9:49 AM EDT) Creatinine Serum 1.99(H) 0.5 - 1.4 mg/dL See order comments eGFR 34 See order comments Comment: NOTE: ??For -Bahamian individuals, multiply the result ? by 1210. Chronic Kidney Disease: ??Estimated GFR < 60 mL/min/1.73m2 Severe Kidney Disease: ??Estimated GFR < 15 mL/min/1.73m2 08/25/2023 9:49 AM EDT 08/25/2023 9:49 AM EDT Tulio Mcclure MD LAB BLOOD ORDERABLES Final Re sult Performing Organization Address [facility] Phone Number [place] See order comments [place] [address] * (ABNORMAL) BUN (08/25/2023 9:49 AM EDT) BUN 37(H) 9 - 16 mg/dL See order comments 08/25/2023 9:49 AM EDT 08/25/2023 9:49 AM EDT Tulio Mcclure MD LAB BLOOD ORDERABLES Final Re sult Performing Organization Address [facility] Phone Number [place] See order comments [place] [address] * (ABNORMAL) Electrolyte panel (08/25/2023 9:49 AM [...] Final Re sult Performing Organization Address [facility] Phone Number [place] See order comments [place] [address] * CBC and Differential (08/25/2023 9:49 AM [...] order comments [place] [address] documented in this encounter Visit Diagnoses Not on filedocumented in this encounter Care Teams Safety Leader Relationship Specialty Start Date End Date Trey Love MD [facility] [address] [facility] [place] PCP - General 02/17/20 documented as of this encounter
--- OUTSIDE RECORDS SUMMARY | 2024-05-10 12:42 | XMS_ITS | Encounter Summary ---
Author Organization [facility] Address [address] [facility] 200 [place] [address] Phone Care Team Providers Care Para Operator Name Role Phone Trey Love MD Primary Care Provider [phone] Encounter Details Date Type Department Care Team (Late st Contact Info) Description 07/05/2022 Telephone [facility] [address] [facility] [address] [place] [address] Jackie Colunga Social History Tobacco [...] [facility] [address] [place] [phone] Tulio Mcclure MD [address] [facility] [address] [place] [address] documented as of this encounter Visit Diagnoses Not on filedocumented in this encounter Care Teams Para Operator Relationship Specialty Start Date End Date Trey Love MD [address] [place] PCP - General 02/17/20 documented as of this encounter
--- OUTSIDE RECORDS SUMMARY | 2024-05-10 12:42 | XMS_ITS | Patient Health Record ---
Author Organization [facility] [place] Address [address] [place] [address] Care Team Providers Care Mercury Purifier Name Role Phone Ivan Trey Primary Care Provider Twila Vargas Unavailable [phone] Allergies Allergen (clinical drug ingredient) Drug/Non Drug [...] Type 2 diabetes mellitus with peripheral angiopathy (751220870) Type 2 diabetes mellitus with diabetic peripheral [...] Ordered Date Performed Result Body Sit e 15474-JCAMUGP NAIL, 6 OR MORE 03/08/2024 N/A 20807-VFNH SKIN LESIONS, OVER 4 03/08/2024 N/A Encounters Encounter Location Date Provider Diagnosis [address] [address] 03/08/2024 Twila Holliday Type 2 diabetes mellitus with diabetic peripheral angiopathy without gangrene E11.51 ; Dehiscence of operative wound, initial encounter T81.31XA ; Tinea unguium B35.1 ; Pain in right toe(s) M79.674 ; Pain in left toe(s) M79.675 and Xerosis of skin L85.[address] [address] 12/21/2023 Twila Holliday [address] [address] 02/09/2024 Twila Holliday [address] [address] 03/08/2024 Twilayumiko Holliday [address] [address] 03/08/2024 Twila Holliday Assessments Encounter Date Diagnosis [...] Treatment Pending Test Test Name Order Date 10039-VOPMLZR NAIL, 6 OR MORE 03/08/2024 09797-KALU SKIN LESIONS, OVER 4 03/08/19 Next Appt Details Provider Name:Twila Daniel xin, 06/14/2024 11:15:00 AM, [address] [facility] [address], [place], [address], Insurance Providers Payer Name Payer Address Payer Phone Subscriber Number Group Number Insured Name Patient Relationship to Insured Coverage Start Date Coverage End Date [facility] [employer] Claims [address] [place] [id number] Rashaad Neff Self - patient is the insured Medical (General) History Medical History History ICD Code asthma CAD (Cholesterol) Diabetic Glaucoma High Blood Pressure Macular degeneration Psychiatric disorder blindness Surgical History Surgery Date(Month/Year) toe amputation, small toe left foot 02/26 24
--- OUTSIDE RECORDS SUMMARY | 2024-05-10 12:42 | XMS_ITS ---
Author Organization [facility] Address [address] [place] [address] Care Team Providers Care Soldering Machine Operator Automatic Name Role Phone Trey Love Primary Care Provider Twila Vargas [phone] Oshea/SHARMIN Encounters Encounter Location Date Provider Diagnosis [facility] [address] [place] [address] 03/08/2024 Twila Holliday Plan Of Treatment Next Appt Details Provider Name:Twila lauren, 06/14/2024 11:15:00 AM, [address] [address], [place], [address], Progress Notes * Rashaad NEFF LDOB:1960 (64 yo M)Acc No.[id number]:03/08/2024 Patient:?Rashaad NEFF :1960???Age:64 Y???Sex:Male Address:[address] [place], [place] [address] [place] [address] * true * Date:? Generated for Printi ng/Fanoag/eTransmitting on:?05/10/2024 12:41 PM EDT
== END 2024-05-10 11:29 | disposition home or self-care (01) ==
LOC: HO.HGS 10:56
PROVIDERS: PCP Internal Medicine; Visit Provider Surgery
DX: I96 Gangrene, not elsewhere classified (principal)
CPT/HCPCS: 99024

== ENCOUNTER → 2024-05-10 10:55 | Outpatient (BNVA) | payer OTHER, SELFPAY | PROVIDERS: PCP Internal Medicine; Visit Provider Surgery | DX: I96 Gangrene, not elsewhere classified (principal) | CPT/HCPCS: 99212 ==

== ENCOUNTER 2024-05-25 08:28 | Outpatient (REF) | payer OTHER, SELFPAY ==
--- NOTE | ~2024-05-25 | XR_ITS ---
CLINICAL HISTORY: NON HEALING WOUND TO LEFT FOOT Left foot three views Comparison: None Findings: No acute fracture or dislocation identified. Status post amputation 5th digit mid metatarsal level. Soft tissue calcification in the surgical bed. No acute bony erosion identified. Degenerative change throughout the foot. Findings aremost prominent in 1st digit. No radiopaque foreign body noted. Impression: No acute bony abnormality This document has been electronically signed by: Keenan Durham MD on 05/28/2024 20:26:02
--- OUTSIDE RECORDS SUMMARY | 2024-05-25 08:32 | XMS_ITS ---
Author Organization [facility] [place] Address [address] [facility] [place] [address] Care Team Providers Care Correctional Supervisor Name Role Phone Trey Love Primary Care Provider Twila Vargas Unavailable [phone] Allergies Allergen (clinical drug ingredient) Drug/Non Drug [...] Type 2 diabetes mellitus with peripheral angiopathy (572767152) Type 2 diabetes mellitus with diabetic peripheral [...] Ordered Date Performed Result Body Sit e 64271-QBXRWZF NAIL, 6 OR MORE 03/08/2024 N/A 63178-LRNQ SKIN LESIONS, OVER 4 03/08/2024 N/A Encounters Encounter Location Date Provider Diagnosis [facility] [address] [address] 03/08/2024 Twila Holliday Type 2 diabetes mellitus [...] INSTRUCTIONS.pdf) Pending Test Test Name Order Date 01530-IKSMBRZ NAIL, 6 OR MORE 03/08/2024 40148-WJYL SKIN LESIONS, OVER 4 03/08/19 25 Next Appt Details Follow Up: 6 Weeks, Reason: Provider Name:Twila lauren, 06/14/2024 11:15:00 AM, [address] [facility], [address], [place], [address], Procedure Notes * Category Sub-Category Detail Notes [...] use of a nail nipper and/or dremel-type level vial inside grinder, to a more viable healthy nail [...] to maintain effectiveness in symptomatic relief - 48738 Keratoma Treatment Parring or Cutting o f [...] instrumentation by the physician of record - 41749, Q7 Progress Notes * Rashaad NEFF LDOB:1960 (64 yo M)Acc No.[id number]:03/08/2024 Progress Notes Patient:?Rashaad NEFF Provider:?Twila Holliday DPM :1960???Age:64 Y???Sex:Male Koffi e:03/08/2024 Address:[address] [place] [address] [place], [phone] Pcp:Trey Love Subjective: * Chief Complaints: * ???At Risk FootcarePainful N ail(s) aggravated by shoes and causing difficulty standing/walkingOpen soreSkin problem(s) * HPI: ???At Risk footcare:?Pt States Last PCP Visit:?Date?01/25/2024 ???Skin problems:?Nature:?dryness , scaling.?Location:?B/L .?Duration:?several days.?Course:?worse.?Misc:?Patient is s/p?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 Cramer at [facility] outpatient for dry gangrene. He states his incision is dressed 3x a week by his SPOUT POSITIONER using betadine DSD. He states he has [...] no. ?Exercise: yes. ?Marital status: Single. 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 ???Drug/Alcohol:?AUDIT-C (Standard)?Did you have a drink containing [...] Management (4)??? Plan: * Treatment: 2.?Tinea unguium?Procedure: 93822-SBSYCSH NAIL, 6 OR MORE 3.?Xerosis of skin? [...] use of a nail nipper and/or dremel-type level vial inside grinder, to a more viable healthy nail [...] to maintain effectiveness in symptomatic relief - 10857.?Keratoma Treatment:?Parring or Cutting of Benign Hyperkeratotic Lesion(s)?(-57) [...] instrumentation by the physician of record - 54615, Q7.? * Procedure Codes:?28972 DEBRI DE NAIL, 6 OR MORE, Modifiers: XS 81398 TRIM SKIN LESIONS, OVER 4, Modifiers: XS [...] DPM Date:?0 03/08/2024 Generated for Guille garcia/Vaughn/Kolby on:?05/25/2024 08:32 AM EDT History and Physical Notes * HPI (History of Present Illness) Category Sub-Category Detail Notes Category Not es Skin problems Nature: dryness , scaling Location: B/L Duration: several days Course: worse Misc: Patient is s/p parti al 5th ray amputation approximately [address] Cramer at [facility] outpatient for dry gangrene. He states his incision is dressed 3x a week by his SPOUT POSITIONER using betadine DSD. He states he has [...]
--- OUTSIDE RECORDS SUMMARY | 2024-05-25 08:32 | XMS_ITS ---
Author Organization [facility] Address [address] [place] [address] Care Team Providers Care Welfare Analyst Name Role Phone Trey Love Primary Care Provider Twila Vargas [phone] Oshea/SHARMIN Encounters Encounter Location Date Provider Diagnosis [facility] [address] [place] [address] 03/08/2024 Twila Holliday Plan Of Treatment Next Appt Details Provider Name:Twila lauren, 06/14/2024 11:15:00 AM, [address] [address], [place], [address], Progress Notes * Rashaad NEFF LDOB:1960 (64 yo M)Acc No.[id number]:03/08/2024 Patient:?Rashaad NEFF :1960???Age:64 Y???Sex:Male Address:[address] [place], [place] [address] [place] [address] * true * Date:? Generated for Printi ng/Faxing/eTransmitting on:?05/25/2024 08:32 AM EDT
--- OUTSIDE RECORDS SUMMARY | 2024-05-25 08:32 | XMS_ITS | Encounter Summary ---
Author Organization [facility] Address [address] [facility] 200 [place] [address] Phone Care Team Providers Care Ground Products Director Name Role Phone rTey Love MD Primary Care Provider Reason for Visit * Reason Comments Med Refill Encounter Details Date Type Department Care Team (Late st Contact Info) Description 07/17/2023 Refill [facility] [address] [place] [address] Tulio Mcclure MD [address] [address] Social History Tobacco Use Types Packs/Day Years Used Date Smoking Tobacco: Every Day Cigarettes 0.5 6.8 Started: 08/11/2017 Alcohol Use Standard Drinks/Week Comments [...] Office Visit [facility] [address] [place] [address] Tulio Mcclure MD [address] [facility] [address] [place] [address] documented as of this encounter [...] PTH, Intact (08/25/2023 9:49 AM EDT) Pathologist [facility] Parathyroid Hormone, Intact 8.7 - 77.1 [...] analytical performance characteristics have been determined by [employer]. It has not been cleared or approved by FDA. This assay has been validated pursuant to the CLIA regulations and is used for clinical purposes. THIS TEST PERFORMED AT: [employer] [address] [place] [address] [phone] [employer]NC MECHANIC: BEBETO DA SILVA MD, PHD, GIANNI 08/25/2023 9:49 AM EDT 08/25/2023 9:49 AM EDT Narrative JUANCHO - 09/04/2023 7:35 AM EDT SENT TO [facility] Tulio Mcclure MD LAB [id number] SOLICITED RESULTS Final Result Performing Organization Address [facility] de Phone Number [facility] See order comments [place] [address] * Vitamin D 25 Hydroxy (08/25/2023 9:49 [...] ORDERABLES Final Re sult Performing Organization Address [facility] de Phone Number [place] See order comments [place] [address] * Albumin (08/25/2023 9:49 AM EDT) Albumin 4.2 3.5 - 5.0 g/dL See order comments 08/25/2023 9:49 AM EDT 08/25/2023 9:49 AM EDT us Tulio Mcclure MD LAB BLOOD ORDERABLES Final Re sult Performing Organization Address [facility] Co de Phone Number [place] See order comments [place] [address] * Magnesium (08/25/2023 9:49 AM EDT) Magnesium 2.2 1.6 - 2.6 mg/dL See order comments 08/25/2023 9:49 AM EDT 08/25/2023 9:49 AM EDT Tulio Mcclure MD LAB BLOOD ORDERABLES Final Re sult Performing Organization Address [facility] de Phone Number [place] See order comments [place] [address] * Phosphorus (08/25/2023 9:49 AM EDT) Phosphorus, Serum 3.6 2.7 - 4.5 mg/dL See order comments 08/25/2023 9:49 AM EDT 08/25/2023 9:49 AM EDT Tulio Mcclure MD LAB BLOOD ORDERABLES Final Re sult Performing Organization Address [facility] de Phone Number [place] See order comments [place] [address] * Calcium (08/25/2023 9:49 AM EDT) Calcium 9.9 8.4 - 10.2 mg/dL See order comments 08/25/2023 9:49 AM EDT 08/25/2023 9:49 AM EDT Tulio Mcclure MD LAB BLOOD ORDERABLES Final Re sult Performing Organization Address [facility] de Phone Number [place] See order comments [place] [address] * (ABNORMAL) Creatinine (08/25/2023 9:49 AM EDT) Creatinine Serum 1.99(H) 0.5 - 1.4 mg/dL See order comments eGFR 34 See order comments Comment: NOTE: ??For -Bangladeshi individuals, multiply the result ? by 1210. Chronic Kidney Disease: ??Estimated GFR < 60 mL/min/1.73m2 Severe Kidney Disease: ??Estimated GFR < 15 mL/min/1.73m2 08/25/2023 9:49 AM EDT 08/25/2023 9:49 AM EDT Tulio Mcclure MD LAB BLOOD ORDERABLES Final Re sult Performing Organization Address [facility] Phone Number [place] See order comments [place] [address] * (ABNORMAL) BUN (08/25/2023 9:49 AM EDT) BUN 37(H) 9 - 16 mg/dL See order comments 08/25/2023 9:49 AM EDT 08/25/2023 9:49 AM EDT Tulio Mcclure MD LAB BLOOD ORDERABLES Final Re sult Performing Organization Address [facility] Phone Number [place] See order comments [place] [address] * (ABNORMAL) Electrolyte panel (08/25/2023 9:49 AM [...] ORDERABLES Final Re sult Performing Organization Address [facility] Phone Number [place] See order comments [place] [address] * CBC and Differential (08/25/2023 9:49 AM [...] order comments [place] [address] documented in this encounter Visit Diagnoses Not on filedocumented in this encounter Care Teams Ground Products Director Relationship Specialty Start Date End Date Trey Love MD [facility] [address] [facility] [place] PCP - General 02/17/20 documented as of this encounter
--- OUTSIDE RECORDS SUMMARY | 2024-05-25 08:32 | XMS_ITS | Encounter Summary ---
Author Organization [facility] Address [address] [facility] 200 [place] [address] Phone Care Team Providers Care Automobile Taillight Assembler Name Role Phone Trey Love MD Primary Care Provider [phone] Encounter Details Date Type Department Care Team (Late st Contact Info) Description 07/05/2022 Telephone [facility] [address] [facility] 200 [place] [address] Jackie Colunga Social History Tobacco [...] Visit [facility] [address] [place] [phone] Tulio Mcclure MD [address] [facility] 204 [place] [address] documented as of this encounter Visit Diagnoses Not on filedocumented in this encounter Care Teams Automobile Taillight Assembler Relationship Specialty Start Date End Date Trey Love MD [address] [place] PCP - General 02/17/20 documented as of this encounter
--- OUTSIDE RECORDS SUMMARY | 2024-05-25 08:32 | XMS_ITS | Encounter Summary ---
Author Organization [facility] Address [address] [facility] 200 [place] [address] Phone Care Team Providers Care Metal Machine Setter Name Role Phone Trey Love MD Primary Care Provider Encounter Details Date Type Department Care Team (Late st Contact Info) Description 11/30/2021 Telephone [facility] [address] [facility] [address] [place] [address] Tulio Mcclure MD [address] [facility] 204 [place] [phone] Social History Tobacco Use Types Packs/Day Years [...] Visit [facility] [address] [place] [address] Tulio Mcclure MD [address] [address] documented as of this encounter Visit Diagnoses Not on filedocumented in this encounter Care Teams Metal Machine Setter Relationship Specialty Start Date End Date Trey Love MD [address] [place], [place] PCP - General 02/17/20 documented as of this encounter
--- OUTSIDE RECORDS SUMMARY | 2024-05-25 08:32 | XMS_ITS ---
Author Organization [facility] Address [address] [facility] [place] [address] Care Team Providers Care Shingle Packer Name Role Phone Trey Love Primary Care Provider Twila Vargas [phone] Encounters Encounter Location Date Provider Diagnosis [address] [address] 03/08/2024 Twila Holliday Plan Of Treatment Next Appt Details Provider Name:Twila lauren, 06/14/2024 11:15:00 AM, [address] [address], [place], [address], Progress Notes * Rashaad NEFF LDOB:1960 (64 yo M)Acc No.[id number]:03/08/2024 Patient:?Rashaad NEFF :1960???Age:64 Y???Sex:Male Address:[address] [place] [address] * true * Date:? Generated for Printi ng/Faxing/eTransmitting on:?05/25/2024 08:31 AM EDT
--- OUTSIDE RECORDS SUMMARY | 2024-05-25 08:32 | XMS_ITS | Clinical Summary ---
Author Organization [facility] [place] Address [address] [place] [address] [place] [address] Phone Care Team Providers Care Trackless Trolley Driver Name Role Phone Trey Love MD Primary Care Provider [phone] Allergies Active Allergy Reactions Criticality Noted Date [...] Orders Only [facility] [address] [phone] Tulio Mcclure MD Stage 3b chronic kidney disease (HCC) 05/03/2024 11:50 AM EDT Telemedicine [facility] [address] [phone] Tulio Mcclure MD Stage 3b chronic kidney disease (HCC) (Primary Dx); Type 2 diabetes mellitus with diabetic chronic kidney disease (HCC); Renal osteodystrophy 05/02/2024 Office Communication [facility] [address] [phone] Tulio Mcclure MD Stage 3b chronic kidney disease (HCC) (Primary Dx) 04/29/2024 Office Communication [facility] [address] [phone] Ashtyn Murrell from Last 3 Months Family [...] [facility] [address] [place] [address] [address] Tulio Mcclure MD [address] [facility] 204 [place] [address] Health Maintenance Due Date Last Done Comments Pneumococcal Vaccine: 50+ Ye ars (1 of 2 - PCV) 1981 Colorectal Cancer Screening: Annual FOBT 2011 Colorectal Cancer Screening: Colonoscopy 2011 Colorectal Cancer Screening: Sigmoidoscopy 2011 Diabetes: Ophthalmology Exam 08/10/2021 Diabetes: Pedal Pulse Checked 08/10/2021 Diabetes: Sensory Foot Exam 08/10/2021 Diabetes: Visual Foot Exam 08/10/2021 Diabetes: Hemoglobin A1C 09/02/2021 06/03/2021 Influenza Vaccine (Season Ended) 2024 Hepatitis B Vaccine Aged Out No longe [...] 9.6 8.7 - 10.7 mg/dL eGFR Non-Afr Cambodian 40 Hemoglobin A1C 7.9(A) 4.0 - 6.0 Triglycerides 42 40 - 160 Cholesterol 145 0 - 200 06/03/2021 us Historical Provider LAB BLOOD ORDERABLES Ann l Result from Last 3 Months or Most Recently Relevant to Health Maintenance Insurance ([id number]) ([id number]) Care Teams Trackless Trolley Driver Relationship Specialty Start Date End Date Trey Love MD [facility] [place] [address] [facility] [address] [address] [address] [place] PCP - General 02/17/20
--- OUTSIDE RECORDS SUMMARY | 2024-05-25 08:32 | XMS_ITS | Patient Health Record ---
Author Organization [facility] [place] Address [address] [place] [address] Care Team Providers Care Stem Shaper Name Role Phone Ivan Trey Primary Care Provider Twila Vargas Unavailable [phone] Allergies Allergen (clinical drug ingredient) Drug/Non Drug [...] Type 2 diabetes mellitus with peripheral angiopathy ([id number]) Type 2 diabetes mellitus with diabetic peripheral [...] Ordered Date Performed Result Body Sit e 44316-AUURQUW NAIL, 6 OR MORE 03/08/2024 N/A 05425-QTCS SKIN LESIONS, OVER 4 03/08/2024 N/A Encounters Encounter Location Date Provider Diagnosis [address] [address] 03/08/2024 Twila Holliday Type 2 diabetes mellitus with diabetic peripheral angiopathy without gangrene E11.51 ; Dehiscence of operative wound, initial encounter T81.31XA ; Tinea unguium B35.1 ; Pain in right toe(s) M79.674 ; Pain in left toe(s) M79.675 and Xerosis of skin L85.[address] [address] 12/21/2023 Twila Holliday [address] [address] 02/09/2024 Twila Holliday [address] [address] 03/08/2024 Twilayumiko Holliday [address] [address] 03/08/2024 Twila Holliday Assessments Encounter Date Diagnosis [...] Treatment Pending Test Test Name Order Date 60317-YHPCFSX NAIL, 6 OR MORE 03/08/2024 72417-LNNE SKIN LESIONS, OVER 4 03/08/19 Next Appt Details Provider Name:Twila Daniel xin, 06/14/2024 11:15:00 AM, [address] [facility], [address] [address], [place], [address], Insurance Providers Payer Name Payer Address Payer Phone Subscriber Number Group Number Insured Name Patient Relationship to Insured Coverage Start Date Coverage End Date [facility] [employer] Claims [address] [place] [id number] Rashaad Neff Self - patient is the insured Medical (General) History Medical History History ICD Code asthma CAD (Cholesterol) Diabetic Glaucoma High Blood Pressure Macular degeneration Psychiatric disorder blindness Surgical History Surgery Date(Month/Year) toe amputation, small toe left foot 02/26 24
== END 2024-05-25 08:29 | disposition home or self-care (01) ==
LOC: HO.XRAY 08:28
PROVIDERS: PCP Internal Medicine; Visit Provider Surgery
DX: S91.302D Unspecified open wound, left foot, subsequent encounter (principal)
CPT/HCPCS: 73630

== ENCOUNTER → 2024-05-25 08:45 | Outpatient (BNV) | payer OTHER, SELFPAY | PROVIDERS: PCP Internal Medicine; Visit Provider Radiology Diagnostic Radiology | DX: S91.302A Unspecified open wound, left foot, initial encounter (principal) | CPT/HCPCS: 73630 ==

== ENCOUNTER 2024-06-20 11:06 | Outpatient (AMB) | payer OTHER, SELFPAY ==
--- NOTE | 2024-06-20 11:24 | MHC.OFFVIS ---
Vital Signs 06/20/24 11:36 Height 6 ft 2 in Weight 205 lb 0.478 oz BMI 26.3 BP 130/82 Blood Pressure Location Lt brachial Position Sitting Intake Visit Reasons: s/p follow up Debridment left foot Intake Note: Patient is seen in office for one month follow up visit, post debridment of the left foot. Pt c/o: no concerns, is back to work wound center:05/24/24 Correctional Lieutenant Required: No Accompanied by: Self / Same As Patient Allergies pollen extracts [POLLEN] Allergy (Mild, Verified 06/20/24 11:35) SNEEZE PUFFY EYES HPI Comments Details: Patient returns for one-month follow-up examination. He continues with the wound care center as well as [facility] for dressing changes. He feels his wounds are getting better but occasionally does report some pain in the lateral foot. 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 Other Mental health disorder Social History Household Members: None Housing: House Housing Other:: room in Boarding House Are you a primary rn intensive care unit to a significant other at home: No Do you presently have visiting nurse or other home services: Yes ([facility] 2 X week) Alcohol intake: never Comment: counts correct Patient Tobacco Use Status: Current everyday Tobacco user Tobacco use type: Cigarette Cigarette Packs Per Day: 1 Cigarettes Per Day: 12 Years Smoked: 40 e-Cigarette/Vaping Use: Never Used Second Hand Smoke Exposure: Yes Advance Directives Date on File: 01/18/24 service: No Current occupational status: disabled Cognitive needs: Yes (Blind stick, walker) Hearing needs: No Vision needs: No Review of Systems Const All systems reviewed & are unremarkable except as noted in HPI and below Physical Exam Const General: no acute distress Nutritional Appearance: well nourished Orientation/consciousness: patient oriented x3 Resp Effort & Inspection: normal respiratory effort Neuro General: patient oriented x3 Extrem Other: Dressings changed to left foot. Excellent granulation tissue noted at the base of the wound. No evidence of necrotic tissue. Wounds redressed with silver alginate followed by fluff gauze and Kerlix. Assessment & Plan Assessment & Plan (1) Dry gangrene: Comment: Left 5th toe, left 5th toe amputation February [address]24 Dr. Gasca Code(s): I96 - Gangrene, not elsewhere classified Category: Medical Plan 64-year-old male patient with diabetes, blind, with a nonhealing wound of the left foot following amputation of the 5th toe. He is now going to wound care management and having excellent results. We will continue with the wound care center and follow up in approximately 2 months, sooner p.r.n.. He requested additional pain medication for the occasional increase in foot pain. Medications: Refilled oxycodone Partial Fill upon patient request. 5 mg PO Q6H PRN 10 tabs 0RF pain (scale score 7-10) Coding Level of Care Code Est Pt Level 3 (01283) Diagnoses Dry gangrene I96
[2024-06-20 11:36] VITALS: BP 130/82; BMI 26.3
--- OUTSIDE RECORDS SUMMARY | 2024-06-20 12:19 | XMS_ITS | Encounter Summary ---
Author Organization [facility] Address 100 [facility] 200 [place] [address] Phone Care Team Providers Care Tank Maker Wood Name Role Phone Trey Love MD Primary Care Provider [phone] Encounter Details Date Type Department Care Team (Late Contact Info) Description 07/05/2022 Telephone [facility] 200 [place] [address] Jackie Colunga Social History Tobacco Use Types Packs/Day Years Used Date Smoking Tobacco: Every Day Cigarettes 0.5 6.9 Started: 08/11/2017 Alcohol Use Standard Drinks/Week Comments [...] Upcoming Encounters Date Type Department Care Team (Latest Contact Info) Description 07/03/2024 Orders Only [facility] [address] [address] Tulio Mcclure MD [address] [facility] [address] [place] [address] Stage 3b chronic kidney disease (HCC); Type 2 diabetes mellitus with diabetic chronic kidney disease (HCC); Renal osteodystrophy 07/15/2024 4:30 PM EDT Office Visit [facility] [address] [place] [address] Tulio Mcclure MD [address] [address] documented as of this encounter Visit Diagnoses Not on filedocumented in this encounter Care Teams Tank Maker Wood Relationship Specialty Start Date End Date Trey Love MD [facility] [place] [address] [place] PCP - General 02/17/20 documented as of this encounter
--- OUTSIDE RECORDS SUMMARY | 2024-06-20 12:19 | XMS_ITS | Encounter Summary ---
Author Organization [facility] Address 100 [facility] [address] [place] [address] Phone Care Team Providers Care Chha Name Role Phone Trey Love MD Primary Care Provider [phone] Encounter Details Date Type Department Care Team (Late st Contact Info) Description 11/30/2021 Telephone [facility] 100 [facility] [address] [place] [address] Tulio Mcclure MD [address] [facility] [address] [place] [address] Social History Tobacco Use Types Packs/Day [...] Only [facility] [address] [facility] [address] [place] [address] Tulio Mcclure MD [address] [phone] Stage 3b chronic kidney disease (HCC); Type 2 diabetes mellitus with diabetic chronic kidney disease (HCC); Renal osteodystrophy 07/15/2024 4:30 PM EDT Office Visit [facility] [address] [place] [facility] [place] [address] Tulio Mcclure MD [address] [phone] documented as of this encounter Visit Diagnoses Not on filedocumented in this encounter Care Teams Chha Relationship Specialty Start Date End Date Trey Love MD [place] [facility] [place] [address] [facility] [address] [place], [place] PCP - General 02/17/20 documented as of this encounter
--- OUTSIDE RECORDS SUMMARY | 2024-06-20 12:19 | XMS_ITS ---
Author Organization [facility] Address [address] [facility] [place] [address] Care Team Providers Care Director Of Trauma Name Role Phone Trey Love Primary Care Provider Twila Vargas [phone] Encounters Encounter Location Date Provider Diagnosis [address] [address] 03/08/2024 Twila Holliday Plan Of Treatment Next Appt Details Provider Name:Twila lauren, 09/13/2024 01:30:00 PM, [address] [address], [place], [address], Progress Notes * Rashaad NEFF LDOB:1960 (64 yo M)Acc No.[id number]:03/08/2024 Patient:?Rashaad NEFF :1960???Age:64 Y???Sex:Male Address:[address] [place] [address] * true * Date:? Generated for Printi ng/Faxing/eTransmitting on:?06/20/2024 12:19 PM EDT
--- OUTSIDE RECORDS SUMMARY | 2024-06-20 12:19 | XMS_ITS | Clinical Summary ---
Author Organization [facility] Address [address] [facility] [place] [address] Phone Care Team Providers Care Twisthand Name Role Phone Trey Love MD Primary Care Provider [phone] Allergies Active Allergy Reactions Criticality Noted Date [...] 05/09/2024 Orders Only [facility] [address] [phone] Tulio Mcclure MD Stage 3b chronic kidney disease (HCC) 05/03/2024 11:50 AM EDT Telemedicine [facility] [address] [phone] Tulio Mcclure MD Stage 3b chronic kidney disease (HCC) (Primary Dx); Type 2 diabetes mellitus with diabetic chronic kidney disease (HCC); Renal osteodystrophy 05/02/2024 Office Communication [facility] [place] [address] [phone] [phone] Tulio Mcclure MD Stage 3b chronic kidney disease (HCC) (Primary Dx) 04/29/2024 Office Communication [facility] [address] [phone] Ashtyn Murrell from Last 3 Months Family [...] Orders Only [facility] [address] [phone] Tulio Mcclure MD [address] [address] Stage 3b chronic kidney disease (HCC); Type 2 diabetes mellitus with diabetic chronic kidney disease (HCC); Renal osteodystrophy 07/15/2024 4:30 PM EDT Office Visit [facility] [address] [place] [facility] [place] [address] Tulio Mcclure MD [address] [address] Health Maintenance Due Date Last Done [...] 9.6 8.7 - 10.7 mg/dL eGFR Non-Afr Iraqi 40 Hemoglobin A1C 7.9(A) 4.0 - 6.0 Triglycerides 42 40 - 160 Cholesterol 145 0 - 200 06/03/2021 Historical Provider LAB BLOOD ORDERABLES Ann l Result from Last 3 Months or Most Recently Relevant to Health Maintenance Insurance ([id number] [id number] [facility] ([id number]) [place] [id number] Care Teams Twisthand Relationship Specialty Start Date End Date Trey Love MD [address] [place], [place] PCP - General 02/17/20
--- OUTSIDE RECORDS SUMMARY | 2024-06-20 12:19 | XMS_ITS ---
Author Organization [facility] [place] Address [address] [facility] [place] [address] Care Team Providers Care Managing Attorney Name Role Phone Trey Love Primary Care Provider Twila Vargas Unavailable [phone] Allergies Allergen (clinical drug ingredient) Drug/Non Drug Allergy documented on EMR Reaction Allergy Type Onset Date Status Pollen Pollen Unknown Allergy Active REASON FOR VISIT Foot pain Medications Medication SIG (Take, Route, Frequency, Duration) Notes Start Date End Date Status Gabapentin 300 MG 1 capsule Orally at bedtime for 14 days 06/14/2024 Active Farxiga Active Fluticasone Propionate Active Ammonium Lactate 12 % 1 application Exte rnally to affected areas of dry skin to feet except for between the toes Twice a day for 30 days Active Insulin Glargine Solostar Active Atorvastatin Calcium Active Acetaminophen Active Albuterol Active Semaglutide Active Nicotine Active Ozempic Active OxyCONTIN Active Social History Tobacco Use: Social History [...] Problem Status W/U Status Risk Notes Problem Neuritis of left foot (G57.92) Active confirmed Vital Signs Height 6ft 2in in 06/14/2024 Weight 210 lbs 06/14/2024 BMI 26.96 kg/m2 06/14/2024 Encounters Encounter Location Date Provider Diagnosis [facility] [place] [address] [place] [address] 06/14/2024 Twila Holliday Pain in left foot M79.672 ; Type 2 diabetes mellitus with diabetic peripheral angiopathy without gangrene E11.51 ; Neuritis of left foot G57.92 ; Tinea unguium B35.1 ; Pain in right toe(s) M79.674 and Pain in left toe(s) M79.675 Assessments Encounter Date Diagnosis (ICD Code) Assessment Notes Treatment Notes Treatment Clinical Notes Section Notes 06/14/2024 Pain in left foot (ICD-10 - M79.672) 06/14/2024 Type 2 diabetes mellitus with diabetic peripheral angiopathy without gangrene (ICD-10 - E11.51) Q7(A), Q8(2B), Q9(1B,2C) 06/14/2024 Neuritis of left foot (ICD-10 - G57.92) 06/14/2024 Tinea unguium (ICD-10 - B35.1) 06/14/2024 Pain in right toe(s) (ICD-10 - M79.674) 06/14/2024 Pain in left toe(s) (ICD-10 - M79.675) Plan Of Treatment Medication Medication Name Sig Start Date Stop Date Notes Gabapentin 300 MG 1 capsule Orally at bedtime for 14 days 06/14/2024 Pending Test Test Name Order Date X ray : Foot, left 3V 06/14/2024 Next Appt Details Follow Up: 3 Months, Reason: Provider Name:Twila Floresmady xin, 09/13/2024 01:30:00 PM, [address] [facility], [place] [address], [place], [address], Procedure Notes * Category Sub-Category Detail Notes [...] use of a nail nipper and/or dremel-type mud grinder, to a more viable healthy nail [...] to maintain effectiveness in symptomatic relief - 96072 Keratoma Treatment Parring or Cutting o f [...] instrumentation by the physician of record - 88275, Q7 Progress Notes * Rashaad NEFF LDOB:1960 (64 yo M)Acc No.[id number]:06/14/2024 Progress Note Patient:?Rashaad NEFF Provider:?Twila Holliday DPM :1960???Age:64 Y???Sex:Male Koffi e:06/14/2024 Address:[address] [place] [address] [phone] Pcp:Trey Love Subjective: * Chief Complaints: * ???Foot pain * HPI: ???At Risk footcare:?Pt States Last PCP Visit:?Date?04/03/2024 ???Foot Pain:?Nature:?burning, tingling, shooting, radiating.?Location:?Top, Midfoot, LEFT.?Duration:?several days.?Onset:?unknown.?Course:?worse.?Aggravated:?any pressure.?Treatments:?rest/alter normal daily activity.? * ROS:?General/Constitutional:?Nausea?denies.?Vomiting?denies.?Hunger Thirst?denies.?Loss appetite?denies.?Chills?denies.?Fatigue?denies.?Fever?denies.?Night Sweats?denies.?Unexplained weight loss?denies.?Unexplained [...] Diagno stic Procedure:?No Hospitalization History. * Family History:?No Family Hi story documented..? * Social History:?Tobacco Use:?Tobacco use other than [...] no. ?Exercise: yes. ?Marital status: Single. 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 ???Drug/Alcohol:?AUDIT-C (Standard)?Did you have a drink containing alcohol in the past year??No ?Points?0 ?Interpretation?Negative * Medications:?TakingOxyCONTIN Ozempic Albuterol Acetaminophen Nicotine Semaglutide Atorvastatin Calcium Fluticasone Propionate Farxiga Insulin Glargine Solostar Ammonium Lactate 12 % Cream 1 application Externally to affected areas of dry skin to feet except for between the toes Twice a day Medication List reviewed and reconciled with the patientTaking OxyCONTIN Taking Ozempic Taking Albuterol Taking Acetaminophen Taking Nicotine Taking Semaglutide Taking Atorvastatin Calcium Taking Fluticasone Propionate Taking Farxiga Taking Insulin Glargine Solostar Taking Ammonium Lactate 12 % Cream 1 application Externally to affected areas of dry skin to feet except for between the toes Twice a day Medication List reviewed and reconciled with the patient * Allergies:?Pollenyes[Allergi es Verified] Objective: * Vitals:?Ht: 6ft 2in, Wt:210, BMI:26.96, Shoe size: 14, BS: 130, Ht-cm: 187.96 cm, Wt-k.26 kg. * ???Past Orders: ???Lab:HEMOGLOBIN A1C (GLYCO HEMOGLOBIN) (Order Date - 01/18/2024) (Collection Date & Time - 01/19/2024 11:00 AM) ? Value Reference Range ?HEMOGLOBIN A1C % (HH) 8 * Examination: ???Ophthalmology Referral: ?DIABETES EYE EXAM?Procedure Performed:?No?Neurological: ?SENSORY:?(DM/Neuro) Neurological exam demonstrates reduced sharp/dull pin prick discrimination reduced light touch sensation reduced vibration sensation reduced proprioception sensation in a stocking fashion 5.07 monofilament test performed at plantar aspects of 5 varied sites per foot shows sensation plantar aspects absent at Forefoot B/L.?TINEL'S COMPRESSION:? 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 Assessment: * Assessment: 1.?Type 2 diabetes mellitus with diabetic peripheral angiopathy without gangrene - E11.51 (Primary)???Notes :Q7(A), Q8(2B), Q9(1B,2C)???2.?Pain in left foot - M79.672???3.?Neuritis of left foot - G57.92???Specify :Acute problem, Complicated w/ Multiple Tx Options(4),Dx New problem, Prognosis Uncertain (4)???4.?Tinea unguium - B35.1???5.?Pain in right toe(s) - M79.674???6.?Pain in left toe(s) - M79.675??? Plan: * Treatment: * Procedures:?Debride Nail 6-10:?Nail debridement?Due to the [...] use of a nail nipper and/or dremel-type mud grinder, to a more viable healthy nail [...] to maintain effectiveness in symptomatic relief - 91535.?Keratoma Treatment:?Parring or Cutting of Benign Hyperkeratotic Lesion(s)?(-57) [...] instrumentation by the physician of record - 82553, Q7.? * Procedure Codes:?21964 DEBRI DE NAIL, 6 OR MORE, Modifiers: XS 05186 TRIM SKIN LESIONS, OVER 4, Modifiers: XS , Q7 * Preventive Medicine:? ??Counseling:?Discussion:?-14: Office or other outpatient visit for the [...] have encouraged the patient to call the office.?Neuritis/Neuropathy:?The patient was counseled on the diagnosis, possible etiologies (including mechanical stress, injury, entrapment, chemotherapy, diabetes, vertebral disk herniation if hx), treatment options, and importance for adherence to recommendations in order to address the patients Neuritis/Neuropathy. The advantages and disadvantages re: Accomidative mechanical support/offloading, Topical vs PO analgesics including Aspercream/Voltaren gel/Lidoderm patches/Neurontin/Lyrica along with their potential side effects were discussed with the patient to their satisfaction. Also discussed the use of therapeutic injectable cortisone if needed. Surgical treatment, if considered an option, was discussed as well. If surgery is warranted, we discussed the potential successful outcomes as well as the possible complications such as failure, painful scar, permanent tingling/numbness/neuralgea/or intractable pain. Patient questions re: medication use, dosage, and possible side effects and drug interactions were reviewed and the answers to each understood. If the condition worsens, the patient was instructed to contact the office for an appointment. The patient verbally confirmed a full understanding of the above.?Orthotics:?I explained to the patient the benefits of OT use. I explained that orthoses are medically necessary to decrease the foot pain through proper mechanical control, support of their foot.?Podiatric Surgery Counseling:?Surgical procedures to treat the patients foot problem were discussed. We reviewed the risks of the procedure (described below) vs not having the procedure (persistent pain, deformity, risk for skin ulceration/infection, loss of toe). We discussed the potential procedure complications including, but not limited to: pain, swelling, bleeding, scarring, numbness, infection, delayed/non healing, floppy/unstable/shorthened toe, recurrence, failure of the procedure, overcorrection leading to plantarflexed/downward positioned toe, recurrence, need for further surgery, as well as the possibility for loss of the toe itself. We discussed the use of IV/Local anesthesia, and the usual post-op course for healing. No guarentees were given. The patient verbally indicated a full understanding of the above conversation, and any other of their questions were answered to their satisfaction.?Shoe Gear Counseling:?The patient and I reviewed the types of shoes they should be wearing. My recommendation included obtaining a well-fitted shoe with a good supportive, non-foldable nor twistable sole, plenty of toe/room for the forefoot, and proper arch support. Based on todays examination, I recommended the patient look for new shoes, by having their feet professionally measured. We discussed that generally the best time of the day for a shoe fitting is the afternoon. Different shoes types and brands to best match the patients occupation and vocation were discussed. Specific brand selection will be up to the patient, their individual foot condition/deformities, and fit. The patient and I reviewed the standard new shoe break in period by wearing them for a few hours a day while checking for redness or sores as wear time is increased. The patient verbally confirmed to understanding the information discussed.?Steriod Injection:?I explained that a steroid and local anesthetic injections are administered to relieve pain and inflammation and thereby meant to improve function. I explained the possible complications including but not limited to signs/symptoms of steroid flare, infection, bruising, atrophy, discoloration of skin, change/deviation in toe position, and that additional injections may be necessary, cortisone post-injection informative educational handout was dispensed to and reviewed with the patient.? ??Screening/Special Tests:?Fall Risk?Screening:?No falls in the past year ?FALLS: Screening for Future Fall Risk?Have you had any falls with injury in the past year??No * Follow Up:?3 Months * Images: * Sign off status: Completed true * Provider:?Twila Holliday DPM Date:?0 06/14/2024 Generated for Guille garcia/Vaughn/eTransmitting on:?06/20/2024 12:19 PM EDT History and Physical Notes * HPI (History of Present Illness) Category Sub-Category Detail Notes Category Not es At Risk footcare Pt States Last PCP Visit: Date: 5 Foot Pain Nature: burning, tinglin g, shooting, radiating Location: Top, Midfoot, LEFT Duration: several days Onset: unknown Course: worse Aggravated: any pressure Treatments: rest/alter normal da anne activity Examination Category Sub-Category Detail Notes Category Not es Neuroma Pain PALPATION: No interspace pain noted on palpation Neurological SENSORY: (DM/Neuro) Neuro logical exam demonstrates reduced sharp/dull pin prick discrimination reduced light touch sensation reduced vibration sensation reduced proprioception sensation in a stocking fashion 5.07 monofilament test performed at plantar aspects of 5 varied sites per foot shows sensation plantar aspects absent at Forefoot B/L TINEL'S COMPRESSION: Positive, Medial do rsal cutaneous nerve distribution, Intermediate dorsal cutaneous nerve distribution, Left Orthopedic FOOTWEAR EVALUATION: shoe gear p roperties exacerbate patients foot/toe deformity MUSCLE STRENGTH: 5/5 all groups in a symmetrical fashion, B/L General Examination GENERAL APPEARANCE: Reveals [...]
--- OUTSIDE RECORDS SUMMARY | 2024-06-20 12:19 | XMS_ITS ---
Author Organization [facility] Address [address] [place] [address] Care Team Providers Care Student Advisor Name Role Phone Trey Love Primary Care Provider Twila Vargas [phone] Oshea/SHARMIN Encounters Encounter Location Date Provider Diagnosis [facility] [address] [place] [address] 03/08/2024 Twila Holliday Plan Of Treatment Next Appt Details Provider Name:Twila lauren, 09/13/2024 01:30:00 PM, [address] [address], [place], [address], Progress Notes * Rashaad NEFF LDOB:1960 (64 yo M)Acc No.[id number]:03/08/2024 Patient:?Rashaad NEFF :1960???Age:64 Y???Sex:Male Address:[address] [place], [place] [address] [place] [address] * true * Date:? Generated for Printi ng/Faxing/eTransmitting on:?06/20/2024 12:19 PM EDT
--- OUTSIDE RECORDS SUMMARY | 2024-06-20 12:20 | XMS_ITS | Encounter Summary ---
Author Organization [facility] Address [address] [facility] [address] [place] [address] Phone Care Team Providers Care Truck Unloader Name Role Phone Trey Love MD Primary Care Provider [phone] Reason for Visit * Reason Comments Med Refill Encounter Details Date Type Department Care Team (Late Contact Info) Description 07/17/2023 Refill [facility] [address] [place] [id number] Tulio Mcclure MD [address] [address] Social History Tobacco Use Types [...] Orders Only [facility] [address] [facility] [address] [place] [address] Tulio Mcclure MD [address] [address] Stage 3b chronic kidney disease (HCC); Type 2 diabetes mellitus with diabetic chronic kidney disease (HCC); Renal osteodystrophy 07/15/2024 4:30 PM EDT Office Visit [facility] [address] [place] [address] Tulio Mcclure MD [address] [facility] [address] [place] [address] documented as of this encounter [...] * PTH, Intact (08/25/2023 9:49 AM EDT) Parathyroid Hormone, Intact 8.7 - 77.1 pg/mL [...] analytical performance characteristics have been determined by [employer]. It has not been cleared or approved by FDA. This assay has been validated pursuant to the CLIA regulations and is used for clinical purposes. THIS TEST PERFORMED AT: [facility] [address] [place] [phone] [employer] JOURNALIST: BEBETO DA SILVA MD, PHD, GIANNI 08/25/2023 9:49 AM EDT 08/25/2023 9:49 AM EDT Narrative [place] - 09/04/2023 7:35 AM EDT SENT TO [employer] Tulio Mcclure MD LAB [id number] SOLICITED RESULTS Final Result Performing Organization Address [facility] de Phone Number [place] See order comments [place] [address] * Vitamin D 25 Hydroxy (08/25/2023 9:49 AM EDT) Pathologist [facility] Vitamin D, 25-Hydroxy 42.5 >30 ng/mL See [...] Organization Address [facility] de Phone Number [place] See order comments [place] [address] * Albumin (08/25/2023 9:49 AM EDT) Albumin 4.2 3.5 - 5.0 g/dL See order comments 08/25/2023 9:49 AM EDT 08/25/2023 9:49 AM EDT Tulio Mcclure MD LAB BLOOD ORDERABLES Final Re sult Performing Organization Address [facility] de Phone Number [place] See order comments [place] [address] * Magnesium (08/25/2023 9:49 AM EDT) Magnesium 2.2 1.6 - 2.6 mg/dL See order comments 08/25/2023 9:49 AM EDT 08/25/2023 9:49 AM EDT Tulio Mcclure MD LAB BLOOD ORDERABLES Final Re sult Performing Organization Address [facility] de Phone Number [place] See order comments [place] [address] * Phosphorus (08/25/2023 9:49 AM EDT) Phosphorus, Serum 3.6 2.7 - 4.5 mg/dL See order comments 08/25/2023 9:49 AM EDT 08/25/2023 9:49 AM EDT Tulio Mcclure MD LAB BLOOD ORDERABLES Final Re sult Performing Organization Address [facility] de Phone Number [place] See order comments [place] [address] * Calcium (08/25/2023 9:49 AM EDT) Calcium 9.9 8.4 - 10.2 mg/dL See order comments 08/25/2023 9:49 AM EDT 08/25/2023 9:49 AM EDT Tulio Mcclure MD LAB BLOOD ORDERABLES Final Re sult Performing Organization Address [facility] Phone Number [place] See order comments [place] [address] * (ABNORMAL) Creatinine (08/25/2023 9:49 AM EDT) Creatinine Serum 1.99(H) 0.5 - 1.4 mg/dL See order comments eGFR (Calc) 34 See orde r comments Comment: NOTE: ??For -[place] individuals, multiply the result ? by . Chronic Kidney Disease: ??Estimated GFR < 60 mL/min/1.73m2 Severe Kidney Disease: ??Estimated GFR < 15 mL/min/1.73m2 08/25/2023 9:49 AM EDT 08/25/2023 9:49 AM EDT Tulio Mcclure MD LAB BLOOD ORDERABLES Final Re sult Performing Organization Address [facility] de Phone Number [place] See order comments [place] [address] * (ABNORMAL) BUN (08/25/2023 9:49 AM EDT) BUN 37(H) 9 - 16 mg/dL See order comments 08/25/2023 9:49 AM EDT 08/25/2023 9:49 AM EDT Tulio Mcclure MD LAB BLOOD ORDERABLES Final Re sult Performing Organization Address [facility] de Phone Number [place] See order comments [place] [address] * (ABNORMAL) Electrolyte panel (08/25/2023 9:49 AM [...] order comments [place] [address] * CBC and Differential (08/25/2023 9:49 AM [...] MD LAB BLOOD ORDERABLES Final Re sult [place] See order comments [place] [address] documented in this encounter Visit Diagnoses Not on filedocumented in this encounter Care Teams Truck Unloader Relationship Specialty Start Date End Date Trey Love MD [facility] [address] [place], [place] PCP - General 02/17/20 documented as of this encounter
--- OUTSIDE RECORDS SUMMARY | 2024-06-20 12:20 | XMS_ITS | Patient Health Record ---
Author Organization [facility] [place] Address [address] [place] [address] Care Team Providers Care Ton Cylinder Inspector Name Role Phone Ivan Trey Primary Care Provider Twila Vargas Unavailable [phone] Allergies Allergen (clinical drug ingredient) Drug/Non Drug Allergy documented on EMR Reaction Allergy Type Onset Date Status Pollen Pollen Unknown Allergy Active Results Component Value Reference Range Notes HEMOGLOBIN A1C (GLYCOHEMOGLO BIN) Reviewed date:03/08/2024 10:25:27 AM Interpretation: Performing Lab: Notes/Report: HEMOGLOBIN A1C % (HH) 8.0 HEMOGLOBIN A1C (GLYCOHEMOGLO BIN) Reviewed date:06/14/2024 11:00:39 AM Interpretation: Performing Lab: Notes/Report: HEMOGLOBIN A1C % (HH) 8 Reason For Referral No Information Medications Medication SIG (Take, Route, Frequency, Duration) Notes Start Date End Date Status Gabapentin 300 MG 1 capsule Orally at bedtime for 14 days 06/14/2024 Active Atorvastatin Calcium Active Farxiga Active Fluticasone Propionate Active Ammonium Lactate 12 % 1 application Exte rnally to affected areas of dry skin to feet except for between the toes Twice a day for 30 days Active Insulin Glargine Solostar Active Ozempic Active OxyCONTIN Active Acetaminophen Active Albuterol Active Semaglutide Active Nicotine Active Social History Tobacco Use: Social History [...] Type 2 diabetes mellitus with peripheral angiopathy (568808760) Type 2 diabetes mellitus with diabetic peripheral angiopathy without gangrene (E11.51) Active confirmed Q7(A), Q8(2B), Q9(1B,2C) Problem Mononeuropathy of lower limb (633714968) Neuritis of left foot (G57.92) Active confirmed Problem Ischemic ulcer of left foot, limited to breakdown of skin (L97.521) Active confirmed Response to treatment Vital Signs Blood pressure diastolic 65 mm Hg 03/08/2024 Height 6ft 2in in 06/14/2024 Blood pressure systolic 129 mm Hg 03/08/2024 Weight 210 lbs 06/14/2024 BMI 26.96 kg/m2 06/14/2024 Procedures Procedure Date Ordered Date Performed Result Body Sit e 86317-YFZQQGX NAIL, 6 OR MORE 03/08/2024 N/A 32283-KEDZ SKIN LESIONS, OVER 4 03/08/2024 N/A Encounters Encounter Location Date Provider Diagnosis [facility] [address] 03/08/2024 Twila Holliday Type 2 diabetes mellitus with diabetic peripheral angiopathy without gangrene E11.51 ; Dehiscence of operative wound, initial encounter T81.31XA ; Tinea unguium B35.1 ; Pain in right toe(s) M79.674 ; Pain in left toe(s) M79.675 and Xerosis of skin L85.[address] [facility] [address] 06/14/2024 Twila Holliday Pain in left foot M79.672 ; Type 2 diabetes mellitus with diabetic peripheral angiopathy without gangrene E11.51 ; Neuritis of left foot G57.92 ; Tinea unguium B35.1 ; Pain in right toe(s) M79.674 and Pain in left toe(s) M79.675 [facility] [address] [place] [address] 12/21/2023 [facility] [address] [place] [address] 02/09/2024 [facility] [address] [address] 03/08/2024 [facility] [address] [address] 03/08/2024 Twila Holliday Assessments Encounter Date Diagnosis (ICD Code) Assessment Notes Treatment Notes Treatment Clinical Notes Section Notes 03/08/2024 Type 2 diabetes mellitus with diabetic peripheral angiopathy without gangrene (ICD-10 - E11.51) Q7(A), Q8(2B), Q9(1B,2C) 03/08/2024 Dehiscence of operative wound, initial encounter (ICD-10 - T81.31XA) 06/14/2024 Type 2 diabetes mellitus with diabetic peripheral angiopathy without gangrene (ICD-10 - E11.51) Q7(A), Q8(2B), Q9(1B,2C) 06/14/2024 Pain in left foot (ICD-10 - M79.672) 03/08/2024 Tinea unguium (ICD-10 - B35.1) 06/14/2024 Neuritis of left foot (ICD-10 - G57.92) 03/08/2024 Pain in right toe(s) (ICD-10 - M79.674) 06/14/2024 Tinea unguium (ICD-10 - B35.1) 03/08/2024 Pain in left toe(s) (ICD-10 - M79.675) 06/14/2024 Pain in right toe(s) (ICD-10 - M79.674) 03/08/2024 Xerosis of skin (ICD-10 - L85.3) 06/14/2024 Pain in left toe(s) (ICD-10 - M79.675) 03/08/2024 Other Patient Educated with: WOUND CARE INSTRUCTIONS.p df (WOUND CARE INSTRUCTIONS.p df) Plan Of Treatment Pending Test Test Name Order Date X ray : Foot, left 3V 06/14/2024 40619-RAXOANT NAIL, 6 OR MORE 03/08/2024 38334-VTVX SKIN LESIONS, OVER 4 03/08/19 Next Appt Details Provider Name:Twila lauren, 09/13/2024 01:30:00 PM, [address] [facility], [address], [place], [address], Insurance Providers Payer Name Payer Address Payer Phone Subscriber Number Group Number Insured Name Patient Relationship to Insured Coverage Start Date Coverage End Date [facility] [employer] Claims [address] [place] [phone] [id number] Rashaad Neff Self - patient is the insured Medical (General) History Medical History History ICD Code asthma CAD (Cholesterol) Diabetic Glaucoma High Blood Pressure Macular degeneration Psychiatric disorder blindness Surgical History Surgery Date(Month/Year) toe amputation, small toe left foot 02/26 24
== END 2024-06-20 11:47 | disposition home or self-care (01) ==
PROVIDERS: PCP Internal Medicine; Visit Provider Surgery
DX: I96 Gangrene, not elsewhere classified (principal)
CPT/HCPCS: 99213

== ENCOUNTER → 2024-06-20 11:06 | Outpatient (BNVA) | payer OTHER, SELFPAY | PROVIDERS: PCP Internal Medicine; Visit Provider Surgery | DX: I96 Gangrene, not elsewhere classified (principal); S91.302D Unspecified open wound, left foot, subsequent encounter; X58.XXXD Exposure to other specified factors, subsequent encounter; Z89.422 Acquired absence of other left toe(s) | CPT/HCPCS: 99212 ==

== ENCOUNTER 2024-07-12 12:42 | Outpatient (REF) | payer OTHER, SELFPAY ==
--- NOTE | ~2024-07-12 | US_ITS ---
EXAMINATION: COLOR-FLOW DUPLEX IMAGING OF THE BILATERAL LOWER EXTREMITY ARTERIAL SYSTEM. CLINICAL INFORMATION: 64-year-old male, nonhealing wounds. FINDINGS: Atheromatous Plaque: Mild to moderate scattered atheromatous plaque identified. RIGHT FEMORAL RUNOFF VELOCITIES: The right common femoral artery measures 107 cm/s and biphasic. The right profunda femoral artery is 249 cm/s and is biphasic. (Moderate stenosis by velocity criteria) The right proximal superficial femoral artery measures 176 cm/s and triphasic. (Moderate stenosis by velocity criteria) The right mid superficial femoral artery is 72 cm/s and triphasic. The right distal right superficial femoral artery measures 125 cm/s and is triphasic. (Mild stenosis by velocity criteria) The right popliteal velocity measures 28 cm/s and is monophasic. The right posterior tibial artery velocity measures 15 cm/s and is monophasic. The right peroneal artery velocity measures 63 cm/s and is monophasic. LEFT FEMORAL RUNOFF VELOCITIES: The left common femoral artery measures 141 cm/s and triphasic. (Mild stenosis by velocity criteria) The left profunda femoral artery is 149 cm/s and is triphasic. (Mild stenosis by velocity criteria) The left proximal superficial femoral artery measures 90 cm/s and monophasic. The left mid superficial femoral artery is 63 cm/s and monophasic. The left distal right superficial femoral artery measures 59 cm/s and is monophasic. The left popliteal velocity measures 362 cm/s and is monophasic. (Findings suggest a severe stenosis) The left posterior tibial artery velocity measures 74 cm/s and is monophasic. 7 left peroneal artery is not well seen. US/US arterial duplex LE BI IMPRESSION: 1. Moderate bilateral scattered atheromatous plaque seen. 2. Biphasic right common femoral artery waveforms, may indicate inflow stenoses. 2. Significant bilateral left greater than right lower extremity peripheral vascular disease present at the tibial level and distally. Electronically signed by: Mateo Tong MD 07/12/2024 01:49 PM EDT
--- OUTSIDE RECORDS SUMMARY | 2024-07-12 12:43 | XMS_ITS | Encounter Summary ---
Author Organization [facility] Address [address] [facility] [address] [place] [address] Phone Care Team Providers Care Cruise Agent Name Role Phone Trey Love MD Primary Care Provider [phone] Encounter Details Date Type Department Care Team (Late Contact Info) Description 11/30/2021 Telephone [facility] [address] [facility] [address] [place] [address] Tulio Mcclure MD [address] [facility] [address] [place] [address] Social History Tobacco Use Types [...] Visit [facility] [address] [place] [id number] Tulio Mcclure MD [address] [address] documented as of this encounter Visit Diagnoses Not on filedocumented in this encounter Care Teams Cruise Agent Relationship Specialty Start Date End Date Trey Love MD [address] [place], [place] PCP - General 02/17/20 documented as of this encounter
== END 2024-07-12 12:43 | disposition home or self-care (01) ==
LOC: HO.US 12:42
PROVIDERS: PCP Internal Medicine; Visit Provider Surgery Surgical Oncology
DX: L97.524 Non-pressure chronic ulcer of other part of left foot with necrosis of bone (principal); L97.919 Non-pressure chronic ulcer of unspecified part of right lower leg with unspecified severity; I73.9 Peripheral vascular disease, unspecified
CPT/HCPCS: 93925

== ENCOUNTER → 2024-07-12 13:04 | Outpatient (BNV) | payer OTHER, SELFPAY | PROVIDERS: PCP Internal Medicine; Visit Provider Radiology Diagnostic Radiology | DX: I70.90 Unspecified atherosclerosis (principal) | CPT/HCPCS: 93925 ==

== ENCOUNTER 2024-07-18 14:13 | Outpatient (AMB) | payer OTHER, SELFPAY ==
--- NOTE | 2024-07-18 14:17 | A.OFFVIS_ITS ---
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 Started in January of 2024. Pain when walking, walks with a cane due to pain. Patient gets dressings changed every two days. Upon removing bandages and wraps the patient had a palm sized amount of blood/drainage. Accompanied by: Unknown Allergies pollen extracts [POLLEN] Allergy (Mild, Verified 07/18/24 14:22) SNEEZE PUFFY EYES HPI HPI PHARMACY ORDER ENTRY TECHNICIAN/WoundCare referral for non healing L foot wound: Details: Complex blind 64-year-old gentleman presents for evaluation regarding nonhealing left open toe. He had what appears to be wet gangrene and on May [address] Gasca. He has been [facility]. Of note patient is type 2 diabetic with stage 3 kidney disease. He does have history of hepatitis-C. At the current time he smokes a proximally a half a pack per day. 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 Other Mental health disorder Social History Household Members: None Housing: House Housing Other:: room in Boarding House Are you a primary physician assistant primary care to a significant other at home: No Do you presently have visiting nurse or other home services: Yes ([facility] 2 X week) Alcohol intake: never Comment: counts correct Patient Tobacco Use Status: Current everyday Tobacco user Tobacco use type: Cigarette Cigarette Packs Per Day: 1 Cigarettes Per Day: 12 Years Smoked: 40 e-Cigarette/Vaping Use: Never Used Second Hand Smoke Exposure: Yes Advance Directives Date on File: 01/18/24 service: No Current occupational status: disabled Cognitive needs: Yes (Blind stick, walker) Hearing needs: No Vision needs: No Review of Systems Const All systems reviewed & are unremarkable except as noted in HPI and below Reports no additional complaints ENT Reports Normal hearing present Card Denies chest pain, Denies chest pain at rest, Denies chest pain with activity and Denies pedal edema Resp Denies cough GI Denies abdominal pain Musc Denies abnormal gait, Denies muscle cramps and Denies radiating pain into limb Skin/Breast Denies skin ulcer and Denies wounds Neuro Reports Normal hearing present and Denies abnormal gait Psych Reports no additional complaints Physical Exam Const General: cooperative, healthy appearing and comfortable Orientation/consciousness: oriented to person, oriented to place and oriented to time HEENT Head: Yes normal to inspection Neck Neck: Yes normal visual inspection Carotids: no bruits Chest Chest palpation & inspection: normal inspection of the chest Resp Effort & Inspection: normal respiratory effort and able to speak in complete sentences Auscultation: clear to auscultation bilaterally, no crackles, no rales, no rhonchi and no wheezes Cardio Other: Bilateral DP signals Rate: regular rate Rhythm: regular rhythm Heart sounds: S1 normal heart sound present and S2 normal heart sound present Bruits: no carotid bruits Peripheral pulses: Peripheral pulses 2+ throughout GI Inspection: Yes normal to inspection Skin Other: Left 5th toe amputation site has an open wound measuring 5.5 x 4 x 0.3 cm with a clean granulation base. Wounds: no wounds Hair: normal Neuro General: oriented to person, oriented to place and oriented to time Cranial nerves: Yes CN's II-XII intact bilaterally and Yes Normal hearing present Cognition (Neuro): normal cognition Motor exam (neuro): 5/5 motor strength present throughout Extrem Other: venous exam: No significant superficial varicosities or spider telangiectasias, minimal edema General: No clubbing, No cyanosis and No edema Psych Appearance: grossly normal Mental Status: mental status grossly normal Speech and movement: Normal speech and movement present Results Reviewed Results Reviewed: 07/13/2023 - noninvasive arterial testing demonstrates tibial disease. Assessment & Plan Assessment & Plan (1) PAD (peripheral artery disease): Code(s): I73.9 - Peripheral vascular disease, unspecified Category: Medical Plan: Patient notes nonhealing left foot ulcer I have discussed the pathophysiology of peripheral vascular disease with the patient. I have also discussed risk factor modification. I have reviewed the patient's arterial testing which reveals left leg tibial disease. the patient would benefit from a left leg endovascular peripheral angiogram with possible angioplasty, stent, and/or atherectomy. This has been discussed in detail with the patient along with risks, benefits, and complications. This includes but is not limited to bleeding, infection, heart attack, need for emergent surgical repair, limb ischemia, blood vessel damage, bleeding, puncture, kidney injury, bruising, allergic reaction, and skin reaction. The patient demonstrates a clear understanding. We will schedule for the next appropriate time. Thank you for allowing us to assist in this patient's care. Coding Level of Care Code New Pt Level 4 (89421) Complex EM visit Add On G2211 Diagnoses PAD (peripheral artery disease) I73.9
--- OUTSIDE RECORDS SUMMARY | 2024-07-18 16:46 | XMS_ITS | Encounter Summary ---
Author Organization [facility] Address [address] [facility] [address] [place] [address] Phone Care Team Providers Care Home Health Aide Caregiver Name Role Phone Trey Love MD Primary Care Provider [phone] Encounter Details Date Type Department Care Team (Late Contact Info) Description 11/30/2021 Telephone [facility] [address] [facility] [address] [place] [address] Tulio Mcclure MD [address] [facility] [address] [place] [phone] Social History Tobacco Use Types Packs/Day Years [...] Care Team (Late st Contact Info) Description 01/13/2025 4:00 PM EST Office Visit [facility] [address] [place] [phone] Tulio Mcclure MD [address] [address] documented as of this encounter Visit Diagnoses Not on filedocumented in this encounter Care Teams Home Health Aide Caregiver Relationship Specialty Start Date End Date Trey Love MD [address] [place], [place] PCP - General 02/17/20 documented as of this encounter
== END 2024-07-18 15:07 | disposition home or self-care (01) ==
PROVIDERS: PCP Internal Medicine; Visit Provider Surgery Vascular Surgery
DX: I73.9 Peripheral vascular disease, unspecified (principal)
CPT/HCPCS: 99204; G2211

== ENCOUNTER → 2024-07-18 14:13 | Outpatient (BNVA) | payer OTHER, SELFPAY | PROVIDERS: PCP Internal Medicine; Visit Provider Surgery Vascular Surgery | DX: I82.542 Chronic embolism and thrombosis of left tibial vein (principal); I73.9 Peripheral vascular disease, unspecified | CPT/HCPCS: 99202 ==

== ENCOUNTER 2024-07-24 07:09 | Day surgery (SDC) | payer OTHER, SELFPAY ==
--- OUTSIDE RECORDS SUMMARY | 2024-07-19 11:03 | XMS_ITS | Encounter Summary ---
Author Organization [facility] Address [address] [facility] [address] [place] [address] Phone Care Team Providers Care Instructional Writer Name Role Phone Trey Love MD Primary Care Provider [phone] Encounter Details Date Type Department Care Team (Late Contact Info) Description 11/30/2021 Telephone [facility] [address] [facility] [address] [place] [address] Tulio Mcclure MD [address] [facility] [address] [place] [phone] Social History Tobacco Use Types Packs/Day Years [...] Visit [facility] [address] [place] [phone] Tulio Mcclure MD [address] [address] documented as of this encounter Visit Diagnoses Not on filedocumented in this encounter Care Teams Instructional Writer Relationship Specialty Start Date End Date Trey Love MD [address] [place], [place] PCP - General 02/17/20 documented as of this encounter
[2024-07-24] VITALS (24 sets, daily range): BP systolic 98–149; BP diastolic 56–83; PULSE 62–70; RESP 10–18; TEMP 36.6–36.7; O2SAT 95–99; BMI 23.8
[2024-07-24 08:15] LABS: MANUAL DIFF FLAG NO
[2024-07-24 08:19] LABS: Basophils Percent Auto 0.1 % (0-2); Eosinophils Absolute Auto 0.2 X10*3/uL (0.0-0.4); Eosinophils Percent Auto 2.4 % (0-4); Hemoglobin 12.9 g/dl (14.0-18.0); Imm Gran Abs Auto 0.01 X10*3/uL (0.00-0.03); Imm Gran Pct Auto 0.1 % (0.0-0.4); Lymphocytes Absolute Auto 1.7 X10*3/uL (1.2-4.9); Lymphocytes Percent Auto 25.6 % (20-40); Mean Corpuscular HGB Conc 33.9 g/dl (31.0-36.0); Mean Corpuscular Hemoglobin 30.6 pg (27.0-33.0); Mean Corpuscular Volume 90.3 fL (80.0-98.0); Mean Platelet Volume 10.2 fL (9.4-12.4); Monocytes Absolute Auto 0.7 X10*3/uL (0.1-1.2); Monocytes Percent Auto 10.2 % (2-11); Neutrophils Absolute Auto 4.2 x10*3/uL (2.0-8.3); Neutrophils Percent Auto 61.6 % (45-73); Platelet Count 203 X10*3/uL (160-400); Red Blood Count 4.21 X10*6/uL (4.60-5.80); Red Cell Distribution Width 14.1 % (11.0-16.0); White Blood Count 6.8 X10*3/uL (4.8-10.8)
[2024-07-24] MEDS: 0.9 % Sodium Chloride 1,000 ML 100 ML IVCONT (08:27)
[2024-07-24 08:32] LABS: Blood Urea Nitrogen 39 mg/dL (9-16); Estimated Glomerular Filt Rate 32
[2024-07-24 08:48] LABS: Glucose, Whole Blood 172 mg/dL (60-115)
[2024-07-24] MEDS: Midazolam HCl 2 MG/2 ML VIAL 0.5 MG IVPUSH ×2 (09:51→10:27)
[2024-07-24] MEDS: fentaNYL citrate/PF 100 MCG/2 ML VIAL 25 MCG IVPUSH ×2 (09:51→10:27)
[2024-07-24] MEDS: Heparin Sodium,Porcine 10,000 UNIT/10 ML VIAL 5000 UNIT IVPUSH (10:06)
[2024-07-24] MEDS: Heparin Sodium,Porcine 10,000 UNIT/10 ML VIAL 2000 UNIT IVPUSH (10:16)
--- NOTE | 2024-07-24 10:52 | W.PM.OPN ---
Operative Note Operative Note Date of Service: 07/24/24 Narrative: Angiogram report from [facility] Preoperative diagnosis: Atherosclerosis of left lower extremity with nonhealing ulcer Postoperative diagnosis: Same Procedure: 1. Ultrasound-guided right common femoral access 2. Aortogram with bilateral lower extremity runoff 3. Left popliteal atherectomy and plasty Surgeon:Todd Huntley M.D., FACS, RPVI Railroad Signal Technician:None Anesthesia: Local with moderate conscious sedation. Total intraservice moderate sedation time was 54 minutes. I monitored the patient's level of consciousness and physiologic status continuously throughout the procedure. Specimens:none Drains:none Estimated blood loss: Less than 10 ml Radiation Dose: 2-0 9.3 mGy Implant: CoCollage Impact DCB 5 x 80 Indications: 64-year-old diabetic gentleman with nonhealing amputation site had noninvasive testing. Concerning of SFA and tibial disease. He now presents for endovascular intervention The patient has signed the informed consent after reviewing risks, complications, benefits, and alternatives previously discussed with the patient. The patient was given the opportunity to ask any additional questions or voice any concerns. All questions were answered to the patient's satisfaction. Procedure in detail: Patient was brought to the angiography suite prior to which a time-out was called for patient identification and site verification. Bilateral groins were prepped and draped in the standard surgical fashion. Under ultrasound guidance right common femoral was punctured with micro puncture needle and wire. Subsequently a precision 5 Canadian sheath was then placed. Bentson wire was advanced to the level of the aorta. 5 Canadian Flush catheter was brought up and parked at the level of the renal arteries. Aortogram was then undertaken. Catheter was brought down to the level of the iliac bifurcation. Iliacs and runoff was performed through the flush catheter that was parked at the bifurcation and a power injection was performed to visualize bilateral runoff vessels. Subsequently the catheter was then brought in up and over to the left side SFA. We did close up views of the popliteal artery with multiple orthogonal views. It was noted that it was extremely calcified with a high-grade stenosis. We were able to traverse this with an 035 glidewire Advantage wire. Once across we administered 5000 units of systemic heparin with an additional 2000 unit bolus. Once this was accomplished we placed an up and over 6 Canadian sheath. We then exchanged out for a 6 Canadian spider wire. We used a 6 Canadian HawkOne atherectomy device in the left popliteal region. Multiple unidirectional passes were undertaken. We did see an improvement in luminal caliber but there was still some residual stenotic areas. At this point we brought in a 5 x 80 drug coated balloon. This was brought into position in under 3 minutes and insufflated for a total of 3 minutes in duration. Patient tolerated that well. Completion angiogram demonstrated good result. Catheter wire sheath was brought back through the ipsilateral side. Through the sheath we instilled contrast in a demonstrated appropriate puncture site. We exchanged out for a short 6 Canadian sheath. Through this we deployed a 6 Canadian CELT closure device. Patient tolerated the procedure well. Returned to recovery with stable vitals. Interpretation of films: 1. Ultrasound demonstrates appropriate femoral access site. Vessel was patent with minimal stenosis. Needle entry was visualized. Image of ultrasound was saved. 2. Aortogram demonstrates appropriate caliber aorta. Minimal disease. Appropriate take-off of the renals. 3. Iliac images demonstrate no significant disease 4. Left Leg Common femoral artery: No significant disease Profundus Femoris: No significant disease Superficial femoral artery: Mild stenosis in the distal SFA Popliteal artery (p1,p2,p3): High-grade stenosis starting at the P1 segment of the popliteal extremely calcified going down into the P2 segment. P3 was clean Anterior tibial artery: No significant disease Peroneal artery: No significant disease Posterior tibial artery: No significant disease Dorsalis pedis/plantar arch: Incomplete 5. Right Leg Common femoral artery: No significant disease Profundus Femoris: No significant disease Superficial femoral artery: Mild stenosis in the distal SFA Popliteal artery (p1,p2,p3): No significant disease Anterior tibial artery: No significant disease Peroneal artery: No significant disease Posterior tibial artery: No significant disease Dorsalis pedis/plantar arch: Did not visualize Conclusion: 1. Successful left popliteal atherectomy and plasty 2. Anticoagulation status: 6 months of aspirin and Plavix This note is constructed using voice recognition software. While every effort has been made to ensure accuracy, mandrel press hand errors may have been included. Thank you for allowing me to participate in the care of your patient. Yours sincerely, Todd Huntley MD, FACS, R.P.V.I.
[2024-07-24] MEDS: oxyCODONE HCl Immed Release 5 MG TABLET PO (11:33)
[2024-07-24] MEDS: Clopidogrel Bisulfate 300 MG TABLET PO (11:33)
[2024-07-24] MEDS: Aspirin 325 MG TABLET 650 MG PO (12:20)
[2024-07-29 11:26] LABS: ACT 236 Celite s (79-173)
[2024-07-29 11:26] LABS: ACT 189 Celite s (79-173)
== END 2024-07-24 13:20 | disposition home or self-care (01) ==
PROVIDERS: PCP Internal Medicine; Visit Provider Surgery Vascular Surgery
DX: E11.51 Type 2 diabetes mellitus with diabetic peripheral angiopathy without gangrene (principal); L97.529 Non-pressure chronic ulcer of other part of left foot with unspecified severity; I70.245 Atherosclerosis of native arteries of left leg with ulceration of other part of foot; Z89.422 Acquired absence of other left toe(s); E11.21 Type 2 diabetes mellitus with diabetic nephropathy; E11.22 Type 2 diabetes mellitus with diabetic chronic kidney disease; I12.9 Hypertensive chronic kidney disease with stage 1 through stage 4 chronic kidney disease, or unspecified chronic kidney disease; N18.30 Chronic kidney disease, stage 3 unspecified; E11.3592 Type 2 diabetes mellitus with proliferative diabetic retinopathy without macular edema, left eye; E11.65 Type 2 diabetes mellitus with hyperglycemia; E78.00 Pure hypercholesterolemia, unspecified; H40.9 Unspecified glaucoma; Z79.4 Long term (current) use of insulin; Z79.85 Long-term (current) use of injectable non-insulin antidiabetic drugs; F17.210 Nicotine dependence, cigarettes, uncomplicated
CPT/HCPCS: 36415; 37225; 76937; 82565; 82947; 84520; 85025; 85347; C1714; C1760; C1769; C1887; C1894; C2623; J1644; J2250; J3010; Q9967

== ENCOUNTER → 2024-07-24 07:09 | Outpatient (BNV) | payer OTHER, SELFPAY | PROVIDERS: PCP Internal Medicine; Visit Provider Surgery Vascular Surgery | DX: I70.249 Atherosclerosis of native arteries of left leg with ulceration of unspecified site (principal) | CPT/HCPCS: 37225; 75625; 75716; 76937; 99152 ==

== ENCOUNTER 2024-08-13 15:05 | Outpatient (AMB) | payer OTHER, SELFPAY ==
--- NOTE | 2024-08-13 15:08 | A.OFFVIS_ITS ---
Intake Visit Reasons: 2 week follow up s/p L leg angio 07/24/24 Intake Note: 2 week follow up Left LEg angio 07/24/24. Has Left foot ulcer and VNA q2d. Wound Care every 2 weeks, next appt 08/16/24. 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 Accompanied by: Self / Same As Patient Allergies pollen extracts (POLLEN) Allergy (Mild, Verified 08/13/24 15:19) SNEEZE PUFFY EYES HPI HPI 2 week follow up s/p L leg angio 07/24/24: Details: The patient is a 64-year-old male presenting for follow-up after a left lower extremity angiogram and subsequent left popliteal atherectomy and angioplasty. The procedure was performed to address a blockage behind the knee, which has since been opened up. Post-procedure, the patient reports significant improvement in symptoms, noting that the leg feels different and better, with no pain in the feet. The patient is under the care of a visiting nurse for wound management and attends a wound care center where the wound is regularly cleaned and assessed. The wound is described as having a decent tissue bed and appears to be healing well, with measurements taken during the visit indicating progress. He is also followed by the general surgeon team and was last seen by Dr. Gasca. He now presents for routine postprocedure follow-up. [facility] Medical History Wears dentures Acute kidney injury Pneumonia Screening for colon cancer Impacted cerumen of both ears Cough Impacted cerumen of both ears Tobacco abuse Diabetic nephropathy associated with type 2 diabetes mellitus Very severe proliferative diabetic retinopathy [facility] (current) use of insulin Overweight (BMI 25.0-29.9) Type 2 diabetes mellitus with hyperglycemia Smoker Obesity (BMI 30-39.9) Carpal tunnel syndrome, left Chronic kidney disease Erectile dysfunction Tobacco abuse Hypercholesterolemia Cataract Glaucoma Hepatitis C Hypertension Surgical History Amputation of fifth toe of left foot (02/21/24) Hx of cataract extraction History of surgery on arm Hx of colonoscopy Family History Father Diabetes Mother Diabetes Hypertension Brother In good health Sister No problems noted. Other Mental health disorder Social History Household Members: None Housing: House Housing Other:: room in Boarding House Are you a primary healthcare project manager to a significant other at home: No Do you presently have visiting nurse or other home services: Yes ([facility] 2 X week) Alcohol intake: never Comment: counts correct Patient Tobacco Use Status: Current everyday Tobacco user Tobacco use type: Cigarette Cigarette Packs Per Day: 1 Cigarettes Per Day: 10 Years Smoked: 40 e-Cigarette/Vaping Use: Never Used Second Hand Smoke Exposure: Yes Advance Directives Date on File: 01/18/24 service: No Current occupational status: disabled Cognitive needs: Yes (Blind stick, walker) Hearing needs: No Vision needs: No Review of Systems Const All systems reviewed & are unremarkable except as noted in HPI and below Reports no additional complaints ENT Reports Normal hearing present Card Denies chest pain, Denies chest pain at rest, Denies chest pain with activity and Denies pedal edema Resp Denies cough GI Denies abdominal pain Musc Denies abnormal gait, Denies muscle cramps and Denies radiating pain into limb Skin/Breast Denies skin ulcer and Denies wounds Neuro Reports Normal hearing present and Denies abnormal gait Psych Reports no additional complaints Physical Exam Const General: cooperative, healthy appearing and comfortable Orientation/consciousness: oriented to person, oriented to place and oriented to time HEENT Head: Yes normal to inspection Neck Neck: Yes normal visual inspection Carotids: no bruits Chest Chest palpation & inspection: normal inspection of the chest Resp Effort & Inspection: normal respiratory effort and able to speak in complete sentences Auscultation: clear to auscultation bilaterally, no crackles, no rales, no rhonchi and no wheezes Cardio Rate: regular rate Rhythm: regular rhythm Heart sounds: S1 normal heart sound present and S2 normal heart sound present Bruits: no carotid bruits Peripheral pulses: Peripheral pulses 2+ throughout GI Inspection: Yes normal to inspection Skin Other: Left lateral foot measures 4.5 x 3.5 x 0.5 cm. Wounds: no wounds Hair: normal Neuro General: oriented to person, oriented to place and oriented to time Cranial nerves: Yes CN's II-XII intact bilaterally and Yes Normal hearing present Cognition (Neuro): normal cognition Motor exam (neuro): 5/5 motor strength present throughout Extrem Other: venous exam: No significant superficial varicosities or spider telangiectasias, minimal edema General: No clubbing, No cyanosis and No edema Psych Appearance: grossly normal Mental Status: mental status grossly normal Speech and movement: Normal speech and movement present Assessment & Plan Assessment & Plan (1) PAD (peripheral artery disease): Comment: 07/24/2024 - left popliteal atherectomy and plasty Code(s): I73.9 - Peripheral vascular disease, unspecified Category: Medical Plan: In short patient has done well status post endovascular intervention.I discussed with the patient the importance of continuing wound care management and the role of exercise in promoting healing while minimizing drainage. We agreed on a follow-up plan, including an ultrasound in three months to evaluate blood flow, and the continuation of aspirin and Plavix therapy to maintain vessel patency. Plan Patient was informed and verbally consented to the use of an ambient scribe for clinic note documentation during this visit. Orders: Orders US arterial duplex LE BI 3 Months I73.9 - Peripheral vascular disease, unspecified Patient Instructions: - Continue wound care with visiting nurse and wound care center. - Engage in exercises like using a cardio bike, avoid prolonged standing. - Follow up in three months for an ultrasound of both legs. - Continue taking aspirin and Plavix as prescribed. Coding Level of Care Code Est Pt Level 4 (13046) Complex EM visit Add On G2211 Diagnoses PAD (peripheral artery disease) I73.9
--- OUTSIDE RECORDS SUMMARY | 2024-08-13 15:46 | XMS_ITS | Encounter Summary ---
Author Organization [facility] Address [address] [facility] [address] [place] [address] Phone Care Team Providers Care Vp Design Name Role Phone Trey Love MD Primary Care Provider [phone] Encounter Details Date Type Department Care Team (Late Contact Info) Description 11/30/2021 Telephone [facility] [address] [facility] [address] [place] [address] Tulio Mcclure MD [address] [facility] [address] [place] [address] Social History Tobacco Use Types Packs/Day Years Used Date Smoking Tobacco: Every Day Cigarettes 0.5 7 Started: 08/11/2017 Alcohol Use Standard Drinks/Week Comments [...] Visit [facility] [address] [place] [id number] Tulio Mcclure MD [address] [facility] [address] [place] [address] documented as of this encounter Visit Diagnoses Not on filedocumented in this encounter Care Teams Vp Design Relationship Specialty Start Date End Date Trey Love MD [address] [place], [place] PCP - General 02/17/20 documented as of this encounter
--- OUTSIDE RECORDS SUMMARY | 2024-08-13 15:46 | XMS_ITS | Patient Health Record ---
Author [facility] [place] Address [address] [place] [address] Care Team Providers Care Delinquent Tax Collection Assistant Name Role Phone Trey Love Primary Care Provider Twila Vargas Unavailable [phone] Allergies Allergen (clinical drug ingredient) Drug/Non Drug Allergy documented on EMR Reaction Allergy Type Onset Date Status Pollen Pollen Unknown Allergy Active Results Component Value Reference Range Notes HEMOGLOBIN A1C (GLYCOHEMOGLO BIN) Reviewed date:06/14/2024 11:00:39 AM Interpretation: Performing Lab: Notes/Report: HEMOGLOBIN A1C % (HH) 8 HEMOGLOBIN A1C (GLYCOHEMOGLO BIN) Reviewed date:03/08/2024 10:25:27 AM Interpretation: Performing Lab: Notes/Report: HEMOGLOBIN A1C % (HH) 8.0 Reason For Referral No Information Medications Medication SIG (Take, Route, Frequency, Duration) Notes Start Date End Date Status Gabapentin 300 MG 1 capsule Orally at bedtime; Duration: 14 days 06/14/2024 Activ e Atorvastatin Calcium Active Farxiga Active Fluticasone Propionate Active Ammonium Lactate 12 % 1 application Exte rnally to affected areas of dry skin to feet except for between the toes Twice a day; Duration: 30 days Active Insulin Glargine Solostar Active [...] Type 2 diabetes mellitus with peripheral angiopathy (299246743) Type 2 diabetes mellitus with diabetic peripheral angiopathy without gangrene (E11.51) Active confirmed Q7(A), Q8(2B), Q9(1B,2C) Problem Mononeuropathy of lower limb (592500123) Neuritis of left foot (G57.92) Active confirmed Problem Ischemic ulcer of left foot, limited to breakdown of skin (L97.521) Active confirmed Response to treatment Vital Signs Blood pressure diastolic 65 mm Hg 03/08/2024 Height 6ft 2in in 06/14/2024 Blood pressure systolic 129 mm Hg 03/08/2024 Weight 210 lbs 06/14/2024 BMI 26.96 kg/m2 06/14/2024 Procedures Procedure Date Ordered Date Performed Result Body Sit e 58815-CPAVFVA NAIL, 6 OR MORE 03/08/2024 N/A 12776-MXCV SKIN LESIONS, OVER 4 03/08/2024 N/A Encounters Encounter [facility] Date [facility] [address] [facility]/08/2024 Twila Miya Type 2 diabetes mellitus with diabetic peripheral angiopathy without gangrene E11.51 ; Dehiscence of operative wound, initial encounter T81.31XA ; Tinea unguium B35.1 ; Pain in right toe(s) M79.674 ; Pain in left toe(s) M79.675 and Xerosis of skin L85.[address] [facility] [address] 06/14/2024 Twila Holliday Pain in left foot M79.672 ; Type 2 diabetes mellitus with diabetic peripheral angiopathy without gangrene E11.51 ; Neuritis of left foot G57.92 ; Tinea unguium B35.1 ; Pain in right toe(s) M79.674 and Pain in left toe(s) M79.675 [facility] [address] [place] [address] 12/21/2023 [facility] [address] [place] [address] 02/09/2024 [facility] [address] [phone] 03/08/2024 [facility] Holl[facility] [address] [phone] 03/08/2024 Twilayumiko Holilday Assessments Encounter Date Diagnosis (ICD Code) Assessment [...] X ray : Foot, left 3V 06/14/2024 04091-WQHOEEY NAIL, 6 OR MORE 03/08/2024 57753-TRHN SKIN LESIONS, OVER 4 03/08/19 Next Appt Details Provider Name:Twila lauren, 09/13/2024 01:30:00 PM, [address] [facility], [address], [place], [address], Insurance Providers Payer Name Payer Address Payer Phone Subscriber Number Group Number Insured Name Patient Relationship to Insured Coverage Start Date Coverage End Date [facility] [employer] Claims [address] [place] [id number] Rashaad Neff Self - patient is the insured Medical (General) History Medical History History ICD Code asthma CAD (Cholesterol) Diabetic Glaucoma High Blood Pressure Macular degeneration Psychiatric disorder blindness Surgical History Surgery Date(Month/Year) toe amputation, small toe left foot 02/26 24
== END 2024-08-13 15:38 | disposition home or self-care (01) ==
LOC: HO.HVS 15:06
PROVIDERS: PCP Internal Medicine; Visit Provider Surgery Vascular Surgery
DX: I73.9 Peripheral vascular disease, unspecified (principal)
CPT/HCPCS: 99214; G2211

== ENCOUNTER → 2024-08-13 15:05 | Outpatient (BNVA) | payer OTHER, SELFPAY | PROVIDERS: PCP Internal Medicine; Visit Provider Surgery Vascular Surgery | DX: Z09 Encounter for follow-up examination after completed treatment for conditions other than malignant neoplasm (principal); I73.9 Peripheral vascular disease, unspecified | CPT/HCPCS: 99212 ==

== ENCOUNTER 2024-09-03 14:41 | Outpatient (AMB) | payer OTHER, SELFPAY ==
--- NOTE | 2024-09-03 14:56 | A.OFFPC_ITS ---
Vital Signs 09/03/24 14:57 Height 6 ft 2 in Weight 199 lb 15.348 oz BMI 25.7 BP 108/70 Blood Pressure Location Lt brachial Position Sitting Respiration 18 Pulse 63 Pulse Source Pulse Oximeter Temp 97.3 F Temp Source Temporal Artery Scan Pulse Oximetry (%) 99 Oxygen Delivery Method Room Air Intake Visit Reasons: annual exam Allergies pollen extracts (POLLEN) Allergy (Mild, Verified 09/03/24 15:02) SNEEZE PUFFY EYES Medication List - Last Reconciled 09/03/24 by Trey Love MD acetaminophen 1,000 mg (2 x 500 mg) PO QID PRN albuterol sulfate 2.5 mg (3 mL) inhalation QID albuterol sulfate 90 mcg/actuation 2 puffs PO Q6H PRN atorvastatin 80 mg PO DAILY blood sugar diagnostic (FreeStyle Lite Strips) 3 times a day blood-glucose meter (FreeStyle Lite Meter kit) As directed 1-2x daily blood-glucose sensor (Sportcut G6 Sensor device) As directed blood-glucose transmitter (Dexcom G6 Transmitter device) As directed blood-glucose,online communications specialist,cont (Dexcom G6 Invoice Clerk) As directed clopidogrel (Plavix) 75 mg PO DAILY dapagliflozin propanediol (Farxiga) 10 mg PO DAILY fluticasone propionate 220 mcg/actuation 1 puff inhalation BID hydrochlorothiazide 25 mg PO DAILY insulin glargine (Lantus Solostar U-100 Insulin) 15 units (0.15 mL) subcut DAILY lancets (FreeStyle Lancets) 3 times a day lisinopril 10 mg PO DAILY nebulizers (Aeroneb Go Nebulizer) As directed omeprazole 20 mg PO DAILY@0630 pen needle, diabetic Daily semaglutide 2 mg (0.75 mL) subcut WE Tobacco use date assessed: 09/03/24 Dental Screening Dental Screen Date: 09/03/24 Did you have a dental visit in the last 12 months?: No Did you have a dental problem in the last 6 months where you did not have access to dental care?: No Was dental information given to patient?: Patient declined [facility] Medical History Wears dentures Acute kidney injury Pneumonia Screening for colon cancer Impacted cerumen of both ears Cough Impacted cerumen of both ears Tobacco abuse Diabetic nephropathy associated with type 2 diabetes mellitus Very severe proliferative diabetic retinopathy [facility] (current) use of insulin Overweight (BMI 25.0-29.9) Type 2 diabetes mellitus with hyperglycemia Smoker Obesity (BMI 30-39.9) Carpal tunnel syndrome, left Chronic kidney disease Erectile dysfunction Tobacco abuse Hypercholesterolemia Cataract Glaucoma Hepatitis C Hypertension Surgical History Amputation of fifth toe of left foot (02/21/24) Hx of cataract extraction History of surgery on arm Hx of colonoscopy Family History Father Diabetes Mother Diabetes Hypertension Brother In good health Sister No problems noted. Other Mental health disorder Social History (Updated 09/03/24 @ 15:50 by Trey Loev MD) Household Members: None Housing: House Housing Other:: room in Boarding House Are you a primary critical care unit manager to a significant other at home: No Do you presently have visiting nurse or other home services: Yes ([facility] 2 X week) Alcohol intake: never Comment: counts correct Patient Tobacco Use Status: Current everyday Tobacco user Tobacco use type: Cigarette Cigarette Packs Per Day: 1 Cigarettes Per Day: 7 Years Smoked: 40 e-Cigarette/Vaping Use: Never Used Second Hand Smoke Exposure: Yes Advance Directives Date on File: 01/18/24 service: No Current occupational status: disabled Cognitive needs: Yes (Blind stick, walker) Hearing needs: No Vision needs: Yes (blind) Questionnaire PHQ-9 Over the last 2 weeks, how often have you been bothered by any of the following problems? 1. Little interest or pleasure in doing things: not at all 2. Feeling down, depressed, or hopeless: not at all 3. Trouble falling or staying asleep, or sleeping too much: not at all 4. Feeling tired or having little energy: not at all 5. Poor appetite or overeating: not at all 6. Feeling bad about yourself - or that you are a failure or have let yourself or your family down: not at all 7. Trouble concentrating on things, such as reading the newspaper or watching television: not at all 8. Moving or speaking so slowly that other people could have noticed. Or the opposite - being so fidgety or restless that you have been moving around a lot more than usual: not at all 9. Thoughts that you would be better off or of hurting yourself in some way: not at all Total score: 0 Depression Screening Interpretation: Negative Depression Screening Done: Yes 82380 - PHQ-9 Billing: Yes Source: Developed by Drs. Rashaad Munoz, Alisson Young, Isaias Sethi and colleagues, with an educational joanne from [employer]. Thrive Questionnaire Date Thrive assessed: 09/03/24 I am a: Patient What is your living situation today?: I have a steady place to live Within the past 12 months, did the food you bought not last and you didn't have the money to get more?: Never true Within the past 12 months, did you worry whether your food would run out before you got money to buy more?: Never true Do you have trouble paying for medicines?: No Do you have trouble getting transportation to medical appointments?: No Do you have trouble paying your heating and electricity bill?: No Do you have trouble taking care of your child, family member or friend?: No Do you have trouble with day-to-day activities such as bathing, preparing meals, shopping, managing finances, etc.?: No Are you currently unemployed and looking for a job?: No Are you interested in more education?: No Currently or been in a relationship where the following occur: No concerns reported THRIVE Score: 0 AUDIT C Alcohol Use Questionnaire (AUDIT-C) 1. How often do you have a drink containing alcohol?: Never 3. How often do you have six or more drinks on one occasion?: Never Total Score: 0 BAO-7 AMB Questionnaire BAO-7 Date BAO - 7 assessed: 09/03/24 Feeling nervous, anxious, or on edge: 0 = Not at all Not being able to stop or control worryin = Not at all Worrying too much about different things: 0 = Not at all Trouble relaxin = Not at all Being so restless that it is hard to sit still: 0 = Not at all Becoming easily annoyed or irritable: 0 = Not at all Feeling afraid as if something awful might happen: 0 = Not at all Total BAO-7 score (0-4 normal; 5-9 mild; 10-14 moderate; 15-21 severe): 0 Source: Developed by Drs. Rashaad Munoz, Alisson Young, Isaias Sethi and colleagues, with an educational joanne from [employer]. BAO-7 Assessment Billing BAO-7 Assessment Tool: BAO-7 Assessment 96348 Review of Systems Const Denies poor appetite and Denies weakness Eyes Denies no additional complaints ENT Reports Normal hearing present, Denies dizziness, Denies nasal congestion, Denies tinnitus and Denies sore throat Card Denies chest pain, Denies syncope, Denies rapid heart rate and Denies dyspnea Resp Denies cough and Denies dyspnea GI Denies change in stool character, Reports constipation, Denies diarrhea, Denies nausea and Denies vomiting Denies dysuria and Denies urinary frequency Neuro Reports Normal hearing present, Denies confusion, Denies dizziness, Denies syncope and Denies weakness Psych Denies confusion Physical exam (Primary Care) Vital Signs: Last Vital Signs Temp 97.3 F 09/03/24 14:57 Pulse 63 09/03/24 14:57 Resp 18 09/03/24 14:57 BP 108/70 09/03/24 14:57 Pulse Ox 99 09/03/24 14:57 Oxygen Delivery Method Room Air 09/03/24 14:57 BMI result Body Mass Index 25.7 Tobacco/Smoking Status: Tobacco use Status Tobacco use date assessed 09/03/24 09/03/24 15:07 Patient Tobacco Use Status Current everyday Tobacco 09/03/24 15:50 Tobacco use type Cigarette 09/03/24 15:50 e-Cigarette/Vaping Use Never Used 09/03/24 15:50 PHQ-9: PHQ-9 Score PHQ-9: Total score 0 09/03/24 15:43 Depression Screening Interpretation: Negative Thrive Assessment: Date of Thrive Assessment Date Thrive assessed 09/03/24 09/03/24 15:07 Currently or been in a relationship where the following occur: No concerns reported Const General: No confusion Orientation/consciousness: No confusion HENMT Head: Yes normocephalic Ears: external ears normal and TM's normal bilaterally Face and sinus: Yes normal facial exam Mouth: moist mucous membranes Throat: Yes tonsils normal Eyes Other: R eye - pupils opaque lens, Conjunctivae: conjunctivae normal Pupils: Equal, round and reactive pupils present and Pupil accommodation reflex normal Direct Ophthalmoscopy: normal light reflex Neck Neck: No lymphadenopathy Thyroid: Thyroid normal Chest Chest palpation & inspection: normal inspection of the chest Resp Effort & Inspection: normal respiratory effort and no audible wheezes Auscultation: clear to auscultation bilaterally, no crackles, no wheezes and lung sounds not diminished Cardio Rate: regular rate Rhythm: regular rhythm Peripheral pulses: radial pulses present and dorsalis pedis present GI Other: referral for colontest Palpation (GI): no masses Auscultation: normal bowel sounds and normoactive bowel sounds Rectal Exam - Male: Yes deferred Male General Exam: Yes normal external exam Skin General skin exam: no rashes or lesions noted Rashes: no rashes Neuro Other: L foot using a boot, no nswelling General: No confusion Cranial nerves: Yes Equal, round and reactive pupils present and Yes Normal hearing present Cognition (Neuro): normal cognition Gait exam (Neuro): Normal gait present Motor exam (neuro): 5/5 motor strength present throughout Deep tendon reflexes (DTR's): Right brachioradialis reflex intensity grade: 2+, Left brachioradialis reflex intensity grade: 2+, Right patellar reflex intensity grade: 2+ and Left patellar reflex intensity grade: 2+ Results AMB Hemoglobin A1c AMB Hemoglobin A1c 8.7 % Last Edit by Bonita Rizo CMA on 09/03/24 15:09 Results Reviewed Results Reviewed: Laboratory Last Values Hgb A1c (Clinic) 8.7 % (4.0-6.0) H 09/03/24 15:09 Coding Level of Care Code Est Pt Prev Care 40-64y(32573) Diagnoses Annual physical exam Z00.00 Tobacco abuse Z72.0 Dry gangrene I96 Stage 3 chronic kidney disease, unspecified whether stage 3a or 3b CKD N18.30 Chronic kidney disease stage: stage 3 (moderate) Chronic kidney disease stage 3 subtype: unspecified whether 3a or 3b Blind in both eyes 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 Type 2 diabetes mellitus with hyperglycemia, with long-term current use of insulin E11.65; Z79.4 Diabetes mellitus mcfp insulin use: with terminal carman use Hypercholesterolemia E78.00 Essential hypertension I10 Hypertension type: essential hypertension PAD (peripheral artery disease) I73.9 Screening for colon cancer Z12.11 Additional Codes BAO-7 Assessment Billing - BAO-7 Assessment Tool: BAO-7 Assessment 62660 ([id number]) PHQ-9 - 41974 - PHQ-9 Billing: Yes ([id number]) Assessment & Plan Assessment & Plan (1) Annual physical exam: Code(s): Z00.00 - Encounter for general adult medical examination without abnormal findings Category: Medical Plan: Patient is advised to eat healthy, keep well hydrated, keep active and have adequate sleep. (2) Tobacco abuse: Code(s): Z72.0 - Tobacco use Category: Medical Plan: Patient is strongly advised to stop smoking patient point (3) Dry gangrene: Comment: Left 5th toe, left 5th toe amputation February 2024 Dr. Gasca Code(s): I96 - Gangrene, not elsewhere classified Category: Medical Plan: Continue to follow-up with the surgeon patient had amputation of the toe (4) Chronic kidney disease: Comment: Stage III Code(s): N18.9 - Chronic kidney disease, unspecified Category: Medical Qualifiers: Chronic kidney disease stage: stage 3 (moderate) Chronic kidney disease stage 3 subtype: unspecified whether 3a or 3b Qualified Code(s): N18.30 - Chronic kidney disease, stage 3 unspecified Plan: Keep well hydrated continue with present medication get the blood sugars under better control (5) Blind in both eyes: Comment: per pt Code(s): H54.3 - Unqualified visual loss, both eyes Category: Medical Plan: Patient is legally blind (6) Type 2 diabetes mellitus with hyperglycemia: Code(s): E11.65 - Type 2 diabetes mellitus with hyperglycemia Category: Medical Qualifiers: Diabetes mellitus terminal carman insulin use: with terminal carman use Qualified Code(s): E11.65 - Type 2 diabetes mellitus with hyperglycemia; Z79.4 - [facility] (current) use of insulin Plan: Decrease the amount of carbohydrate intake, pasta, bread, rice and potatoes are all sugar and that is aside from all the sweet stuff, remember that fruits are good but they are Sweet also. Hemoglobin A1c goal of less than 6.5. Patient is on Farxiga Lantus semaglutide (7) Hypercholesterolemia: Code(s): E78.00 - Pure hypercholesterolemia, unspecified Category: Medical Plan: Avoid fried foods, chicken skin, eggs, butter margarine, pastries and meat. Be it pork or beef they have a lot of cholesterol LDL goal of less than 70 and triglyceride of less than 150 on atorvastatin 80 patient needs to have blood work done (8) Hypertension: Code(s): I10 - Essential (primary) hypertension Category: Medical Qualifiers: Hypertension type: essential hypertension Qualified Code(s): I10 - Essential (primary) hypertension Plan: Continue with blood pressure medication. Decrease salt intake and exercise patient takes hydrochlorothiazide lisinopril (9) PAD (peripheral artery disease): Comment: 07/24/2024 - left popliteal atherectomy and plasty Code(s): I73.9 - Peripheral vascular disease, unspecified Category: Medical Plan: Continue with vascular follow-up patient is on clopidogrel 75 mg once a day (10) Screening for colon cancer: Code(s): Z12.11 - Encounter for screening for malignant neoplasm of colon Category: Medical Plan History of Present Illness The patient is a 64-year-old male presenting for a physical examination and management of chronic conditions including diabetes mellitus and chronic kidney disease. The patient has a history of diabetes mellitus, which has been poorly controlled with a recent hemoglobin A1c of 8.7%. The patient reports difficulty in obtaining semaglutide due to stock issues, which has impacted his glycemic control. He has been experiencing slow healing of a left foot wound, attributed to high blood glucose levels. The patient has chronic kidney disease, currently at stage 3, with a creatinine level of 2.12 mg/dL as of July. The patient is not yet on dialysis but is advised to manage blood pressure, cholesterol, and blood glucose to prevent progression. The patient has a history of hypertension and hypercholesterolemia, which are being managed with medication. Blood pressure readings at home have been slightly low, leading to a consideration of adjusting diuretic dosage. The patient has a history of osteomyelitis in the left foot, which is currently healing slowly. He has lost a toe previously due to complications from diabetes. The patient is anemic, with a low blood count noted during the visit. Iron studies including ferritin levels are planned to assess the cause of anemia. Health Maintenance - Referral for colonoscopy due to previous incomplete procedure - Blood work requested to monitor diabetes and kidney function - Vaccinations up to date including shingles and tetanus Social History - Smoking: Patient smokes approximately 7 cigarettes per day, attempts to reduce intake noted - Alcohol: Denies alcohol consumption - Diet: Reports difficulty in maintaining a healthy diet due to reliance on others for meal preparation - Exercise: No specific exercise routine mentioned Review of Systems - Cardiovascular: Denies dizziness despite low blood pressure readings - Musculoskeletal: Reports slow healing of left foot wound - Neurological: Denies pain in the abdomen, reports good bowel movements - Respiratory: Denies respiratory symptoms, lungs clear to auscultation Physical Exam General: Cooperative, healthy appearing, comfortable, no acute distress and well developed Orientation: Patient oriented x3 Limitations: Limited vision, unable to see with both eyes Head: Normal to inspection Ears: Hearing grossly normal bilaterally, some ear wax present but open Nose: Normal external nose present Face and sinus: Normal facial exam Eyes: Unable to see with both eyes Neck: Normal visual inspection and Yes full ROM Respiratory: Normal respiratory effort and able to speak in complete sentences. Clear to auscultation bilaterally Cardiovascular: Regular rate and rhythm. Normal S1 and S2 GI: Normal to inspection. Soft to palpation and nontender Skin: No rashes or lesions noted Neuro: Patient oriented x3 Extremities: Normal to inspection, history of osteomyelitis in the left foot, lost one toe on the left foot Results - Labs: Hemoglobin A1c 8.7%, creatinine 2.12 mg/dL Plan The management plan includes addressing the patient's poorly controlled diabetes mellitus by ensuring access to semaglutide or considering alternative medications if availability issues persist. Blood work has been requested to monitor the patient's glycemic control and kidney function, with a focus on maintaining blood pressure and cholesterol levels within target ranges to prevent further kidney damage. The patient is advised to adhere to dietary recommendations to improve blood glucose control, including reducing intake of carbohydrates and increasing consumption of vegetables. A referral for a colonoscopy has been made to ensure proper screening following an incomplete procedure last year. The patient's anemia will be further evaluated with iron studies to determine the underlying cause and appropriate management. The patient is encouraged to reduce smoking and maintain regular follow-up appointments to monitor his chronic conditions. Patient was informed and verbally consented to the use of an ambient scribe for clinic note documentation during this visit. Discussion Notes During the visit, I discussed the importance of managing diabetes mellitus effectively to prevent further complications, emphasizing the need for c onsistent medication access and dietary modifications. We reviewed the patient's current medications and considered alternatives if semaglutide remains unavailable. I also highlighted the significance of regular blood work to monitor kidney function and glycemic control. A referral for a colonoscopy was made to ensure proper screening, and we discussed the need for iron studies to evaluate anemia. The patient was advised to reduce smoking and maintain regular follow-up appointments. Patient Instructions - Ensure consistent access to diabetes medications and consider alternatives if necessary. - Follow dietary recommendations to improve blood glucose control, focusing on reducing carbohydrates and increasing vegetables. - Complete blood work as requested to monitor diabetes and kidney function. - Attend the scheduled colonoscopy appointment for proper screening. - Reduce smoking and attend regular follow-up appointments. 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 Complete Blood Count Auto Diff Today E11.65 - Type 2 diabetes mellitus with hyperglycemia, 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.4 - 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 Testosterone, Total Today Z12.11 - Encounter for screening for malignant neoplasm of colon AMB Hemoglobin A1c Today Z13.9 - Encounter for screening, unspecified Free T4 (Free Thyroxine) Today E11.65 - Type 2 diabetes mellitus with hyperglycemia, Z79.4 - 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 Vitamin B12 and Folate Today E11.65 - Type 2 diabetes mellitus with hyperglycemia, Z79.4 - 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 Prostate Specific Antigen Scr Today E11.65 - Type 2 diabetes mellitus with hyperglycemia, Z79.4 - 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 Ferritin Today E11.65 - Type 2 diabetes mellitus with hyperglycemia, Z79.4 - 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
[2024-09-03 14:57] VITALS: BP 108/70; PULSE 63; RESP 18; TEMP 36.3; O2SAT 99; BMI 25.7
--- OUTSIDE RECORDS SUMMARY | 2024-09-03 15:26 | XMS_ITS | Encounter Summary ---
Author Organization [facility] Address [address] [facility] [address] [place] [address] Phone Care Team Providers Care Weatherization Technician Name Role Phone Trey Love MD Primary Care Provider [phone] Encounter Details Date Type Department Care Team (Late Contact Info) Description 11/30/2021 Telephone [facility] [address] [facility] [address] [place] [address] Tulio Mcclure MD [address] [facility] [address] [place] [phone] Social History Tobacco Use Types Packs/Day Years Used Date Smoking Tobacco: Every Day Cigarettes 0.5 7.1 Started: 08/11/2017 Alcohol Use Standard Drinks/Week Comments [...] Visit [facility] [address] [place] [id number] Tulio Mcclure MD [address] [phone] documented as of this encounter Visit Diagnoses Not on filedocumented in this encounter Care Teams Weatherization Technician Relationship Specialty Start Date End Date Trey Love MD [id number] [place], [place] PCP - General 02/17/20 documented as of this encounter
--- OUTSIDE RECORDS SUMMARY | 2024-09-03 15:27 | XMS_ITS | Patient Health Record ---
Author Organization [facility] deann Ama Address [address] [place] [address] Care Team Providers Care Vinyl Welder And Fabricator Name Role Phone Trey Love Primary Care Provider Twila Vargas Unavailable [phone] Allergies Allergen (clinical drug ingredient) Drug/Non Drug [...] Type 2 diabetes mellitus with peripheral angiopathy (846844566) Type 2 diabetes mellitus with diabetic peripheral angiopathy without gangrene (E11.51) Active confirmed Q7(A), Q8(2B), Q9(1B,2C) Problem Mononeuropathy of lower limb (540247157) Neuritis of left foot (G57.92) Active confirmed Problem Ischemic ulcer of left foot, limited to breakdown of skin (L97.521) Active confirmed Response to treatment Vital Signs Blood pressure diastolic 65 mm Hg 03/08/2024 Height 6ft 2in in 06/14/2024 Blood pressure systolic 129 mm Hg 03/08/2024 Weight 210 lbs 06/14/2024 BMI 26.96 kg/m2 06/14/2024 Procedures Procedure Date Ordered Date Performed Result Body Sit e 49552-JSFKBCT NAIL, 6 OR MORE 03/08/2024 N/A 94274-MOQD SKIN LESIONS, OVER 4 03/08/2024 N/A Encounters Encounter Location Date [facility] [address] 03/08/2024 Twila Miya Type 2 diabetes mellitus with diabetic peripheral angiopathy without gangrene E11.51 ; Dehiscence of operative wound, initial encounter T81.31XA ; Tinea unguium B35.1 ; Pain in right toe(s) M79.674 ; Pain in left toe(s) M79.675 and Xerosis of skin L85.[address] [facility] [address] 06/14/2024 Twila Holliday Pain in left foot M79.672 ; Type 2 diabetes mellitus with diabetic peripheral angiopathy without gangrene E11.51 ; Neuritis of left foot G57.92 ; Tinea unguium B35.1 ; Pain in right toe(s) M79.674 and Pain in left toe(s) M79.675 [facility] [address] [place] [address] 12/21/2023 [facility]ila Holliday [facility] [address] [place] [address] 02/09/2024 [facility] [address] [place] [address] 03/08/2024 [facility] [address] [place] [address] 03/08/2024 Twilayumiko Holliday Assessments Encounter Date Diagnosis (ICD Code) [...] X ray : Foot, left 3V 06/14/2024 27829-[id number] NAIL, 6 OR MORE 03/08/2024 13584-FTBQ SKIN LESIONS, OVER 4 03/08/19 Next Appt Details Provider Name:Twila lauren, 09/13/2024 01:30:00 PM, [address] [facility], [address], [place], [address], Insurance Providers Payer Name Payer Address Payer Phone Subscriber Number Group Number Insured Name Patient Relationship to Insured Coverage Start Date Coverage End Date [facility] CCA SCO Claims [address] [place] [phone] [id number] Rashaad Neff Self - patient is the insured Medical (General) History Medical History History ICD Code asthma CAD (Cholesterol) Diabetic Glaucoma High Blood Pressure Macular degeneration Psychiatric disorder blindness Surgical History Surgery Date(Month/Year) toe amputation, small toe left foot 02/26 24
== END 2024-09-03 16:14 | disposition home or self-care (01) ==
LOC: HO.HMCH 14:42
PROVIDERS: PCP Internal Medicine; Visit Provider Internal Medicine
DX: Z00.00 Encounter for general adult medical examination without abnormal findings (principal); I96 Gangrene, not elsewhere classified; E11.65 Type 2 diabetes mellitus with hyperglycemia; N18.30 Chronic kidney disease, stage 3 unspecified; Z79.4 Long term (current) use of insulin; Z72.0 Tobacco use; E78.00 Pure hypercholesterolemia, unspecified; H54.3 Unqualified visual loss, both eyes; I10 Essential (primary) hypertension; I73.9 Peripheral vascular disease, unspecified; Z12.11 Encounter for screening for malignant neoplasm of colon

== ENCOUNTER → 2024-09-03 14:41 | Outpatient (BNVA) | payer OTHER, SELFPAY | PROVIDERS: PCP Internal Medicine; Visit Provider Internal Medicine | DX: Z00.00 Encounter for general adult medical examination without abnormal findings (principal); E11.22 Type 2 diabetes mellitus with diabetic chronic kidney disease; I12.9 Hypertensive chronic kidney disease with stage 1 through stage 4 chronic kidney disease, or unspecified chronic kidney disease; N18.30 Chronic kidney disease, stage 3 unspecified; H54.3 Unqualified visual loss, both eyes; E11.65 Type 2 diabetes mellitus with hyperglycemia; E78.00 Pure hypercholesterolemia, unspecified; I73.9 Peripheral vascular disease, unspecified; Z72.0 Tobacco use; Z79.4 Long term (current) use of insulin; Z89.422 Acquired absence of other left toe(s); Z13.31 Encounter for screening for depression; Z13.39 Encounter for screening examination for other mental health and behavioral disorders | CPT/HCPCS: 83036; 96127; 99396 ==

== ENCOUNTER 2024-10-10 11:00 | Outpatient (AMB) | payer OTHER, SELFPAY ==
--- OUTSIDE RECORDS SUMMARY | 2023-12-22 06:30 | XMS_ITS ---
Author Organization [facility] Address [address] [place] [address] Care Team Providers Care Table And Desk Finisher Name Role Phone Trey Love Primary Care Provider Twila Vargas [phone] REASON FOR VISIT NO PIGGYBACK CLERK PW Encounters Encounter Location Date Provider Diagnosis [address] [address] 12/22/2023 Twila Holliday Plan Of Treatment Next Appt Details Provider Name:Twila lauren, 12/27/2024 12:15:00 PM, [facility] [address], [address], Progress Notes * AISHWARYA, Rashaad LDOB:1960 (64 yo M)Acc No.[id number]:12/22/2023 Progress Notes Patient: Rashaad GARCIA Provider: Lali Holliday DPM :1960 A ge:63 Y S ex:Male Date:12/22/2023 Address:[address] [place], [place] [phone] Pcp:Trey Love Subjective: * Chief Complaints: * 1 . NO PIGGYBACK CLERK PW. * Medical History: Objective: * Vitals: Assessment: Plan: * Treatment: * Images: * The named appointment provid er may or may not be the originator of this progress note, and it is not deemed complete until electronically signed by the appointment provider. Sign off status: Pending * Provider: Lali Holliday DPM Date: 02/20/2023 Generated for Guille garcia/Vaughn/Irvinitting on: 0 10/10/2024 12:37 PM EDT
--- NOTE | 2024-10-10 11:09 | A.OFFVIS_ITS ---
Vital Signs 10/10/24 11:18 Height 6 ft 2 in Weight 200 lb BMI 25.7 BP 134/65 Blood Pressure Location Rt brachial Position Sitting Pulse 65 Intake Visit Reasons: Encounter for screening for malignant neoplasm of Intake Note: Patient here today for repeat yearly colonoscopy. Patient c/o: last colonoscopy 11-10-2023, reports no concerns. Normal BM. Denies constipation, diarrhea, hemorrhoids. Information Technology Security Manager Required: No Accompanied by: friend Melo Allergies pollen extracts (POLLEN) Allergy (Mild, Verified 10/10/24 11:17) SNEEZE PUFFY EYES Medication List - Last Reconciled 10/10/24 by Dajuan Plunkett MD acetaminophen 1,000 mg (2 x 500 mg) PO TID PRN albuterol sulfate 2.5 mg (3 mL) inhalation QID albuterol sulfate 90 mcg/actuation 2 puffs PO Q6H PRN atorvastatin 80 mg PO DAILY 90 days blood sugar diagnostic (FreeStyle Lite Strips) 3 times a day blood-glucose meter (FreeStyle Lite Meter kit) As directed 1-2x daily blood-glucose sensor (DexRaspberry Pi Foundation G6 Sensor device) As directed blood-glucose transmitter (Dexcom G6 Transmitter device) As directed blood-glucose,appellate law clerk,cont (Dexcom G6 Halal Meat Packer) As directed clopidogrel (Plavix) 75 mg PO DAILY 90 days dapagliflozin propanediol (Farxiga) 10 mg PO DAILY 90 days fluticasone propionate 220 mcg/actuation 1 puff inhalation BID hydrochlorothiazide 25 mg PO DAILY 90 days insulin glargine (Lantus Solostar U-100 Insulin) 15 units (0.15 mL) subcut DAILY lancets (FreeStyle Lancets) 3 times a day lisinopril 10 mg PO DAILY 90 days nebulizers (Aeroneb Go Nebulizer) As directed omeprazole 20 mg PO DAILY@0630 90 days pen needle, diabetic Daily semaglutide 2 mg (0.75 mL) subcut WE HPI HPI Encounter for screening for malignant neoplasm of: Details: 64-year-old male here for screening colonoscopy. He denies any GI complaints. He has good oral intake. He denies changes in bowel habits. He denies bleeding per rectum. He actually had a colonoscopy last November,. Unfortunately, he had very poor bowel prep at that time and had recommended repeating this after 1 year. He denies any family history of colon cancer. 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 His says his blood sugars are now well controlled. [facility] Medical History Wears dentures Acute kidney injury Pneumonia Screening for colon cancer Impacted cerumen of both ears Cough Impacted cerumen of both ears Tobacco abuse Diabetic nephropathy associated with type 2 diabetes mellitus Very severe proliferative diabetic retinopathy FPC (current) use of insulin Overweight (BMI 25.0-29.9) Type 2 diabetes mellitus with hyperglycemia Smoker Obesity (BMI 30-39.9) Carpal tunnel syndrome, left Chronic kidney disease Erectile dysfunction Tobacco abuse Hypercholesterolemia Cataract Glaucoma Hepatitis C Hypertension Surgical History Amputation of fifth toe of left foot (02/21/24) Hx of cataract extraction History of surgery on arm Hx of colonoscopy Family History Father Diabetes Mother Diabetes Hypertension Brother In good health Sister No problems noted. Other Mental health disorder Social History Household Members: None Housing: House Housing Other:: room in Boarding House Are you a primary pharmacy care coordinator to a significant other at home: No Do you presently have visiting nurse or other home services: Yes ([facility] 2 X week) Alcohol intake: never Comment: counts correct Patient Tobacco Use Status: Current everyday Tobacco user Tobacco use type: Cigarette Cigarette Packs Per Day: 1 Cigarettes Per Day: 7 Years Smoked: 40 e-Cigarette/Vaping Use: Never Used Second Hand Smoke Exposure: Yes Advance Directives Date on File: 01/18/24 service: No Current occupational status: disabled Cognitive needs: Yes (Blind stick, walker) Hearing needs: No Vision needs: Yes (blind) Review of Systems Const Denies chills and Denies fever(s) Eyes Details: Blind Card Denies chest pain, Denies dyspnea and Denies dyspnea on exertion Resp Denies cough, Denies dyspnea and Denies dyspnea on exertion GI Denies hematochezia and Denies change in bowel habits Denies hematuria and Denies difficulty urinating Musc Denies back pain and Denies limited range of motion Neuro Denies focal weakness and Denies convulsions Psych Denies depression and Denies mood swings Physical Exam Vital Signs: Last Vital Signs Pulse 65 10/10/24 11:18 BP 134/65 10/10/24 11:18 BMI result Body Mass Index 25.7 Const General: comfortable and no acute distress Orientation/consciousness: patient oriented x3 Eyes Other: Blind Neck Neck: Yes no lymphadenopathy Resp Auscultation: clear to auscultation bilaterally Cardio Rhythm: regular rhythm GI Palpation (GI): Soft to palpation, nontender and no guarding Neuro General: patient oriented x3 Assessment & Plan Assessment & Plan (1) Screening for colon cancer: Code(s): Z12.11 - Encounter for screening for malignant neoplasm of colon Category: Medical Plan: He had very poor bowel prep on his colonoscopy a year ago and I had recommended repeating this after 1 year I reviewed with the technique of this procedure. I explained the risks including but not limited to bleeding and perforation, as well as the benefits and alternatives. He understands and agrees to proceed I emphasized to him the importance of following the instructions for the bowel prep. Medications: New sodium,potassium,mag sulfates 17.5-3.13-1.6 gram (Suprep Bowel Prep Kit) DILUTE; drink full amount early evening before AND next morning at least 2 hr before procedure; follow w 960 mL water PO 354 mL 0RF Coding Level of Care Code Est Pt Level 3 (65561) Diagnoses Screening for colon cancer Z12.11
[2024-10-10 11:18] VITALS: BP 134/65; PULSE 65; BMI 25.7
--- OUTSIDE RECORDS SUMMARY | 2024-10-10 12:37 | XMS_ITS | Patient Health Record ---
Author [facility] deann Clifton Address [address] [place] [address] Care Team Providers Care Ship Painter Helper Name Role Phone Ivan Trey Primary Care Provider Twila Vargas Unavailable [phone] Allergies Allergen (clinical drug ingredient) Drug/Non Drug [...] (HH) 8 HEMOGLOBIN A1C (GLYCOHEMOGLO BIN) Reviewed date:09/13/2024 01:36:38 PM Interpretation: Performing Lab: Notes/Report: Reason For Referral No Information Medications Medication SIG (Take, Route, Frequency, Duration) Notes Start Date End Date Status OxyCONTIN Not-Taking Gabapentin 300 MG 1 capsule Orally at bedtime; Duration: 14 days 06/14/2024 Not-Taking Ozempic Active Insulin Glargine Solostar Active Ammonium Lactate 12 % 1 application Externally to affected areas of dry skin to feet except for between the toes Twice a day; Duration: 30 days Not-Taking Fluticasone Propionate Active Farxiga Active Semaglutide Active Atorvastatin Calcium Active Nicotine Active Albuterol Active Acetaminophen Active Social History Tobacco Use: Social History [...] 6-10 How soon after you wake up d o you smoke your first cigarette? 6-30 minutes Are you interested in quitting? Not ready to cas t Additional Findings: Tobacco user Light cigarett e smoker (1-9 cigs/day) AUDIT-C (Standard) Question Answer Notes Did you have a drink containing alcohol in the p ast year? No Points 0 Interpretation Negative Problems Problem Type SNOMED Code ICD Code Onset Dates Problem Status W/U Status Risk Notes Problem Type 2 diabetes mellitus with peripheral angiopathy (443751845) Type 2 diabetes mellitus with diabetic peripheral angiopathy without gangrene (E11.51) Active confirmed Q7(A), Q8(2B), Q9(1B,2C) Problem Mononeuropathy of lower limb (501990946) Neuritis of left foot (G57.92) Active confirmed Problem Ischemic ulcer of left foot, limited to breakdown of skin (L97.521) Active confirmed Response to treatment Vital Signs Blood pressure diastolic 70 mm Hg 09/13/2024 Height 6ft 2in in 09/13/2024 Blood pressure systolic 115 mm Hg 09/13/2024 Weight 200 lbs 09/13/2024 BMI 25.68 kg/m2 09/13/2024 Procedures Procedure Date Ordered Date Performed Result Body Sit e 29916-HSNMRVH NAIL, 6 OR MORE 03/08/2024 N/A 55732-EBKR SKIN LESIONS, OVER 4 03/08/2024 N/A Encounters Encounter Location Date Provider Diagnosis [facility] [address] 03/08/2024 Twila Holliday Type 2 diabetes mellitus with diabetic peripheral angiopathy without gangrene E11.51 ; Dehiscence of operative wound, initial encounter T81.31XA ; Tinea unguium B35.1 ; Pain in right toe(s) M79.674 ; Pain in left toe(s) M79.675 and Xerosis of skin L85.[address] [facility] [address] 06/14/2024 Twila Holliday Pain in left foot M79.672 ; Type 2 diabetes mellitus with diabetic peripheral angiopathy without gangrene E11.51 ; Neuritis of left foot G57.92 ; Tinea unguium B35.1 ; Pain in right toe(s) M79.674 and Pain in left toe(s) M79.675 [facility] [address] [address] 09/13/2024 Twila Holliday Type 2 diabetes mellitus with diabetic peripheral angiopathy without gangrene E11.51 ; Tinea unguium B35.1 ; Pain in right toe(s) M79.674 and Pain in left toe(s) M79.[address] [address] 12/21/2023 Twila Holliday [address] [address] 02/09/2024 Twila Holliday [address] [address] 03/08/2024 Twila Holliday [address] [address] 03/08/2024 Twila Holliday Assessments Encounter Date Diagnosis [...] Pain in left foot (ICD-10 - M79.672) 09/13/2024 Type 2 diabetes mellitus with diabetic peripheral angiopathy without gangrene (ICD-10 - E11.51) Q7(A), Q8(2B), Q9(1B,2C) 06/14/2024 Neuritis of left foot (ICD-10 - G57.92) 03/08/2024 Tinea unguium (ICD-10 - B35.1) 03/08/2024 Pain in right toe(s) (ICD-10 - M79.674) 06/14/2024 Tinea unguium (ICD-10 - B35.1) 09/13/2024 Tinea unguium (ICD-10 - B35.1) 06/14/2024 Pain in right toe(s) (ICD-10 - M79.674) 09/13/2024 Pain in right toe(s) (ICD-10 - M79.674) 03/08/2024 Pain in left toe(s) (ICD-10 - M79.675) 03/08/2024 Xerosis of skin (ICD-10 - L85.3) 06/14/2024 Pain in left toe(s) (ICD-10 - M79.675) 09/13/2024 Pain in left toe(s) (ICD-10 - M79.675) 03/08/2024 Other Patient Educated with: WOUND CARE INSTRUCTIONS.p df (WOUND CARE INSTRUCTIONS.p df) Plan Of Treatment Pending Test Test Name Order Date X ray : Foot, left 3V 06/14/2024 [id number] NAIL, 6 OR MORE 03/08/2024 34220-AEIN SKIN LESIONS, OVER 4 03/08/19 Next Appt Details Provider Name:Twila Daniel xin, 12/27/2024 12:15:00 PM, [address] [address], [place], [address], Insurance Providers Payer Name Payer Address Payer Phone Subscriber Number Group Number Insured Name Patient Relationship to Insured Coverage Start Date Coverage End Date [facility] CCA SCO Claims [address] [place] [id number] Rashaad Neff Self - patient is the insured Medical (General) History Medical History History ICD Code asthma CAD (Cholesterol) Diabetic Glaucoma High Blood Pressure Macular degeneration Psychiatric disorder blindness Surgical History Surgery Date(Month/Year) toe amputation, small toe left foot 02/26 24
--- OUTSIDE RECORDS SUMMARY | 2024-10-10 12:37 | XMS_ITS | Encounter Summary ---
Author Organization [facility] Address [address] [facility] [address] [place] [address] Phone Care Team Providers Care Wood Lathe Operator Name Role Phone Trey Love MD Primary Care Provider [phone] Encounter Details Date Type Department Care Team (Late Contact Info) Description 11/30/2021 Telephone [facility] [address] [facility] [address] [place] [address] Tulio Mcclure MD [address] [facility] [address] [place] [address] Social History Tobacco Use Types Packs/Day Years Used Date Smoking Tobacco: Every Day Cigarettes 0.5 7.2 Started: 08/11/2017 Alcohol Use Standard Drinks/Week Comments [...] Visit [facility] [address] [place] [phone] Tulio Mcclure MD [address] [address] documented as of this encounter Visit Diagnoses Not on filedocumented in this encounter Care Teams Wood Lathe Operator Relationship Specialty Start Date End Date Trey Love MD [address] [place], [place] PCP - General 02/17/20 documented as of this encounter
--- OUTSIDE RECORDS SUMMARY | 2024-10-10 12:37 | XMS_ITS | Clinical Summary ---
Author Organization [facility] Address [address] [facility] [place] [address] Phone Care Team Providers Care Technical Clerk Name Role Phone Trey Love MD Primary Care Provider Allergies Active Allergy Reactions Criticality Noted Date [...] Encounters Date Type Department Care Team Description 07/15/2024 4:30 PM EDT Office [facility] [address] [place] [address] Tulio Mcclure MD Stage 3b chronic kidney disease (HCC) (Primary Dx); Type 2 diabetes mellitus with diabetic chronic kidney disease (HCC); Renal osteodystrophy; Hypertensive renal disease from Last 3 Months Family History Medical [...] Sign Reading Time Taken Comments Blood Pressure 122/70 07/15/2024 4:48 PM EDT Pulse 74 10/16/2023 3:14 PM EDT Temperature - - Respiratory Rate - - Oxygen Saturation 99% 10/16/2023 3:14 PM EDT Inhaled Oxygen Concentration - - Weight 87.3 kg (192 lb 6.4 oz) 07/15/2024 4:48 P M EDT Height - - Body Mass Index - - Plan of Treatment Upcoming Encounters Date Type Department Care Team (Late st Contact Info) Description 01/13/2025 4:00 PM EST [facility] [address] [place] [address] Tulio Mcclure MD [address] [facility] [address] [place] [phone] Health Maintenance Due Date Last Done Comments Pneumococcal Vaccine: 50+ Ye ars (1 of 2 - PCV) 1981 Colorectal Cancer Screening: Annual FOBT 2011 Colorectal Cancer Screening: Colonoscopy 2011 Colorectal Cancer Screening: Sigmoidoscopy 2011 Diabetes: Ophthalmology Exam 08/10/2021 Diabetes: Pedal Pulse Checked 08/10/2021 Diabetes: Sensory Foot Exam 08/10/2021 Diabetes: Visual Foot Exam 08/10/2021 Diabetes: Hemoglobin A1C 09/02/2021 06/03/2021 Influenza Vaccine (#1) 2024 Hepatitis B Vaccine Aged Out No [...] 9.6 8.7 - 10.7 mg/dL eGFR Non-Afr Tanzanian 40 Hemoglobin A1C 7.9(A) 4.0 - 6.0 Triglycerides 42 40 - 160 Cholesterol 145 0 - 200 06/03/2021 us Historical Provider LAB BLOOD ORDERABLES Ann l Result from Last 3 Months or Most Recently Relevant to Health Maintenance Insurance [facility] ([id number]) [facility] ([id number]) Care Teams Technical Clerk Relationship Specialty Start Date End Date Trey Love MD [address] [place], [place] PCP - General 02/17/20
--- OUTSIDE RECORDS SUMMARY | 2024-10-10 12:37 | XMS_ITS | Encounter Summary ---
Author Organization [facility] Address [address] [facility] [address] [place] [address] Phone Care Team Providers Care Manager Reimbursement Name Role Phone Trey Love MD Primary Care Provider [phone] Encounter Details Date Type Department Care Team (Late Contact Info) Description 07/05/2022 Telephone [facility] [address] [facility] [address] [place] [address] Jackie Colunga Social History Tobacco [...] Department Care Team (Late Contact Info) Description 01/13/2025 4:00 PM EST Office [facility] [address] [place] [phone] Tulio Mcclure MD [address] [facility] [address] [place] [address] documented as of this encounter Visit Diagnoses Not on filedocumented in this encounter Care Teams Manager Reimbursement Relationship Specialty Start Date End Date Trey Love MD [address] [place], [place] PCP - General 02/17/20 documented as of this encounter
--- OUTSIDE RECORDS SUMMARY | 2024-10-10 12:37 | XMS_ITS | Encounter Summary ---
Author Organization [facility] Address [address] [facility] [address] [place] [address] Phone Care Team Providers Care E Learning Designer Name Role Phone Trey Love MD Primary Care Provider [phone] Reason for Visit * Reason Comments Med Refill Encounter Details Date Type Department Care Team (Late Contact Info) Description 07/17/2023 Refill [facility] [address] [place] [address] Tulio Mcclure MD [address] [address] Social History Tobacco Use Types [...] Visit [facility] [address] [place] [address] Tulio Mcclure MD [address] [facility] [address] [place] [address] documented as of this encounter [...] PTH, Intact (08/25/2023 9:49 AM EDT) Pathologist [facility] Parathyroid Hormone, Intact 8.7 - 77.1 pg/mL See order comments Comment: PTH-RELATED PROTEIN (PTH-RP): PTH-RP: 10 pg/mL (L) REFERENCE RANGE: 11-20 pg/mL This is a C-terminal PTH-RP assay. PTH-RP is useful in the differential diagnosis of hypercalcemia and levels may be elevated in patients with tumor-associated hypercalcemia. Elevated results may also be observed in patients with renal disease. This test was developed and its analytical performance characteristics have been determined by [employer]. It has not been cleared or approved by FDA. This assay has been validated pursuant to the CLIA regulations and is used for clinical purposes. THIS TEST PERFORMED AT: [employer]/[facility] [address] [place] [address] [phone] SOILS ENGINEER: BEBETO DA SILVA MD, PHD, GIANNI 08/25/2023 9:49 AM EDT 08/25/2023 9:49 AM EDT Narrative [place] - 09/04/2023 7:35 AM EDT [facility]ENT [facility] Tulio Mcclure MD LAB [id number] SOLICITED RESULTS Final Result Performing Organization Address [facility] Co de Phone Number [place] See order comments [place] [address] * Vitamin D 25 Hydroxy (08/25/2023 9:49 AM EDT) Vitamin D, 25-Hydroxy 42.5 >30 ng/mL See order comments Comment: Health Based Reference Values* < 20 ng/mL Deficient 20-30 ng/mL Insufficient > 30 ng/mL Sufficient *Javad JESSICA. N Engl J Med. 2007;357:266-280 Care must be taken in interpreting Vitamin D results from different laboratories and methodologies. Published data demonstrated that results from patients undergoing [...] ORDERABLES Final Re sult Performing Organization Address [facility] Co de Phone Number [place] See order comments [place] [address] * Albumin (08/25/2023 9:49 AM EDT) Albumin 4.2 3.5 - 5.0 g/dL See order comments 08/25/2023 9:49 AM EDT 08/25/2023 9:49 AM EDT Tulio Mcclure MD LAB BLOOD ORDERABLES Final Re sult Performing Organization Address [facility] Co de Phone Number [place] See order comments [place] [address] * Magnesium (08/25/2023 9:49 AM EDT) Magnesium 2.2 1.6 - 2.6 mg/dL See order comments 08/25/2023 9:49 AM EDT 08/25/2023 9:49 AM EDT Tulio Mcclure MD LAB BLOOD ORDERABLES Final Re sult Performing Organization Address [facility] Phone Number [facility] See order comments [place] [address] * Phosphorus (08/25/2023 9:49 AM EDT) Phosphorus, Serum 3.6 2.7 - 4.5 mg/dL See order comments 08/25/2023 9:49 AM EDT 08/25/2023 9:49 AM EDT Tulio Mcclure MD LAB BLOOD ORDERABLES Final Re sult Performing Organization Address [facility] Phone Number [place] See order comments [place] [address] * Calcium (08/25/2023 9:49 AM EDT) Calcium 9.9 8.4 - 10.2 mg/dL See order comments 08/25/2023 9:49 AM EDT 08/25/2023 9:49 AM EDT Tulio Mcclure MD LAB BLOOD ORDERABLES Final Re sult Performing Organization Address [facility] de Phone Number [place] See order comments [place] [address] * (ABNORMAL) Creatinine (08/25/2023 9:49 AM EDT) Creatinine Serum 1.99(H) 0.5 - 1.4 mg/dL See order comments eGFR (Calc) 34 See orde r comments Comment: NOTE: For -[place] Citizen individuals, multiply the result by 1.210. Chronic Kidney Disease: Estimated GFR < 60 mL/min/1.73m2 Severe Kidney Disease: Estimated GFR < 15 mL/min/1.73m2 08/25/2023 9:49 AM EDT 08/25/2023 9:49 AM EDT us Tulio Mcclure MD LAB BLOOD ORDERABLES Final Re sult Performing Organization Address [facility] Phone Number [place] See order comments [place] [address] * (ABNORMAL) BUN (08/25/2023 9:49 AM EDT) BUN 37(H) 9 - 16 mg/dL See order comments 08/25/2023 9:49 AM EDT 08/25/2023 9:49 AM EDT us Tulio Mcclure MD LAB BLOOD ORDERABLES Final Re sult Performing Organization Address [facility] Phone Number [place] See order comments [place] [address] * (ABNORMAL) Electrolyte panel (08/25/2023 9:49 AM [...] ORDERABLES Final Re sult Performing Organization Address [facility] de Phone Number [facility] See order comments [place] [address] * CBC and Differential (08/25/2023 9:49 AM [...] order comments [place] [address] documented in this encounter Visit Diagnoses Not on filedocumented in this encounter Care Teams E Learning Designer Relationship Specialty Start Date End Date Trey Love MD [facility] [place] [place] [address] [place] PCP - General 02/17/20 documented as of this encounter
== END 2024-10-10 11:33 | disposition home or self-care (01) ==
LOC: HO.HGS 11:01
PROVIDERS: PCP Internal Medicine; Referring Provider Internal Medicine; Visit Provider Surgery
DX: Z12.11 Encounter for screening for malignant neoplasm of colon (principal)
CPT/HCPCS: 99213

== ENCOUNTER → 2024-10-10 11:00 | Outpatient (BNVA) | payer OTHER, SELFPAY | PROVIDERS: PCP Internal Medicine; Referring Provider Internal Medicine; Visit Provider Surgery | DX: Z12.11 Encounter for screening for malignant neoplasm of colon (principal) | CPT/HCPCS: 99212 ==

== ENCOUNTER 2024-12-06 07:05 | Day surgery (SDC) | payer OTHER, SELFPAY ==
--- OUTSIDE RECORDS SUMMARY | 2023-12-22 06:30 | XMS_ITS ---
Author Organization [facility] Address [address] [place] [address] Care Team Providers Care Coal Conveyor Operator Name Role Phone Trey Love Primary Care Provider Twila Vargas [phone] REASON FOR VISIT NO SINGLE RESOURCE BOSS PW Encounters Encounter Location Date Provider Diagnosis [address] [address] 12/22/2023 Twila Holliday Plan Of Treatment Next Appt Details Provider Name:Twila lauren, 12/27/2024 12:15:00 PM, [facility] [address], [address], Progress Notes * AISHWARYA, Rashaad LDOB:1960 (64 yo M)Acc No.[id number]:12/22/2023 Progress Notes Patient: Rashaad GARCIA Provider: Lali Holliday DPM :1960 A ge:63 Y S ex:Male Date:12/22/2023 Address:[address] [place], [place] [phone] Pcp:Trey Love Subjective: * Chief Complaints: * 1 . NO SINGLE RESOURCE BOSS PW. * Medical History: Objective: * Vitals: Assessment: Plan: * Treatment: * Images: * The named appointment provid er may or may not be the originator of this progress note, and it is not deemed complete until electronically signed by the appointment provider. Sign off status: Pending * Provider: Lali Holliday DPM Date: 02/20/2023 Generated for Guille garcia/Vaughn/Irvinitting on: 0 10/23/2024 03:36 PM EDT
--- OUTSIDE RECORDS SUMMARY | 2024-10-23 17:59 | XMS_ITS | Encounter Summary ---
Author Organization [facility] Address [address] [facility] [address] [place] [address] Phone Care Team Providers Care Telegraph Printer Mechanic Name Role Phone Trey Love MD Primary Care Provider Encounter Details Date Type Department Care Team (Late Contact Info) Description 07/05/2022 Telephone [facility] [place] [address] [facility] [address] [place] [address] Jackie Colunga Social History Tobacco [...] [facility] [address] [place] [id number] Tulio Mcclure MD [address] [facility] [address] [place] [address] documented as of this encounter Visit Diagnoses Not on filedocumented in this encounter Care Teams Telegraph Printer Mechanic Relationship Specialty Start Date End Date Trey Love MD [address] [place], [place] PCP - General 02/17/20 documented as of this encounter
--- OUTSIDE RECORDS SUMMARY | 2024-10-23 17:59 | XMS_ITS | Patient Health Record ---
Author Organization [facility] [place] Address [address] [place] [address] Care Team Providers Care Mica Paster Name Role Phone Ivan Trey Primary Care Provider Twila Vargas Unavailable [phone] Allergies Allergen (clinical drug ingredient) Drug/Non Drug [...] Type 2 diabetes mellitus with peripheral angiopathy (112030102) Type 2 diabetes mellitus with diabetic peripheral angiopathy without gangrene (E11.51) Active confirmed Q7(A), Q8(2B), Q9(1B,2C) Problem Mononeuropathy of lower limb (511931272) Neuritis of left foot (G57.92) Active confirmed Problem Ischemic ulcer of left foot, limited to breakdown of skin (L97.521) Active confirmed Response to treatment Vital Signs Blood pressure diastolic 70 mm Hg 09/13/2024 Height 6ft 2in in 09/13/2024 Blood pressure systolic 115 mm Hg 09/13/2024 Weight 200 lbs 09/13/2024 BMI 25.68 kg/m2 09/13/2024 Procedures Procedure Date Ordered Date Performed Result Body Sit e 80445-MZTLUVN NAIL, 6 OR MORE 03/08/2024 N/A 50494-DNQD SKIN LESIONS, OVER 4 03/08/2024 N/A Encounters Encounter Location Date Provider Diagnosis [facility] [address] 03/08/2024 Twila Holliday Type 2 diabetes mellitus with diabetic peripheral angiopathy without gangrene E11.51 ; Dehiscence of operative wound, initial encounter T81.31XA ; Tinea unguium B35.1 ; Pain in right toe(s) M79.674 ; Pain in left toe(s) M79.675 and Xerosis of skin L85.[address] [facility] [address] 06/14/2024 Twila Holliday Pain in left foot M79.672 ; Type 2 diabetes mellitus with diabetic peripheral angiopathy without gangrene E11.51 ; Neuritis of left foot G57.92 ; Tinea unguium B35.1 ; Pain in right toe(s) M79.674 and Pain in left toe(s) M79.675 [facility] [address] [address] 09/13/2024 Twila Holliday Type 2 diabetes mellitus with diabetic peripheral angiopathy without gangrene E11.51 ; Tinea unguium B35.1 ; Pain in right toe(s) M79.674 and Pain in left toe(s) M79.[address] [address] 12/21/2023 Twila Holliday [address] [address] 02/09/2024 Twila Holliday [address] [address] 03/08/2024 Twila Holliday [address] [address] 03/08/2024 Twila Holliday Assessments Encounter Date Diagnosis [...] X ray : Foot, left 3V 06/14/2024 82013-FARDCXD NAIL, 6 OR MORE 03/08/2024 23828-TXBL SKIN LESIONS, OVER 4 03/08/19 Next Appt Details Provider Name:Twila Daniel xin, 12/27/2024 12:15:00 PM, [address] [address], [place], [address], Insurance Providers Payer Name Payer Address Payer Phone Subscriber Number Group Number Insured Name Patient Relationship to Insured Coverage Start Date Coverage End Date [facility] [employer] Claims [address] [place] [id number] Rashaad Neff Self - patient is the insured Medical (General) History Medical History History ICD Code asthma CAD (Cholesterol) Diabetic Glaucoma High Blood Pressure Macular degeneration Psychiatric disorder blindness Surgical History Surgery Date(Month/Year) toe amputation, small toe left foot 02/26 24
--- OUTSIDE RECORDS SUMMARY | 2024-10-23 17:59 | XMS_ITS | Clinical Summary ---
Author Organization [facility] Address [address] [place] [place] [address] Phone Care Team Providers Care Continuous Improvement Intern Name Role Phone Trey Love MD Primary Care Provider [phone] Allergies Active Allergy Reactions Criticality Noted Date [...] 08/05/2021 Chronic kidney disease stage 3 08/05/2021 Family History Medical History Relation Comments Hypertension [...] Visit [facility] [address] [place] [address] [place] [address] Tulio Mcclure MD [address] [facility] [address] [place] [address] Health Maintenance Due Date Last [...] 9.6 8.7 - 10.7 mg/dL eGFR Non-Afr Rwandan 40 Hemoglobin A1C 7.9(A) 4.0 - 6.0 Triglycerides 42 40 - 160 Cholesterol 145 0 - 200 06/03/2021 us Historical Provider LAB BLOOD ORDERABLES Ann l Result from Last 3 Months or Most Recently Relevant to Health Maintenance Insurance [facility] ([id number]) [facility] ([id number]) Care Teams Continuous Improvement Intern Relationship Specialty Start Date End Date Trey Love MD [facility] INTERNAL [address] [place], [place] PCP - General 02/17/20
--- OUTSIDE RECORDS SUMMARY | 2024-10-23 17:59 | XMS_ITS | Encounter Summary ---
Author Organization [facility] Address [address] [facility] [address] [place] [address] Phone Care Team Providers Care Wellhead Pumper Name Role Phone Trey Love MD Primary Care Provider [phone] Encounter Details Date Type Department Care Team (Late Contact Info) Description 11/30/2021 Telephone [facility] [place] [address] [facility] [address] [place] [address] Tulio Mcclure MD [address] [facility] [address] [place] [address] Social History Tobacco Use Types [...] Visit [facility] [address] [place] [id number] Tulio Mcclure MD [address] [address] documented as of this encounter Visit Diagnoses Not on filedocumented in this encounter Care Teams Wellhead Pumper Relationship Specialty Start Date End Date Trey Love MD [address] [place], [place] PCP - General 02/17/20 documented as of this encounter
--- OUTSIDE RECORDS SUMMARY | 2024-10-23 17:59 | XMS_ITS | Encounter Summary ---
Author Organization [facility] Address [address] [facility] [address] [place] [address] Phone Care Team Providers Care Dump Grader Name Role Phone Trey Love MD Primary Care Provider Reason for Visit * Reason Comments Med Refill Encounter Details Date Type Department Care Team (Late Contact Info) Description 07/17/2023 Refill [facility] [address] [place] [address] Tulio Mcclure MD [address] [address] Social History Tobacco Use Types [...] Visit [facility] [address] [place] [address] Tulio Mcclure MD [address] [facility] [address] [place] [address] documented as of this encounter [...] analytical performance characteristics have been determined by [employer]. It has not been cleared or approved by FDA. This assay has been validated pursuant to the CLIA regulations and is used for clinical purposes. THIS TEST PERFORMED AT: [employer] [address] [place] [address] [phone] DELIVERY CREW MEMBER: BEBETO DA SILVA MD, PHD, GIANNI 08/25/2023 9:49 AM EDT 08/25/2023 9:49 AM EDT Narrative JUAN[place] - 09/04/2023 7:35 AM EDT [facility]ENT [facility] Tulio Mcclure MD LAB [id number] SOLICITED RESULTS Final Result Performing Organization Address [facility] Co de Phone Number [place] See order comments [place] [address] * Vitamin D 25 Hydroxy (08/25/2023 9:49 [...] ORDERABLES Final Re sult Performing Organization Address [facility] Co de Phone Number [place] See order comments [place] [address] * Albumin (08/25/2023 9:49 AM EDT) Albumin 4.2 3.5 - 5.0 g/dL See order comments 08/25/2023 9:49 AM EDT 08/25/2023 9:49 AM EDT Tulio Mcclure MD LAB BLOOD ORDERABLES Final Re sult Performing Organization Address [facility] Co de Phone Number [place] See order comments [place] [address] * Magnesium (08/25/2023 9:49 AM EDT) Magnesium 2.2 1.6 - 2.6 mg/dL See order comments 08/25/2023 9:49 AM EDT 08/25/2023 9:49 AM EDT Tulio Mcclure MD LAB BLOOD ORDERABLES Final Re sult Performing Organization Address [facility] Phone Number [facility] See order comments [place] [address] * Phosphorus (08/25/2023 9:49 AM EDT) Phosphorus, Serum 3.6 2.7 - 4.5 mg/dL See order comments 08/25/2023 9:49 AM EDT 08/25/2023 9:49 AM EDT Tulio Mcclure MD LAB BLOOD ORDERABLES Final Re sult Performing Organization Address [facility] Phone Number [place] See order comments [place] [address] * Calcium (08/25/2023 9:49 AM EDT) Calcium 9.9 8.4 - 10.2 mg/dL See order comments 08/25/2023 9:49 AM EDT 08/25/2023 9:49 AM EDT Tulio Mcclure MD LAB BLOOD ORDERABLES Final Re sult Performing Organization Address [facility] de Phone Number [place] See order comments [place] [address] * (ABNORMAL) Creatinine (08/25/2023 9:49 AM EDT) Creatinine Serum 1.99(H) 0.5 - 1.4 mg/dL See order comments eGFR (Calc) 34 See orde r comments Comment: NOTE: For -[place] individuals, multiply the result by 1.210. Chronic Kidney Disease: Estimated GFR < 60 mL/min/1.73m2 Severe Kidney Disease: Estimated GFR < 15 mL/min/1.73m2 08/25/2023 9:49 AM EDT 08/25/2023 9:49 AM EDT us Tulio Mcclure MD LAB BLOOD ORDERABLES Final Re sult Performing Organization Address [facility] Phone Number [place] See order comments [place] [address] * (ABNORMAL) BUN (08/25/2023 9:49 AM EDT) BUN 37(H) 9 - 16 mg/dL See order comments 08/25/2023 9:49 AM EDT 08/25/2023 9:49 AM EDT us Tulio Mcclure MD LAB BLOOD ORDERABLES Final Re sult Performing Organization Address [facility] Phone Number [place] See order comments [place] [address] * (ABNORMAL) Electrolyte panel (08/25/2023 9:49 AM [...] ORDERABLES Final Re sult Performing Organization Address [facility] de Phone Number [facility] See order comments [place] [address] * CBC and Differential (08/25/2023 9:49 AM [...] order comments [place] [address] documented in this encounter Visit Diagnoses Not on filedocumented in this encounter Care Teams Dump Grader Relationship Specialty Start Date End Date Trey Love MD [facility] [place] [address] [place] PCP - General 02/17/20 documented as of this encounter
--- NOTE | 2024-12-03 14:34 | P.CONAN_ITS ---
Documented by User: Rhiannon Su NP 12/03/24 14:35 HPI - Anesthesia Eval Consult details Narrative: 64yo M for Colonoscopy with Possible Polypectomy s/p toe amp and ulcer debrid early 2024 with GA Smoker DM Anesthesia Pre-Procedure Meds Is the patient on any of the following meds?: GLP1/DPP4 and SGLT2 Inhib PMFSH Active Problems Active Problems: All Active Problems PAD (peripheral artery disease) (Acute) Osteomyelitis of toe of left foot (Acute) Dry gangrene (Acute) Diabetes mellitus with foot ulcer and gangrene (Acute) Low vitamin D level (Acute) Blind in both eyes (Acute) Elevated LFTs (Acute) Abnormal TSH (Acute) Annual physical exam (Acute) Lateral epicondylitis of left elbow (Acute) Asthma (Acute) Screening for colon cancer (Acute) Hepatitis C (Acute) Diabetic nephropathy associated with type 2 diabetes mellitus (Acute) Very severe proliferative diabetic retinopathy (Acute) 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 (Acute) Overweight (BMI 25.0-29.9) (Acute) Type 2 diabetes mellitus with hyperglycemia (Acute) Obesity (BMI 30-39.9) (Acute) Chronic kidney disease (Acute) Erectile dysfunction (Acute) Tobacco abuse (Acute) Hypercholesterolemia (Acute) Hypertension (Acute) Past Medical History Medical History Wears dentures Acute kidney injury Pneumonia Screening for colon cancer Impacted cerumen of both ears Cough Impacted cerumen of both ears Tobacco abuse 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 Other Mental health disorder Family history of problems with anesthesia: No Surgical History Surgical History Amputation of fifth toe of left foot (02/21/24) Hx of cataract extraction History of surgery on arm Hx of colonoscopy History of Problems with Anesthesia: No Social History Social History Household Members: None Housing: House Housing Other:: room in Boarding House Are you a primary aged or disabled care worker to a significant other at home: No Do you presently have visiting nurse or other home services: Yes ([facility] 2 X week) Alcohol intake: never Comment: counts correct Patient Tobacco Use Status: Current everyday Tobacco user Tobacco use type: Cigarette Cigarette Packs Per Day: 1 Cigarettes Per Day: 7 Years Smoked: 40 e-Cigarette/Vaping Use: Never Used Second Hand Smoke Exposure: Yes Use of substances other than those prescribed or required for medical reasons: No Advance Directives: No Advance Directives Information Provided: Yes Advance Directives Date on File: 01/18/24 service: No Current occupational status: disabled Cognitive needs: Yes (Blind stick, walker) Hearing needs: No Vision needs: Yes (blind) Meds Allergies Allergy/AdvReac Type Severity Reaction Status Date / Time pollen extracts (POLLEN) Allergy Mild SNEEZE Verified 10/10/24 11:17 PUFFY EYES Home Medications ?Medication ?Instructions ?Recorded ?Confirmed ?Last Taken ?Type fluticasone propionate 220 1 puff inhalation BID 01/1612/04/24 04/30/24 Hist ory mcg/actuation HFA aerosol inhaler Assessment and Plan Assessment Anesthesia Assessment: Chart Reviewed Final Anesthetic Review Family History of Problems with Anesthesia: No History of Problems with Anesthesia: No Documented by User: Bernardo Torres MD 12/06/24 10:05 [facility] Past Medical History Medical History Wears dentures Acute kidney injury Pneumonia Screening for colon cancer Impacted cerumen of both ears Cough Impacted cerumen of both ears Tobacco abuse 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 Other Mental health disorder Surgical History Surgical History Amputation of fifth toe of left foot (02/21/24) Hx of cataract extraction History of surgery on arm Hx of colonoscopy Social History Social History Household Members: None Housing: House Housing Other:: room in Boarding House Are you a primary aged or disabled care worker to a significant other at home: No Do you presently have visiting nurse or other home services: Yes ([facility] 2 X week) Alcohol intake: never Comment: counts correct Patient Tobacco Use Status: Current everyday Tobacco user Tobacco use type: Cigarette Cigarette Packs Per Day: 1 Cigarettes Per Day: 7 Years Smoked: 40 e-Cigarette/Vaping Use: Never Used Second Hand Smoke Exposure: Yes Use of substances other than those prescribed or required for medical reasons: No Advance Directives: No Advance Directives Information Provided: Yes Advance Directives Date on File: 01/18/24 service: No Current occupational status: disabled Cognitive needs: Yes (Blind stick, walker) Hearing needs: No Vision needs: Yes (blind) Meds Allergies Allergy/AdvReac Type Severity Reaction Status Date / Time pollen extracts (POLLEN) Allergy Mild SNEEZE Verified 10/10/24 11:17 PUFFY EYES Home Medications ?Medication ?Instructions ?Recorded ?Confirmed ?Last Taken ?Type fluticasone propionate 220 1 puff inhalation BID 01/1612/04/24 04/30/24 History mcg/actuation HFA aerosol inhaler Exam Exam Date and Time: 12/06/24 Airway Mallampati Class: II TM Dist: >3cm Neck ROM: Full Denture: Upper Heart: rrr Lungs: rll wheezes Assessment and Plan Assessment Anesthesia Assessment: Anesthesia Plan Discussed, Smoking Cess. Discussed and Chart Reviewed Final Anesthetic Review NPO: Yes ASA Class: III Final Preanesthetic Review: No Changes in Pt Med Stat, Meds/Allgs Chart Reviewed, Consent Obtained/Reviewed and Anes Risks/Benef Reviewed Patient Risk: Intermediate Procedure Risk: Low Anesthetic Plan Anesthetic Plan: MAC: Disposition: Standard PACU
[2024-12-04 08:46] VITALS: BMI 25.7
[2024-12-06] MEDS: Lactated Ringers 1,000 ML 100 ML IVCONT (08:04)
[2024-12-06 08:07] LABS: Glucose, Whole Blood 96 mg/dL (60-115)
--- NOTE | 2024-12-06 09:45 | P.HPSUR_ITS ---
Pre-Procedural Eval Section A - 24 Hr Update-Section A only Date of Service: 12/06/24 Section B - Complete if H&P > 30 days Chief Complaint: screening Details of Present Illness: Had a colonoscopy last year with poor bowel prep so follow up colonoscopy recommended this year Relevant Family History (Specify if Yes): No Relevant Social History: None Present Medications: see Short Stay Collaborative assessment Medical History: Significant History (Blind, peripheral artery disease, osteomyelitis asthma diabetes) History of Previous Operations: No relevant previous surgery Allergies: Allergies Allergy/AdvReac Type Severity Reaction Status Date / Time pollen extracts (POLLEN) Allergy Mild SNEEZE Verified 10/10/24 11:17 PUFFY EYES Review of Systems Sugical H&P ROS: Negative: Constitution, Cardiovascular, Respiratory and Gastro intestinal Exam Surgical H&P Exam: Normal: Heart, Normal: Lungs and Normal: Abdomen Plan Diagnosis/Plan: Unchanged I have reviewed the history and physical and performed a pertinent physical examination on my patient. No changes have occurred unless specified. Time Spent With Patient Time: Total time managing care of this patient today ____ minutes.
--- NOTE | 2024-12-06 10:26 | W.PM.OPN ---
Operative Note Operative Note Date of Service: 12/06/24 Narrative: Preop diagnosis: Colon cancer screening, poor bowel prep last year Postop diagnosis: 1. Small polyp, about 5 mm in the cecum, removed with cold snare 2. Suboptimal bowel prep Procedure: Colonoscopy with polypectomy using cold forceps x1 Surgeon: Dajuan Plunkett MD The patient is a 64-year-old male here for colonoscopy. He had a colonoscopy last year but he had very poor bowel prep so I had recommended repeating this after 1 year. He understood the technique of the planned procedure as well as the risks, benefits, and alternatives. . The patient was brought to the operating room and placed in left lateral decubitus position under monitored anesthesia care. A surgical time-out was done. A full digital rectal exam was done and this did not reveal any significant anal lesions. The tip of the Olympus colonoscope was gently introduced through the anal orifice advanced with insufflation all the way to the cecum. The cecum was intubated. The cecum was identified by visualization of the ileocecal valve as well as the appendiceal orifice. A small polyp, about 2 mm was seen in the cecum. This was removed using multiple bites of cold forceps.. The scope was gradually withdrawn with careful examination of the entire colonic mucosa being done with scope withdrawal. The patient had suboptimal bowel prep so we had to do a lot of irrigation and suctioning to clear the mucosa. There were multiple pools of watery stools periodically throughout the colon. Despite the suboptimal bowel prep, it was unlikely that any large lesion may have been missed. The rectum was reached and there were no lesions seen. The anal canal was unremarkable. The scope was then withdrawn completely with desufflation The patient tolerated procedure well. There were no immediate complications. In view of his suboptimal bowel prep, and depending on the path report, I will probably recommend another colonoscopy in 3 years
[2024-12-06 10:27] VITALS: BP 134/70; PULSE 63; RESP 16; TEMP 36.7; O2SAT 97
[2024-12-06 10:30] VITALS: BP 134/74; PULSE 64; RESP 16; O2SAT 97
[2024-12-06 10:45] VITALS: BP 128/72; PULSE 62; RESP 16; TEMP 36.7; O2SAT 97
== END 2024-12-06 11:28 | disposition home or self-care (01) ==
PROVIDERS: PCP Internal Medicine; Visit Provider Surgery
PROC: 0DBE8ZZ Excision of Large Intestine, Via Natural or Artificial Opening Endoscopic (ICD-10-PCS; CPT 45380; principal; 2024-12-06 10:00)
DX: Z12.11 Encounter for screening for malignant neoplasm of colon (principal); D12.0 Benign neoplasm of cecum; E11.22 Type 2 diabetes mellitus with diabetic chronic kidney disease; I12.9 Hypertensive chronic kidney disease with stage 1 through stage 4 chronic kidney disease, or unspecified chronic kidney disease; N18.30 Chronic kidney disease, stage 3 unspecified; E11.3599 Type 2 diabetes mellitus with proliferative diabetic retinopathy without macular edema, unspecified eye; E11.21 Type 2 diabetes mellitus with diabetic nephropathy; E11.65 Type 2 diabetes mellitus with hyperglycemia; Z89.422 Acquired absence of other left toe(s); E78.00 Pure hypercholesterolemia, unspecified; B19.20 Unspecified viral hepatitis C without hepatic coma; E66.3 Overweight; Z68.25 Body mass index [BMI] 25.0-25.9, adult; Z79.4 Long term (current) use of insulin; Z79.85 Long-term (current) use of injectable non-insulin antidiabetic drugs; Z79.51 Long term (current) use of inhaled steroids; Z79.899 Other long term (current) drug therapy; F17.210 Nicotine dependence, cigarettes, uncomplicated
CPT/HCPCS: 45380; 82947; 88305; J2003; J2405; J2704; J3010

== ENCOUNTER → 2024-12-06 07:05 | Outpatient (BNV) | payer OTHER, SELFPAY | PROVIDERS: PCP Internal Medicine; Visit Provider Surgery | DX: Z12.11 Encounter for screening for malignant neoplasm of colon (principal); K63.5 Polyp of colon; Z91.199 Patient's noncompliance with other medical treatment and regimen due to unspecified reason | CPT/HCPCS: 45385 ==

== ENCOUNTER 2024-12-26 15:12 | Outpatient (AMB) | payer OTHER, SELFPAY ==
--- OUTSIDE RECORDS SUMMARY | 2023-12-22 05:30 | XMS_ITS ---
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 * Medical History: Objective: * Vitals: Assessment: Plan: * Treatment: * Images: * The named appointment provid er may or may not be the originator of this progress note, and it is not deemed complete until electronically signed by the appointment provider. Sign off status: Pending * Provider: Lali Holliday DPM Date: 02/20/2023 Generated for uGille garcia/Vaughn/Kolby on: 1 02/26/2024 08:30 PM EST
[2024-12-26 15:16] VITALS: BP 156/82; PULSE 66; O2SAT 96; BMI 26.8
--- NOTE | 2024-12-26 15:16 | A.OFFPC_ITS ---
Vital Signs 12/26/24 15:16 Height 6 ft 2 in Weight 209 lb BMI 26.8 BP 156/82 H Blood Pressure Location Lt brachial Position Sitting Pulse 66 Pulse Source Pulse Oximeter Pulse Oximetry (%) 96 Oxygen Delivery Method Room Air Intake Visit Reasons: DM Allergies pollen extracts (POLLEN) Allergy (Mild, Verified 12/26/24 15:16) SNEEZE PUFFY EYES Tobacco use date assessed: 09/03/24 Dental Screening Dental Screen Date: 09/03/24 HPI DM HPI Details hit R wrist and is asking for a brace HPI Comments History of Present Illness Details History of Present Illness The patient is a 64 year old individual presenting for follow-up and management of multiple chronic medical conditions. The patient's history is significant for being a smoker with diabetes mellitus, hypertension, hypercholesterolemia, chronic kidney disease, severe proliferative diabetic retinopathy, history of hepatitis C, and asthma. The patient has a history of peripheral artery disease and underwent a left popliteal atherectomy and angioplasty in July 2024. There is also a history of osteomyelitis of the left foot. Regarding diabetes management, the patient's most recent hemoglobin A1c is 7.0%. The patient is on Farxiga 10 mg daily, Lantus 15 units daily, and semaglutide 2 mg weekly, which is the maximum dose. Metformin was previously prescribed but was discontinued due to declining kidney function, as the GFR dropped to 36. Last blood work in July 2024 indicated anemia with a hemoglobin of 12.9 and hematocrit of 38. The patient's last LDL cholesterol level was 88 in November 2023. A colonoscopy in November 2024 revealed a tubular adenoma, and a repeat procedure was recommended in three years. The patient follows with podiatry, with the last visit in September 2024, and also attends a wound center every two weeks. The patient reports new onset of right wrist soreness without a history of a fall. The patient also reports significant mental stress due to ongoing issues at home. Health Maintenance - Smoking cessation: The patient is a cu rrent smoker and has been strongly advised to quit. - Cancer Screening: The patient's last c olonoscopy in November 2024 found a tubular adenoma, with a recommendation to repeat in 3 years. - Immunizations: The patient has receive d the flu shot, shingles shot, and pneumonia shot. - The patient intends to receive a COVID -19 vaccine. - The patient's tetanus shot is due next year. - Specialist Follow-up: The patient foll ows with podiatry and attends a wound center every two weeks. Social History - Substance Use: The patient is a curren t smoker and has been advised to stop. - Stress: Reports feeling mentally stres sed due to family issues at home. - Living Situation: The patient is plann ing to move home to care for family. - Diet: The patient reports hoping to im prove diet after moving. Results - Labs: - Hemoglobin A1c (today): 7.0% - Hemoglobin/Hematocrit (July 2024): 12. 9 / 38 (consistent with anemia) - LDL Cholesterol (November 2023): 88 mg/ dL - Creatinine (July 2024): 2.1 mg/dL - GFR (July 2024): 32-36 mL/min - Procedures: - Colonoscopy (November 2024): Revealed a tubular adenoma. 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 Other Mental health disorder Social History Household Members: None Housing: House Housing Other:: room in Boarding House Are you a primary care information associate to a significant other at home: No Do you presently have visiting nurse or other home services: Yes ([facility] 2 X week) Alcohol intake: never Comment: counts correct Patient Tobacco Use Status: Current everyday Tobacco user Tobacco use type: Cigarette Cigarette Packs Per Day: 1 Cigarettes Per Day: 7 Years Smoked: 40 Packs Per Year: 40 Packs per year/per ci.00 e-Cigarette/Vaping Use: Never Used Second Hand Smoke Exposure: Yes Advance Directives Date on File: 01/18/24 service: No Current occupational status: disabled Cognitive needs: Yes (Blind stick, walker) Hearing needs: No Vision needs: Yes (blind) Questionnaire Thrive Questionnaire Date Thrive assessed: 09/03/24 BAO-7 AMB Questionnaire BAO-7 Date BAO - 7 assessed: 09/03/24 Source: Developed by Drs. Rashaad Munoz, Alisson Young, Isaias Sethi and colleagues, with an educational joanne from [employer]. Review of Systems Narrative Review of Systems - Musculoskeletal: Reports soreness in the right wrist. - Denies recent fall or trauma. - Psychiatric: Reports feeling mentally stressed. Physical exam (Primary Care) Vital Signs: Last Vital Signs Pulse 66 12/26/24 15:16 BP 156/82 H 12/26/24 15:16 Pulse Ox 96 12/26/24 15:16 Oxygen Delivery Method Room Air 12/26/24 15:16 BMI result Body Mass Index 26.8 Tobacco/Smoking Status: Tobacco use Status Tobacco use date assessed 09/03/24 12/26/24 15:18 Patient Tobacco Use Status Current everyday Tobacco 12/26/24 15:18 Tobacco use type Cigarette 12/26/24 15:18 e-Cigarette/Vaping Use Never Used 12/26/24 15:18 Thrive Assessment: Date of Thrive Assessment Date Thrive assessed 09/03/24 12/26/24 15:18 Narrative Physical Exam - Extremities: Inspection of the right wrist shows no swelling. - There is no tenderness to palpation of the wrist. - Hand strength is good bilaterally. Const General: alert; No acute distress Eyes Conjunctivae: conjunctivae normal Resp Auscultation: clear to auscultation bilaterally Cardio Rate: regular rate Rhythm: regular rhythm GI Inspection: Yes normal to inspection Extrem General: Yes normal to inspection and No edema Results AMB Hemoglobin A1c AMB Hemoglobin A1c 7.0 % Last Edit by Nuria Jackson CMA on 12/26/24 15 :46 Results Reviewed Results Reviewed: Laboratory Last Values Hgb A1c (Clinic) 7.0 % (4.0-6.0) H 12/26/24 15:19 Coding Level of Care Code Complex visit Add On G2211 Diagnoses Type 2 diabetes mellitus with hyperglycemia, with long-term current use of insulin E11.65; Z79.4 Diabetes mellitus alf insulin use: with intermodal truck driver use Essential hypertension I10 Hypertension type: essential hypertension Hypercholesterolemia E78.00 PAD (peripheral artery disease) I73.9 Overweight (BMI 25.0-29.9) E66.3 Stage 3 chronic kidney disease, unspecified whether stage 3a or 3b CKD N18.30 Chronic kidney disease stage: stage 3 (moderate) Chronic kidney disease stage 3 subtype: unspecified whether 3a or 3b Tobacco abuse Z72.0 Mild persistent asthma without complication J45.30 Asthma complication type: uncomplicated Asthma persistence: persistent Asthma severity: mild Wrist pain, right M25.531 Foot ulcer, left L97.529 Assessment & Plan Assessment & Plan (1) Type 2 diabetes mellitus with hyperglycemia: Code(s): E11.65 - Type 2 diabetes mellitus with hyperglycemia Category: Medical Qualifiers: 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 Hemoglobin A1c goal of less than 6.5. Patient is on Farxiga 10 mg once a day Lantus 15 units once a day semaglutide at 2 mg once a week (2) Hypertension: Code(s): I10 - Essential (primary) hypertension Category: Medical Qualifiers: Hypertension type: essential hypertension Qualified Code(s): I10 - Essential (primary) hypertension Plan: Continue with blood pressure medication. Decrease salt intake and exercise continue with lisinopril 10 mg once a day hydrochlorothiazide 25 mg once a day (3) Hypercholesterolemia: Code(s): E78.00 - Pure hypercholesterolemia, unspecified Category: Medical Plan: Avoid fried foods, chicken skin, eggs, butter margarine, pastries and meat. Be it pork or beef they have a lot of cholesterol atorvastatin 80 mg once a day patient does need blood work (4) PAD (peripheral artery disease): Comment: 07/24/2024 - left popliteal atherectomy and plasty Code(s): I73.9 - Peripheral vascular disease, unspecified Category: Medical Plan: Patient on clopidogrel at 75 mg once a day (5) Overweight (BMI 25.0-29.9): Code(s): E66.3 - Overweight Category: Medical Plan: Diet and exercise (6) Chronic kidney disease: Comment: Stage III Code(s): N18.9 - Chronic kidney disease, unspecified Category: Medical Qualifiers: Chronic kidney disease stage: stage 3 (moderate) Chronic kidney disease stage 3 subtype: unspecified whether 3a or 3b Qualified Code(s): N18.30 - Chronic kidney disease, stage 3 unspecified Plan: Keep well hydrated and avoid NSAIDs (7) Tobacco abuse: Code(s): Z72.0 - Tobacco use Category: Medical Plan: Patient is strongly advised to stop smoking! (8) Asthma: Code(s): J45.909 - Unspecified asthma, uncomplicated Category: Medical Qualifiers: Asthma complication type: uncomplicated Asthma persistence: persistent Asthma severity: mild Qualified Code(s): J45.30 - Mild persistent asthma, uncomplicated Plan: Patient is advised to stop smoking patient point (9) Wrist pain, right: Code(s): M25.531 - Pain in right wrist Category: Medical (10) Foot ulcer, left: Code(s): L97.529 - Non-pressure chronic ulcer of other part of left foot with unspecified severity Category: Medical Plan: wound center Plan Plan Patient was informed and verbally consented to the use of an ambient scribe for clinic note documentation during this visit. 1. Diabetes Mellitus The patient's hemoglobin A1c is 7.0%, which is above the target goal of less than 6.5%. The plan is to continue the current regimen of Farxiga 10 mg daily, Lantus 15 units daily, and semaglutide 2 mg weekly, as the patient is already on the maximum dose of semaglutide. Metformin was discontinued due to worsening renal function and will not be restarted. 2. Hypertension The patient's blood pressure is managed with lisinopril 10 mg daily and hydrochlorothiazide 25 mg daily. The plan is to continue the current medication regimen and monitor blood pressure. 3. Hypercholesterolemia The patient's cholesterol is managed with atorvastatin 80 mg daily. Blood work is needed to check current cholesterol levels as the last check was in November 2023. A lab order has been placed. 4. Chronic Kidney Disease The patient has chronic kidney disease with a GFR of 32-36 mL/min and a creatinine of 2.1 mg/dL as of July 2024. Due to the decreased kidney function, metformin has been discontinued. The patient was advised to maintain good hydration and avoid NSAIDs to protect kidney function. Blood work has been ordered to re-evaluate kidney function. 5. Peripheral Artery Disease The patient is on clopidogrel 75 mg daily for peripheral artery disease, status post left popliteal intervention. The plan is to continue this medication. 6. Tobacco Use Disorder The patient continues to smoke despite counseling. The patient was strongly advised to stop smoking. 7. Right Wrist Soreness The patient complains of right wrist soreness without a fall. Examination revealed no swelling or tenderness. The patient was provided with instructions for home care. 8. Preventive Care The patient was advised that a repeat colonoscopy is due in 3 years following the last one in November 2024. The patient's immunization status was reviewed; the patient is up to date on influenza, shingles, and pneumonia vaccines and was advised that a tetanus immunization is due next year. Discussion Notes I reviewed the patient's recent lab results, highlighting that the hemoglobin A1c is 7.0%, which is an acceptable value, though we are still aiming for a goal of less than 6.5%. I explained that metformin was discontinued because of the patient's worsening kidney function, specifically a GFR of 32-36, which makes the medication unsafe to continue. We discussed that the patient's chronic kidney disease requires careful management of blood pressure, diabetes, and cholesterol to slow its progression. I emphasized the need for updated blood work, particularly for cholesterol, as it is overdue, and confirmed an order was placed. I strongly advised the patient to stop smoking, highlighting its importance for overall health. Regarding the right wrist soreness, I reassured the patient that the exam showed no signs of significant injury like swelling or tenderness. We also reviewed health maintenance topics, including vaccination status and the need for a follow-up colonoscopy in three years. Patient Instructions - Please go to the lab to have your blood drawn. - Continue taking your current medications for diabetes (Farxiga, Lantus, semaglutide), blood pressure (lisinopril, hydrochlorothiazide), and cholesterol (atorvastatin) as prescribed. - Do not take metformin. - It is very important that you stop smoking. - Be sure to drink plenty of water and avoid taking NSAID pain relievers like ibuprofen or Aleve. - Continue your follow-up appointments with the dispatch clerk and the wound center. - Plan to get a repeat colonoscopy in 3 years. Orders: Orders AMB Hemoglobin A1c Today Z13.9 - Encounter for screening, unspecified
--- OUTSIDE RECORDS SUMMARY | 2024-12-26 20:30 | XMS_ITS | Encounter Summary ---
Author Organization [facility] Address [address] [facility] [address] [place] [address] Phone Care Team Providers Care Simplex Operator Name Role Phone Trey Love MD Primary Care Provider [phone] Encounter Details Date Type Department Care Team (Late Contact Info) Description 11/30/2021 Telephone [facility] [address] [facility] [address] [place] [address] Tulio Mcclure MD [address] [facility] [address] [place] [id number] Social History Tobacco Use Types Packs/Day Years Used Date Smoking Tobacco: Every Day Cigarettes 0.5 7.4 Started: 08/11/2017 Alcohol Use Standard Drinks/Week Comments [...] Visit [facility] [address] [place] [id number] Tulio Mcclure MD [address] [address] documented as of this encounter Visit Diagnoses Not on filedocumented in this encounter Care Teams Simplex Operator Relationship Specialty Start Date End Date Trey Love MD [address] [place], [place] PCP - General 02/17/20 documented as of this encounter
--- OUTSIDE RECORDS SUMMARY | 2024-12-26 20:30 | XMS_ITS | Encounter Summary ---
Author Organization [facility] Address [address] [facility] [address] [place] [address] Phone Care Team Providers Care Animal Nutrition Consultant Name Role Phone Trey Love MD Primary Care Provider [phone] Reason for Visit * Reason Comments Med Refill Encounter Details Date Type Department Care Team (Late Contact Info) Description 07/17/2023 Refill [facility] [address] [place] [address] Tulio Mcclure MD [address] [address] Social History Tobacco Use Types [...] Visit [facility] [address] [place] [address] Tulio Mcclure MD [address] [address] documented as of this encounter Procedures [...] Intact (08/25/2023 9:49 AM EDT) Pathologist [facility] Parathyroid Hormone, Intact 8.7 - [...] analytical performance characteristics have been determined by [employer]. It has not been cleared or approved by FDA. This assay has been validated pursuant to the CLIA regulations and is used for clinical purposes. THIS TEST PERFORMED AT: [employer] [address] [place] [address] [phone] DOCUMENT PREPARATION SPECIALIST: BEBETO DA SILVA MD, PHD, GIANNI 08/25/2023 9:49 AM EDT 08/25/2023 9:49 AM EDT Narrative [place] - 09/04/2023 7:35 AM EDT SENT TO [facility] Tulio Mcclure MD LAB BLOOD ORDERABLES Final Re sult Performing Organization Address [facility] de Phone Number [place] See order comments [place] [address] * Vitamin D 25 Hydroxy (08/25/2023 9:49 [...] ORDERABLES Final Re sult Performing Organization Address [facility] de Phone Number [place] See order comments [place] [address] * Albumin (08/25/2023 9:49 AM EDT) Albumin 4.2 3.5 - 5.0 g/dL See order comments 08/25/2023 9:49 AM EDT 08/25/2023 9:49 AM EDT us Tulio Mcclure MD LAB BLOOD ORDERABLES Final Re sult Performing Organization Address [facility]/ZIP Co de Phone Number [place]E See order comments [place] [address] * Magnesium (08/25/2023 9:49 AM EDT) Magnesium 2.2 1.6 - 2.6 mg/dL See order comments 08/25/2023 9:49 AM EDT 08/25/2023 9:49 AM EDT Tulio Mcclure MD LAB BLOOD ORDERABLES Final Re sult Performing Organization Address [facility] de Phone Number [place] See order comments [place] [address] * Phosphorus (08/25/2023 9:49 AM EDT) Phosphorus, Serum 3.6 2.7 - 4.5 mg/dL See order comments 08/25/2023 9:49 AM EDT 08/25/2023 9:49 AM EDT Tulio Mcclure MD LAB BLOOD ORDERABLES Final Re sult Performing Organization Address [facility] de Phone Number [facility] See order comments [place] [address] * Calcium (08/25/2023 9:49 AM EDT) Calcium 9.9 8.4 - 10.2 mg/dL See order comments 08/25/2023 9:49 AM EDT 08/25/2023 9:49 AM EDT Tulio Mcclure MD LAB BLOOD ORDERABLES Final Re sult Performing Organization Address [facility] de Phone Number [place] See order comments [place] [address] * (ABNORMAL) Creatinine (08/25/2023 9:49 AM EDT) Creatinine Serum 1.99(H) 0.5 - 1.4 mg/dL See order comments eGFR (Calc) 34 See orde r comments Comment: NOTE: For -[place] individuals, multiply the result by 1.210. Chronic Kidney Disease: Estimated GFR < 60 mL/min/1.73m2 Severe Kidney Disease: Estimated GFR < 15 mL/min/1.73m2 08/25/2023 9:49 AM EDT 08/25/2023 9:49 AM EDT us Tulio Mcclure MD LAB BLOOD ORDERABLES Final Re sult Performing Organization Address [facility] Phone Number [place] See order comments [place] [address] * (ABNORMAL) BUN (08/25/2023 9:49 AM EDT) BUN 37(H) 9 - 16 mg/dL See order comments 08/25/2023 9:49 AM EDT 08/25/2023 9:49 AM EDT us Tulio Mcclure MD LAB BLOOD ORDERABLES Final Re sult Performing Organization Address [facility] de Phone Number [place] See order comments [place] [address] * (ABNORMAL) Electrolyte panel (08/25/2023 9:49 AM [...] ORDERABLES Final Re sult Performing Organization Address [facility] de Phone Number [place] See order comments [place] [address] * CBC and Differential (08/25/2023 9:49 AM [...] order comments [place] [address] documented in this encounter Visit Diagnoses Not on filedocumented in this encounter Care Teams Animal Nutrition Consultant Relationship Specialty Start Date End Date Trey Love MD [facility] [address] [place] PCP - General 02/17/20 documented as of this encounter
--- OUTSIDE RECORDS SUMMARY | 2024-12-26 20:30 | XMS_ITS | Patient Health Record ---
Author Organization [facility] deann [place] Address [address] [place] [address] Care Team Providers Care Business Area Director Name Role Phone Ivan Trey Primary Care Provider Twila Vargas Unavailable [phone] Allergies Allergen (clinical drug ingredient) Drug/Non Drug [...] Type 2 diabetes mellitus with peripheral angiopathy (780550703) Type 2 diabetes mellitus with diabetic peripheral angiopathy without gangrene (E11.51) Active confirmed Q7(A), Q8(2B), Q9(1B,2C) Problem Mononeuropathy of lower limb (349201136) Neuritis of left foot (G57.92) Active confirmed Problem Ischemic ulcer of left foot, limited to breakdown of skin (L97.521) Active confirmed Response to treatment Vital Signs Blood pressure diastolic 70 mm Hg 09/13/2024 Height 6ft 2in in 09/13/2024 Blood pressure systolic 115 mm Hg 09/13/2024 Weight 200 lbs 09/13/2024 BMI 25.68 kg/m2 09/13/2024 Procedures Procedure Date Ordered Date Performed Result Body Sit e 71977-FECSKTM NAIL, 6 OR MORE 03/08/2024 N/A 46163-LOKS SKIN LESIONS, OVER 4 03/08/2024 N/A Encounters Encounter Location Date Provider Diagnosis [facility] [address] 03/08/2024 Twila Holliday Type 2 diabetes mellitus with diabetic peripheral angiopathy without gangrene E11.51 ; Dehiscence of operative wound, initial encounter T81.31XA ; Tinea unguium B35.1 ; Pain in right toe(s) M79.674 ; Pain in left toe(s) M79.675 and Xerosis of skin L85.[address] [facility] [address] 06/14/2024 Twila Holliday Pain in left foot M79.672 ; Type 2 diabetes mellitus with diabetic peripheral angiopathy without gangrene E11.51 ; Neuritis of left foot G57.92 ; Tinea unguium B35.1 ; Pain in right toe(s) M79.674 and Pain in left toe(s) M79.[address] [address] 09/13/2024 Twila Holliday Type 2 diabetes mellitus with diabetic peripheral angiopathy without gangrene E11.51 ; Tinea unguium B35.1 ; Pain in right toe(s) M79.674 and Pain in left toe(s) M79.675 [facility] [address] 02/09/2024 Twila Holliday [address] [address] 03/08/2024 Twila Holliday [address] [address] 03/08/2024 Twila Holliday Assessments Encounter Date Diagnosis [...] X ray : Foot, left 3V 06/14/2024 81045-LNRNOJY NAIL, 6 OR MORE 03/08/2024 42484-PJUO SKIN LESIONS, OVER 4 03/08/19 Next Appt Details Provider Name:Twila Daniel xin, 12/27/2024 12:15:00 PM, [address] [facility], [place] [address], [place], [address], Insurance Providers Payer Name Payer Address Payer Phone Subscriber Number Group Number Insured Name Patient Relationship to Insured Coverage Start Date Coverage End Date [facility] [employer] Claims [address] [place] [id number] Rashaad Neff Self - patient is the insured Medical (General) History Medical History History ICD Code asthma CAD (Cholesterol) Diabetic Glaucoma High Blood Pressure Macular degeneration Psychiatric disorder blindness Surgical History Surgery Date(Month/Year) toe amputation, small toe left foot 02/26 24
--- OUTSIDE RECORDS SUMMARY | 2024-12-26 20:30 | XMS_ITS | Encounter Summary ---
Author Organization [facility] Address [address] [facility] [address] [place] [address] Phone Care Team Providers Care Buzzsaw Operator Name Role Phone Trey Love MD Primary Care Provider [phone] Encounter Details Date Type Department Care Team (Late Contact Info) Description 07/05/2022 Telephone [facility] [address] [facility] [address] [place] [address] Jackie Colunga Social History Tobacco [...] Visit [facility] [address] [place] [id number] Tulio Mcclure MD [address] [facility] [address] [place] [address] documented as of this encounter Visit Diagnoses Not on filedocumented in this encounter Care Teams Buzzsaw Operator Relationship Specialty Start Date End Date Trey Love MD [address] [place], [place] PCP - General 02/17/20 documented as of this encounter
--- OUTSIDE RECORDS SUMMARY | 2024-12-26 20:30 | XMS_ITS | Clinical Summary ---
Author Organization [facility] Address [address] [place] [address] Phone Care Team Providers Care Hide Stretcher Hand Name Role Phone Trey Love MD Primary Care Provider [phone] Allergies Active Allergy Reactions Criticality Noted Date [...] 11/16/2012 Active Farxiga 10 MG tablet TAKE 1 TABLET BY MOUTH EVERY DAY 30 tablet 10 11/20/2024 Active traMADol (ULTRAM) 50 MG tablet TAKE 1 TABLET BY MOUTH EVERY 8 HOURS NEEDED 30 tablet 12/14/2024 Active Active Problems Problem Noted Date Diagnosed Date Renal osteodystrophy 10/04/2021 Stage 3b chronic kidney disease 08/10/2021 Type 2 diabetes mellitus wit h diabetic chronic kidney disease 08/10/2021 Hypertensive renal disease 08/05/2021 Chronic kidney disease stage 3 08/05/2021 Encounters Date Type Department Care Team Description 12/13/2024 Refill [facility] [address] [place] [address] Tulio Mcclure MD 11/20/2024 Refill [facility] [address] [place] [address] Tulio Mcclure MD from Last 3 Months [...] Visit [facility] [address] [place] [address] [facility] [address] Tulio Mcclure [address] [facility] [address] [place] [address] Health Maintenance Due Date Last [...] 9.6 8.7 - 10.7 mg/dL eGFR Non-Afr Cypriot 40 Hemoglobin A1C 7.9(A) 4.0 - 6.0 Triglycerides 42 40 - 160 Cholesterol 145 0 - 200 06/03/2021 Historical Provider LAB BLOOD ORDERABLES Ann l Result from Last 3 Months or Most Recently Relevant to Health Maintenance Insurance [facility] ([id number]) [facility] ([id number]) Care Teams Hide Stretcher Hand Relationship Specialty Start Date End Date Trey Love MD [facility] [address] [place], [place] PCP - General 02/17/20
== END 2024-12-26 16:47 | disposition home or self-care (01) ==
LOC: HO.HMCH 15:13
PROVIDERS: PCP Internal Medicine; Visit Provider Internal Medicine
DX: E11.65 Type 2 diabetes mellitus with hyperglycemia (principal); Z79.4 Long term (current) use of insulin; I10 Essential (primary) hypertension; E78.00 Pure hypercholesterolemia, unspecified; I73.9 Peripheral vascular disease, unspecified; E66.3 Overweight; N18.30 Chronic kidney disease, stage 3 unspecified; Z72.0 Tobacco use; J45.30 Mild persistent asthma, uncomplicated; M25.531 Pain in right wrist; L97.529 Non-pressure chronic ulcer of other part of left foot with unspecified severity; Z13.9 Encounter for screening, unspecified

== ENCOUNTER → 2024-12-26 15:12 | Outpatient (BNVA) | payer OTHER, SELFPAY | PROVIDERS: PCP Internal Medicine; Visit Provider Internal Medicine | DX: E11.65 Type 2 diabetes mellitus with hyperglycemia (principal); E11.22 Type 2 diabetes mellitus with diabetic chronic kidney disease; I12.9 Hypertensive chronic kidney disease with stage 1 through stage 4 chronic kidney disease, or unspecified chronic kidney disease; N18.30 Chronic kidney disease, stage 3 unspecified; E11.3599 Type 2 diabetes mellitus with proliferative diabetic retinopathy without macular edema, unspecified eye; E78.00 Pure hypercholesterolemia, unspecified; I73.9 Peripheral vascular disease, unspecified; E66.3 Overweight; J45.30 Mild persistent asthma, uncomplicated; M25.531 Pain in right wrist; L97.529 Non-pressure chronic ulcer of other part of left foot with unspecified severity; F17.210 Nicotine dependence, cigarettes, uncomplicated; Z68.26 Body mass index [BMI] 26.0-26.9, adult; Z79.4 Long term (current) use of insulin | CPT/HCPCS: 83036; 99212 ==